=== PATIENT | male | born 1955 | race Caucasian/White ===

== ENCOUNTER 2017-10-19 12:28 | Emergency (ER) | payer OTHER ==
--- OUTSIDE RECORDS SUMMARY | 2017-10-19 12:31 | XMS REPORT | Clinical Summary ---
:1955 Author Organization [facility] Address [address] [place] [address] Care Team Providers Name Role Phone Raudel Prasad MD Primary Care Provider Allergies No Known Allergies Current Medications Prescription Sig. Disp. Refills Start Date End Date Status entecavir Take 1 mg by mouth Active (BARACLUDE) 1 MG daily. tablet famotidine Take 20 mg by mouth Active (PEPCID) 20 MG daily. tablet gabapentin Take 100 mg by 02/01/2017 Active (NEURONTIN) 300 mouth 2 (two) times mg capsule a day. insulin detemir Inject 25 Units 02/25/2017 Active (LEVEMIR) 100 under the skin unit/mL injection daily. insulin lispro INJECT 12-20 UNITS 11/12/2016 Active 100 unit/mL SUBCUTANEOUSLY 3 insulin pen, TIMES A DAY BEFORE half-unit A MEAL metoprolol Take 12.5 mg by Active tartrate mouth 2 (two) times (LOPRESSOR) 25 mg a day. tablet acyclovir Take 400 mg by 07/26/19 Discontinued (ZOVIRAX) 400 MG mouth. 18 tablet BUMETanide Take 2 mg by mouth. 07/26/19 Discontinued (BUMEX) 2 MG 18 tablet apixaban 02/01/2017 07/26/19 Discontinued (ELIQUIS) 5 mg 18 tablet calcium Take 1 tablet by 07/26/19 Discontinued carbonate-vitamin mouth 2 (two) times 18 D3 500 mg-200 a day with meals. unit per tablet acetaminophen-cod Take 1 tablet by 30 tablet 0 05/30/2017 06/06/19 eine (TYLENOL mouth every 4 18 WITH CODEINE #3) (four) hours as 300-30 mg per needed for moderate tablet pain for up to 7 days. insulin lispro Before Meals 05/08/2016 08/08/19 Discontinued (HumaLOG) 100 150-200 2 units 18 unit/mL injection 201-250 4 units 251-300 6 units 301-350 7 units >350 8 units. tacrolimus 3mg in morning and 02/25/2017 08/08/19 Discontinued (PROGRAF) 1 MG 2mg in night. 18 capsule sertraline Take 50 mg by 02/25/2017 08/08/19 Discontinued (ZOLOFT) 50 MG mouth. 18 tablet Active Problems Not on file Encounters Date Type Specialty Care Team Description 08/01/2017 Procedure Pass General Surgery 07/30/2017 Anesthesia Event General Surgery CoriNita alonzo, PRODUCT DEVELOPMENT COORDINATOR 05/30/2017 Hospital Encounter General Surgery Ashvin Medley Acute viral hepatitis B MD [facility] without coma and without delta agent (Primary Dx) 05/30/2017 Procedure Pass General Surgery 05/30/2017 Surgery General Surgery Ashvin Medley LEFT UPPER EXTREMITY MD [facility] 1ST STAGE BVT 05/23/2017 Anesthesia Event General Surgery Nita Persaud, PRODUCT DEVELOPMENT COORDINATOR 05/22/2017 Hospital Encounter Radiology Ashvin Medley Venous insufficiency; MD [place] PVD (peripheral vascular disease) 05/22/2017 Hospital Encounter Radiology Ashvin Medley Venous insufficiency; MD [place] PVD (peripheral vascular disease) 04/11/2017 Transcribe Orders Access Ashvin Medley Venous insufficiency ( Primary Dx); MD [facility] PVD (peripheral vascular disease) after 10/18/2016 Social History Tobacco Use Types Packs/Day Years Used Date Never Assessed Smokeless Tobacco: Never Used Sex Assigned at Date Recorded Not on file Last Filed Vital Signs Vital Sign Reading Time Taken Blood Pressure 127/72 05/30/2017 12:40 PM [employer] WORK[employer] Pulse 82 05/30/2017 12:40 PM [employer]E WORKER Temperature 36.4 C (97.5 F) 05/30/2017 12:30 PM [employer]E WORKER Respiratory Rate 18 05/30/2017 12:30 PM [employer]E WORKER Oxygen Saturation 96% 05/30/2017 12:40 PM [employer] WORK[employer] Inhaled Oxygen Concentration - - Weight 94.3 kg (208 lb) 05/30/2017 8:07 AM HOE WORKER Height 172.7 cm (5' 8") 05/30/2017 8:07 AM HOE WORKER Body Mass Index 31.63 05/30/2017 8:07 AM HOE WORKER Plan of Treatment Date Type Specialty Care Team Description 10/21/2017 Surgery General Surgery Ashvin Medley LEFT UPPER EXTREMITY MD [place] SECOND STAGE BASILIC [facility] [address] [place] [address] [phone] 10/21/2017 Procedure Pass General Surgery 10/21/2017 Hospital Encounter General Surgery Ashvin Medley MD [facility] [address] [place] [address] [phone] Health Maintenance Due Date Last Done Comments COLON CANCER SCREENING 09/02/2003 SHINGRIX VACCINE (#1) 09/02/2003 ZOSTER VACCINE 2013 INFLUENZA VACCINE 01/01/2018 Procedures Procedure Name Priority Date/Time Associated Diagnosis Comments FL AN ELECTIVE Routine 05/30/2017 9:40 AM SUPRAGLOTTIC AIRWAY [employer]E WORKER Procedure Note - Anel Ponce CRNA - 05/30/2017 9:39 AM HOE WORKER Airway Date/Time: 05/30/2017 9:35 AM Performed by: ANEL PONCE Authorized by: SUSHMA JOLLY Location: OR Urgency: Elective Difficult Airway: No Resident/SAMPLE WRAPPER/AA: MARY MONTES Performed by: resident/SAMPLE WRAPPER/AA Preoxygenated with 100% O2: Yes Mask Ventilation: Not attempted Final Airway Type: Supraglottic airway Final LMA: I-Gel LMA Size: 5 Number of Attempts at Approach: 1 ANESTHESIA PERIPHERAL BLOCK Routine 05/30/2017 8:58 AM HOE WORKER Procedure Note - Sushma Jolly MD - 05/30/2017 8:57 AM HOE WORKER Peripheral Block Performed by: SUSHMA JOLLY Authorized by: SUSHMA JOLLY Patient Location: Pre-op Start Time: 05/30/2017 8:23 AM End Time: 05/30/2017 8:35 AM Reason for Block: at surgeon's request Staff: Anesthesiologist: SUSHMA JOLLY Resident/SAMPLE WRAPPER/AA: ANEL PONCE Performed by: Anesthesiologist Preprocedure: patient identified, IV checked, site and side verified, risks and benefits discussed, procedure verified, surgical consent complete, patient position confirmed, monitors and equipment checked, pre-op evaluation complete and site marked Time Out Performed: 05/30/2017 8:23 AM Peripheral Nerve Block: Patient Position: Right lateral decubitus Prep: ChloraPrep Monitoring: Blood pressure monitoring, continuous pulse oximetry and heart rate Block Type: Supraclavicular Laterality: Left Injection Technique: Single injection Procedures: ultrasound guided Ultrasound documentation: Printed/placed in chart Local Infiltration (See MAR for details): Ropivacaine Needle: Needle Type: Pajunk Needle Gauge: 21 G Needle Length: 10 cm Assessment: Injection Assessment: Visualized needle/local anesthetic surrounding nerve , visualized pertinent vascular structures and nerves, needle tip visualized at all times during injection of medication, no symptoms of intraneural/intravenous injection and intermittent aspiration during local anesthetic administration Paresthesia Pain: None Heart Rate Change: No Slow Fractionated Injection: Yes Block outcome: No apparent complications, patient comfortable and patient tolerated procedure well after 10/18/2016 Results Ammonia level (05/30/2017 10:45 AM) Component Value Ref Range Ammonia 47 16 - 60 umol/L Specimen Performing Laboratory Plasma specimen [facility] DEPARTMENT OF PATHOLOGY AND [facility] [address] [place] [id number] POC glucose (05/30/2017 10:17 AM) Component Value Ref Range POC glucose 112 (H) 65 - 99 mg/dL Comment: RN Notified Meter ID: [id number] Veterinarian: Lori Graham Specimen Performing Laboratory [facility] DEPARTMENT OF PATHOLOGY AND [facility] [address] [place] [address] Prothrombin time with INR (05/30/2017 9:28 AM)Only the most recent of2 resultswithin the time period is included. Component Value Ref Range Prothrombin time 40.8 (H) 12.0 - 15.0 sec INR 4.1 (HH) Comment: The International Normalized Ratio (INR) is a therapeutic monitoring tool for patients who are stable on oral anticoagulant therapy. An INR of 2.0-3.0 is suggested for deep vein thrombosis/pulmonary embolism. Called result with readback to Orion Owusu/OR 05/30/201709:58 Specimen Performing Laboratory Blood [facility] DEPARTMENT OF PATHOLOGY AND [facility] [address] [place] [address] POC panel 4 (05/30/2017 8:20 AM) Component Value Ref Range POC sodium 141 135 - 148 meq/L POC potassium 5.0 3.5 - 5.0 meq/L POC hematocrit 33 (L) 41 - 51 % POC glucose 106 (H) 65 - 99 mg/dL POC hemoglobin 11.2 (L) 14.0 - 18.0 g/dL Specimen Performing Laboratory Blood [facility] DEPARTMENT OF PATHOLOGY AND [facility]OMIC MEDICINE [address] [place] [address] XR Chest 1 Vw Portable (05/30/2017 8:15 AM) Specimen Performing Laboratory [facility] [address] [place] [address] Narrative EXAMINATION:XR CHEST 1 VW PORTABLE CLINICAL HISTORY:pre-op clearance COMPARISON:There are no prior comparable exams at this institution. IMPRESSION:No evidence for acute cardiopulmonary disease. Comments: Left basilar volume loss. Lungs are otherwise clear. Heart size is normal. Right IJ tunneled dialysis catheter tip projects at the right atrium. No evidence of pleural effusion or pneumothorax. [id number] Procedure Note Interface, Radiology Results Incoming - 05/30/2017 8:19 AM HOE WORKER EXAMINATION: XR CHEST 1 VW PORTABLE CLINICAL HISTORY: pre-op clearance COMPARISON: There are no prior comparable exams at this institution. IMPRESSION: No evidence for acute cardiopulmonary disease. Comments: Left basilar volume loss. Lungs are otherwise clear. Heart size is normal. Right IJ tunneled dialysis catheter tip projects at the right atrium. No evidence of pleural effusion or pneumothorax. [id number] Estimated GFR (05/30/2017 8:05 AM) Component Value Ref Range GFR Non Af Amer 5 (A) mL/min/1.73 m2 GFR Af Amer 7 (A) mL/min/1.73 m2 Comment: Chronic kidney disease: <60 mL/min/1.73m2 Kidney failure: <15 mL/min/1.73m2 The estimated GFR is calculated from the IDMS-traceable Modification of Diet in Renal Disease Equation. The accuracy of the calculation is poor when the creatinine is normal. Calculated values >90 mL/min/1.73m2 are not reported. This equation has not been validated in children (<18 years), women, the elderly (>70 years), or ethnic groups other than Caucasians and Americans. Specimen Performing Laboratory Plasma specimen [facility] DEPARTMENT OF PATHOLOGY AND GENOMIC MEDICINE [address] [place] [address] Partial thromboplastin time, activated (05/30/2017 8:05 AM) Component Value Ref Range PTT 76.0 (HH) 23.0 - 36.0 sec Comment: PTT therapeutic range for unfractionated heparin is 61.0-112.0 seconds which corresponds to Anti-Xa 0.3-0.7 U/ml. Specimen Performing Laboratory Blood [facility] DEPARTMENT OF PATHOLOGY AND [facility]OMIC [facility]ICINE [address] [place] [address] CBC with platelet and differential (05/30/2017 8:05 AM) Component Value Ref Range WBC 4.6 4.5 - 11.0 k/uL RBC 3.65 (L) 4.40 - 6.00 m/uL HGB 11.0 (L) 14.0 - 18.0 g/dL HCT 33.9 (L) 41.0 - 51.0 % MCV 92.9 82.0 - 100.0 fL MCH 30.1 27.0 - 34.0 pg MCHC 32.4 31.0 - 37.0 g/dL RDW - SD 53.6 37.0 - 55.0 fL MPV 9.4 6.9 - 11.0 fL Platelet count 133 (L) 150 - 400 K/uL Nucleated RBC 0.40 /100 WBC Neutrophils 66.4 39.0 - 69.0 % Lymphocytes 17.8 (L) 25.0 - 45.0 % Monocytes 9.8 0.0 - 10.0 % Eosinophils 4.1 0.0 - 5.0 % Basophils 0.4 0.0 - 1.0 % Immature granulocytes 1.5 (H) 0.0 - 1.0 % Specimen Performing Laboratory Blood [facility] DEPARTMENT OF PATHOLOGY AND [address] [address] Type and screen (05/30/2017 8:05 AM) Component Value Ref Range ABO grouping A Rh type POS Antibody screen (gel) NEG Specimen Performing Laboratory Blood [facility] DEPARTMENT OF PATHOLOGY AND [address] [address] Basic metabolic panel (05/30/2017 8:05 AM) Component Value Ref Range Sodium 142 135 - 148 mEq/L Potassium 5.3 (H) 3.5 - 5.0 mEq/L Chloride 103 98 - 112 mEq/L CO2 18 (L) 24 - 31 mEq/L Anion gap 21 (H) 7 - 15 mEq/L Comment: Starting from September , anion gap calculation no longer incorporates potassium. Please note the change. BUN 66 (H) 8 - 23 mg/dL Creatinine 9.7 (H) 0.7 - 1.2 mg/dL Glucose 110 (H) 65 - 99 mg/dL Calcium 8.0 (L) 8.8 - 10.2 mg/dL Specimen Performing Laboratory Plasma specimen [facility] DEPARTMENT OF PATHOLOGY AND GENOMIC MEDICINE [id number] [place] [address]. [place] [address] ECG 12 lead (05/30/2017 7:48 AM) Component Value Ref Range Ventricular rate 74 Atrial rate 74 FL interval 164 QRSD interval 86 QT interval 400 QTC interval 444 P axis 1 29 QRS axis 1 -14 T wave axis 26 EKG impression Normal sinus rhythm-Normal ECG-No previous ECGs available- Specimen Performing Laboratory [facility] [address] [place] [address] Pv ankle brachial index extremity complete (05/22/2017 6:00 PM) Specimen Performing Laboratory [facility] [address] [place] [address] Narrative EXAM: US DUPLEX ARTERIAL LOWER EXTREMITY BILATERAL, US ANKLE BRACHIAL INDEX COMPLETE HISTORY: I87.2 Venous insufficiency (chronic) (peripheral), I73.9 Peripheral vascular diseaseunspecified, I87.2PVD TECHNIQUE: Real-time as well as pulsed and color Doppler evaluation of the right common femoral, femoral, popliteal, posterior tibial, anterior tibial, and dorsalis pedis arteries are evaluated. The examination includes a full duplex Doppler scan of the blood vessels (real-time P mode grayscale, Doppler spectral analysis, and Doppler color flow imaging). Systolic pressures were obtained in the upper and lower extremities for determination of ankle-brachial indices. COMPARISON: There are no prior comparable exams at this institution. IMPRESSION: 1.Velocity gradient within the mid left anterior tibial artery, suggesting focal flow-limiting stenosis. No velocity gradients within the right lower extremity to suggest flow-limiting stenosis (given limitations of a resting exam). 2.The infrapopliteal vessels have monophasic waveforms bilaterally, possibly representing sequela of multilevel disease or calcified vessels. 3.Slightly elevated FRANK in the left lower extremity dorsalis pedis arterial distribution suggest calcified vessels. Otherwise normal bilateral ABIs. FINDINGS:Waveforms are monophasic in the infrapopliteal region. RIGHT LEG: PEAK SYSTOLIC VELOCITIES ARE FOLLOWS: COMMON FEMORAL:107 cm/s FEMORAL: Proximal: -95.85 cm/s Mid:- 94.76 cm/s Distal:-61.80 cm/s POPLITEAL: Proximal:107.99 cm/s Mid:- 106.90 cm/s Distal: - 106.87 cm/s POSTERIOR TIBIAL: Proximal: 36.73 cm/s Mid: 32.46 cm/s Distal:31.75 cm /s ANTERIOR TIBIAL: Proximal: 58.08 cm/s Mid: 81.00 cm/s Distal:97.82 cm /s DORSALIS PEDIS: 102.99 cm/s DOPPLER WAVEFORMS: COMMON FEMORAL: Triphasic FEMORAL Proximal: Triphasic Mid: Triphasic Distal: Triphasic POPLITEAL Proximal: Triphasic Mid: Triphasic Distal: Triphasic POSTERIOR TIBIAL Proximal: Monophasic Mid: Monophasic Distal: Monophasic ANTERIOR TIBIAL Proximal: Monophasic Mid: Monophasic Distal: Monophasic DORSALIS PEDIS: Monophasic Right ANKLE BRACHIAL INDEX: Posterior tibial: 1.26 Dorsalis pedis: 1.29 LEFT LEG: PEAK SYSTOLIC VELOCITIES ARE FOLLOWS: COMMON FEMORAL:-106.87 cm/s FEMORAL: Proximal: -88.76 cm/s Mid:- 95.23 cm/s Distal:-87.47 cm/s POPLITEAL: Proximal: 57.71 cm/s Mid:- 52.53 cm/s Distal: -74.53 cm/s POSTERIOR TIBIAL: Proximal: 33.88 cm/s Mid: 28.19 cm/s Distal:60.29 cm /s ANTERIOR TIBIAL: Proximal:32.46 cm/s Mid: 103.98 cm/s Distal: 86.39 cm/s DORSALIS PEDIS:86.60 cm/s DOPPLER WAVEFORMS: COMMON FEMORAL: Triphasic FEMORAL Proximal: Triphasic Mid: Triphasic Distal: Triphasic POPLITEAL Proximal: Triphasic Mid: Triphasic Distal: Triphasic POSTERIOR TIBIAL Proximal: Monophasic Mid: Monophasic Distal: Monophasic ANTERIOR TIBIAL Proximal: Monophasic Mid: Monophasic Distal: Monophasic DORSALIS PEDIS: Monophasic ANKLE BRACHIAL INDEX: Posterior tibial: 1.29 Dorsalis pedis: 1.40 [id number] FRANK Guidelines: >1.4: Calcified Vessel 0.9-1.4: Normal 0.7-0.89: Mild PAD 0.51-0.69: Moderate PAD <0.5: Severe PAD TBI Guidelines: <0.6: Normal 0.34-0.59: Mild PAD 0.12-0.34: Moderate PAD <0.11: Severe PAD Procedure Note Hm Interface, Radiology Results Incoming - 05/22/2017 6:21 PM HOE WORKER EXAM: US DUPLEX ARTERIAL LOWER EXTREMITY BILATERAL, US ANKLE BRACHIAL INDEX COMPLETE HISTORY: I87.2 Venous insufficiency (chronic) (peripheral), I73.9 Peripheral vascular disease unspecified, I87.2 PVD TECHNIQUE: Real-time as well as pulsed and color Doppler evaluation of the right common femoral, femoral, popliteal, posterior tibial, anterior tibial, and dorsalis pedis arteries are evaluated. The examination includes a full duplex Doppler scan of the blood vessels (real-time P mode grayscale, Doppler spectral analysis, and Doppler color flow imaging). Systolic pressures were obtained in the upper and lower extremities for determination of ankle-brachial indices. COMPARISON: There are no prior comparable exams at this institution. IMPRESSION: 1. Velocity gradient within the mid left anterior tibial artery, suggesting focal flow-limiting stenosis. No velocity gradients within the right lower extremity to suggest flow-limiting stenosis (given limitations of a resting exam ). 2. The infrapopliteal vessels have monophasic waveforms bilaterally, possibly representing sequela of multilevel disease or calcified vessels. 3. Slightly elevated FRANK in the left lower extremity dorsalis pedis arterial distribution suggest calcified vessels. Otherwise normal bilateral ABIs. FINDINGS: Waveforms are monophasic in the infrapopliteal region. RIGHT LEG: PEAK SYSTOLIC VELOCITIES ARE FOLLOWS: COMMON FEMORAL: 107 cm/s FEMORAL: Proximal: -95.85 cm/s Mid: -94.76 cm/s Distal: -61.80 cm/s POPLITEAL: Proximal: 107.99 cm/s Mid: -106.90 cm/s Distal: -106.87 cm/s POSTERIOR TIBIAL: Proximal: 36.73 cm/s Mid: 32.46 cm/s Distal: 31.75 cm/s ANTERIOR TIBIAL: Proximal: 58.08 cm/s Mid: 81.00 cm/s Distal: 97.82 cm/s DORSALIS PEDIS: 102.99 cm/s DOPPLER WAVEFORMS: COMMON FEMORAL: Triphasic FEMORAL Proximal: Triphasic Mid: Triphasic Distal: Triphasic POPLITEAL Proximal: Triphasic Mid: Triphasic Distal: Triphasic POSTERIOR TIBIAL Proximal: Monophasic Mid: Monophasic Distal: Monophasic ANTERIOR TIBIAL Proximal: Monophasic Mid: Monophasic Distal: Monophasic DORSALIS PEDIS: Monophasic Right ANKLE BRACHIAL INDEX: Posterior tibial: 1.26 Dorsalis pedis: 1.29 LEFT LEG: PEAK SYSTOLIC VELOCITIES ARE FOLLOWS: COMMON FEMORAL: -106.87 cm/s FEMORAL: Proximal: -88.76 cm/s Mid: -95.23 cm/s Distal: -87.47 cm/s POPLITEAL: Proximal: 57.71 cm/s Mid: -52.53 cm/s Distal: -74.53 cm/s POSTERIOR TIBIAL: Proximal: 33.88 cm/s Mid: 28.19 cm/s Distal: 60.29 cm/s ANTERIOR TIBIAL: Proximal: 32.46 cm/s Mid: 103.98 cm/s Distal: 86.39 cm/s DORSALIS PEDIS: 86.60 cm/s DOPPLER WAVEFORMS: COMMON FEMORAL: Triphasic FEMORAL Proximal: Triphasic Mid: Triphasic Distal: Triphasic POPLITEAL Proximal: Triphasic Mid: Triphasic Distal: Triphasic POSTERIOR TIBIAL Proximal: Monophasic Mid: Monophasic Distal: Monophasic ANTERIOR TIBIAL Proximal: Monophasic Mid: Monophasic Distal: Monophasic DORSALIS PEDIS: Monophasic ANKLE BRACHIAL INDEX: Posterior tibial: 1.29 Dorsalis pedis: 1.40 [id number] FRANK Guidelines: >1.4: Calcified Vessel 0.9-1.4: Normal 0.7-0.89: Mild PAD 0.51-0.69: Moderate PAD <0.5: Severe PAD TBI Guidelines: <0.6: Normal 0.34-0.59: Mild PAD 0.12-0.34: Moderate PAD <0.11: Severe PAD Pv duplex arterial lower extremity (05/22/2017 6:00 PM) Specimen Performing Laboratory [address] [address] Narrative EXAM: US DUPLEX ARTERIAL LOWER EXTREMITY BILATERAL, US ANKLE BRACHIAL INDEX COMPLETE HISTORY: I87.2 Venous insufficiency (chronic) (peripheral), I73.9 Peripheral vascular diseaseunspecified, I87.2PVD TECHNIQUE: Real-time as well as pulsed and color Doppler evaluation of the right common femoral, femoral, popliteal, posterior tibial, anterior tibial, and dorsalis pedis arteries are evaluated. The examination includes a full duplex Doppler scan of the blood vessels (real-time P mode grayscale, Doppler spectral analysis, and Doppler color flow imaging). Systolic pressures were obtained in the upper and lower extremities for determination of ankle-brachial indices. COMPARISON: There are no prior comparable exams at this institution. IMPRESSION: 1.Velocity gradient within the mid left anterior tibial artery, suggesting focal flow-limiting stenosis. No velocity gradients within the right lower extremity to suggest flow-limiting stenosis (given limitations of a resting exam). 2.The infrapopliteal vessels have monophasic waveforms bilaterally, possibly representing sequela of multilevel disease or calcified vessels. 3.Slightly elevated FRANK in the left lower extremity dorsalis pedis arterial distribution suggest calcified vessels. Otherwise normal bilateral ABIs. FINDINGS:Waveforms are monophasic in the infrapopliteal region. RIGHT LEG: PEAK SYSTOLIC VELOCITIES ARE FOLLOWS: COMMON FEMORAL:107 cm/s FEMORAL: Proximal: -95.85 cm/s Mid:- 94.76 cm/s Distal:-61.80 cm/s POPLITEAL: Proximal:107.99 cm/s Mid:- 106.90 cm/s Distal: - 106.87 cm/s POSTERIOR TIBIAL: Proximal: 36.73 cm/s Mid: 32.46 cm/s Distal:31.75 cm /s ANTERIOR TIBIAL: Proximal: 58.08 cm/s Mid: 81.00 cm/s Distal:97.82 cm /s DORSALIS PEDIS: 102.99 cm/s DOPPLER WAVEFORMS: COMMON FEMORAL: Triphasic FEMORAL Proximal: Triphasic Mid: Triphasic Distal: Triphasic POPLITEAL Proximal: Triphasic Mid: Triphasic Distal: Triphasic POSTERIOR TIBIAL Proximal: Monophasic Mid: Monophasic Distal: Monophasic ANTERIOR TIBIAL Proximal: Monophasic Mid: Monophasic Distal: Monophasic DORSALIS PEDIS: Monophasic Right ANKLE BRACHIAL INDEX: Posterior tibial: 1.26 Dorsalis pedis: 1.29 LEFT LEG: PEAK SYSTOLIC VELOCITIES ARE FOLLOWS: COMMON FEMORAL:-106.87 cm/s FEMORAL: Proximal: -88.76 cm/s Mid:- 95.23 cm/s Distal:-87.47 cm/s POPLITEAL: Proximal: 57.71 cm/s Mid:- 52.53 cm/s Distal: -74.53 cm/s POSTERIOR TIBIAL: Proximal: 33.88 cm/s Mid: 28.19 cm/s Distal:60.29 cm /s ANTERIOR TIBIAL: Proximal:32.46 cm/s Mid: 103.98 cm/s Distal: 86.39 cm/s DORSALIS PEDIS:86.60 cm/s DOPPLER WAVEFORMS: COMMON FEMORAL: Triphasic FEMORAL Proximal: Triphasic Mid: Triphasic Distal: Triphasic POPLITEAL Proximal: Triphasic Mid: Triphasic Distal: Triphasic POSTERIOR TIBIAL Proximal: Monophasic Mid: Monophasic Distal: Monophasic ANTERIOR TIBIAL Proximal: Monophasic Mid: Monophasic Distal: Monophasic DORSALIS PEDIS: Monophasic ANKLE BRACHIAL INDEX: Posterior tibial: 1.29 Dorsalis pedis: 1.40 [id number] FRANK Guidelines: >1.4: Calcified Vessel 0.9-1.4: Normal 0.7-0.89: Mild PAD 0.51-0.69: Moderate PAD <0.5: Severe PAD TBI Guidelines: <0.6: Normal 0.34-0.59: Mild PAD 0.12-0.34: Moderate PAD <0.11: Severe PAD Procedure Note Interface, Radiology Results Incoming - 05/22/2017 6:21 PM HOE WORKER EXAM: US DUPLEX ARTERIAL LOWER EXTREMITY BILATERAL, US ANKLE BRACHIAL INDEX COMPLETE HISTORY: I87.2 Venous insufficiency (chronic) (peripheral), I73.9 Peripheral vascular disease unspecified, I87.2 PVD TECHNIQUE: Real-time as well as pulsed and color Doppler evaluation of the right common femoral, femoral, popliteal, posterior tibial, anterior tibial, and dorsalis pedis arteries are evaluated. The examination includes a full duplex Doppler scan of the blood vessels (real-time P mode grayscale, Doppler spectral analysis, and Doppler color flow imaging). Systolic pressures were obtained in the upper and lower extremities for determination of ankle-brachial indices. COMPARISON: There are no prior comparable exams at this institution. IMPRESSION: 1. Velocity gradient within the mid left anterior tibial artery, suggesting focal flow-limiting stenosis. No velocity gradients within the right lower extremity to suggest flow-limiting stenosis (given limitations of a resting exam ). 2. The infrapopliteal vessels have monophasic waveforms bilaterally, possibly representing sequela of multilevel disease or calcified vessels. 3. Slightly elevated FRANK in the left lower extremity dorsalis pedis arterial distribution suggest calcified vessels. Otherwise normal bilateral ABIs. FINDINGS: Waveforms are monophasic in the infrapopliteal region. RIGHT LEG: PEAK SYSTOLIC VELOCITIES ARE FOLLOWS: COMMON FEMORAL: 107 cm/s FEMORAL: Proximal: -95.85 cm/s Mid: -94.76 cm/s Distal: -61.80 cm/s POPLITEAL: Proximal: 107.99 cm/s Mid: -106.90 cm/s Distal: -106.87 cm/s POSTERIOR TIBIAL: Proximal: 36.73 cm/s Mid: 32.46 cm/s Distal: 31.75 cm/s ANTERIOR TIBIAL: Proximal: 58.08 cm/s Mid: 81.00 cm/s Distal: 97.82 cm/s DORSALIS PEDIS: 102.99 cm/s DOPPLER WAVEFORMS: COMMON FEMORAL: Triphasic FEMORAL Proximal: Triphasic Mid: Triphasic Distal: Triphasic POPLITEAL Proximal: Triphasic Mid: Triphasic Distal: Triphasic POSTERIOR TIBIAL Proximal: Monophasic Mid: Monophasic Distal: Monophasic ANTERIOR TIBIAL Proximal: Monophasic Mid: Monophasic Distal: Monophasic DORSALIS PEDIS: Monophasic Right ANKLE BRACHIAL INDEX: Posterior tibial: 1.26 Dorsalis pedis: 1.29 LEFT LEG: PEAK SYSTOLIC VELOCITIES ARE FOLLOWS: COMMON FEMORAL: -106.87 cm/s FEMORAL: Proximal: -88.76 cm/s Mid: -95.23 cm/s Distal: -87.47 cm/s POPLITEAL: Proximal: 57.71 cm/s Mid: -52.53 cm/s Distal: -74.53 cm/s POSTERIOR TIBIAL: Proximal: 33.88 cm/s Mid: 28.19 cm/s Distal: 60.29 cm/s ANTERIOR TIBIAL: Proximal: 32.46 cm/s Mid: 103.98 cm/s Distal: 86.39 cm/s DORSALIS PEDIS: 86.60 cm/s DOPPLER WAVEFORMS: COMMON FEMORAL: Triphasic FEMORAL Proximal: Triphasic Mid: Triphasic Distal: Triphasic POPLITEAL Proximal: Triphasic Mid: Triphasic Distal: Triphasic POSTERIOR TIBIAL Proximal: Monophasic Mid: Monophasic Distal: Monophasic ANTERIOR TIBIAL Proximal: Monophasic Mid: Monophasic Distal: Monophasic DORSALIS PEDIS: Monophasic ANKLE BRACHIAL INDEX: Posterior tibial: 1.29 Dorsalis pedis: 1.40 [facility] [id number] FRANK Guidelines: >1.4: Calcified Vessel 0.9-1.4: Normal 0.7-0.89: Mild PAD 0.51-0.69: Moderate PAD <0.5: Severe PAD TBI Guidelines: <0.6: Normal 0.34-0.59: Mild PAD 0.12-0.34: Moderate PAD <0.11: Severe PAD after 10/18/2016 Insurance Payer Benefit Plan / Group Subscriber ID Type Phone Address MEDICARE MEDICARE PART A AND B xxxxxxxxxx Medicare [place], [place] MEDICAID MEDICAID xxxxxxxxx Medicaid Home: [address] [phone] [place], [place] [phone]
--- NOTE | 2017-10-19 13:36 | RAD REPORT ---
EXAM DESCRIPTION: CT - Head Brain Wo Cont - 10/19/2017 1:18 pm CLINICAL HISTORY: Fall, head trauma prior head injury COMPARISON: CT study July 29 TECHNIQUE: Axial 5 mm thick images of the head were obtained without IV contrast. All CT scans are performed using dose optimization technique as appropriate and may include automated exposure control or mA/KV adjustment according to patient size. FINDINGS: No epidural or subdural hematoma identified. Patient has a left frontal craniotomy defect from prior acute and chronic subdural evacuation. There is a remnant 3.7 x 1.5 centimeter fluid colle ction at the site of prior subdural. Physiologic and arterial calcifications are present. Underlying atrophy and chronic ischemic changes are present. No acute cortical based infarction. No abnormal ext ra-axial fluid collections. Ventricles are in proportion to atrophy. Mastoid air cells and visualized portions of the paranasal sinuses are clear. No acute bony findings. IMPRESSION: No acute hemorrhage. A 3 centimeter chronic subdural hematoma or subdural hygroma is present at the anterior left frontal site of prior subdural hematoma evacuation. Overlying bone postsurgical change. No active process at this site. Underlying moderate atrophy and chronic ischemic change.
--- NOTE | 2017-10-19 14:15 | ER ---
Nurse's Notes [facility] Name: Archie Nazario Age: 62 yrs Sex: Male : 1955 Arrival Date: 10/19/2017 Time: 12:29 Bed 15 Private MD: Diagnosis: Contusion of other part of head;Nontraumatic chronic subdural hemorrhage Presentation: 10/19 12:33 Presenting complaint: Patient states: I rolled off of my bed and hit the left la1 side of my face on night, pt denies LOC. Transition of care: patient was not received from another setting of care. Onset of symptoms was October 19, 2017. Initial Sepsis Screen: Does the patient meet any 2 criteria? No. Patient's initial sepsis screen is negative. Does the patient have a suspected source of infection? No. Patient's initial sepsis screen is negative. Care prior to arrival: None. 12:33 Method Of Arrival: Ambulatory la1 12:33 Acuity: JAZMINE 4 la1 Historical: - Allergies: 12:34 No Known Allergies; la1 - Home Meds: 12:50 Bumex Oral 2 mg [Active]; calcium citrate 500 mg Oral tab [Active]; entecavir 1 mg Oral rb1 tab 1 tab once daily [Active]; famotidine 20 mg Oral tab 1 tab once daily [Active]; Levemir 50 units am, 30 units pm subcutaneous soln [Active]; metolazone 2.5 mg Oral tab 1 tab once daily [Active]; mirtazapine 15 mg Oral tab 1 tab once daily [Active]; prednisone 5 mg Oral tab once daily [Active]; Rapamune 1 mg Oral tab 2 tabs once daily [Active]; Renvela 800 mg Oral tab 1 tab 3 times per day [Active]; tamsulosin 0.4 mg Oral cp24 1 cap once daily [Active]; ursodeoxycholic acid 300 mg twice a day [Active]; - PMHx: 12:34 Diabetes - IDDM; hepatic cancer; Hypertension; kidney failure; Dialysis; la1 - PSHx: 12:50 dialysis catheter left upper arm; head; liver transplant; rb1 - Immunization history:: Adult Immunizations up to date. - Social history:: Smoking status: Patient/guardian denies using tobacco. - Immunization history: Last tetanus immunization: - up to date. Screenin:50 Abuse screen: Denies threats or abuse. Denies injuries from another. Tuberculosis ch screening: No symptoms or risk factors identified. 12:53 Nutritional screening: No deficits noted. Fall Risk Fall in past 12 months (25 points). ch No secondary diagnosis (0 pts). Primary Survey: 12:50 A: Airway: patent. Breathing/Chest: Respiratory pattern: regular, Respiratory effort: ch spontaneous, unlabored. Circulation: Heart tones present. Pulses: palpable bilateral radial, brachial, femoral, popliteal, posterior tibial and and dorsalis pedis arteries.. Skin color: pink, Skin temperature: warm, dry. Disability Alert. Secondary Survey: 12:50 HEENT: Face Other pt has purple bruising to L eye, c/o pain to L sinus area, and ch between eye and ear. slight pain in ear. Gastrointestinal: No deficits noted. : No deficits noted. Musculoskeletal: No signs and/or symptoms reported regarding the musculoskeletal system. Circulation, motion, and sensation intact. Assessment: 12:50 General: Appears in no apparent distress. comfortable, Behavior is calm, cooperative, ch appropriate for age. Pain: Complains of pain in forehead, left ear, left eye and left sikhism Pain currently is 7 out of 10 on a pain scale. Pain began suddenly, 2-3 days ago. Neuro: No deficits noted. Respiratory: Airway is patent Respiratory effort is even, unlabored, Breath sounds are clear bilaterally. GI: No signs and/or symptoms were reported involving the gastrointestinal system. 12:53 Reassessment: Patient appears in no apparent distress at this time. Patient and/or ch family updated on plan of care and expected duration. Pain level reassessed. Patient is alert, oriented x 3, equal unlabored respirations, skin warm/dry/pink. 13:13 Reassessment: pt. went to CT. rb1 13:30 Reassessment: Patient appears in no apparent distress at this time. Patient and/or rb1 family updated on plan of care and expected duration. Pain level reassessed. Patient is alert, oriented x 3, equal unlabored respirations, skin warm/dry/pink. 14:22 Reassessment: Patient appears in no apparent distress at this time. No changes from rb1 previously documented assessment. Vital Signs: 12:34 BP 93 / 63; Pulse 89; Resp 18; Temp 97.5(TE); Pulse Ox 100% on R/A; Weight 77.11 kg; la1 Height 5 ft. 10 in. (177.80 cm); 13:30 BP 96 / 50; Pulse 86; Resp 17; Pulse Ox 98% on R/A; rb1 14:30 BP 96 / 61; Pulse 84; Resp 19; Pulse Ox 99% on R/A; rb1 12:34 Body Mass Index 24.39 (77.11 kg, 177.80 cm) la1 Jenna Coma Score: 12:50 Eye Response: spontaneous(4). Verbal Response: oriented(5). Motor Response: obeys ch commands(6). Total: 15. 13:48 Eye Response: spontaneous(4). Verbal Response: oriented(5). Motor Response: obeys gs commands(6). Total: 15. Trauma Score (Adult): 12:50 Eye Response: spontaneous(1); Verbal Response: oriented(1); Motor Response: obeys ch commands(2); Systolic BP: > 89 mm Hg(4); Respiratory Rate: 10 to 29 per min(4); Jenna Score: 15; Trauma Score: 12 ED Course: 12:29 Patient arrived in ED. sb2 12:34 Triage completed. la1 12:35 Arm band placed on left wrist. la1 12:41 William Martinez MD is Attending Physician. gs 12:50 Patient has correct armband on for positive identification. ch 12:50 Patient maintains SpO2 saturation greater than 95% on room air. Thermoregulation: warm ch blanket given to patient. 12:53 No apparent distress. Resting quietly. ch 12:53 Pulse ox on. NIBP on. ch 12:53 No provider procedures requiring assistance completed. Patient did not have IV access ch during this emergency room visit. 13:03 Jada Antoine, RN is Primary Nurse. rb1 13:18 CT Head Brain wo Cont In Process Unspecified. EDMS Administered Medications: No medications were administered Intake: 12:50 PO: 0ml; Total: 0ml. ch Outcome: 14:15 Discharge ordered by . gs 14:38 Discharged to home ambulatory. rb1 14:38 Condition: stable 14:38 Discharge instructions given to patient, Instructed on discharge instructions, follow up and referral plans. Demonstrated understanding of instructions, follow-up care, Prescriptions given X none 14:38 Patient left the ED. rb1 Signatures: Dispatcher [employer] EDHiwot Salgado RN RN ch Jay Nichols RN RN la1 Jada Antoine RN RN rb1 William Martinez MD MD gs Billeau, Sheri sb2 Corrections: (The following items were deleted from the chart) 14:40 14:39 Patient left the ED. rb1 rb1
--- NOTE | 2017-10-19 14:15 | EDPHYS ---
Physician Documentation [facility] Name: Archie Nazario Age: 62 yrs Sex: Male : 1955 Arrival Date: 10/19/2017 Time: 12:29 Bed 15 Private MD: ED Physician William Martinez HPI: 10/19 13:48 This 62 yrs old Male presents to ER via Ambulatory with complaints of Fall gs Injury. 13:48 The patient or guardian reports injury. The complaints affect the left eye. Onset: The gs symptoms/episode began/occurred 2 day(s) ago. Associated signs and symptoms: Loss of consciousness: This patient did not experience any loss of consciousness. Severity of symptoms: At their worst the symptoms were moderate, in the emergency department the symptoms are unchanged. The patient has experienced a previous episode. Historical: - Allergies: 12:34 No Known Allergies; la1 - Home Meds: 12:50 Bumex Oral 2 mg [Active]; calcium citrate 500 mg Oral tab [Active]; entecavir 1 mg Oral rb1 tab 1 tab once daily [Active]; famotidine 20 mg Oral tab 1 tab once daily [Active]; Levemir 50 units am, 30 units pm subcutaneous soln [Active]; metolazone 2.5 mg Oral tab 1 tab once daily [Active]; mirtazapine 15 mg Oral tab 1 tab once daily [Active]; prednisone 5 mg Oral tab once daily [Active]; Rapamune 1 mg Oral tab 2 tabs once daily [Active]; Renvela 800 mg Oral tab 1 tab 3 times per day [Active]; tamsulosin 0.4 mg Oral cp24 1 cap once daily [Active]; ursodeoxycholic acid 300 mg twice a day [Active]; - PMHx: 12:34 Diabetes - IDDM; hepatic cancer; Hypertension; kidney failure; Dialysis; la1 - PSHx: 12:50 dialysis catheter left upper arm; head; liver transplant; rb1 - Immunization history:: Adult Immunizations up to date. - Social history:: Smoking status: Patient/guardian denies using tobacco. - Immunization history: Last tetanus immunization: - up to date. ROS: 13:48 All other systems are negative. gs Exam: 13:48 Head/Face: Normocephalic, atraumatic. ENT: Nares patent. No nasal discharge, no gs septal abnormalities noted. Tympanic membranes are normal and external auditory canals are clear. Oropharynx with no redness, swelling, or masses, exudates, or evidence of obstruction, uvula midline. Mucous membranes moist. Neck: Trachea midline, no thyromegaly or masses palpated, and no cervical lymphadenopathy. Supple, full range of motion without nuchal rigidity, or vertebral point tenderness. No Meningismus. Chest/axilla: Normal chest wall appearance and motion. Nontender with no deformity. No lesions are appreciated. Cardiovascular: Regular rate and rhythm with a normal S1 and S2. No gallops, murmurs, or rubs. Normal PMI, no JVD. No pulse deficits. Respiratory: Lungs have equal breath sounds bilaterally, clear to auscultation and percussion. No rales, rhonchi or wheezes noted. No increased work of breathing, no retractions or nasal flaring. Abdomen/GI: Soft, non-tender, with normal bowel sounds. No distension or tympany. No guarding or rebound. No evidence of tenderness throughout. Back: No spinal tenderness. No costovertebral tenderness. Full range of motion. Skin: Warm, dry with normal turgor. Normal color with no rashes, no lesions, and no evidence of cellulitis. MS/ Extremity: Pulses equal, no cyanosis. Neurovascular intact. Full, normal range of motion. Neuro: Awake and alert, GCS 15, oriented to person, place, time, and situation. Cranial nerves II-XII grossly intact. Motor strength 5/5 in all extremities. Sensory grossly intact. Cerebellar exam normal. Normal gait. 13:48 Constitutional: The patient appears alert, awake. 13:48 Eyes: Extraocular movements: no acute changes, Conjunctiva: normal. 14:03 Head/face: Noted is ecchymosis, that is mild, of the left eye. Vital Signs: 12:34 BP 93 / 63; Pulse 89; Resp 18; Temp 97.5(TE); Pulse Ox 100% on R/A; Weight 77.11 kg; la1 Height 5 ft. 10 in. (177.80 cm); 13:30 BP 96 / 50; Pulse 86; Resp 17; Pulse Ox 98% on R/A; rb1 14:30 BP 96 / 61; Pulse 84; Resp 19; Pulse Ox 99% on R/A; rb1 12:34 Body Mass Index 24.39 (77.11 kg, 177.80 cm) la1 Jenna Coma Score: 12:50 Eye Response: spontaneous(4). Verbal Response: oriented(5). Motor Response: obeys commands(6). Total: 15. 13:48 Eye Response: spontaneous(4). Verbal Response: oriented(5). Motor Response: obeys gs commands(6). Total: 15. Trauma Score (Adult): 12:50 Eye Response: spontaneous(1); Verbal Response: oriented(1); Motor Response: obeys ch commands(2); Systolic BP: > 89 mm Hg(4); Respiratory Rate: 10 to 29 per min(4); Jenna Score: 15; Trauma Score: 12 MDM: 12:58 Patient medically screened. 14:03 Differential diagnosis: Contusion of Hematoma on Intracranial bleed-. Data reviewed: vital signs, nurses notes. Response to treatment: the patient's symptoms have markedly improved after treatment, and as a result, I will discharge patient. 14:06 Counseling: I had a detailed discussion with the patient and/or guardian regarding: the gs historical points, exam findings, and any diagnostic results supporting the discharge/admit diagnosis, radiology results. 10/19 13:01 Order name: CT Head Brain wo Cont; Complete Time: 13:54 Administered Medications: No medications were administered Disposition: 10/19/17 14:15 Discharged to Home. Impression: Contusion of other part of head, Nontraumatic chronic subdural hemorrhage. - Condition is Stable. - Discharge Instructions: Head Injury, Adult, Intracranial Hemorrhage. - Medication Reconciliation Form, Thank You Letter, Antibiotic Education, Prescription Opioid Use form. - Follow up: Private Physician; When: 2 - 3 days; Reason: Re-evaluation by your physician. Signatures: Dispatcher [employer] EDMS Hiwot Malave RN RN ch Attema, Lee, RN RN la1 Jada Antoine RN RN rb1 William Martinez MD MD Corrections: (The following items were deleted from the chart) 14:39 14:15 10/19/2017 14:15 Discharged to Home. Impression: Contusion of other part of head; rb1 Nontraumatic chronic subdural hemorrhage. Condition is Stable. Forms are Medication Reconciliation Form, Thank You Letter, Antibiotic Education, Prescription Opioid Use. Follow up: Private Physician; When: 2 - 3 days; Reason: Re-evaluation by your physician. gs
[2017-10-19 14:42] VITALS: TEMP 97.5
[2017-10-19 14:45] VITALS: BP 96/61; O2SAT 99
== END 2017-10-19 14:39 | disposition home or self-care (01) ==
LOC: ER 12:28
DX: I62.03 Nontraumatic chronic subdural hemorrhage (principal); W19.XXXA Unspecified fall, initial encounter; Y93.9 Activity, unspecified; Y92.9 Unspecified place or not applicable; N19 Unspecified kidney failure; I10 Essential (primary) hypertension; E11.9 Type 2 diabetes mellitus without complications; Z79.4 Long term (current) use of insulin; Z99.2 Dependence on renal dialysis; Z94.4 Liver transplant status
CPT/HCPCS: 70450; 99284

== ENCOUNTER 2017-11-04 20:14 | Emergency (ER) | payer OTHER ==
--- OUTSIDE RECORDS SUMMARY | 2017-11-04 20:16 | XMS REPORT | Clinical Summary ---
:1955 Author Organization [employer] Address [address] [place] [address] Care Team Providers Name Role Phone Fan Dugan MD Primary Care Provider Allergies No Known Allergies Current Medications Prescription Sig. Disp. Refills Start Date End Date Status entecavir Take 0.5 mg by Active (BARACLUDE) 1 MG mouth once a week. tablet Saturday famotidine Take 20 mg by mouth Active (PEPCID) 20 MG daily. tablet gabapentin Take 100 mg by 02/01/2017 Active (NEURONTIN) 100 mouth 2 (two) times mg capsule a day. insulin detemir Inject 25 Units 02/25/2017 Active (LEVEMIR) 100 under the skin unit/mL injection daily. insulin lispro INJECT 12-20 UNITS 11/12/2016 Active 100 unit/mL SUBCUTANEOUSLY 3 insulin pen, TIMES A DAY BEFORE half-unit A MEAL sevelamer Take 800 mg by Active (RENVELA) 800 mg mouth 3 (three) tablet times a day with meals. sertraline Take 50 mg by mouth Active (ZOLOFT) 50 MG every evening. tablet tacrolimus Take 2 mg by mouth Active (PROGRAF) 1 MG every 12 (twelve) capsule hours. ursodiol Take 300 mg by Active (ACTIGALL) 300 mg mouth 2 (two) times capsule a day. ALPRAZolam Take 0.5 mg by Active (XANAX) 0.5 MG mouth nightly as tablet needed for anxiety. On Dialysis days (Tues., Thurs., Sat.) acyclovir Take 400 mg by 07/26/19 Discontinued (ZOVIRAX) 400 MG mouth. 18 tablet BUMETanide Take 2 mg by mouth. 07/26/19 Discontinued (BUMEX) 2 MG 18 tablet apixaban 02/01/2017 07/26/19 Discontinued (ELIQUIS) 5 mg 18 tablet metoprolol Take 12.5 mg by 10/22/19 Discontinued tartrate mouth 2 (two) times 18 (LOPRESSOR) 25 mg a day. tablet calcium Take 1 tablet by 07/26/19 [...] Discontinued (ZOLOFT) 50 MG mouth. 18 tablet traMADol (ULTRAM) Take 50 mg by mouth 10/23/19 Discontinued 50 mg tablet every 6 (six) hours 18 as needed for moderate pain. acetaminophen-cod Take 1 tablet by 14 tablet 0 10/22/2017 10/30/19 eine (TYLENOL mouth 3 (three) 18 WITH CODEINE #3) times a day as 300-30 mg per needed for moderate tablet pain for up to 7 days. Active Problems Problem Noted Date ESRD (end stage renal disease) on dialysis 10/21/2017 Encounters Date Type Specialty Care Team Description 10/22/2017 Patient Outreach Quality Roberta Glez RN 10/21/2017 - Hospital Encounter General Internal Jasmyne, ESRD (end stage renal 10/22/2017 Medicine Ashvin Steele MD disease) on dialysis Fan Dugan (Primary Dx) MD Mala 10/21/2017 Anesthesia Event General Surgery Clara Cramer CRNA 10/21/2017 Procedure Pass General Surgery 10/21/2017 Surgery General Surgery Jasmyne, LEFT UPPER EXTREMITY Ashvin Steele MD SECOND STAGE BASILIC STAGE TRANSPOSITION 08/01/2017 Procedure Pass General Surgery 07/30/2017 Anesthesia Event General Surgery CoriNita alonzo, SIX SIGMA PROJECT MANAGER 05/30/2017 Hospital Encounter General Surgery Jasmyne, Acute viral hepatitis Ashvin Steele MD B without coma and without delta agent (Primary Dx) 05/30/2017 Procedure Pass General Surgery 05/30/2017 Surgery General Surgery Jasmyne, LEFT UPPER EXTREMITY Ashvin Steele MD 1ST STAGE BVT 05/23/2017 Anesthesia Event General Surgery CoriNita alonzo, SIX SIGMA PROJECT MANAGER 05/22/2017 Hospital Encounter Radiology Jasmyne, Venous insufficiency; Ashvin Steele MD PVD (peripheral vascular disease) 05/22/2017 Hospital Encounter Radiology Jasmyne, Venous insufficiency; Ashvin Steele MD PVD (peripheral vascular disease) 04/11/2017 Transcribe Orders Access Jasmyne, Venous insufficiency ( Primary Dx); Ashvin Steele MD PVD (peripheral vascular disease) after 11/03/2016 Social History Tobacco Use Types Packs/Day Years Used Date Former Smoker 15 Quit: 2016 Smokeless Tobacco: Never Used Alcohol Use Drinks/Week oz/Week Comments No Sex Assigned at Date Recorded Not on file Last Filed Vital Signs Vital Sign Reading Time Taken Blood Pressure 116/64 10/22/2017 2:00 PM CDT Pulse 82 10/22/2017 2:00 PM CDT Temperature 36.2 C (97.2 F) 10/22/2017 7:41 AM CDT Respiratory Rate 16 10/22/2017 2:00 PM CDT Oxygen Saturation 99% 10/22/2017 9:20 AM CDT Inhaled Oxygen Concentration - - Weight 80.8 kg (178 lb 3.2 oz) 10/22/2017 5:08 AM CDT Height 175.3 cm (5' 9") 10/21/2017 9:00 PM CDT Body Mass Index 26.32 10/22/2017 5:08 AM CDT Plan of Treatment Health Maintenance Due Date Last Done Comments COLON CANCER SCREENING 09/02/2003 SHINGRIX VACCINE (#1) 09/02/2003 ZOSTER VACCINE 2013 INFLUENZA VACCINE 01/01/2018 Implants Implanted Type Area Auto Body Service Mechanic Device Expiration Model / Identifier Date Serial / Lot Kit Selnt Fibrin Humn Hmsts Surgy 5ml Evicel - [id number] Surgical Left: ETHICON US-EH 09/30/2018 [id number] / Implanted: 10/21/2017 (Quantity not on file) Implants; Arm, / Expanders; Upper [id number] Extenders; Surgical Wires Drain Wnd Chnl 15fr 16in Rnd Hbls Fl-Flut W/ 16in Trocar - [id number] Surgical N/A: N/A [employer] 07/03/2022 [id number] / Implanted: 10/21/2017 (Quantity not on file) Implants; DIVISION / Expanders; [id number] Extenders; Surgical Wires Procedures Procedure Name Priority Date/Time Associated Diagnosis Comments HEMODIALYSIS Routine 10/22/2017 10:45 AM CDT ID AN ELECTIVE Routine 10/21/2017 3:00 PM SUPRAGLOTTIC AIRWAY CDT Procedure Note - Bryon Barragan MD - 10/21/2017 3:00 PM CDT Airway Performed by: BRYON BARRAGAN Authorized by: BRYON BARRAGAN Location: OR Urgency: Elective Difficult Airway: No Anesthesiologist: BRYON BARRAGAN Resident/TEACHER OF THE DEAF/AA: JUAN CARLOS ALLISON Performed by: resident/TEACHER OF THE DEAF/AA Preoxygenated with 100% O2: Yes C-spine Precautions Maintained Throughout: Yes Mask Ventilation: Not attempted Final Airway Type: Supraglottic airway Final LMA: I-Gel LMA Size: 5 Number of Attempts at Approach: 1 ID AN ELECTIVE SUPRAGLOTTIC AIRWAY Routine 05/30/2017 9:40 AM SOCIAL AND HUMAN SERVICES ASSISTANT Procedure Note - Anel Ponce CRNA - 05/30/2017 9:39 AM SOCIAL AND HUMAN SERVICES ASSISTANT Airway Date/Time: 05/30/2017 9:35 AM Performed by: ANEL PONCE Authorized by: SUSHMA POWELL Location: OR Urgency: Elective Difficult Airway: No Resident/TEACHER OF THE DEAF/AA: MARY CRAMER Performed by: resident/TEACHER OF THE DEAF/AA Preoxygenated with 100% O2: Yes Mask Ventilation: Not attempted Final Airway Type: Supraglottic airway Final LMA: I-Gel LMA Size: 5 Number of Attempts at Approach: 1 ANESTHESIA PERIPHERAL BLOCK Routine 05/30/2017 8:58 AM SOCIAL AND HUMAN SERVICES ASSISTANT Procedure Note - Sushma Powell MD - 05/30/2017 8:57 AM SOCIAL AND HUMAN SERVICES ASSISTANT Peripheral Block Performed by: SUSHMA POWELL Authorized by: SUSHMA POWELL Patient Location: Pre-op Start Time: 05/30/2017 8:23 AM End Time: 05/30/2017 8:35 AM Reason for Block: at surgeon's request Staff: Anesthesiologist: SUSHMA POWELL Resident/TEACHER OF THE DEAF/AA: ANEL PONCE Performed by: Anesthesiologist Preprocedure: patient [...] comfortable and patient tolerated procedure well after 11/03/2016 Results Hepatitis B surface Ab, quantitative (10/22/2017 12:00 PM) Component Value Ref Range Hepatitis B surface Ab 5.44 IU/L Comment: The anti-HBs is less than 10 IU/L and is therefore negative. There is no evidence of recovery from hepatitis B infection or evidence of antibody response to HBV vaccination. An anti-HBs result greater than or equal to 10 IU/L implies immunity. For post-vaccination antibody testing guidelines for the general public refer to MMWR May 25, 2005/Vol. 54(No. 16);1-23, and for healthcare workers refer to MMWR May 22, 2013/Vol. 62(No. 10);1-19. Reference Interval: anti-HBs 9.99 IU/L or less ....... Negative 10.00 IU/L or greater .... Positive Results greater than 1,000.00 IU/L are reported as greater than 1,000.00 IU/L. This assay should not be used for blood donor screening, associated re-entry protocols, or for screening Human Cell, Tissues and Cellular and Tissue-Based Products (HCT/P). Performed by [facility], [address] [place] [address] [email or web address], Jack Hooker MD - Lab. Director Specimen Performing Laboratory Serum [facility] [address] [place] [id number] Hepatitis B surface antibody (10/22/2017 12:00 PM) Component Value Ref Range Hepatitis B surface Ab Non-reactive Non-reactive Specimen Performing Laboratory Blood [facility] DEPARTMENT OF PATHOLOGY AND GENOMIC MEDICINE [address] [place] [address] Hepatitis B surface antigen (10/22/2017 12:00 PM) Component Value Ref Range Hepatitis B surface Ag Non-reactive Non-reactive Specimen Performing Laboratory Blood [facility] DEPARTMENT OF PATHOLOGY AND GENOMIC MEDICINE [address] [place] [address] POC glucose (10/22/2017 7:41 AM)Only the most recent of6 resultswithin the time period is included. Component Value Ref Range POC glucose 176 (H) 65 - 99 mg/dL Comment: RN Notified Meter ID: [id number] Travel Freight And Passenger Agent: Ramana Angela Specimen Performing Laboratory [facility] DEPARTMENT OF PATHOLOGY AND GENOMIC MEDICINE [address] [place] [address] POC panel 4 (10/21/2017 12:03 PM)Only the most recent of2 resultswithin the time period is included. Component Value Ref Range POC sodium 140 135 - 148 mmol/L POC potassium 4.5 3.5 - 5.0 mmol/L POC hematocrit 36 (L) 41 - 51 % POC glucose 193 (H) 65 - 99 mg/dL POC hemoglobin 12.2 (L) 14.0 - 18.0 g/dL Comment: Meter ID: [id number] Travel Freight And Passenger Agent: Erwin Miner Specimen Performing Laboratory Blood [facility] OF PATHOLOGY AND GENOMIC MEDICINE [address] [place], [place] [address] Estimated GFR (10/21/2017 12:00 PM)Only the most recent of2 resultswithin the time period is included. Component Value Ref Range GFR Non Af Amer 6 (A) mL/min/1.73 m2 GFR Af Amer 7 [...] and Americans. Specimen Performing Laboratory Plasma specimen [facility] DEPARTMENT OF PATHOLOGY AND [employer] [address] [place] [address] Partial thromboplastin time, activated (10/21/2017 12:00 PM)Only the most recent of2 resultswithin the time period is included. Component Value Ref Range PTT 41.9 (H) 23.0 - 36.0 sec Comment: PTT therapeutic range for unfractionated heparin is 61.0-112.0 seconds which corresponds to Anti-Xa 0.3-0.7 U/ml. Specimen Performing Laboratory Blood [facility] DEPARTMENT OF PATHOLOGY AND [employer] [address] [place] [address] Prothrombin time with INR (10/21/2017 12:00 PM)Only the most recent of3 resultswithin the time period is included. Component Value Ref Range Prothrombin time 13.2 12.0 - 15.0 sec INR 1.0 Comment: The International Normalized Ratio (INR) is a therapeutic monitoring tool for patients who are stable on oral anticoagulant therapy. An INR of 2.0-3.0 is suggested for deep vein thrombosis/pulmonary embolism. Specimen Performing Laboratory Blood [facility] DEPARTMENT OF PATHOLOGY AND [employer] [address] [place] [address] CBC with platelet and differential (10/21/2017 12:00 PM)Only the most recent of2 resultswithin the time period is included. Component Value Ref Range WBC 4.2 (L) 4.5 - 11.0 k/uL RBC 3.91 (L) 4.40 - 6.00 m/uL HGB 11.1 (L) 14.0 - 18.0 g/dL HCT 36.4 (L) 41.0 - 51.0 % MCV 93.1 82.0 - 100.0 fL MCH 28.4 27.0 - 34.0 pg MCHC 30.5 (L) 31.0 - 37.0 g/dL RDW - SD 52.5 37.0 - 55.0 fL MPV 9.5 6.9 - 11.0 fL Platelet count 232 150 - 400 K/uL Nucleated RBC 0.00 /100 WBC Neutrophils 57.5 39.0 - 69.0 % Lymphocytes 24.7 (L) 25.0 - 45.0 % Monocytes 11.4 (H) 0.0 - 10.0 % Eosinophils 5.2 (H) 0.0 - 5.0 % Basophils 0.7 0.0 - 1.0 % Immature granulocytes 0.5 0.0 - 1.0 % Specimen Performing Laboratory Blood [facility] DEPARTMENT OF PATHOLOGY AND [facility] [address] [place] [address] Type and screen (10/21/2017 12:00 PM)Only the most recent of2 resultswithin the time period is included. Component Value Ref Range ABO grouping A Rh type POS Antibody screen (gel) NEG Specimen Performing Laboratory Blood [facility] [place] [address] Basic metabolic panel (10/21/2017 12:00 PM)Only the most recent of2 resultswithin the time period is included. Component Value Ref Range Sodium 140 135 - 148 mEq/L Potassium 4.8 3.5 - 5.0 mEq/L Chloride 100 98 - 112 mEq/L CO2 21 (L) 24 - 31 mEq/L Anion gap 19@ANIO (H) 7 - 15 mEq/L BUN 44 (H) 8 - 23 mg/dL Creatinine 8.8 (H) 0.7 - 1.2 mg/dL Glucose 206 (H) 65 - 99 mg/dL Calcium 8.2 (L) 8.8 - 10.2 mg/dL Specimen Performing Laboratory Plasma specimen [facility] DEPARTMENT OF PATHOLOGY AND [place] [id number] XR Chest 1 Vw Portable (10/21/2017 11:55 AM)Only the most recent of2 resultswithin the time period is included. Specimen Performing Laboratory [facility] [address] [place] [phone] Narrative EXAMINATION:XR CHEST 1 VW PORTABLE CLINICAL HISTORY:PRE PROCEDURE COMPARISON:To previous study from 05/30/2017 IMPRESSION: Venous catheter extends in the right atrium. The heart is normal changes are present in both lung bases. [facility]-[id number] Procedure Note Hm Interface, Radiology Results Incoming - 10/21/2017 12:50 PM CDT EXAMINATION: XR CHEST 1 PORTABLE CLINICAL HISTORY: PRE PROCEDURE COMPARISON: To previous study from 05/30/2017 IMPRESSION: Venous catheter extends in the right atrium. The heart is normal changes are present in both lung bases. [facility]-[id number] ECG 12 lead (10/21/2017 11:48 AM)Only the most recent of2 resultswithin the time period is included. Component Value Ref Range Ventricular rate 79 Atrial rate 79 ID interval 158 QRSD interval 80 QT interval 392 QTC interval 449 P axis 1 49 QRS axis 1 -15 T wave axis 53 EKG impression Normal sinus rhythm-Normal ECG-In automated comparison with ECG of 30-MAY-2017 07:48,-No significant change was found- Specimen Performing Laboratory [facility] [address] [place] [address] Ammonia level (05/30/2017 10:45 AM) Component Value Ref Range Ammonia 47 16 - 60 umol/L Specimen Performing Laboratory Plasma specimen [facility] DEPARTMENT OF PATHOLOGY AND GENOMIC MEDICINE [address] [place] [address] Pv ankle brachial index extremity complete (05/22/2017 6:00 PM) Specimen Performing Laboratory [facility] [address] [place] [address] Narrative EXAM: US DUPLEX ARTERIAL LOWER EXTREMITY [...] INDEX: Posterior tibial: 1.29 Dorsalis pedis: 1.40 [facility]-[id number] FRANK Guidelines: >1.4: Calcified Vessel 0.9-1.4: Normal 0.7-0.89: Mild PAD 0.51-0.69: Moderate PAD <0.5: Severe PAD TBI Guidelines: <0.6: Normal 0.34-0.59: Mild PAD 0.12-0.34: Moderate PAD <0.11: Severe PAD Procedure Note Interface, Radiology Results Incoming - 05/22/2017 6:21 PM SOCIAL AND HUMAN SERVICES ASSISTANT EXAM: US DUPLEX ARTERIAL LOWER EXTREMITY BILATERAL, [...] INDEX: Posterior tibial: 1.29 Dorsalis pedis: 1.40 [facility]-[id number] FRANK Guidelines: >1.4: Calcified Vessel 0.9-1.4: Normal 0.7-0.89: Mild PAD 0.51-0.69: Moderate PAD <0.5: Severe PAD TBI Guidelines: <0.6: Normal 0.34-0.59: Mild PAD 0.12-0.34: Moderate PAD <0.11: Severe PAD Pv duplex arterial lower extremity (05/22/2017 6:00 PM) Specimen Performing Laboratory [facility] [address] [place] [address] Narrative EXAM: US DUPLEX ARTERIAL LOWER EXTREMITY [...] INDEX: Posterior tibial: 1.29 Dorsalis pedis: 1.40 [facility]-[id number] FRANK Guidelines: >1.4: Calcified Vessel 0.9-1.4: Normal 0.7-0.89: Mild PAD 0.51-0.69: Moderate PAD <0.5: Severe PAD TBI Guidelines: <0.6: Normal 0.34-0.59: Mild PAD 0.12-0.34: Moderate PAD <0.11: Severe PAD Procedure Note Interface, Radiology Results Incoming - 05/22/2017 6:21 PM SOCIAL AND HUMAN SERVICES ASSISTANT EXAM: US DUPLEX ARTERIAL LOWER EXTREMITY BILATERAL, [...] INDEX: Posterior tibial: 1.29 Dorsalis pedis: 1.40 [facility]-[id number] FRANK Guidelines: >1.4: Calcified Vessel 0.9-1.4: Normal 0.7-0.89: Mild PAD 0.51-0.69: Moderate PAD <0.5: Severe PAD TBI Guidelines: <0.6: Normal 0.34-0.59: Mild PAD 0.12-0.34: Moderate PAD <0.11: Severe PAD after 11/03/2016 Insurance Payer Benefit Plan / Group Subscriber ID Type Phone Address MEDICARE MEDICARE PART A AND B xxxxxxxxxx Medicare [place], [place] MEDICAID MEDICAID xxxxxxxxx Medicaid Home: [address] [phone] [place], [place] [id number]
[2017-11-04] MEDS ORDERED: NA CHLORIDE 0.9% 1,000 ML ONE (20:21)
[2017-11-04 20:41] LABS: Absolute Lymphocytes (CBC) 0.7 K/uL (0.7-4.9); Absolute Monocytes 0.4 K/uL (0.1-1.3); Absolute Neutrophil 3.9 K/uL (1.8-8.0); Eosinophils % 5.6 % (0-4.4); Hematocrit 33.5 % (39.6-49.0); Lymphocytes % 13.2 % (15.3-44.8); MCV 82.7 fL (80-100); MPV 7.5 fL (7.6-11.3); RBC Red Blood Cell Count 4.05 M/uL (4.33-5.43)
[2017-11-04 20:45] LABS: Protime INR 1.06
--- NOTE | 2017-11-04 21:15 | RAD REPORT ---
EXAM DESCRIPTION: RAD - Chest Single View - 11/04/2017 9:05 pm CLINICAL HISTORY: Chest pain. COMPARISON: 07/29/2017, 06/02/2017 FINDINGS: Portable technique limits examination quality. The lungs are mildly emphysematous but grossly clear. The heart is normal in size. No displaced fract ures.Right-sided venous catheter its tip in the right atrium. IMPRESSION: No acute intrathoracic process suspected.
[2017-11-04 21:31] LABS: Albumin 3.2 g/dL (3.2-5.5); Bilirubin Direct 0.2 mg/dL (0-0.2); Bilirubin Total 0.6 mg/dL (0.3-1.2); C-Reactive Protein 92.4 mg/L (<10.0); Protein, Total 7.4 g/dL (6.0-8.3)
[2017-11-04 21:36] LABS: Potassium 2.8 mEq/L (3.6-5.0)
[2017-11-04] MEDS ORDERED: hydrOXYzine HCl 25 MG TAB ONE (22:38)
[2017-11-04] MEDS ORDERED: GENTAMICIN SULF 80 MG/2ML INJ ONE (22:51)
[2017-11-04] MEDS ORDERED: NA CHLORIDE 0.9% 100 ML IV ONE (22:51)
[2017-11-04] MEDS ORDERED: VANCOMYCIN 1 GM/250 ML BAG ONE (22:57)
[2017-11-04] MEDS ORDERED: Morphine 2 MG/2 ML SYR ONE (23:17)
--- NOTE | 2017-11-04 23:35 | ER ---
Nurse's Notes [facility] Name: Archie Nazario Age: 62 yrs Sex: Male : 1955 Arrival Date: 11/04/2017 Time: 20:15 Bed 3 Private MD: Diagnosis: Sepsis due to other specified staphylococcus;Hypokalemia Presentation: 11/04 20:10 Presenting complaint: EMS states: Patient had dialysis today, removed 2.5L of fluid; lp1 States feeling dizzy, generalized weakness at home; Per EMS, unable to obtain BP, patient A/O x4 on arrival to ED. Transition of care: patient was not received from another setting of care. Onset of symptoms was November 04, 2017. Risk Assessment: Do you want to hurt yourself or someone else? Patient reports no desire to harm self or others. Initial Sepsis Screen: Does the patient meet any 2 criteria? Systolic BP < 90 mmHg. Mean Arterial Pressure (MAP) < 65. Yes Does the patient have a suspected source of infection? No. Patient's initial sepsis screen is negative. Care prior to arrival: Glucose check: 382. 20:10 Method Of Arrival: EMS: [facility] lp1 20:10 Acuity: JAZMINE 2 lp1 Historical: - Allergies: 20:42 No Known Allergies; lp1 - Home Meds: 20:42 aspirin 81 mg Oral chew 1 tab once daily [Active]; famotidine 20 mg Oral tab 1 tab once lp1 daily [Active]; ursodiol 300 mg Oral cap 1 cap 2 times per day [Active]; gabapentin 100 mg oral cap twice a day [Active]; entecavir 1 mg Oral tab 1 tab [Active]; sertraline 50 mg oral tab 1 tab once daily [Active]; tacrolimus 1 mg oral cap every 12 hours [Active]; hydroxyzine HCl 25 mg Oral tab every 8 hours [Active]; zonisamide 100 mg oral cap nightly [Active]; Renvela 800 mg Oral tab 1 tab 3 times per day [Active]; tramadol 50 mg Oral tab 1 tab every 6 hours [Active]; alprazolam 0.5 mg Oral tab daily [Active]; 20:47 Levemir 20 units in AM, 20 units in PM subcutaneous [Active]; Humalog 100 unit/mL Sub-Q lp1 soln [Active]; - PMHx: 20:42 Diabetes - IDDM; Dialysis; hepatic cancer; Hypertension; kidney failure; lp1 - PSHx: 20:42 Liver transplant; [facility] Cath- R side; lp1 - Immunization history:: Adult Immunizations up to date. - Social history:: Smoking status: Patient/guardian denies using tobacco. - Ebola Screening: : No symptoms or risks identified at this time. Screenin:43 Abuse screen: Denies threats or abuse. Denies injuries from another. Nutritional lp1 screening: No deficits noted. Tuberculosis screening: No symptoms or risk factors identified. Fall Risk Total Hall Fall Scale indicates High Risk Score (45 or more points). Fall prevention measures have been instituted. Side Rails Up X 2 As available patient and family educated on Fall Prevention Program and Strategies. Assessment: 20:30 General: Appears in no apparent distress. Behavior is calm, cooperative, appropriate lp1 for age. Pain: Complains of pain in head Pain currently is 6 out of 10 on a pain scale. Quality of pain is described as aching. Neuro: Level of Consciousness is awake, alert, obeys commands, Oriented to person, place, time, situation, Gait is steady, Pupils are PERRLA, Reports dizziness, headache in entire weakness generalized. Cardiovascular: Capillary refill < 3 seconds in bilateral fingers toes Patient's skin is warm and dry. Dialysis shunt: in the anterior aspect of right upper chest. Respiratory: Respiratory effort is even, Respiratory pattern is regular, Breath sounds are clear bilaterally. Denies shortness of breath. GI: Abdomen is non-distended. : No signs and/or symptoms were reported regarding the genitourinary system. EENT: No signs and/or symptoms were reported regarding the EENT system. Derm: Skin is intact, Skin is dry, Skin is pink, warm \T\ dry. Musculoskeletal: Circulation, motion, and sensation intact. 21:30 Reassessment: Patient appears in no apparent distress at this time. No changes from lp1 previously documented assessment. Patient and/or family updated on plan of care and expected duration. Pain level reassessed. 22:30 Reassessment: Patient and/or family updated on plan of care and expected duration. Pain lp1 level reassessed. Patient complaint of itching to skin, discomfort; Provider notified; Verbal order to administer Hydroxizine 25mg PO. 23:50 Reassessment: Report given to JOEY Pitts at [facility] for patient going to 1 bed 946. 11/05 00:30 Reassessment: Patient is alert, oriented x 3, equal unlabored respirations, skin lp1 warm/dry/pink. EMS at bedside for transfer. Vital Signs: 11/04 20:05 BP 76 / 53; Pulse 86; Resp 17; Temp 100.5(O); Pulse Ox 98% on R/A; Weight 78.93 kg; lp1 Height 5 ft. 9 in. (175.26 cm); Pain 5/10; 20:30 BP 65 / 42; Pulse 85; Resp 22; Pulse Ox 96% on R/A; lp1 20:45 BP 81 / 57; Pulse 85; Resp 26; Pulse Ox 96% on R/A; lp1 21:00 BP 81 / 60; Pulse 83; Resp 24; Pulse Ox 96% on R/A; lp1 21:30 BP 97 / 58; Pulse 83; Resp 21; Pulse Ox 96% on R/A; lp1 22:00 BP 106 / 64; Pulse 79; Resp 24; Pulse Ox 96% on R/A; lp1 22:30 BP 118 / 65; Pulse 78; Resp 13; Temp 98.9(O); Pulse Ox 97% on R/A; lp1 23:00 BP 105 / 81; Pulse 77; Resp 14; Pulse Ox 98% on R/A; lp1 23:30 BP 101 / 79; Pulse 79; Resp 22; Pulse Ox 95% on R/A; lp1 11/05 00:30 BP 104 / 64; Pulse 77; Resp 19; Pulse Ox 96% on R/A; lp1 11/04 20:05 Body Mass Index 25.70 (78.93 kg, 175.26 cm) lp1 [place] Coma Score: 11/04 20:05 Eye Response: spontaneous(4). Verbal Response: oriented(5). Motor Response: obeys lp1 commands(6). Total: 15. ED Course: 20:15 Patient arrived in ED. lp1 20:18 Jose Guido MD is Attending Physician. tw4 20:29 Josselin Young RN is Primary Nurse. lp1 20:33 Triage completed. lp1 20:34 Arm band placed on left wrist. lp1 20:42 Patient has correct armband on for positive identification. Placed in gown. Bed in low lp1 position. Call light in reach. buggy runner on. Pulse ox on. NIBP on. 20:59 Inserted saline lock: 22 gauge in right wrist, using aseptic technique. Blood collected.ak1 21:05 X-ray completed. Portable x-ray completed in exam room. Patient tolerated procedure bb2 well. 21:06 Chest Single View XRAY In Process Unspecified. EDMS 22:30 pt moved up in bed and blanket given. ak1 23:52 No provider procedures requiring assistance completed. lp1 11/05 00:41 Patient transferred, IV remains in place. lp1 Administered Medications: 11/04 20:39 Drug: NS 0.9% 500 ml {Note: verbal order for bolus by Dr. Guido.} Route: IV; Rate: ak1 bolus; Site: right wrist; 21:15 Follow up: IV Status: Completed infusion; IV Intake: 500ml lp1 20:43 CANCELLED (Physician Discretion): NS 0.9% (30 ml/kg) 30 ml/kg IV at bolus once; Sepsis lp1 Protocol 21:30 Drug: NS 0.9% 500 ml Route: IV; Rate: bolus; Site: right forearm; lp1 11/05 00:41 Follow up: IV Status: Completed infusion; IV Intake: 500ml lp1 11/04 22:41 Drug: hydrOXYzine 25 mg Route: PO; lp1 23:54 Follow up: Response: Marked relief of symptoms lp1 23:04 Drug: Gentamicin 1 mg/kg Route: IVPB; Infused Over: 30 mins; Site: right forearm; lp1 23:53 Follow up: IV Status: Completed infusion lp1 23:22 Drug: vancoMYCIN 1 grams Route: IVPB; Infused Over: 2 hrs; Site: right forearm; lp1 11/05 00:42 Follow up: IV Status: Infusion continued upon transfer lp1 11/04 23:22 Drug: morphine 2 mg Route: IVP; Site: right forearm; lp1 23:53 Follow up: Response: Pain is decreased lp1 Intake: 21:15 IV: 500ml; Total: 500ml. lp1 11/05 00:41 IV: 500ml; Total: 1000ml. lp1 Outcome: 11/04 23:35 ER care complete, transfer ordered by . tw4 23:52 Condition: stable lp1 23:52 Instructed on the need for transfer. 11/05 00:42 Transferred by ground EMS to [facility], Transfer form completed. lp1 X-rays sent w/ patient. 00:43 Patient left the ED. lp1 Signatures: Dispatcher [employer] EDMS Josselin Young RN RN lp1 Christianne Mckay RN RN ak1 Gillian Dennison bb2 Jose Guido MD MD tw4 Corrections: (The following items were deleted from the chart) 11/04 20:46 20:05 BP 76 / 53; Pulse 86bpm; Resp 17bpm; Pulse Ox 98% RA; 78.93 kg; Height 5 ft. 9 lp1 in.; BMI: 25.7; Pain 5/10; lp1 20:47 20:42 Home Meds: Levemir 50 units am, 30 units pm subcutaneous soln; lp1 lp1
--- NOTE | 2017-11-04 23:35 | EDPHYS ---
Physician Documentation [facility] Name: Archie Nazario Age: 62 yrs Sex: Male : 1955 Arrival Date: 11/04/2017 Time: 20:15 Bed 3 Private MD: ED Physician Jose Guido HPI: 11/05 03:37 This 62 yrs old Male presents to ER via EMS with complaints of Dizziness, tw4 General Weakness. 03:37 The patient presents with dizziness. Onset: The symptoms/episode began/occurred today. tw4 Context: occurred at home. Modifying factors: The symptoms are alleviated by nothing, the symptoms are aggravated by nothing. Associated signs and symptoms: The patient has no apparent associated signs or symptoms. Severity of symptoms: At their worst the symptoms were moderate in the emergency department the symptoms are unchanged. The patient has not experienced similar symptoms in the past. Historical: - Allergies: 11/04 20:42 No Known Allergies; lp1 - Home Meds: 20:42 aspirin 81 mg Oral chew 1 tab once daily [Active]; famotidine 20 mg Oral tab 1 tab once lp1 daily [Active]; ursodiol 300 mg Oral cap 1 cap 2 times per day [Active]; gabapentin 100 mg oral cap twice a day [Active]; entecavir 1 mg Oral tab 1 tab [Active]; sertraline 50 mg oral tab 1 tab once daily [Active]; tacrolimus 1 mg oral cap every 12 hours [Active]; hydroxyzine HCl 25 mg Oral tab every 8 hours [Active]; zonisamide 100 mg oral cap nightly [Active]; Renvela 800 mg Oral tab 1 tab 3 times per day [Active]; tramadol 50 mg Oral tab 1 tab every 6 hours [Active]; alprazolam 0.5 mg Oral tab daily [Active]; 20:47 Levemir 20 units in AM, 20 units in PM subcutaneous [Active]; Humalog 100 unit/mL Sub-Q lp1 soln [Active]; - PMHx: 20:42 Diabetes - IDDM; Dialysis; hepatic cancer; Hypertension; kidney failure; lp1 - PSHx: 20:42 Liver transplant; [facility] Cath- R side; lp1 - Immunization history:: Adult Immunizations up to date. - Social history:: Smoking status: Patient/guardian denies using tobacco. - Ebola Screening: : No symptoms or risks identified at this time. ROS: 11/05 03:37 Constitutional: Negative for fever, chills, and weight loss, Cardiovascular: Negative tw4 for chest pain, palpitations, and edema, Respiratory: Negative for shortness of breath, cough, wheezing, and pleuritic chest pain, Abdomen/GI: Negative for abdominal pain, nausea, vomiting, diarrhea, and constipation, Back: Negative for injury and pain. Neuro: Positive for Exam: 03:37 Constitutional: This is a well developed, well nourished patient who is awake, alert, tw4 and in no acute distress. Head/Face: Normocephalic, atraumatic. Chest/axilla: Normal chest wall appearance and motion. Nontender with no deformity. No lesions are appreciated. Cardiovascular: Regular rate and rhythm with a normal S1 and S2. No gallops, murmurs, or rubs. Normal PMI, no JVD. No pulse deficits. Respiratory: Lungs have equal breath sounds bilaterally, clear to auscultation and percussion. No rales, rhonchi or wheezes noted. No increased work of breathing, no retractions or nasal flaring. Abdomen/GI: Soft, non-tender, with normal bowel sounds. No distension or tympany. No guarding or rebound. No evidence of tenderness throughout. Back: No spinal tenderness. No costovertebral tenderness. Full range of motion. 03:37 Musculoskeletal/extremity: Extremities: AV fistula in left upper arm. Vital Signs: 11/04 20:05 BP 76 / 53; Pulse 86; Resp 17; Temp 100.5(O); Pulse Ox 98% on R/A; Weight 78.93 kg; lp1 Height 5 ft. 9 in. (175.26 cm); Pain 5/10; 20:30 BP 65 / 42; Pulse 85; Resp 22; Pulse Ox 96% on R/A; lp1 20:45 BP 81 / 57; Pulse 85; Resp 26; Pulse Ox 96% on R/A; lp1 21:00 BP 81 / 60; Pulse 83; Resp 24; Pulse Ox 96% on R/A; lp1 21:30 BP 97 / 58; Pulse 83; Resp 21; Pulse Ox 96% on R/A; lp1 22:00 BP 106 / 64; Pulse 79; Resp 24; Pulse Ox 96% on R/A; lp1 22:30 BP 118 / 65; Pulse 78; Resp 13; Temp 98.9(O); Pulse Ox 97% on R/A; lp1 23:00 BP 105 / 81; Pulse 77; Resp 14; Pulse Ox 98% on R/A; lp1 23:30 BP 101 / 79; Pulse 79; Resp 22; Pulse Ox 95% on R/A; lp1 06/05 00:30 BP 104 / 64; Pulse 77; Resp 19; Pulse Ox 96% on R/A; lp1 / 20:05 Body Mass Index 25.70 (78.93 kg, 175.26 cm) lp1 [place] Coma Score: 11/04 20:05 Eye Response: spontaneous(4). Verbal Response: oriented(5). Motor Response: obeys lp1 commands(6). Total: 15. MDM: 20:18 Patient medically screened. tw11/05 03:37 Differential diagnosis: cardiac arrhythmia, CVA, generalized weakness, GI bleed, tw4 idiopathic dizziness, sepsis, syncope, TIA, vertigo. Data reviewed: vital signs, nurses notes. Data interpreted: library monitor: rhythm is normal sinus rhythm, Pulse oximetry: Interpretation: normal. Test interpretation: by ED physician or midlevel provider: ECG, plain radiologic studies. Counseling: I had a detailed discussion with the patient and/or guardian regarding: the historical points, exam findings, and any diagnostic results supporting the discharge/admit diagnosis. Other consultation: Facility A, was alerted at 22:22. ED course: Pt received IV bolus for hypotension for suspected sepsis . 11/04 20:21 Order name: Amylase, Serum; Complete Time: 22:18 tw4 11/04 20:21 Order name: Basic Metabolic Panel; Complete Time: 22:18 tw11/04 22:19 Interpretation: Normal except: CA 8.4; K 2.8; NA 134; CL 95; BUN 19; GFR 12; CRE 4.77. tw11/04 20:21 Order name: Blood Culture Adult (2) tw11/04 20:21 Order name: BNP; Complete Time: 21:33 tw11/04 21:33 Interpretation: Normal except: BNP 352. 11/04 20:21 Order name: C-Reactive Protein; Complete Time: 22:18 tw11/04 20:21 Order name: CBC with Diff; Complete Time: 21:31 11/04 21:31 Interpretation: Normal except: RBC 4.05; HCT 33.5; HGB 11.0; RDW 15.9; MPV 7.5; tw4 EOSINOPHIL % 5.6; LYM% 13.2. 11/04 20:21 Order name: Ckmb; Complete Time: 22:18 11/04 20:21 Order name: CPK; Complete Time: 22:18 11/04 20:21 Order name: Lactate; Complete Time: 22:18 11/04 22:19 Interpretation: LAC 24.6. 11/04 20:21 Order name: LFT's; Complete Time: 22:18 11/04 22:19 Interpretation: ALK 690; GLOB 4.2; A/G 0.8. 11/04 20:21 Order name: Lipase; Complete Time: 22:18 11/04 22:19 Interpretation: Normal except: LIP 15. 11/04 20:21 Order name: Procalcitonin; Complete Time: 22:18 11/04 20:21 Order name: Protime (+inr); Complete Time: 21:31 11/04 20:21 Order name: Ptt, Activated; Complete Time: 21:31 11/04 20:21 Order name: Sed Rate; Complete Time: 21:31 11/04 21:31 Interpretation: Normal except: SED 86. 11/04 20:21 Order name: Troponin (emerg Dept Use Only); Complete Time: 21:31 11/04 21:31 Interpretation: Within normal limits: TROPED < 0.03. 11/04 20:21 Order name: Chest Single View XRAY; Complete Time: 21:31 11/04 21:31 Interpretation: Abnormal. 11/04 20:21 Order name: Accucheck; Complete Time: 20:29 11/04 20:21 Order name: Cardiac monitoring; Complete Time: 20:29 11/04 20:21 Order name: EKG - Nurse/Tech; Complete Time: 20:29 11/04 20:21 Order name: IV Saline Lock - Large Bore; Complete Time: 20:29 tw4 11/04 20:21 Order name: Labs collected and sent; Complete Time: 20:30 tw4 11/04 20:21 Order name: O2 Per Protocol; Complete Time: 20:44 tw4 11/04 20:21 Order name: O2 Sat Monitoring; Complete Time: 20:44 tw4 Administered Medications: 11/04 20:39 Drug: NS 0.9% 500 ml {Note: verbal order for bolus by Dr. Guido.} Route: IV; Rate: ak1 bolus; Site: right wrist; 21:15 Follow up: IV Status: Completed infusion; IV Intake: 500ml lp1 20:43 CANCELLED (Physician Discretion): NS 0.9% (30 ml/kg) 30 ml/kg IV at bolus once; Sepsis 1 Protocol 21:30 Drug: NS 0.9% 500 ml Route: IV; Rate: bolus; Site: right forearm; lp1 11/05 00:41 Follow up: IV Status: Completed infusion; IV Intake: 500ml lp1 11/04 22:41 Drug: hydrOXYzine 25 mg Route: PO; lp1 23:54 Follow up: Response: Marked relief of symptoms lp1 23:04 Drug: Gentamicin 1 mg/kg Route: IVPB; Infused Over: 30 mins; Site: right forearm; lp1 23:53 Follow up: IV Status: Completed infusion lp1 23:22 Drug: vancoMYCIN 1 grams Route: IVPB; Infused Over: 2 hrs; Site: right forearm; lp1 11/05 00:42 Follow up: IV Status: Infusion continued upon transfer lp1 11/04 23:22 Drug: morphine 2 mg Route: IVP; Site: right forearm; lp1 23:53 Follow up: Response: Pain is decreased lp1 Disposition: 11/04/17 23:[address] [facility]. Diagnosis are Sepsis due to other specified staphylococcus, Hypokalemia. - Reason for transfer: Higher level of care. - Accepting physician is Dr Zuluaga. - Condition is Stable. - Problem is new. - Symptoms have improved. Signatures: Dispatcher [employer] EDMS Josselin Young RN RN lp1 Christianne Mckay RN RN ak1 Jose Guido MD MD tw4 Corrections: (The following items were deleted from the chart) 20:23 20:22 BILIRUBIN, DIRECT+C.LAB.BRZ ordered. EDMS EDMS 20:43 20:21 NS 0.9% (30 ml/kg) 30 ml/kg IV at bolus once; Sepsis Protocol ordered. tw4 lp1 20:47 20:42 Home Meds: Levemir 50 units am, 30 units pm subcutaneous soln; lp1 lp1 11/05 00:43 06 23:35 11/04/2017 23:[address] [facility]. lp1 Diagnosis is Sepsis due to other specified staphylococcus; Hypokalemia. Reason for transfer: Higher level of care. Accepting physician is Dr Zuluaga. Condition is Stable. Problem is new. Symptoms have improved. tw4
[2017-11-05 00:59] VITALS: TEMP 98.9
[2017-11-05 01:03] VITALS: BP 104/64; O2SAT 96
--- NOTE | 2017-11-05 13:44 | EKG ---
Test Date: 2017-11-04 Test Time: 20:21:41 [employer] Operator: JAMESON MEASUREMENT RESULTS: Intervals: Rate: 87 IN: 154 QRSD: 82 QT: 398 QTc: 478 [place]: P: 27 IN: 154 QRS: -21 T: 37 INTERPRETIVE STATEMENTS: Normal sinus rhythm Normal ECG Compared to ECG 07/29/2017 17:37:11 Prolonged QT interval no longer present Electronically Signed On 11-05-17 13:41:00 CDT by Cuong Davenport
== END 2017-11-05 00:43 | disposition short-term general hospital (02) ==
LOC: ER 20:14
DX: A41.1 Sepsis due to other specified staphylococcus (principal); E87.6 Hypokalemia; I12.0 Hypertensive chronic kidney disease with stage 5 chronic kidney disease or end stage renal disease; E11.22 Type 2 diabetes mellitus with diabetic chronic kidney disease; N18.6 End stage renal disease; N17.9 Acute kidney failure, unspecified; Z79.4 Long term (current) use of insulin; Z79.82 Long term (current) use of aspirin; Z94.4 Liver transplant status; Z99.2 Dependence on renal dialysis; Z85.05 Personal history of malignant neoplasm of liver
CPT/HCPCS: 36415; 71045; 80048; 80076; 82150; 82550; 82553; 83605 ×2; 83690; 83880; 84145; 84484; 85025; 85610; 85652; 85730; 86140; 87040 ×2; 93005; 96361; 96365; 96375; 99285; J1580; J2270; J3370; J7030; 96368

== ENCOUNTER 2017-12-20 09:13 | Emergency (ER) | payer OTHER ==
--- OUTSIDE RECORDS SUMMARY | 2017-12-20 09:16 | XMS REPORT | Clinical Summary ---
:1955 Author Organization [facility] Address [address] [place] [address] Care Team Providers Name Role Phone Fan [...] 07/30/2017 Anesthesia Event General Surgery CoriNita alonzo, PROCESSING TECH 05/30/2017 Hospital Encounter General Surgery Jasmyne, Acute viral hepatitis Ashvin Steele MD B without coma and without delta agent (Primary Dx) 05/30/2017 Procedure Pass General Surgery 05/30/2017 Surgery General Surgery Jasmyne, LEFT UPPER EXTREMITY Ashvin Steele MD 1ST STAGE BVT 05/23/2017 Anesthesia Event General Surgery CoriNita alonzo, PROCESSING TECH 05/22/2017 Hospital Encounter Radiology Jasmyne, Venous insufficiency; Ashvin Steele MD PVD (peripheral vascular disease) 05/22/2017 Hospital Encounter Radiology Jasmyne, Venous insufficiency; Ashvin Steele MD PVD (peripheral vascular disease) 04/11/2017 Transcribe Orders Access Jasmyne, Venous insufficiency ( Primary Dx); Ashvin Steele MD PVD (peripheral vascular disease) after 12/19/2016 Social History Tobacco Use Types Packs/Day Years [...] INFLUENZA VACCINE 01/01/2018 Implants Implanted Type Area Biscuit Maker Device Expiration Model / Identifier Date Serial / Lot Kit Selnt Fibrin Humn Hmsts Surgy 5ml Evicel - [id number] Surgical Left: ETHICON US-EH 09/30/2018 [id number] / Implanted: 10/21/2017 (Quantity not on file) Implants; Arm, / Expanders; Upper [id number] Extenders; Surgical Wires Drain Wnd Chnl 15fr 16in Rnd Hbls Fl-Flut W/ 16in Trocar - [id number] Surgical N/A: N/A [employer] 07/03/2022 [id number] / Implanted: 10/21/2017 (Quantity not on file) Implants; DIVISION / Expanders; [id number] Extenders; Surgical Wires Procedures Procedure Name Priority Date/Time Associated Comments Diagnosis HEPATITIS B SURFACE Routine 10/22/2017 12:00 Results for this AB, QUANTITATIVE PM CDT procedure are in the results section. HEPATITIS B SURFACE Routine 10/22/2017 12:00 Results for this ANTIBODY PM CDT procedure are in the results section. HEPATITIS B SURFACE Routine 10/22/2017 12:00 Results for this ANTIGEN PM CDT procedure are in the results section. HEMODIALYSIS Routine 10/22/2017 10:45 AM CDT POC GLUCOSE Routine 10/22/2017 7:41 Results for this AM CDT procedure are in the results section. POC GLUCOSE Routine 10/22/2017 12:36 Results for this AM CDT procedure are in the results section. POC GLUCOSE Routine 10/21/2017 10:40 Results for this PM CDT procedure are in the results section. POC GLUCOSE Routine 10/21/2017 5:46 Results for this PM CDT procedure are in the results section. POC GLUCOSE Routine 10/21/2017 4:49 Results for this PM CDT procedure are in the results section. IA AN ELECTIVE Routine 10/21/2017 3:00 SUPRAGLOTTIC AIRWAY PM CDT Procedure Note - Bryon Barragan MD - 10/21/2017 3:00 PM CDT Airway Performed by: BRYON BARRAGAN Authorized by: BRYON BARRAGAN Location: OR Urgency: Elective Difficult Airway: No Anesthesiologist: BRYON BARRAGAN Resident/TRIMMING OPERATOR/AA: JUAN CARLOS ALLISON Performed by: resident/TRIMMING OPERATOR/AA Preoxygenated with 100% O2: Yes C-spine Precautions Maintained Throughout: Yes Mask Ventilation: Not attempted Final Airway Type: Supraglottic airway Final LMA: I-Gel LMA Size: 5 Number of Attempts at Approach: 1 POC PANEL 4 Routine 10/21/2017 12:03 PM CDT ESTIMATED GFR STAT 10/21/2017 12:00 PM CDT TYPE AND SCREEN STAT 10/21/2017 12:00 PM CDT PARTIAL THROMBOPLASTIN TIME STAT 10/21/2017 12:00 PM CDT Results for this (PTT) procedure are in the results section. PROTHROMBIN TIME WITH INR STAT 10/21/2017 12:00 PM CDT BASIC METABOLIC PANEL STAT 10/21/2017 12:00 PM CDT HC COMPLETE BLD COUNT W/AUTO STAT 10/21/2017 12:00 PM CDT Results for this DIFF procedure are in the results section. XR CHEST 1 VW PORTABLE STAT 10/21/2017 11:55 AM CDT ECG 12-LEAD STAT 10/21/2017 11:48 AM CDT AMMONIA LEVEL Routine 05/30/2017 10:45 AM AGRICULTURAL ECONOMICS TEACHER POC GLUCOSE Routine 05/30/2017 10:17 AM AGRICULTURAL ECONOMICS TEACHER IA AN ELECTIVE SUPRAGLOTTIC Routine 05/30/2017 9:40 AM AGRICULTURAL ECONOMICS TEACHER AIRWAY Procedure Note - Anel Ponce CRNA - 05/30/2017 9:39 AM AGRICULTURAL ECONOMICS TEACHER Airway Date/Time: 05/30/2017 9:35 AM Performed by: ANEL PONCE Authorized by: SUSHMA POWELL Location: OR Urgency: Elective Difficult Airway: No Resident/TRIMMING OPERATOR/AA: MARY CRAMER Performed by: resident/TRIMMING OPERATOR/AA Preoxygenated with 100% O2: Yes Mask Ventilation: Not attempted Final Airway Type: Supraglottic airway Final LMA: I-Gel LMA Size: 5 Number of Attempts at Approach: 1 PROTHROMBIN TIME WITH INR Routine 05/30/2017 9:28 AM AGRICULTURAL ECONOMICS TEACHER ANESTHESIA PERIPHERAL BLOCK Routine 05/30/2017 8:58 AM AGRICULTURAL ECONOMICS TEACHER Procedure Note - Sushma Powell MD - 05/30/2017 8:57 AM AGRICULTURAL ECONOMICS TEACHER Peripheral Block Performed by: SUSHMA POWELL Authorized by: SUSHMA POWELL Patient Location: Pre-op Start Time: 05/30/2017 8:23 AM End Time: 05/30/2017 8:35 AM Reason for Block: at surgeon's request Staff: Anesthesiologist: SUSHMA POWELL Resident/TRIMMING OPERATOR/AA: ANEL PONCE Performed by: Anesthesiologist Preprocedure: patient [...] patient comfortable and patient tolerated procedure well POC PANEL 4 Routine 05/30/2017 8:20 AM Results for this AGRICULTURAL ECONOMICS TEACHER procedure are in the results section. XR CHEST 1 VW PORTABLE Routine 05/30/2017 8:15 AM Results for this AGRICULTURAL ECONOMICS TEACHER procedure are in the results section. ESTIMATED GFR Routine 05/30/2017 8:05 AM Results for this AGRICULTURAL ECONOMICS TEACHER procedure are in the results section. PARTIAL THROMBOPLASTIN Routine 05/30/2017 8:05 AM Results for this TIME (PTT) AGRICULTURAL ECONOMICS TEACHER procedure are in the results section. PROTHROMBIN TIME WITH Routine 05/30/2017 8:05 AM Results for this INR AGRICULTURAL ECONOMICS TEACHER procedure are in the results section. HC COMPLETE BLD COUNT Routine 05/30/2017 8:05 AM Results for this W/AUTO DIFF AGRICULTURAL ECONOMICS TEACHER procedure are in the results section. BASIC METABOLIC PANEL Routine 05/30/2017 8:05 AM Results for this AGRICULTURAL ECONOMICS TEACHER procedure are in the results section. TYPE AND SCREEN Routine 05/30/2017 8:05 AM Results for this AGRICULTURAL ECONOMICS TEACHER procedure are in the results section. ECG 12-LEAD Routine 05/30/2017 7:48 AM Results for this AGRICULTURAL ECONOMICS TEACHER procedure are in the results section. US ANKLE BRACHIAL INDEX Routine 05/22/2017 6:00 PM Venous Results for this AGRICULTURAL ECONOMICS TEACHER insufficiency procedure are in PVD (peripheral the results vascular disease) section. US DUPLEX ARTERIAL Routine 05/22/2017 6:00 PM Venous Results for this LOWER EXTREMITY AGRICULTURAL ECONOMICS TEACHER insufficiency procedure are in BILATERAL PVD (peripheral the results vascular disease) section. after 12/19/2016 Results Hepatitis B surface Ab, quantitative (10/22/2017 12:00 PM) Hepatitis B surface Ab 5.44 IU/L [facility] Comment: The anti-HBs is less than 10 IU/L and is therefore negative. There is no evidence of recovery from hepatitis B infection or evidence of antibody response to HBV vaccination. An anti-HBs result greater than or equal to 10 IU/L implies immunity. For post-vaccination antibody testing guidelines for the general public refer to MMWR May 25, 2005/Vol. 54(No. 16);-23, and for healthcare workers refer to MMWR May 22, 2013/Vol. 62(No. 10);-. Reference Interval: anti-HBs 9.99 IU/L or less ....... Negative 10.00 IU/L or greater .... Positive Results greater than 1,000.00 IU/L are reported as greater than 1,000.00 IU/L. This assay should not be used for blood donor screening, associated re-entry protocols, or for screening Human Cell, Tissues and Cellular and Tissue-Based Products (HCT/P). Performed by Lindsey Shell, [address] [place] [address] [email or web address], Jack Hooker MD - Lab. Director Specimen Serum Performing Organization Address City/State/Zipcode Phone Number [facility] [address] [place] [address] Hepatitis B surface antibody (10/22/2017 12:00 PM) Hepatitis B surface Ab Non-reactive Non-reactive [facility] DEPARTMENT OF PATHOLOGY AND GENOMIC MEDICINE Specimen Blood Performing Organization Address City/State/Zipcode Phone Number [facility] DEPARTMENT OF PATHOLOGY AND [address] [place] [id number] [place] [address] MEDICINE Hepatitis B surface antigen (10/22/2017 12:00 PM) Hepatitis B surface Ag Non-reactive Non-reactive [facility] DEPARTMENT OF PATHOLOGY AND GENOMIC MEDICINE Specimen Blood Performing Organization Address City/[facility]/Zipcode Phone Number [facility] DEPARTMENT OF PATHOLOGY AND [address] [place] [id number] [place] [address] MEDICINE POC glucose (10/22/2017 7:41 AM)Only the most recent of6 resultswithin the time period is included. POC glucose 176 (H) 65 - 99 mg/dL [facility] DEPARTMENT OF PATHOLOGY AND Comment: GENOMIC MEDICINE RN Notified Meter ID: [id number] Mine Superintendent: Ramana Angela Performing Organization Address City/[facility] Phone Number [facility] DEPARTMENT OF PATHOLOGY [id number] [place] [address] AND [employer] MEDICINE POC panel 4 (10/21/2017 12:03 PM)Only the most recent of2 resultswithin the time period is included. POC sodium 140 135 - 148 mmol/L [facility] DEPARTMENT OF PATHOLOGY AND GENOMIC MEDICINE POC potassium 4.5 3.5 - 5.0 mmol/L [facility] DEPARTMENT OF PATHOLOGY AND GENOMIC MEDICINE POC hematocrit 36 (L) 41 - 51 % [facility] DEPARTMENT OF PATHOLOGY AND GENOMIC MEDICINE POC glucose 193 (H) 65 - 99 mg/dL [facility] DEPARTMENT OF PATHOLOGY AND GENOMIC MEDICINE POC hemoglobin 12.2 (L) 14.0 - 18.0 g/dL [facility] DEPARTMENT OF Comment: PATHOLOGY AND GENOMIC Meter ID: [id number] MEDICINE Mine Superintendent: Erwin Miner Specimen Blood Performing Organization Address [facility] Phone Number [facility] DEPARTMENT OF PATHOLOGY [id number] [place] [address] AND [employer] MEDICINE Estimated GFR (10/21/2017 12:00 PM)Only the most recent of2 resultswithin the time period is included. GFR Non Af Amer 6 (A) mL/min/1.73 m2 [facility] DEPARTMENT OF PATHOLOGY AND GENOMIC MEDICINE GFR Af Amer 7 (A) mL/min/1.73 m2 [facility] DEPARTMENT OF Comment: PATHOLOGY AND GENOMIC Chronic kidney disease: <60 mL/min/1.73m2 MEDICINE Kidney failure: <15 mL/min/1.73m2 The estimated GFR is calculated from the IDMS-traceable Modification of Diet in Renal Disease Equation. The accuracy of the calculation is poor when the creatinine is normal. Calculated values >90 mL/min/1.73m2 are not reported. This equation has not been validated in children (<18 years), women, the elderly (>70 years), or ethnic groups other than Caucasians and Americans. Specimen Plasma specimen Performing Organization Address [facility] Phone Number [facility] DEPARTMENT OF PATHOLOGY [address] [place] [address]. [place] [address] AND [employer] Partial thromboplastin time, activated (10/21/2017 12:00 PM)Only the most recent of2 resultswithin the time period is included. PTT 41.9 (H) 23.0 - 36.0 sec [facility] DEPARTMENT OF Comment: PATHOLOGY AND [employer] PTT therapeutic range for unfractionated heparin is MEDICINE 61.0-112.0 seconds which corresponds to Anti-Xa 0.3-0.7 U/ml. Specimen Blood Performing Organization Address [facility] [place] Phone Number [facility] DEPARTMENT OF PATHOLOGY [address] [place] [address]. [place] [address] AND [employer] [facility] Prothrombin time with INR (10/21/2017 12:00 PM)Only the most recent of3 resultswithin the time period is included. Prothrombin time 13.2 12.0 - 15.0 sec [facility] DEPARTMENT OF PATHOLOGY AND [employer] MEDICINE INR 1.0 [facility] DEPARTMENT OF Comment: PATHOLOGY AND [employer] The International Normalized Ratio (INR) is a therapeutic MEDICINE monitoring tool for patients who are stable on oral anticoagulant therapy. An INR of 2.0-3.0 is suggested for deep vein thrombosis/pulmonary embolism. Specimen Blood Performing Organization Address [facility] Phone Number [facility] DEPARTMENT OF PATHOLOGY [address] [place] [address]. [place] [address] AND [employer] CBC with platelet and differential (10/21/2017 12:00 PM)Only the most recent of2 resultswithin the time period is included. WBC 4.2 (L) 4.5 - 11.0 k/uL [facility] DEPARTMENT OF PATHOLOGY AND [employer] MEDICINE RBC 3.91 (L) 4.40 - 6.00 m/uL [facility] DEPARTMENT OF PATHOLOGY AND GENOMIC MEDICINE HGB 11.1 (L) 14.0 - 18.0 g/dL [facility] DEPARTMENT OF PATHOLOGY AND GENOMIC MEDICINE HCT 36.4 (L) 41.0 - 51.0 % [facility] DEPARTMENT OF PATHOLOGY AND GENOMIC MEDICINE MCV 93.1 82.0 - 100.0 fL [facility] DEPARTMENT OF PATHOLOGY AND GENOMIC MEDICINE MCH 28.4 27.0 - 34.0 pg [facility] DEPARTMENT OF PATHOLOGY AND GENOMIC MEDICINE MCHC 30.5 (L) 31.0 - 37.0 g/dL [facility] DEPARTMENT OF PATHOLOGY AND GENOMIC MEDICINE RDW - SD 52.5 37.0 - 55.0 fL [facility] DEPARTMENT OF PATHOLOGY AND GENOMIC MEDICINE MPV 9.5 6.9 - 11.0 fL [facility] DEPARTMENT OF PATHOLOGY AND GENOMIC MEDICINE Platelet count 232 150 - 400 K/uL [facility] DEPARTMENT OF PATHOLOGY AND GENOMIC MEDICINE Nucleated RBC 0.00 /100 WBC [facility] DEPARTMENT OF PATHOLOGY AND GENOMIC MEDICINE Neutrophils 57.5 39.0 - 69.0 % [facility] DEPARTMENT OF PATHOLOGY AND GENOMIC MEDICINE Lymphocytes 24.7 (L) 25.0 - 45.0 % [facility] DEPARTMENT OF PATHOLOGY AND GENOMIC MEDICINE Monocytes 11.4 (H) 0.0 - 10.0 % [facility] DEPARTMENT OF PATHOLOGY AND GENOMIC MEDICINE Eosinophils 5.2 (H) 0.0 - 5.0 % [facility] DEPARTMENT OF PATHOLOGY AND GENOMIC MEDICINE Basophils 0.7 0.0 - 1.0 % [facility] DEPARTMENT OF PATHOLOGY AND GENOMIC MEDICINE Immature granulocytes 0.5 0.0 - 1.0 % [facility] DEPARTMENT OF PATHOLOGY AND GENOMIC MEDICINE Specimen Blood Performing Organization Address City/[facility] Phone Number [facility] DEPARTMENT OF PATHOLOGY [address] [place] [address] AND GENOMIC MEDICINE Type and screen (10/21/2017 12:00 PM)Only the most recent of2 resultswithin the time period is included. ABO grouping A [facility] DEPARTMENT OF PATHOLOGY AND GENOMIC MEDICINE Rh type POS [facility] DEPARTMENT OF PATHOLOGY AND GENOMIC MEDICINE Antibody screen (gel) NEG [facility] OF PATHOLOGY AND GENOMIC MEDICINE Specimen Blood Performing Organization Address City/[facility]/[place] [address] AND [employer] MEDICINE Basic metabolic panel (10/21/2017 12:00 PM)Only the most recent of2 resultswithin the time period is included. Sodium 140 135 - 148 mEq/L [facility] DEPARTMENT OF PATHOLOGY AND GENOMIC MEDICINE Potassium 4.8 3.5 - 5.0 mEq/L [facility] DEPARTMENT OF PATHOLOGY AND GENOMIC MEDICINE Chloride 100 98 - 112 mEq/L [facility] DEPARTMENT OF PATHOLOGY AND GENOMIC MEDICINE CO2 21 (L) 24 - 31 mEq/L [facility] DEPARTMENT OF PATHOLOGY AND GENOMIC MEDICINE Anion gap 19@ANIO (H) 7 - 15 mEq/L [facility] DEPARTMENT OF PATHOLOGY AND GENOMIC MEDICINE BUN 44 (H) 8 - 23 mg/dL [facility] DEPARTMENT OF PATHOLOGY AND GENOMIC MEDICINE Creatinine 8.8 (H) 0.7 - 1.2 mg/dL [facility] DEPARTMENT OF PATHOLOGY AND GENOMIC MEDICINE Glucose 206 (H) 65 - 99 mg/dL [facility] DEPARTMENT OF PATHOLOGY AND GENOMIC MEDICINE Calcium 8.2 (L) 8.8 - 10.2 mg/dL [facility] DEPARTMENT OF PATHOLOGY AND GENOMIC MEDICINE Specimen Plasma specimen Performing Organization Address City/State/Zipcode Phone Number [facility] DEPARTMENT OF PATHOLOGY [address] [place] [address] AND [employer] MEDICINE XR Chest 1 Vw Portable (10/21/2017 11:55 AM)Only the most recent of2 resultswithin the time period is included. Narrative Performed At EXAMINATION:XR CHEST 1 VW PORTABLE [facility] CLINICAL HISTORY:PRE PROCEDURE COMPARISON:To previous study from 05/30/2017 IMPRESSION: Venous catheter extends in the right atrium. The heart is normal changes are present in both lung bases. [facility]-[id number] Procedure Note Interface, Radiology Results Incoming - 10/21/2017 12:50 PM CDT EXAMINATION: XR CHEST 1 VW PORTABLE CLINICAL HISTORY: PRE PROCEDURE COMPARISON: To previous study from 05/30/2017 IMPRESSION: Venous catheter extends in the right atrium. The heart is normal changes are present in both lung bases. [facility]-[id number] Performing Organization Address City/State/Zipcode Phone Number [facility] [address] [place] [address] ECG 12 lead (10/21/2017 11:48 AM)Only the most recent of2 resultswithin the time period is included. Ventricular rate 79 [facility] Atrial rate 79 [facility] IA interval 158 [facility] QRSD interval 80 [facility] QT interval 392 [facility] QTC interval 449 [facility] P axis 1 49 [facility] QRS axis 1 -15 [facility] T wave axis 53 [facility] MUSE EKG impression Normal sinus rhythm-Normal ECG-In automated [facility] MUSE comparison with ECG of 30-MAY-2017 07:48,-No significant change was found- Performing Organization Address City/State/Zipcode Phone Number [facility] M[facility] [address] [place] [address] Ammonia level (05/30/2017 10:45 AM) Ammonia 47 16 - 60 umol/L [facility] DEPARTMENT OF PATHOLOGY AND GENOMIC MEDICINE Specimen Plasma specimen Performing Organization Address City/State/Zipcode Phone Number [facility] DEPARTMENT OF PATHOLOGY [address] [place] [address] AND GENOMIC MEDICINE Pv ankle brachial index extremity complete (05/22/2017 6:00 PM) Narrative Performed At EXAM: US DUPLEX ARTERIAL LOWER EXTREMITY BILATERAL, US ANKLE BRACHIAL [facility] INDEX COMPLETE HISTORY: I87.2 Venous insufficiency (chronic) [...] COMMON FEMORAL:107 cm/s FEMORAL: Proximal: -95.85 cm/s Mid: -94.76 cm/s Distal:- 61.80 cm/s POPLITEAL: Proximal:107.99 cm/s Mid: -106.90 cm/s Distal: -106.87 cm/s POSTERIOR TIBIAL: Proximal: 36.73 cm/s Mid: 32.46 cm/s Distal:3 1.75 cm/s ANTERIOR TIBIAL: Proximal: 58.08 cm/s Mid: 81.00 cm/s Distal:9 7.82 cm/s DORSALIS PEDIS: 102.99 cm/s DOPPLER WAVEFORMS: [...] COMMON FEMORAL:-106.87 cm/s FEMORAL: Proximal: -88.76 cm/s Mid: -95.23 cm/s Distal:- 87.47 cm/s POPLITEAL: Proximal: 57.71 cm/s Mid: -52.53 cm/s Distal: -74.53 cm/s POSTERIOR TIBIAL: Proximal: 33.88 cm/s Mid: 28.19 cm/s Distal:6 0.29 cm/s ANTERIOR TIBIAL: Proximal:32.46 cm/s Mid: 103.98 cm/s Distal: 86.39 cm/s DORSALIS PEDIS:86.60 cm/s DOPPLER WAVEFORMS: COMMON FEMORAL: Triphasic FEMORAL Proximal: Triphasic Mid: Triphasic Distal: Triphasic POPLITEAL Proximal: Triphasic Mid: Triphasic Distal: Triphasic POSTERIOR TIBIAL Proximal: Monophasic Mid: Monophasic Distal: Monophasic ANTERIOR TIBIAL Proximal: Monophasic Mid: Monophasic Distal: Monophasic DORSALIS PEDIS: Monophasic ANKLE BRACHIAL INDEX: Posterior tibial: 1.29 Dorsalis pedis: 1.40 [facility]-[id number] FRANK Guidelines: >1.4: Calcified Vessel 0.9-1.4: Normal 0.7-0.89: Mild PAD 0.51-0.69: Moderate PAD <0.5: Severe PAD TBI Guidelines: <0.6: Normal 0.34-0.59: Mild PAD 0.12-0.34: Moderate PAD <0.11: Severe PAD Procedure Note Hm Interface, Radiology Results Incoming - 05/22/2017 6:21 PM AGRICULTURAL ECONOMICS TEACHER EXAM: US DUPLEX ARTERIAL LOWER EXTREMITY BILATERAL, [...] INDEX: Posterior tibial: 1.29 Dorsalis pedis: 1.40 [facility]-[id number] FRANK Guidelines: >1.4: Calcified Vessel 0.9-1.4: Normal 0.7-0.89: Mild PAD 0.51-0.69: Moderate PAD <0.5: Severe PAD TBI Guidelines: <0.6: Normal 0.34-0.59: Mild PAD 0.12-0.34: Moderate PAD <0.11: Severe PAD Performing Organization Address City/State/Zipcode Phone Number [facility] [address] [place] [address] duplex arterial lower extremity (05/22/2017 6:00 PM) Narrative Performed At EXAM: US DUPLEX ARTERIAL LOWER EXTREMITY BILATERAL, US ANKLE BRACHIAL [facility] INDEX COMPLETE HISTORY: I87.2 Venous insufficiency (chronic) [...] multilevel disease or calcified vessels. 3.Slightly elevated RFANK in the left lower extremity dorsalis pedis arterial distribution suggest calcified vessels. Otherwise normal bilateral ABIs. FINDINGS:Waveforms are monophasic in the infrapopliteal region. RIGHT LEG: PEAK SYSTOLIC VELOCITIES ARE FOLLOWS: COMMON FEMORAL:107 cm/s FEMORAL: Proximal: -95.85 cm/s Mid: -94.76 cm/s Distal:- 61.80 cm/s POPLITEAL: Proximal:107.99 cm/s Mid: -106.90 cm/s Distal: -106.87 cm/s POSTERIOR TIBIAL: Proximal: 36.73 cm/s Mid: 32.46 cm/s Distal:3 1.75 cm/s ANTERIOR TIBIAL: Proximal: 58.08 cm/s Mid: 81.00 cm/s Distal:9 7.82 cm/s DORSALIS PEDIS: 102.99 cm/s DOPPLER WAVEFORMS: [...] COMMON FEMORAL:-106.87 cm/s FEMORAL: Proximal: -88.76 cm/s Mid: -95.23 cm/s Distal:- 87.47 cm/s POPLITEAL: Proximal: 57.71 cm/s Mid: -52.53 cm/s Distal: -74.53 cm/s POSTERIOR TIBIAL: Proximal: 33.88 cm/s Mid: 28.19 cm/s Distal:6 0.29 cm/s ANTERIOR TIBIAL: Proximal:32.46 cm/s Mid: 103.98 cm/s Distal: 86.39 cm/s DORSALIS PEDIS:86.60 cm/s DOPPLER WAVEFORMS: COMMON FEMORAL: Triphasic FEMORAL Proximal: Triphasic Mid: Triphasic Distal: Triphasic POPLITEAL Proximal: Triphasic Mid: Triphasic Distal: Triphasic POSTERIOR TIBIAL Proximal: Monophasic Mid: Monophasic Distal: Monophasic ANTERIOR TIBIAL Proximal: Monophasic Mid: Monophasic Distal: Monophasic DORSALIS PEDIS: Monophasic ANKLE BRACHIAL INDEX: Posterior tibial: 1.29 Dorsalis pedis: 1.40 [facility]-[id number] FRANK Guidelines: >1.4: Calcified Vessel 0.9-1.4: Normal 0.7-0.89: Mild PAD 0.51-0.69: Moderate PAD <0.5: Severe PAD TBI Guidelines: <0.6: Normal 0.34-0.59: Mild PAD 0.12-0.34: Moderate PAD <0.11: Severe PAD Procedure Note Interface, Radiology Results Incoming - 05/22/2017 6:21 PM AGRICULTURAL ECONOMICS TEACHER EXAM: US DUPLEX ARTERIAL LOWER EXTREMITY BILATERAL, [...] INDEX: Posterior tibial: 1.29 Dorsalis pedis: 1.40 [facility]-[id number] FRANK Guidelines: >1.4: Calcified Vessel 0.9-1.4: Normal 0.7-0.89: Mild PAD 0.51-0.69: Moderate PAD <0.5: Severe PAD TBI Guidelines: <0.6: Normal 0.34-0.59: Mild PAD 0.12-0.34: Moderate PAD <0.11: Severe PAD Performing Organization Address City/State/Zipcode Phone Number [facility] [address] [place] [address] after 12/19/2016 Insurance Payer Benefit Plan / Group Subscriber ID Type Phone Address MEDICARE MEDICARE PART A AND B xxxxxxxxxx Medicare [place], [place] MEDICAID MEDICAID xxxxxxxxx Medicaid Home: [address] [phone] [place], [place] [address]
[2017-12-20] MEDS ORDERED: HYDROCODONE/APAP 7.5/325 MG TAB ONE (09:54)
--- NOTE | 2017-12-20 11:01 | RAD REPORT ---
EXAM DESCRIPTION: RAD - Sacrum And Coccyx - 12/20/2017 10:18 am CLINICAL HISTORY: Fall, sacrum and coccygeal pain COMPARISON: None. TECHNIQUE: Lateral, 15 degree cephalad and 10 degree caudal views obtained. FINDINGS: L4-5 degenerative disc disease is present. There is mild to moderate L4-5 facet degenerati ve change. No compression fracture of L4 or L5. SI joint degenerative changes minimal. Sacral ala fracture not suspected. No pubic symphysis abnormal ity. Superior and inferior pubic rami intact. No fracture of the sacrum or coccygeal segments identifiable. No lytic, sclerotic or expansile bony d estructive process. There is no presacral soft tissue thickening. IMPRESSION: No acute finding of the sacrum or coccyx. Lower lumbar disc, endplate and facet degenerative change.
[2017-12-20 11:10] LABS: Absolute Lymphocytes (CBC) 0.3 K/uL (0.7-4.9); Absolute Monocytes 0.6 K/uL (0.1-1.3); Basophils % 0.3 % (0-1.3); Eosinophils % 0.4 % (0-4.4); Hematocrit 41.9 % (39.6-49.0); Lymphocytes % 4.3 % (15.3-44.8); MCH 27.3 pg (27.0-35.0); MCV 87.6 fL (80-100); MPV 7.9 fL (7.6-11.3); Monocytes % 7.2 % (3.3-12.3); RBC Red Blood Cell Count 4.78 M/uL (4.33-5.43)
[2017-12-20 11:28] LABS: Potassium 4.3 mmol/L (3.5-5.1)
--- NOTE | 2017-12-20 12:26 | EDPHYS ---
Physician Documentation [facility] Name: Archie Nazario Age: 62 yrs Sex: Male : 1955 Arrival Date: 12/20/2017 Time: 09:14 Bed 15 Private MD: ED Physician Cody Peoples HPI: 12/20 09:21 This 62 yrs old Male presents to ER via Unassigned with complaints of Low jr8 Blood Sugar. 09:21 EMS was called out to unresponsive patient. Found to have low blood glucose level. jr8 History of diabetes. Was given Glucagon and when awake oral glucose. Patient now awake and alert to person, place, time, event. Stated that he has not had this problem in a while. Denies not eating, medication change, or taking too much medication. Denies recent illness. Stated that he did fall yesterday and hit tail bone. Complains of pain to region . The patient has experienced similar episodes in the past, a few times. The patient has not recently seen a physician. Historical: - Allergies: 09:44 No Known Drug Allergies; jl7 - PMHx: 09:44 Diabetes - IDDM; hepatic cancer; Hypertension; Dialysis; kidney failure; jl7 - Immunization history:: Adult Immunizations up to date. - Social history:: Smoking status: Patient/guardian denies using tobacco. - Ebola Screening: : No symptoms or risks identified at this time. ROS: 09:21 Eyes: Negative for injury, pain, redness, and discharge, ENT: Negative for injury, jr8 pain, and discharge, Neck: Negative for injury, pain, and swelling, Cardiovascular: Negative for chest pain, palpitations, and edema, Respiratory: Negative for shortness of breath, cough, wheezing, and pleuritic chest pain, Abdomen/GI: Negative for abdominal pain, nausea, vomiting, diarrhea, and constipation, MS/Extremity: Negative for injury and deformity, Skin: Negative for injury, rash, and discoloration, Neuro: Negative for headache, weakness, numbness, tingling, and seizure. 09:21 Back: Positive for pain at rest, pain with movement, of the sacrum. Exam: 09:21 Eyes: Pupils equal round and reactive to light, extra-ocular motions intact. Lids and jr8 lashes normal. Conjunctiva and sclera are non-icteric and not injected. Cornea within normal limits. Periorbital areas with no swelling, redness, or edema. ENT: Nares patent. No nasal discharge, no septal abnormalities noted. Tympanic membranes are normal and external auditory canals are clear. Oropharynx with no redness, swelling, or masses, exudates, or evidence of obstruction, uvula midline. Mucous membranes moist. Neck: Trachea midline, no thyromegaly or masses palpated, and no cervical lymphadenopathy. Supple, full range of motion without nuchal rigidity, or vertebral point tenderness. No Meningismus. Chest/axilla: Normal chest wall appearance and motion. Nontender with no deformity. No lesions are appreciated. Cardiovascular: Regular rate and rhythm with a normal S1 and S2. No gallops, murmurs, or rubs. Normal PMI, no JVD. No pulse deficits. Respiratory: Lungs have equal breath sounds bilaterally, clear to auscultation and percussion. No rales, rhonchi or wheezes noted. No increased work of breathing, no retractions or nasal flaring. Abdomen/GI: Soft, non-tender, with normal bowel sounds. No distension or tympany. No guarding or rebound. No evidence of tenderness throughout. Skin: Warm, dry with normal turgor. Normal color with no rashes, no lesions, and no evidence of cellulitis. MS/ Extremity: Pulses equal, no cyanosis. Neurovascular intact. Full, normal range of motion. Neuro: Awake and alert, GCS 15, oriented to person, place, time, and situation. Cranial nerves II-XII grossly intact. Motor strength 5/5 in all extremities. Sensory grossly intact. Cerebellar exam normal. Normal gait. 09:21 Back: pain, that is mild, of the sacrum, ROM is normal, normal spinal alignment noted, CVA tenderness, is absent, vertebral tenderness, is not appreciated, muscle spasm, is not present. Vital Signs: 09:14 BP 151 / 82; Pulse 72; Resp 18; Pulse Ox 100% on R/A; Weight 78.9 kg; Height 5 ft. 9 hj in. (175.26 cm); Pain 10/10; 09:44 Temp 91.8(R); jl7 09:44 BP 141 / 71; Pulse 70; Resp 18 S; Temp 91.8(R); Pulse Ox 100% on R/A; Pain 9/10; jl7 10:37 BP 104 / 56; Pulse 74; Resp 18; Temp 97.6(O); Pulse Ox 98% on R/A; mb3 12:13 BP 100 / 87; Pulse 69; Resp 18; Temp 98.1(O); Pulse Ox 97% on R/A; mb3 09:14 Body Mass Index 25.69 (78.90 kg, 175.26 cm) hj MDM: 09:18 Patient medically screened. jr8 12:23 Data reviewed: vital signs, nurses notes, lab test result(s), and as a result, I will jr8 discharge patient. Data interpreted: Pulse oximetry: on room air is 97 %. Interpretation: normal. Counseling: I had a detailed discussion with the patient and/or guardian regarding: the historical points, exam findings, and any diagnostic results supporting the discharge/admit diagnosis, lab results, the need for outpatient follow up, a family practitioner, to return to the emergency department if symptoms worsen or persist or if there are any questions or concerns that arise at home. ED course: Patient at baseline. Sugar has stabilized. Ate without any problem. Arranged to have patient dialyzed today at [facility] so he did not miss that . 12/20 09:19 Order name: CBC with Diff 8 12/20 09:19 Order name: Basic Metabolic Panel; Complete Time: 11:32 jr8 12/20 09:19 Order name: Diet Ada 2000 Jhonny; Complete Time: 09:19 jr8 12/20 09:19 Order name: XRAY Sacrum And Coccyx; Complete Time: 11:05 [facility] 12/20 11:15 Order name: Manual Differential EDMS 12/20 09:19 Order name: Glucose Level; Complete Time: 11:08 8 Administered Medications: 09:55 Drug: [place] (7.5 mg-325 mg) 1 tabs Route: PO; iw 12:34 Follow up: Response: No adverse reaction mb3 Point of Care Testing: Blood Glucose: 09:44 Blood Glucose: 74 mg/dL; jl7 11:42 Blood Glucose: 220 mg/dL; dh3 Ranges: Critical Glucose Levels:Adult <50 mg/dl or >400 mg/dl <40 mg/dl or >180 mg/dl Disposition: 19:07 Co-signature as Attending Physician, Cody Peoples MD. rn Disposition: 12/20/17 12:25 Discharged to Home. Impression: Hypoglycemia, unspecified. - Condition is Stable. - Discharge Instructions: Hypoglycemia, Blood Glucose Monitoring, Adult. - Medication Reconciliation Form, Thank You Letter, Antibiotic Education, Prescription Opioid Use form. - Follow up: Private Physician; When: 2 - 3 days; Reason: Recheck today's complaints, Continuance of care, Re-evaluation by your physician. - Problem is new. - Symptoms have improved. Signatures: Dispatcher [employer] EDAranza Lindquist RN RN Cody Rivera MD MD rn Roszak, Josh, JOSEPH RUIZ jr8 Cruzito Cox RN RN jl7 Miller Ta RN RN mb3 Corrections: (The following items were deleted from the chart) 12:39 12:25 12/20/2017 12:25 Discharged to Home. Impression: Hypoglycemia, unspecified. mb3 Condition is Stable. Forms are Medication Reconciliation Form, Thank You Letter, Antibiotic Education, Prescription Opioid Use. Follow up: Private Physician; When: 2 - 3 days; Reason: Recheck today's complaints, Continuance of care, Re-evaluation by your physician. Problem is new. Symptoms have improved. jr8
--- NOTE | 2017-12-20 12:26 | ER ---
Nurse's Notes [facility] Name: Archie Nazario Age: 62 yrs Sex: Male : 1955 Arrival Date: 12/20/2017 Time: 09:14 Bed 15 Private MD: Diagnosis: Hypoglycemia, unspecified Presentation: 12/20 09:19 Presenting complaint: EMS states: Pt's BGL was 52, gave glucagon and oral glucose, BGL jl7 was 108 just prior to arrival. Pt's family reports he has been falling a lot recently and fell last night. Pt is c/o pain to the sacral area. Transition of care: patient was not received from another setting of care. Onset of symptoms was December 20, 2017. Risk Assessment: Do you want to hurt yourself or someone else? Patient reports no desire to harm self or others. Initial Sepsis Screen: Does the patient meet any 2 criteria? Temp <36.0*C (96.8*F)) or > 38.3*C (100.4*F). No. Patient's initial sepsis screen is negative. Does the patient have a suspected source of infection? No. Patient's initial sepsis screen is negative. Care prior to arrival: Medication(s) given: Glucagon, IV initiated. 20 GA, in the right forearm, Glucose check: 52 BGL just prior to arrival was 108. 09:19 Method Of Arrival: EMS: [facility] 7 09:19 Acuity: JAZMINE 3 jl7 Triage Assessment: 10:10 General: Appears uncomfortable, Behavior is cooperative, drowsy. Pain: Complains of jl7 pain in sacrum Pain does not radiate. Pain currently is 9 out of 10 on a pain scale. Quality of pain is described as aching, Pain began 1 day ago. Is continuous. EENT: No signs and/or symptoms were reported regarding the EENT system. Neuro: Level of Consciousness is awake, alert, obeys commands, Oriented to person, place, time. Cardiovascular: Patient's skin is warm and dry. Respiratory: Airway is patent Respiratory effort is even, unlabored, Respiratory pattern is regular, symmetrical. Derm: Skin is pink, warm \T\ dry. Historical: - Allergies: 09:44 No Known Drug Allergies; jl7 - PMHx: 09:44 Diabetes - IDDM; hepatic cancer; Hypertension; Dialysis; kidney failure; jl7 - Immunization history:: Adult Immunizations up to date. - Social history:: Smoking status: Patient/guardian denies using tobacco. - Ebola Screening: : No symptoms or risks identified at this time. Screenin:14 Abuse screen: Denies threats or abuse. Nutritional screening: No deficits noted. mb3 Tuberculosis screening: No symptoms or risk factors identified. Fall Risk None identified. Assessment: 10:25 General: Appears in no apparent distress. comfortable, Behavior is calm, cooperative, mb3 appropriate for age. Pain: Complains of pain in left lower back and left gluteus belkis. Neuro: No deficits noted. Cardiovascular: No deficits noted. Heart tones present Capillary refill < 3 seconds Patient's skin is warm and dry. Respiratory: Airway is patent Respiratory effort is even, unlabored, Respiratory pattern is regular, symmetrical, Breath sounds are clear bilaterally. GI: No signs and/or symptoms were reported involving the gastrointestinal system. Abdomen is flat, Bowel sounds present X 4 quads. Abd is soft and non tender. : No signs and/or symptoms were reported regarding the genitourinary system. :. EENT: No signs and/or symptoms were reported regarding the EENT system. Derm: No signs and/or symptoms reported regarding the dermatologic system. 12:24 Reassessment: Patient and/or family updated on plan of care and expected duration. Pain mb3 level reassessed. Patient is alert, oriented x 3, equal unlabored respirations, skin warm/dry/pink. Patient states feeling better. Patient states symptoms have improved. Vital Signs: 09:14 BP 151 / 82; Pulse 72; Resp 18; Pulse Ox 100% on R/A; Weight 78.9 kg; Height 5 ft. 9 hj in. (175.26 cm); Pain 10/10; 09:44 Temp 91.8(R); jl7 09:44 BP 141 / 71; Pulse 70; Resp 18 S; Temp 91.8(R); Pulse Ox 100% on R/A; Pain 9/10; jl7 10:37 BP 104 / 56; Pulse 74; Resp 18; Temp 97.6(O); Pulse Ox 98% on R/A; mb3 12:13 BP 100 / 87; Pulse 69; Resp 18; Temp 98.1(O); Pulse Ox 97% on R/A; mb3 09:14 Body Mass Index 25.69 (78.90 kg, 175.26 cm) ED Course: 09:14 Patient arrived in ED. hj 09:16 Maintain EMS IV. Dressing intact. Good blood return noted. Site clean \T\ dry. Gauge \T\ hj site: 20g R AC. 09:18 Dilip Boyd PA is PHCP. jr8 09:18 Cody Peoples MD is Attending Physician. jr8 09:19 Cruzito Cox RN is Primary Nurse. jl7 09:43 Triage completed. jl7 09:44 Arm band placed on right wrist. jl7 10:07 Patient moved to radiology via stretcher. sw 10:12 Report given to JOEY Bhatt. jl7 10:16 X-ray completed. Patient tolerated procedure well. sw 10:17 XRAY Sacrum And Coccyx In Process Unspecified. EDMS 10:20 Missed attempt(s): 22 gauge 24 gauge Bleeding controlled, band aid applied, catheter mb3 tip intact. 10:30 service station manager on. Pulse ox on. NIBP on. mb3 11:03 Initial lab(s) drawn, by me, sent to lab. Inserted saline lock: 24 gauge in right hand, iw using aseptic technique. Blood collected. 12:14 Patient has correct armband on for positive identification. Placed in gown. Bed in low mb3 position. Call light in reach. Side rails up X 1. 12:31 No provider procedures requiring assistance completed. IV discontinued, intact, mb3 bleeding controlled, No redness/swelling at site. Pressure dressing applied. Administered Medications: 09:55 Drug: [place] (7.5 mg-325 mg) 1 tabs Route: PO; iw 12:34 Follow up: Response: No adverse reaction mb3 Point of Care Testing: Blood Glucose: 09:44 Blood Glucose: 74 mg/dL; jl7 11:42 Blood Glucose: 220 mg/dL; dh3 Ranges: Outcome: 12:25 Discharge ordered by . jr8 12:32 Discharged to home via wheelchair. mb3 12:32 Condition: stable 12:32 Discharge instructions given to patient, Instructed on discharge instructions, follow up and referral plans. Demonstrated understanding of instructions, follow-up care. 12:39 Patient left the ED. mb3 Signatures: Dispatcher [employer] Aranza Wagoner, RN RN Dilip Boyd PA PA jr8 Stephanie Nichole Henry, RN RN Cruzito Cox RN RN jl7 Nehal Redman 3 Miller Ta RN RN mb3 Corrections: (The following items were deleted from the chart) 09:16 09:14 BP 151 / 82; Pulse 72bpm; Resp 18bpm; Pulse Ox 100% RA; 83.91 kg; Height 5 ft. 9 hj in.; BMI: 27.3; Pain 10/10; hj
[2017-12-20 12:47] VITALS: BP 100/87; TEMP 98.1; O2SAT 97
[2017-12-20 13:16] LABS: Blood Morphology Comment NOT SEEN (NOT SEEN); Platelet Estimate ADEQ
== END 2017-12-20 12:39 | disposition home or self-care (01) ==
LOC: ER 09:13
DX: E11.649 Type 2 diabetes mellitus with hypoglycemia without coma (principal); N19 Unspecified kidney failure; Z99.2 Dependence on renal dialysis; Z85.05 Personal history of malignant neoplasm of liver
CPT/HCPCS: 36415; 72220; 80048; 80053; 80197; 82248; 82962; 83735; 85025; 99285

== ENCOUNTER 2017-12-24 17:41 | Observation (INO) | payer OTHER ==
--- OUTSIDE RECORDS SUMMARY | 2017-12-24 17:43 | XMS REPORT | Clinical Summary ---
:1955 Author Organization [facility] Address [address] [place] [address] Care Team Providers Name Role Phone Fan [...] 07/30/2017 Anesthesia Event General Surgery CoriNita alonzo, NANOTECHNOLOGIST 05/30/2017 Hospital Encounter General Surgery Jasmyne, Acute viral hepatitis Ashvin Steele MD B without coma and without delta agent (Primary Dx) 05/30/2017 Procedure Pass General Surgery 05/30/2017 Surgery General Surgery Jasmyne, LEFT UPPER EXTREMITY Ashvin Steele MD 1ST STAGE BVT 05/23/2017 Anesthesia Event General Surgery CoriNita alonzo, NANOTECHNOLOGIST 05/22/2017 Hospital Encounter Radiology Jasmyne, Venous insufficiency; Ashvin Steele MD PVD (peripheral vascular disease) 05/22/2017 Hospital Encounter Radiology Jasmyne, Venous insufficiency; Ashvin Steele MD PVD (peripheral vascular disease) 04/11/2017 Transcribe Orders Access Jasmyne, Venous insufficiency ( Primary Dx); Ashvin Steele MD PVD (peripheral vascular disease) after 12/23/2016 Social History Tobacco Use Types Packs/Day Years [...] INFLUENZA VACCINE 01/01/2018 Implants Implanted Type Area C Java Developer Device Expiration Model / Identifier Date Serial / Lot Kit Selnt Fibrin Humn Hmsts Surgy 5ml Evicel - [id number] Surgical Left: ETHICON US-EH 09/30/2018 [id number] / Implanted: 10/21/2017 (Quantity not on file) Implants; Arm, / Expanders; Upper [id number] Extenders; Surgical Wires Drain Wnd Chnl 15fr 16in Rnd Hbls Fl-Flut W/ 16in Trocar - [id number] Surgical N/A: N/A [employer] 07/03/2022 [id number] / Implanted: 10/21/2017 (Quantity not on file) Implants; DIVISION / Expanders; [id number] Extenders; Surgical Wires Procedures Procedure Name Priority [...] CDT procedure are in the results section. CO AN ELECTIVE Routine 10/21/2017 3:00 SUPRAGLOTTIC AIRWAY PM CDT Procedure Note - Bryon Barragan MD - 10/21/2017 3:00 PM CDT Airway Performed by: BRYON BARRAGAN Authorized by: BRYON BARRAGAN Location: OR Urgency: Elective Difficult Airway: No Anesthesiologist: BRYON BARRAGAN Resident/BIOTECHNOLOGIST/AA: JUAN CARLOS ALLISON Performed by: resident/BIOTECHNOLOGIST/AA Preoxygenated with 100% O2: Yes C-spine Precautions [...] CDT AMMONIA LEVEL Routine 05/30/2017 10:45 AM CLINICAL MICROBIOLOGIST POC GLUCOSE Routine 05/30/2017 10:17 AM CLINICAL MICROBIOLOGIST CO AN ELECTIVE SUPRAGLOTTIC Routine 05/30/2017 9:40 AM CLINICAL MICROBIOLOGIST AIRWAY Procedure Note - Anel Ponce CRNA - 05/30/2017 9:39 AM CLINICAL MICROBIOLOGIST Airway Date/Time: 05/30/2017 9:35 AM Performed by: ANEL PONCE Authorized by: SUSHMA POWELL Location: OR Urgency: Elective Difficult Airway: No Resident/BIOTECHNOLOGIST/AA: MARY CRAMER Performed by: resident/BIOTECHNOLOGIST/AA Preoxygenated with 100% O2: Yes Mask Ventilation: Not attempted Final Airway Type: Supraglottic airway Final LMA: I-Gel LMA Size: 5 Number of Attempts at Approach: 1 PROTHROMBIN TIME WITH INR Routine 05/30/2017 9:28 AM CLINICAL MICROBIOLOGIST ANESTHESIA PERIPHERAL BLOCK Routine 05/30/2017 8:58 AM CLINICAL MICROBIOLOGIST Procedure Note - Sushma Powell MD - 05/30/2017 8:57 AM CLINICAL MICROBIOLOGIST Peripheral Block Performed by: SUSHMA POWELL Authorized by: SUSHMA POWELL Patient Location: Pre-op Start Time: 05/30/2017 8:23 AM End Time: 05/30/2017 8:35 AM Reason for Block: at surgeon's request Staff: Anesthesiologist: SUSHMA POWELL Resident/BIOTECHNOLOGIST/AA: ANEL PONCE Performed by: Anesthesiologist Preprocedure: patient [...] Routine 05/30/2017 8:20 AM Results for this CLINICAL MICROBIOLOGIST procedure are in the results section. XR CHEST 1 VW PORTABLE Routine 05/30/2017 8:15 AM Results for this CLINICAL MICROBIOLOGIST procedure are in the results section. ESTIMATED GFR Routine 05/30/2017 8:05 AM Results for this CLINICAL MICROBIOLOGIST procedure are in the results section. PARTIAL THROMBOPLASTIN Routine 05/30/2017 8:05 AM Results for this TIME (PTT) CLINICAL MICROBIOLOGIST procedure are in the results section. PROTHROMBIN TIME WITH Routine 05/30/2017 8:05 AM Results for this INR CLINICAL MICROBIOLOGIST procedure are in the results section. HC COMPLETE BLD COUNT Routine 05/30/2017 8:05 AM Results for this W/AUTO DIFF CLINICAL MICROBIOLOGIST procedure are in the results section. BASIC METABOLIC PANEL Routine 05/30/2017 8:05 AM Results for this CLINICAL MICROBIOLOGIST procedure are in the results section. TYPE AND SCREEN Routine 05/30/2017 8:05 AM Results for this CLINICAL MICROBIOLOGIST procedure are in the results section. ECG 12-LEAD Routine 05/30/2017 7:48 AM Results for this CLINICAL MICROBIOLOGIST procedure are in the results section. US ANKLE BRACHIAL INDEX Routine 05/22/2017 6:00 PM Venous Results for this CLINICAL MICROBIOLOGIST insufficiency procedure are in PVD (peripheral the results vascular disease) section. US DUPLEX ARTERIAL Routine 05/22/2017 6:00 PM Venous Results for this LOWER EXTREMITY CLINICAL MICROBIOLOGIST insufficiency procedure are in BILATERAL PVD (peripheral the results vascular disease) section. after 12/23/2016 Results Hepatitis B surface Ab, quantitative (10/22/2017 12:00 PM) Hepatitis B surface Ab 5.44 IU/L [facility] Comment: The anti-HBs is less than [...] Cellular and Tissue-Based Products (HCT/P). Performed by [employer], [address] [place] [address] [email or web address] Jack Hooker MD - Lab. Director Specimen Serum Performing Organization Address City/State/Zipcode Phone Number [facility] [address] [place] [address] Hepatitis B surface antibody (10/22/2017 12:00 PM) Hepatitis B surface Ab Non-reactive Non-reactive [facility] DEPARTMENT OF PATHOLOGY AND GENOMIC MEDICINE Specimen Blood Performing Organization Address City/State/Zipcode Phone Number [facility] DEPARTMENT OF PATHOLOGY AND [address] [place] [phone] [place] [address] MEDICINE Hepatitis B surface antigen (10/22/2017 12:00 PM) Hepatitis B surface Ag Non-reactive Non-reactive [facility] DEPARTMENT OF PATHOLOGY AND GENOMIC MEDICINE Specimen Blood Performing Organization Address City/[facility]/Zipcode Phone Number [facility] DEPARTMENT OF PATHOLOGY AND [address] [place] [phone] [place] [address] MEDICINE POC glucose (10/22/2017 7:41 AM)Only the most recent of6 resultswithin the time period is included. POC glucose 176 (H) 65 - 99 mg/dL [facility] DEPARTMENT OF PATHOLOGY AND Comment: GENOMIC MEDICINE RN Notified Meter ID: [id number] Customer Success Specialist: Ramana Angela Performing Organization Address City/[facility] Phone Number [facility] DEPARTMENT OF PATHOLOGY [id number] [place] [address] AND [employer] MEDICINE POC panel 4 (10/21/2017 12:03 PM)Only the most recent of2 resultswithin the time period is included. POC sodium 140 135 - 148 mmol/L [facility] DEPARTMENT OF PATHOLOGY AND GENOMIC MEDICINE POC potassium 4.5 3.5 - 5.0 mmol/L [facility] DEPARTMENT OF PATHOLOGY AND GENOMIC MEDICINE POC hematocrit 36 (L) 41 - 51 % [facility] DEPARTMENT OF PATHOLOGY AND GENOMIC MEDICINE POC glucose 193 (H) 65 - 99 mg/dL [facility] DEPARTMENT OF PATHOLOGY AND GENOMIC MEDICINE POC hemoglobin 12.2 (L) 14.0 - 18.0 g/dL [facility] DEPARTMENT OF Comment: PATHOLOGY AND GENOMIC Meter ID: [id number] MEDICINE Customer Success Specialist: Erwin Miner Specimen Blood Performing Organization Address [facility] Cent[facility] Phone Number [facility] DEPARTMENT OF PATHOLOGY [phone] [place] [address] AND [employer] MEDICINE Estimated GFR (10/21/2017 12:00 PM)Only the most recent of2 resultswithin the time period is included. GFR Non Af Amer 6 (A) mL/min/1.73 m2 [facility] DEPARTMENT OF PATHOLOGY AND GENOMIC MEDICINE GFR Af Amer 7 (A) mL/min/1.73 m2 [facility] DEPARTMENT OF Comment: PATHOLOGY AND GENOMIC Chronic [...] Americans. Specimen Plasma specimen Performing Organization Address [facility] Cent[facility] Phone Number [facility] DEPARTMENT OF PATHOLOGY [address] [place] [address]. [place] [address] AND [employer] Partial thromboplastin time, activated (10/21/2017 12:00 PM)Only the most recent of2 resultswithin the time period is included. PTT 41.9 (H) 23.0 - 36.0 sec [facility] DEPARTMENT OF Comment: PATHOLOGY AND [employer] PTT therapeutic range for unfractionated heparin is MEDICINE 61.0-112.0 seconds which corresponds to Anti-Xa 0.3-0.7 U/ml. Specimen Blood Performing Organization Address [facility] Phone Number [facility] DEPARTMENT OF PATHOLOGY [address] [place] [address]. [place] [address] AND [employer] [facility] Prothrombin time with INR (10/21/2017 12:00 PM)Only the most recent of3 resultswithin the time period is included. Prothrombin time 13.2 12.0 - 15.0 sec [facility] DEPARTMENT OF PATHOLOGY AND [employer] MEDICINE INR 1.0 [facility] DEPARTMENT OF Comment: PATHOLOGY AND [employer] The International Normalized Ratio (INR) is a therapeutic MEDICINE monitoring tool for patients who are stable on oral anticoagulant therapy. An INR of 2.0-3.0 is suggested for deep vein thrombosis/pulmonary embolism. Specimen Blood Performing Organization Address [facility] Phone Number [facility] DEPARTMENT OF PATHOLOGY [address] [place] [address]. [place] [address] AND [employer] CBC with platelet and differential (10/21/2017 12:00 PM)Only the most recent of2 resultswithin the time period is included. WBC 4.2 (L) 4.5 - 11.0 k/uL [facility] DEPARTMENT OF PATHOLOGY AND [employer] MEDICINE RBC 3.91 (L) 4.40 - 6.00 m/uL [facility] DEPARTMENT OF PATHOLOGY AND GENOMIC MEDICINE HGB 11.1 (L) 14.0 - 18.0 g/dL [facility] DEPARTMENT OF PATHOLOGY AND GENOMIC MEDICINE HCT 36.4 (L) 41.0 - 51.0 % [facility] DEPARTMENT OF PATHOLOGY AND GENOMIC MEDICINE MCV 93.1 82.0 - 100.0 fL [facility] DEPARTMENT OF PATHOLOGY AND GENOMIC MEDICINE MCH 28.4 27.0 - 34.0 pg [facility] DEPARTMENT OF PATHOLOGY AND GENOMIC MEDICINE MCHC 30.5 (L) 31.0 - 37.0 g/dL [facility] DEPARTMENT OF PATHOLOGY AND GENOMIC MEDICINE RDW - SD 52.5 37.0 - 55.0 fL [facility] DEPARTMENT OF PATHOLOGY AND GENOMIC MEDICINE MPV 9.5 6.9 - 11.0 fL [facility] DEPARTMENT OF PATHOLOGY AND GENOMIC MEDICINE Platelet count 232 150 - 400 K/uL [facility] DEPARTMENT OF PATHOLOGY AND GENOMIC MEDICINE Nucleated RBC 0.00 /100 WBC [facility] DEPARTMENT OF PATHOLOGY AND GENOMIC MEDICINE Neutrophils 57.5 39.0 - 69.0 % [facility] DEPARTMENT OF PATHOLOGY AND GENOMIC MEDICINE Lymphocytes 24.7 (L) 25.0 - 45.0 % [facility] DEPARTMENT OF PATHOLOGY AND GENOMIC MEDICINE Monocytes 11.4 (H) 0.0 - 10.0 % [facility] DEPARTMENT OF PATHOLOGY AND GENOMIC MEDICINE Eosinophils 5.2 (H) 0.0 - 5.0 % [facility] DEPARTMENT OF PATHOLOGY AND GENOMIC MEDICINE Basophils 0.7 0.0 - 1.0 % [facility] DEPARTMENT OF PATHOLOGY AND GENOMIC MEDICINE Immature granulocytes 0.5 0.0 - 1.0 % [facility] DEPARTMENT OF PATHOLOGY AND GENOMIC MEDICINE Specimen Blood Performing Organization Address City/[facility] Centercode Phone Number [facility] DEPARTMENT OF PATHOLOGY [address] [place] [address] AND GENOMIC MEDICINE Type and screen (10/21/2017 12:00 PM)Only the most recent of2 resultswithin the time period is included. ABO grouping A [facility] DEPARTMENT OF PATHOLOGY AND GENOMIC MEDICINE Rh type POS [facility] DEPARTMENT OF PATHOLOGY AND GENOMIC MEDICINE Antibody screen (gel) NEG [facility] OF PATHOLOGY AND GENOMIC MEDICINE Specimen Blood Performing Organization Address City/[facility]/[place] [address] AND [employer] MEDICINE Basic metabolic panel (10/21/2017 12:00 PM)Only the most recent of2 resultswithin the time period is included. Sodium 140 135 - 148 mEq/L [facility] DEPARTMENT OF PATHOLOGY AND GENOMIC MEDICINE Potassium 4.8 3.5 - 5.0 mEq/L [facility] DEPARTMENT OF PATHOLOGY AND GENOMIC MEDICINE Chloride 100 98 - 112 mEq/L [facility] DEPARTMENT OF PATHOLOGY AND GENOMIC MEDICINE CO2 21 (L) 24 - 31 mEq/L [facility] DEPARTMENT OF PATHOLOGY AND GENOMIC MEDICINE Anion gap 19@ANIO (H) 7 - 15 mEq/L [facility] DEPARTMENT OF PATHOLOGY AND GENOMIC MEDICINE BUN 44 (H) 8 - 23 mg/dL [facility] DEPARTMENT OF PATHOLOGY AND GENOMIC MEDICINE Creatinine 8.8 (H) 0.7 - 1.2 mg/dL [facility] DEPARTMENT OF PATHOLOGY AND GENOMIC MEDICINE Glucose 206 (H) 65 - 99 mg/dL [facility] DEPARTMENT OF PATHOLOGY AND GENOMIC MEDICINE Calcium 8.2 (L) 8.8 - 10.2 mg/dL [facility] DEPARTMENT OF PATHOLOGY AND GENOMIC MEDICINE Specimen Plasma specimen Performing Organization Address City/State/Zipcode Phone Number [facility] DEPARTMENT OF PATHOLOGY [address] [place] [address] AND [employer] MEDICINE XR Chest 1 Vw Portable (10/21/2017 11:55 AM)Only the most recent of2 resultswithin the time period is included. Narrative Performed At EXAMINATION:XR CHEST 1 VW PORTABLE [facility] CLINICAL HISTORY:PRE PROCEDURE COMPARISON:To previous study from 05/30/2017 IMPRESSION: Venous catheter extends in the right atrium. The heart is normal changes are present in both lung bases. [facility]-[id number] Procedure Note Interface, Radiology Results Incoming - 10/21/2017 12:50 PM CDT EXAMINATION: XR CHEST 1 VW PORTABLE CLINICAL HISTORY: PRE PROCEDURE COMPARISON: To previous study from 05/30/2017 IMPRESSION: Venous catheter extends in the right atrium. The heart is normal changes are present in both lung bases. [facility]-[id number] Performing Organization Address City/State/Zipcode Phone Number [facility] [address] [place] [address] ECG 12 lead (10/21/2017 11:48 AM)Only the most recent of2 resultswithin the time period is included. Ventricular rate 79 [facility] Atrial rate 79 [facility] CO interval 158 [facility] QRSD interval 80 [facility] QT interval 392 [facility] QTC interval 449 [facility] P axis 1 49 [facility] QRS axis 1 -15 [facility] T wave axis [address] [facility] EKG impression Normal sinus rhythm-Normal ECG-In automated [facility] comparison with ECG of 30-MAY-2017 07:48,-No significant change was found- Performing Organization Address City/State/Zipcode Phone Number [facility] [address] [place] [address] Ammonia level (05/30/2017 10:45 AM) Ammonia 47 16 - 60 umol/L [facility] DEPARTMENT OF PATHOLOGY AND GENOMIC MEDICINE Specimen Plasma specimen Performing Organization Address City/State/Zipcode Phone Number [facility] DEPARTMENT OF PATHOLOGY [address] [place] [address] AND GENOMIC MEDICINE Pv ankle brachial index [...] INDEX: Posterior tibial: 1.29 Dorsalis pedis: 1.40 [facility]-[id number] FRANK Guidelines: >1.4: Calcified Vessel 0.9-1.4: Normal 0.7-0.89: Mild PAD 0.51-0.69: Moderate PAD <0.5: Severe PAD TBI Guidelines: <0.6: Normal 0.34-0.59: Mild PAD 0.12-0.34: Moderate PAD <0.11: Severe PAD Procedure Note Hm Interface, Radiology Results Incoming - 05/22/2017 6:21 PM CLINICAL MICROBIOLOGIST EXAM: US DUPLEX ARTERIAL LOWER EXTREMITY BILATERAL, [...] INDEX: Posterior tibial: 1.29 Dorsalis pedis: 1.40 [facility]-[id number] FRANK Guidelines: >1.4: Calcified Vessel 0.9-1.4: Normal 0.7-0.89: Mild PAD 0.51-0.69: Moderate PAD <0.5: Severe PAD TBI Guidelines: <0.6: Normal 0.34-0.59: Mild PAD 0.12-0.34: Moderate PAD <0.11: Severe PAD Performing Organization Address City/State/Zipcode Phone Number [facility] [address] [place] [address] duplex arterial lower extremity (05/22/2017 6:00 PM) [...] INDEX: Posterior tibial: 1.29 Dorsalis pedis: 1.40 [facility]-[id number] FRANK Guidelines: >1.4: Calcified Vessel 0.9-1.4: Normal 0.7-0.89: Mild PAD 0.51-0.69: Moderate PAD <0.5: Severe PAD TBI Guidelines: <0.6: Normal 0.34-0.59: Mild PAD 0.12-0.34: Moderate PAD <0.11: Severe PAD Procedure Note Interface, Radiology Results Incoming - 05/22/2017 6:21 PM CLINICAL MICROBIOLOGIST EXAM: US DUPLEX ARTERIAL LOWER EXTREMITY BILATERAL, [...] INDEX: Posterior tibial: 1.29 Dorsalis pedis: 1.40 [facility]-[id number] FRANK Guidelines: >1.4: Calcified Vessel 0.9-1.4: Normal 0.7-0.89: Mild PAD 0.51-0.69: Moderate PAD <0.5: Severe PAD TBI Guidelines: <0.6: Normal 0.34-0.59: Mild PAD 0.12-0.34: Moderate PAD <0.11: Severe PAD Performing Organization Address City/State/Zipcode Phone Number [facility] [address] [place] [address] after 12/23/2016 Insurance Payer Benefit Plan / Group Subscriber ID Type Phone Address MEDICARE MEDICARE PART A AND B xxxxxxxxxx Medicare [place], [place] MEDICAID MEDICAID xxxxxxxxx Medicaid Home: [address] [phone] [place], [place] [address]
--- OUTSIDE RECORDS SUMMARY | 2017-12-24 17:46 | XMS REPORT | Clinical Summary ---
:1955 Demographics Address [address] [place] [address] Mobile Phone Home Phone Email Address Preferred Language Fijian Marital Status Unknown Islam Affiliation Unknown Race White Ethnic Group or Author Organization [facility] Address [address] [place] [address] Phone Care Team Providers Name Role Phone Unavailable Primary Care Provider Unavailable Allergies No Known Allergies Current Medications Prescription Sig. Disp. Refills Start End Status Date Date pantoprazole Take 1 tablet (40 30 tablet 0 09/07/19 Active (PROTONIX) 40 MG mg total) by mouth 18 tablet daily. thiamine 100 MG Take 1 tablet (100 30 tablet 0 09/07/19 Active tablet mg total) by mouth 18 019 daily. ursodiol (ACTIGALL) Take 1 capsule 60 capsule 1 09/07/19 Active 300 mg capsule (300 mg total) by 18 019 mouth 2 (two) times daily. zonisamide (ZONEGRAN) Take 1 capsule 90 capsule 0 09/07/19 Active 100 MG capsule (100 mg total) by 18 019 mouth nightly. blood sugar Use as directed 100 strip 3 09/07/19 Active diagnostic (GLUCOSCAN qid. 18 TEST) Strp blood-glucose meter 1 each by Other - 1 each 0 09/07/19 Active kit See Admin 18 Instructions route 4 (four) times daily Use as instructed. entecavir (BARACLUDE) Take 1 tablet (0.5 4 tablet 1 09/07/19 Active 0.5 MG tablet mg total) by mouth 18 every 7 days. gabapentin Take 1 capsule 60 capsule 0 09/07/19 Active (NEURONTIN) 100 MG (100 mg total) by 18 capsule mouth 2 (two) times daily. lancets (DIABETES Use as directed 102 each 11 09/07/19 Active LANCETS) Misc qid. 18 sertraline (ZOLOFT) Take 1 tablet (50 30 tablet 0 09/07/19 Active 50 MG tablet mg total) by mouth 18 019 daily. sevelamer (RENVELA) Take 1 tablet (800 90 tablet 0 09/07/19 Active 800 mg tablet mg total) by mouth 18 3 (three) times daily with meals. insulin Use for insulin. 100 each 0 09/07/19 Active syringe-needle U-100 18 (BD INSULIN SYRINGE MICRO-FINE) 1 mL 28 gauge x 1/2" Syrg Benzocaine-menthol Place 1 lozenge 100 tablet 0 09/28/19 Active (CHLORASEPTIC) 6-10 inside cheek every 18 019 mg lozenge 2 (two) hours as needed. predniSONE Take 2 tablets (20 60 tablet 5 10/31/19 Active (DELTASONE) 10 MG mg total) by mouth 18 tabletIndications: daily. S/P liver transplant (HCC) famotidine (PEPCID) Take 20 mg by Active 20 MG tablet mouth daily. insulin lispro Inject 15 Units 10 mL 0 11/10/19 Active (HUMALOG) 100 unit/mL subcutaneously 3 18 019 injection (three) times daily before meals. insulin detemir Inject 30 Units 10 mL 0 11/10/19 Active (LEVEMIR) 100 unit/mL subcutaneously 2 18 injection (two) times daily. HYDROmorphone Take 1 tablet (2 30 tablet 0 11/10/19 Active (DILAUDID) 2 MG mg total) by mouth 18 tablet every 4 (four) hours as needed for Pain for up to 10 doses. Max Daily Amount: 12 mg tacrolimus (PROGRAF) Take 1 capsule (5 60 capsule 5 12/07/19 Active 5 MG mg total) by mouth 18 capsuleIndications: 2 (two) times S/P liver transplant daily. (HCC), Immunosuppression (HCC) blood-glucose meter 1 each by Other - 1 each 0 05/08/20 Discontinued kit See Admin 16 018 Instructions route 4 (four) times daily Use as instructed. lancets (DIABETES Use as directed 102 each 11 05/08/20 Discontinued LANCETS) Misc qid. 16 018 blood sugar Use as directed 100 strip 05/08/20 Discontinued diagnostic (GLUCOSCAN qid. 16 018 TEST) Strp sulfamethoxazole-trim Take 1 tablet (160 3 tablet 0 05/08/20 Discontinued ethoprim (BACTRIM DS) mg of trimethoprim 16 017 800-160 mg per tablet total) by mouth every other day Saturday, Saturday, and Saturday. famotidine (PEPCID) Take 1 tablet (20 0 05/08/20 Discontinued 20 MG tablet mg total) by mouth 16 018 daily. ursodiol (ACTIGALL) Take 1 capsule 0 05/08/20 300 mg capsule (300 mg total) by 16 017 mouth 2 (two) times daily. aspirin 81 MG Take 1 tablet (81 0 05/08/20 Discontinued chewable tablet mg total) by mouth 16 017 daily. mirtazapine (REMERON) Take 1 tablet (15 0 05/08/20 Discontinued 15 MG tablet mg total) by mouth 16 018 nightly. tamsulosin (FLOMAX) Take 1 capsule 0 05/08/20 Discontinued 0.4 mg Cp24 24 hr (0.4 mg total) by 16 018 capsule mouth daily. insulin lispro Before Meals 10 mL 0 05/08/20 Discontinued (HUMALOG) 100 unit/mL 150-200 2 units 16 018 injection 201-250 4 units 251-300 6 units 301-350 7 units >350 8 units. calcium Take 1 tablet by 0 05/08/20 carbonate-vitamin D3 mouth 3 (three) 16 017 (OSCAL-D) 500 times daily with mg(1,250mg) -200 unit meals. per tablet sirolimus (RAPAMUNE) Take 9 tablets (9 300 tablet 5 07/27/19 Discontinued 1 MG mg total) by mouth 17 017 tabletIndications: daily. S/P liver transplant (HCC), Immunosuppression (HCC), HCC (hepatocellular carcinoma) (HCC), Hepatitis C virus infection without hepatic coma, unspecified chronicity insulin lispro 5 units before Breakfast 10 mL 0 07/27/19 Discontinued (HUMALOG) 100 unit/mL 17 017 injection 15 units before Lunch 15 units before Dinner. insulin detemir 30 units in the morning 07/27/19 Discontinued (LEVEMIR) 100 unit/mL 17 017 injection 15 units in the evening. entecavir (BARACLUDE) Take 1 mg by mouth Discontinued 1 MG tablet every third day. 018 bumetanide (BUMEX) 2 Take 1 tablet (2 60 tablet 0 10/02/19 Discontinued MG tabletIndications: mg total) by mouth 17 018 Status post liver 2 (two) times transplantation daily. (HCC), ESRD on dialysis (HCC), Chronic hepatitis C without hepatic coma (HCC), Chronic kidney disease, stage III (moderate), Other depression, Essential hypertension, HCC (hepatocellular carcinoma) (HCC), Acute viral hepatitis B without coma and without delta agent, Immunosuppression (HCC), S/P liver transplant (HCC), Type 2 diabetes mellitus with hyperglycemia, with long-term current use of insulin (HCC), CKD (chronic kidney disease), stage 4 (severe) metOLazone Take 1 tablet (2.5 30 tablet 0 10/02/19 Discontinued (ZAROXOLYN) 2.5 MG mg total) by mouth 17 017 tabletIndications: daily. Status post liver transplantation (HCC), CKD (chronic kidney disease), stage 4 (severe), Chronic hepatitis C without hepatic coma (HCC), Chronic kidney disease, stage III (moderate), Other depression, Essential hypertension, HCC (hepatocellular carcinoma) (HCC), Acute viral hepatitis B without coma and without delta agent, Immunosuppression (HCC), S/P liver transplant (HCC), Type 2 diabetes mellitus with hyperglycemia, with long-term current use of insulin (HCC), ESRD on dialysis (HCC) sevelamer (RENVELA) Take 1 tablet (800 90 tablet 0 10/02/19 Discontinued 800 mg mg total) by mouth 17 017 tabletIndications: 3 (three) times Status post liver daily with meals. transplantation (HCC), CKD (chronic kidney disease), stage 4 (severe), Chronic hepatitis C without hepatic coma (HCC), Chronic kidney disease, stage III (moderate), Other depression, Essential hypertension, HCC (hepatocellular carcinoma) (HCC), Acute viral hepatitis B without coma and without delta agent, Immunosuppression (HCC), S/P liver transplant (HCC), Type 2 diabetes mellitus with hyperglycemia, with long-term current use of insulin (HCC), ESRD on dialysis (HCC) predniSONE Take 1 tablet (5 0 11/28/19 Discontinued (DELTASONE) 5 MG mg total) by mouth 17 017 tabletIndications: daily. S/P liver transplant (HCC), Immunosuppression (HCC), CKD (chronic kidney disease) stage 3, GFR 30-59 ml/min, Chronic viral hepatitis B without delta agent and without coma (HCC) predniSONE Take 0.5 tablets 0 01/15/20 Discontinued (DELTASONE) 5 MG (2.5 mg total) by 17 018 tabletIndications: mouth daily. S/P liver transplant (HCC), Immunosuppression (HCC), CKD (chronic kidney disease) stage 3, GFR 30-59 ml/min, Chronic viral hepatitis B without delta agent and without coma (HCC) metoprolol Take 0.5 tablets 15 tablet 0 02/01/20 Discontinued (LOPRESSOR) 25 MG (12.5 mg total) by 17 017 tablet mouth 2 (two) times daily. acyclovir (ZOVIRAX) Take 1 tablet (400 28 tablet 0 02/01/20 400 MG tablet mg total) by mouth 17 017 2 (two) times daily for 14 days. tacrolimus (PROGRAF) Take 4 capsules (4 240 1 02/01/20 Discontinued 1 MG capsule mg total) by mouth capsule 17 017 2 (two) times daily. apixaban (ELIQUIS) 5 Take 1 tablet (5 60 tablet 0 02/01/20 Discontinued mg Tab tablet mg total) by mouth 17 017 2 (two) times daily. tacrolimus (PROGRAF) Take 3 capsules (3 240 1 02/02/20 Discontinued 1 MG capsule mg total) by mouth capsule 17 017 2 (two) times daily. apixaban (ELIQUIS) 5 Take 0.5 tablets 60 tablet 0 02/02/20 Discontinued mg Tab tablet (2.5 mg total) by 17 017 mouth 2 (two) times daily. gabapentin Take 1 capsule 0 02/02/20 Discontinued (NEURONTIN) 300 MG (300 mg total) by 17 018 capsule mouth 3 (three) times daily. insulin detemir Inject 25 Units subcutaneously 2 (two) times daily 30 units in the morning 10 mL 0 02/02/20 Discontinued (LEVEMIR) 100 unit/mL 17 017 injection 15 units in the evening. docosanol (ABREVA) 10 Apply 2 300 g 0 02/04/20 Discontinued % CreaIndications: application 17 017 S/P liver transplant topically 5 (five) (HCC) times daily for 30 days. traMADol (ULTRAM) 50 Take 2 tablets 30 tablet 0 02/04/20 mg tabletIndications: (100 mg total) by 17 017 S/P liver transplant mouth every 6 (HCC) (six) hours as needed for Pain (RIGHT SCIATICA) for up to 10 days. Max Daily Amount: 400 mg calamine-zinc oxide Apply 5 mLs 118 mL 1 02/26/20 (CALADRYL) 8-8 % Lotn topically as 17 017 topical suspension needed (itching) for up to 30 days. hydrOXYzine (ATARAX) Take 1 tablet (50 30 tablet 0 02/26/20 50 MG tablet mg total) by mouth 17 017 every 6 (six) hours as needed for Itching for up to 10 days. sertraline (ZOLOFT) Take 1 tablet (50 30 tablet 1 02/26/20 Discontinued 50 MG tablet mg total) by mouth 17 018 daily. warfarin (COUMADIN) 5 Take 1 tablet (5 30 tablet 1 02/26/20 Discontinued MG tablet mg total) by mouth 17 018 nightly. tacrolimus (PROGRAF) 3mg in morning and 60 capsule 1 02/26/20 Discontinued 1 MG capsule 2mg in night. 17 018 insulin detemir Inject 25 Units 10 mL 0 02/26/20 Discontinued (LEVEMIR) 100 unit/mL subcutaneously 2 17 018 injection (two) times daily. insulin lispro Inject 7 Units 10 mL 0 02/26/20 Discontinued (HUMALOG) 100 unit/mL subcutaneously 3 17 018 injection (three) times daily before meals. ursodiol (ACTIGALL) Take 1 capsule 60 capsule 1 05/28/20 Discontinued 300 mg capsule (300 mg total) by 17 018 mouth 2 (two) times daily. entecavir (BARACLUDE) Take 1 tablet (0.5 4 tablet 0 07/12/19 Discontinued 0.5 MG tablet mg total) by mouth 18 018 every 7 days for 30 days. famotidine (PEPCID) Take 1 tablet (20 30 tablet 0 07/13/19 Discontinued 20 MG tablet mg total) by mouth 18 018 daily for 30 days. gabapentin Take 1 capsule 60 capsule 0 07/12/19 Discontinued (NEURONTIN) 100 MG (100 mg total) by 18 018 capsule mouth 2 (two) times daily for 30 days. insulin detemir Inject 0.12 mLs 7.2 mL 0 07/12/19 Discontinued (LEVEMIR) 100 unit/mL (12 Units total) 18 018 (3 mL) InPn injection subcutaneously 2 (two) times daily for 30 days. lidocaine (LIDODERM) Place 2 patches 60 patch 0 07/13/19 Discontinued 5 % patch onto the skin 18 018 daily for 30 days (right thigh and left shoulder). Remove & Discard patch within 12 hrs. melatonin 3 mg Tab Take 1 tablet (3 30 tablet 0 07/12/19 Discontinued tablet mg total) by mouth 18 018 nightly for 30 days. metoprolol Take 1 tablet (25 60 tablet 0 07/12/19 Discontinued (LOPRESSOR) 25 MG mg total) by mouth 18 018 tablet 2 (two) times daily for 30 days. sevelamer (RENVELA) Take 1 tablet (800 90 tablet 0 07/12/19 Discontinued 800 mg tablet mg total) by mouth 18 018 3 (three) times daily with meals for 30 days. traMADol (ULTRAM) 50 Take 1 tablet (50 30 tablet 0 07/12/19 Discontinued mg tablet mg total) by mouth 18 018 every 6 (six) hours as needed for up to 30 days. Max Daily Amount: 200 mg traZODone (DESYREL) Take 1 tablet (100 30 tablet 0 07/12/19 Discontinued 100 MG tablet mg total) by mouth 18 018 nightly for 30 days. tacrolimus (PROGRAF) Take 2 capsules (2 120 0 07/12/19 Discontinued 1 MG capsule mg total) by mouth capsule 18 018 2 (two) times daily for 30 days. ALPRAZolam (XANAX) Take 0.5 tablets 10 tablet 0 07/12/19 Discontinued 0.5 MG tablet (0.25 mg total) by 18 018 mouth every Saturday, Saturday, Saturday for 30 days. Max Daily Amount: 0.25 mg famotidine (PEPCID) Take 1 tablet (20 30 tablet 0 07/26/19 Discontinued 20 MG mg total) by mouth 18 018 tabletIndications: daily for 30 days. S/P liver transplant (HCC) entecavir (BARACLUDE) Take 0.5 mg by Discontinued 0.5 MG tablet mouth every 7 days 018 . famotidine (PEPCID) Take 20 mg by Discontinued 20 MG tablet mouth daily. 018 gabapentin Take 100 mg by Discontinued (NEURONTIN) 100 MG mouth 2 (two) 018 capsule times daily. insulin detemir Inject 12 Units Discontinued (LEVEMIR) 100 unit/mL subcutaneously 2 018 injection (two) times daily. lidocaine (LIDODERM) Place 2 patches Discontinued 5 % patchIndications: onto the skin 018 right thigh & left daily Remove & shoulder Discard patch within 12 hours or as directed by MD . melatonin 3 mg Tab Take by mouth Discontinued tablet nightly. 018 metoprolol Take 25 mg by Discontinued (LOPRESSOR) 25 MG mouth 2 (two) 018 tablet times daily. sevelamer (RENVELA) Take 800 mg by Discontinued 800 mg tablet mouth 3 (three) 018 times daily with meals. tacrolimus (PROGRAF) Take 2 mg by mouth Discontinued 1 MG capsule 2 (two) times 018 daily. traMADol (ULTRAM) 50 Take 50 mg by Discontinued mg tablet mouth every 6 018 (six) hours as needed for Pain. traZODone (DESYREL) Take 100 mg by Discontinued 100 MG tablet mouth nightly. 018 pantoprazole Take 1 tablet (40 30 tablet 0 09/06/19 Discontinued (PROTONIX) 40 MG mg total) by mouth 18 018 tablet daily. predniSONE Take 2 tablets (40 30 tablet 0 09/06/19 Discontinued (DELTASONE) 20 MG mg total) by mouth 18 018 tablet daily for 10 days. tacrolimus (PROGRAF) 2mg in am and 3mg 30 capsule 0 09/05/19 Discontinued 1 MG capsule qpm. 18 018 ursodiol (ACTIGALL) Take 1 capsule 60 capsule 1 09/05/19 Discontinued 300 mg capsule (300 mg total) by 18 018 mouth 2 (two) times daily. zonisamide (ZONEGRAN) Take 1 capsule 90 capsule 0 09/05/19 Discontinued 100 MG capsule (100 mg total) by 18 018 mouth nightly. thiamine 100 MG Take 1 tablet (100 30 tablet 0 09/06/19 Discontinued tablet mg total) by mouth 18 018 daily. traMADol (ULTRAM) 50 Take 1 tablet (50 30 tablet 0 09/05/19 Discontinued mg tablet mg total) by mouth 18 018 every 6 (six) hours as needed for Pain. Max Daily Amount: 200 mg hydrOXYzine (ATARAX) Take 1 tablet (25 30 tablet 0 09/05/19 Discontinued 25 MG tablet mg total) by mouth 18 018 every 8 (eight) hours as needed for Itching for up to 10 days. insulin detemir Inject 15 Units 10 mL 0 09/06/19 Discontinued (LEVEMIR) 100 unit/mL subcutaneously 2 18 018 injection (two) times daily. insulin lispro Inject 12 Units 10 mL 0 09/06/19 Discontinued (HUMALOG) 100 unit/mL subcutaneously 3 18 018 injection (three) times daily before meals. insulin detemir Inject 20 Units 10 mL 0 09/07/19 Discontinued (LEVEMIR) 100 unit/mL subcutaneously 2 18 018 injection (two) times daily. hydrOXYzine (ATARAX) Take 1 tablet (25 30 tablet 0 09/07/19 Discontinued 25 MG tablet mg total) by mouth 18 018 every 8 (eight) hours as needed for Itching for up to 10 days. insulin lispro Inject 12 Units 10 mL 0 09/07/19 Discontinued (HUMALOG) 100 unit/mL subcutaneously 3 18 018 injection (three) times daily before meals. predniSONE Take 2 tablets (40 30 tablet 0 09/07/19 Discontinued (DELTASONE) 20 MG mg total) by mouth 18 018 tablet daily for 10 days. tacrolimus (PROGRAF) 2mg in am and 3mg 90 capsule 1 09/07/19 Discontinued 1 MG capsule qpm. 18 018 famotidine (PEPCID) Take 1 tablet (20 30 tablet 0 09/07/19 Discontinued 20 MG tablet mg total) by mouth 18 018 daily. calcium carbonate Take 1 tablet (500 30 tablet 0 09/28/19 (TUMS) 500 mg mg total) by mouth 18 018 chewable tablet daily for 30 days. hydrOXYzine (ATARAX) Take 1 tablet (25 30 tablet 0 09/28/19 25 MG tablet mg total) by mouth 18 018 every 8 (eight) hours as needed for Itching for up to 10 days. predniSONE Take 1 tablet (20 30 tablet 0 09/28/19 (DELTASONE) 20 MG mg total) by mouth 18 018 tablet daily for 30 days. tacrolimus (PROGRAF) Take 1 capsule (5 60 capsule 0 09/28/19 5 MG capsule mg total) by mouth 18 018 every 12 (twelve) hours for 30 days. hydrOXYzine (ATARAX) Take 1 tablet (25 30 tablet 1 10/30/ Discontinued 25 MG mg total) by mouth 18 018 tabletIndications: every night as S/P liver transplant needed for Itching (HCC) for up to 10 days. tacrolimus (PROGRAF) Take 1 capsule (5 90 capsule 3 10/31/19 Discontinued 5 MG mg total) by mouth 18 018 capsuleIndications: 2 (two) times S/P liver transplant daily. (HCC) vancomycin (VANCOCIN) Inject 1,000 mg 0 11/12/19 IVPB 1000 mg in intravenously 3 18 018 dextrose 5% (D5W) 200 (three) times a mL week after dialysis for 2 days. HYDROcodone-acetamino Take 1 tablet by 30 tablet 0 11/10/19 phen (NORCO 10-325) mouth every 6 18 018 10-325 mg per tablet (six) hours as needed for up to 10 days. Max Daily Amount: 4 tablets hydrOXYzine (ATARAX) Take 1 tablet (25 30 tablet 1 11/10/19 25 MG mg total) by mouth 18 018 tabletIndications: every night as S/P liver transplant needed for Itching (HCC) for up to 10 days. 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/31/2017 History of cardiac radiofrequency ablation (RFA) 10/31/2017 History of Clostridium difficile infection 10/31/2017 Secondary hyperparathyroidism of renal origin (HCC) 10/31/2017 SVT (supraventricular tachycardia) (HCC) 09/15/2017 Cirrhosis (HCC) 09/13/2017 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 Warfarin anticoagulation 03/07/2017 Last Assessment & Plan: Developed bilateral femoral DVTs on eliquis therapy. Begun on coumadin 02/25. Last INR 02/25 was 2.9. Has not followed up with hematology as planned. Labs ordered today. DVT of lower extremity, bilateral ([facility]) 02/26/2017 DVT (deep venous thrombosis) ([facility]) 02/24/2017 Last Assessment & Plan: Developed bilateral femoral DVTs while on eliquis for a-fib. Now on coumadin. Legs are still edematous, but improved. Moderate malnutrition ([facility]) 02/22/2017 Elevated LFTs 02/16/2017 Itching 02/16/2017 Atrial fibrillation with RVR ([facility]) 01/26/2017 Last Assessment & Plan: Continue medication as prescribed and follow up with cardiology. Back pain 09/03/2016 Last Assessment & Plan: On gabapentin 600mg BID for continued back pain. Wants epidural injections for L5 radiculopathy. Could not follow up with neurologist due to insurance limitations. Hepatitis B virus infection 08/02/2016 Last Assessment & Plan: Continue entecavir. Immunosuppression ([facility]) 05/21/2016 Last Assessment & Plan: He denies headaches or tremors with his immunosuppression. We will adjust his dose according to his levels. S/P liver transplant ([facility]) 04/08/2016 Last Assessment & Plan: He is s/p OLT from April 2016. He is doing well and has no evidence of recurrent disease at this time. Essential hypertension 04/08/2016 Last Assessment & Plan: Blood pressures are controlled on current therapy. Type 2 diabetes mellitus with hyperglycemia, with long-term current use of 11/2015 insulin ([facility]) Last Assessment & Plan: Patient instructed to return to next clinic visit with glucose log (patient had not been recording blood sugars). Follow-up with Dr. Gan as scheduled to optimize BG management. Metabolic acidosis 03/08/2016 Alcoholic liver failure (HCC) 05/09/2015 Smoking addiction 09/20/2014 Last Assessment & Plan: Patient smoking 1 pack per week currently with plans to quit. Patient counseled on importance of smoking cessation prior to transplant Chronic hepatitis C without hepatic coma (HCC) 08/17/2014 HCC (hepatocellular carcinoma) 12/21/2013 Last Assessment & Plan: Continue scheduled surveillance. Imaging on 10/11/16 negative for recurrence. CKD (chronic kidney disease) stage 3, GFR 30-59 ml/min 03/31/2013 Last Assessment & Plan: On HD MWF. Received dialysis today. Management per Dr. Champagne. Hyperkalemia 02/23/2013 Diabetes mellitus (HCC) Last Assessment & Plan: Continue follow up with endocrinology for blood glucose management. Anemia, blood loss Asthma Depression CHIDI (obstructive sleep apnea) ESRD (end stage renal disease) (HCC) Last Assessment & Plan: Still requires dialysis. Producing some urine. Continue follow up with nephrology. Hypertension Overview: currently not taking medication Last Assessment & Plan: Blood pressures somewhat controlled. Continue follow up with cardiology. Hepatitis C Hypervolemia, unspecified hypervolemia type ESRD (end stage renal disease) on dialysis (HCC) Resolved Problems Problem Noted Date Resolved Date C. difficile diarrhea 08/09/2017 09/15/2017 ESRD (end stage renal disease) (HCC) 06/27/2017 10/30/2017 Clostridium difficile enteritis 06/07/2017 09/15/2017 Metabolic encephalopathy 06/02/2017 08/18/2017 Acute respiratory failure with hypercapnia (HCC) 06/02/2017 09/15/2017 Drowsy 02/18/2017 09/15/2017 Fluid overload 02/15/2017 09/15/2017 Dysuria 02/11/2017 09/15/2017 Acute encephalopathy 01/29/2017 08/12/2017 Hypotension 01/26/2017 09/15/2017 Pneumonia 01/24/2017 09/15/2017 Nausea 01/24/2017 09/15/2017 Vomiting 01/24/2017 09/15/2017 Diarrhea 11/07/2016 09/15/2017 Liver cirrhosis (HCC) 02/20/2017 Liver cancer (HCC) 02/20/2017 Encounters Date Type Specialty Care Team Description Telephone Transplant Hepatology [place], Lab Results 8 Tatyana Pineda Telephone Transplant Hepatology [place], Abnormal Lab 8 JOEY Figueroa Telephone Transplant Hepatology [place], Follow-up 8 JOEY Figueroa Telephone Transplant Hepatology [place], Appointment 8 JOEY Figueroa Telephone Transplant Hepatology [place], Appointment 8 JOEY Figueroa Orders Only Transplant Hepatology [place], Immunosuppression 8 JOEY Figueroa (HCC) (Primary Dx);S/P liver transplant (HCC) Telephone Transplant Hepatology [place], Medication Management 8 JOEY Figueroa Telephone Transplant Hepatology [place], Follow-up 8 JOEY Figueroa Abstract Hepatology Veto Albaradha Roberson MA Telephone Transplant Hepatology [place], Medication Management 8 JOEY Figueroa Telephone Hepatology Fely Matos Appointment 8 (procedure) Telephone Transplant Hepatology [place], Medication Management 8 JOEY Figueroa Telephone Transplant Hepatology [place], Appointment 8 JOEY Figueroa Telephone Internal Medicine Vlad Castle MD Telephone Hepatology Fely Matos Appointment 8 (procedure) Hospital Encounter General Internal María Zuluaga ESRD (end stage renal 8 - Medicine Christiane Romero, rosa) (HCC) (Primary 8 Vlad Castle Dx);Essential MD Jama hypertension;Hepatiti s C virus infection without hepatic coma, unspecified chronicity;Hypotensio n, unspecified hypotension type;Immunosuppressio n (HCC);S/P liver transplant (HCC);Sepsis due to other etiology (HCC);Type 2 diabetes mellitus with hyperglycemia, with long-term current use of insulin (HCC);Elevated liver enzymes Telephone Transplant Hepatology [place], Medication Management Hermelindo Figueroa RN Telephone Transplant Hepatology [place], Follow-up Hermelindo Figueroa RN Documentation Transplant Hepatology Hermelindo Pedro Orders Only Transplant Hepatology [place], S/P liver transplant Hermelindo Figueroa RN (HCC) (Primary Dx);Immunosuppression (HCC);Chronic hepatitis C without hepatic coma (HCC);Elevated LFTs Orders Only Transplant Hepatology Marcelo, S/P liver transplant 8 Bhamidipati (HCC);Type 2 diabetes MD Song mellitus with hyperglycemia, with long-term current use of insulin (HCC);ESRD (end stage renal disease) (HCC);Pre-transplant evaluation for chronic kidney disease;Acute deep vein thrombosis (DVT) of other vein of lower extremity, unspecified laterality (HCC);ESRD on dialysis (HCC);Anemia, unspecified type;Chronic hepatitis C without hepatic coma (HCC) Evaluation Transplant Marcelo, Pre-transplant 8 Mitch evaluation for end MD Song stage renal disease (Primary Dx);ESRD (end stage renal disease) (HCC);S/P liver transplant (HCC);Chronic hepatitis C without hepatic coma (HCC);Liver transplant rejection (HCC);Type 2 diabetes mellitus with hyperglycemia, with long-term current use of insulin (HCC);Essential hypertension;AVNRT (AV emmie re-entry tachycardia) (HCC);History of cardiac radiofrequency ablation (RFA);Subdural hematoma (HCC) Office Visit Hepatology Justus Ha S/P liver transplant 8 MD Kvng (HCC) (Primary Dx);Immunosuppression (HCC);Subdural hematoma (HCC);Seizures (HCC);Type 2 diabetes mellitus with hyperglycemia, with long-term current use of insulin (HCC);ESRD (end stage renal disease) (HCC);Pre-transplant evaluation for chronic kidney disease;Acute deep vein thrombosis (DVT) of other vein of lower extremity, unspecified laterality (HCC);ESRD on dialysis (HCC);Anemia, unspecified type Office Visit Transplant Marcelo, ESRD (end stage renal 8 Bhamidipati disease) (HCC) MD Song (Primary Spiro, Bart, Dx);Pre-corporate accountant evaluation for end stage renal disease;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;Impending cerebrovascular accident (HCC) Orders Only Transplant Hepatology Sebastien S/P liver transplant 8 JOEY Figueroa (HCC) (Primary Dx);Immunosuppression (HCC);ESRD (end stage renal disease) on dialysis (HCC);Elevated LFTs Ancillary Orders Lab Marcelo, Hermelindo Zuleta MD Ancillary Orders Lab Marcelo, Hermelindo Zuleta MD Ancillary Orders Lab Marcelo, Hermelindo Zuleta MD Ancillary Orders Lab Marcelo, Hermelindo Zuleta MD Orders Only Transplant Hepatology Type 2 diabetes 8 mellitus with hyperglycemia, with long-term current use of insulin (HCC);ESRD (end stage renal disease) (HCC);S/P liver transplant (HCC);Immunosuppressi on (HCC);ESRD (end stage renal disease) on dialysis (HCC) Orders Only Transplant Fely Mendoza, JOEY Type 2 diabetes 8 mellitus with hyperglycemia, with long-term current use of insulin (HCC) (Primary Dx);ESRD (end stage renal disease) (HCC);S/P liver transplant (HCC);Immunosuppressi on (HCC);ESRD (end stage renal disease) on dialysis (HCC) Abstract Transplant Amaris Mane 8 Abstract Transplant Amaris Mane 8 Orders Only General Internal 8 Medicine Orders Only General Internal 8 Medicine Anesthesia Event Hermelindo Murillo MD Procedure Pass 8 Surgery Nisreen Bravo, EPS & ABLATION OF SVT 8 MD Ling/ QASIM Orders Only General Internal 8 Medicine Orders Only General Internal 8 Medicine Hospital Encounter Transplant Ángel Varela, Acute rejection of 8 - MD liver transplant Wilfredo Quinones, (HCC);C. difficile 8 diarrhea;ESRD (end Athreya, Khannan stage renal disease) MD Yu on dialysis Gabrielle Castle (HCC);Bola Mendoza MD hypertension;S/P liver transplant (HCC);Elevated liver enzymes;Chronic hepatitis C without hepatic coma (HCC);ESRD (end stage renal disease) (HCC);Immunosuppressi on (HCC);Liver transplant rejection (HCC);SVT (supraventricular tachycardia) (HCC) Office Visit Hepatology Gaby Steward S/P liver transplant 8 MD Temi [facility] (HCC) (Primary Ángel Varela, Dx);Type 2 diabetes MD mellitus with hyperglycemia, with long-term current use of insulin (HCC);ESRD (end stage renal disease) (HCC);Pre-transplant evaluation for chronic kidney disease;Acute deep vein thrombosis (DVT) of other vein of lower extremity, unspecified laterality (HCC);ESRD on dialysis (HCC);Anemia, unspecified type;Chronic hepatitis C without hepatic coma (HCC);Elevated liver enzymes Orders Only Transplant Hepatology Ashwin Sosa S/P liver transplant Hermelindo Garcia MD (HCC);Immunosuppressi Ángel Vraela on (HCC) Telephone Transplant AlhajiArielleradha Kidney Transplant 8 Pre-evaluation Orders Only Internal Medicine Ángel Varela 8 MD Telephone Transplant Hepatology [facility] Follow Up 8 JOEY Figueroa Documentation Transplant [facility] Tatyana Pineda Orders Only Transplant Hepatology [facility] S/ liver transplant 8 JOEY Figueroa (HCC) (Primary Dx);Immunosuppression (HCC) Abstract Hepatology Jailyn, 8 [facility] Encounter General Internal Amber, S/P liver transplant 8 - Medicine Diana (HCC) (Primary MD Nelsy Dx);Elevated liver 8 Mami Mcdonald MD enzymes;Elevated alkaline phosphatase level;Hyperbilirubine prabha;Pruritus;Chronic viral hepatitis B without delta agent and without coma (HCC);Screening for malignant neoplasm;Immunosuppre ssion (HCC);Immune to hepatitis A;Seizure (HCC);Type 2 diabetes mellitus with complication, with long-term current use of insulin (HCC);Elevated LFTs;ESRD (end stage renal disease) (HCC) Hospital Encounter Physical Medicine and Diana Gan Alcoholic liver 8 - Rehabilitation S., DO failure (HCC) (Primary Dx);Chronic 8 hepatitis C without hepatic coma (HCC);S/P liver transplant (HCC);Subdural hematoma (HCC);Transaminitis;E SRD (end stage renal disease) on dialysis (HCC);Essential hypertension;Immunosu ppression (HCC);Nausea;Itch;Oth er cirrhosis of liver (HCC);Other depression;QT prolongation;ESRD (end stage renal disease) (HCC);Acute respiratory failure with hypercapnia (HCC) Procedure Pass Gastroenterology 8 Surgery Gastroenterology Nabil Roe MD Anesthesia Event Gastroenterology Hermelindo Maria MD Telephone Transplant Amaris Mane Kidney Transplant 8 Pre-evaluation Anesthesia Event Teodora Elvia 8 MARIAN Dangelo Orders Only General Internal 8 Medicine Procedure Pass 8 Surgery Ropper, CRANIOTOMY 8 Pradeep Warner MD Hospital Encounter General Internal Venkatasub Subdural hematoma 8 - Medicine Axel Diallo (HCC);Acute [place], encephalopathy;Atrial 8 MD fibrillation with RVR Alexandr Ambrose (HCC);ESRD (end stage G., MD renal disease) Susan Robertson (HCC);Essential MD Zarina hypertension;S/P Lacey Herman, liver transplant (HCC);Acute metabolic Tin, Vlad encephalopathy;Derik Yun MD c viral hepatitis B without delta agent and without coma (HCC);Immunosuppressi on (HCC);Type 2 diabetes mellitus with hyperglycemia, with long-term current use of insulin (HCC);Seizures (HCC) Orders Only Transplant Hepatology Sebastien S/P liver transplant 8 JOEY Figueroa (HCC) (Primary Dx) Orders Only Oncology Doris Jalloh Office Visit Transplant S/P liver transplant 8 (HCC) (Primary Dx);Type 2 diabetes mellitus with hyperglycemia, with long-term current use of insulin (HCC);ESRD (end stage renal disease) (HCC);Pre-transplant evaluation for chronic kidney disease;Acute deep vein thrombosis (DVT) of other vein of lower extremity, unspecified laterality (HCC);ESRD on dialysis (HCC);Anemia, unspecified type;Chronic hepatitis C without hepatic coma (HCC) Hospital Encounter Physical Medicine and Ozzie Rust Traumatic subdural 8 - Sharon Keenan MD hematoma of neuraxis, with loss of 8 consciousness of unspecified duration, sequela (HCC);ESRD on dialysis (HCC);Essential hypertension;S/P liver transplant (HCC);Insomnia due to medical condition;Headache as late effect of brain injury (HCC);Acute metabolic encephalopathy;Acute pulmonary edema (HCC);ESRD (end stage renal disease) (HCC);Impaired cognition;Fatigue, unspecified type Anesthesia Event Cardiac Intensive Jose Jolley 8 Sandra JOYA Hospital Encounter Transplant Mauricio Wilks Acute respiratory 7 - MD Devon failure with [place], hypercapnia 8 MD Angel (HCC);Acute metabolic Adio, Titilola encephalopathy;Norma Mendoza MD alemia;Metabolic Shiekh Sroujieh, acidosis;Hypotension, Magali Segovia MD unspecified hypotension type;Acute encephalopathy;ESRD (end stage renal disease) (HCC);CHIDI (obstructive sleep apnea);S/P liver transplant (HCC);Type 2 diabetes mellitus with hyperglycemia, with long-term current use of insulin (HCC);Elevated LFTs;Weakness Orders Only General Internal 7 Medicine Anesthesia Event Cardiac Intensive Chris Ray 7 Sandra Calloway MD Abstract Transplant Amaris Mane 7 Telephone Transplant Hepatology Jovanna Dangelo Labs Only (No change 7 in current medications, repeat labs in 1 month 06/24/17 @ [facility] ) Telephone Transplant Hepatology Romelia Holden, Medication Refill 7 RN (Meg) Abstract Transplant Amaris Mane 7 Abstract Hepatology Josselin Birch 7 Telephone Transplant Hepatology Jovanna Dangelo Labs Only (No change 7 in meds, repeat labs on 05/15/17 @ [facility]) Hospital Encounter Radiology Brant Mahan Aba S/P liver transplant Reynaldo Lee MD (HCC);Immunosuppressi on (HCC);ESRD (end stage renal disease) (HCC);Hepatocellular carcinoma (HCC);Hepatitis B infection without delta agent without hepatic coma, unspecified chronicity Hospital Encounter Brant Mahan Aba S/P liver transplant Reynaldo Lee MD (HCC);Immunosuppressi on (HCC);ESRD (end stage renal disease) (HCC);Hepatocellular carcinoma (HCC);Hepatitis B infection without delta agent without hepatic coma, unspecified chronicity Hospital Encounter Brant Mahan Aba S/P liver transplant 7 MD Rosa (HCC);Immunosuppressi on (HCC);ESRD (end stage renal disease) (HCC);Hepatocellular carcinoma (HCC);Hepatitis B infection without delta agent without hepatic coma, unspecified chronicity Follow-Up Transplant Hepatology Brant Mahan Aba Atrial fibrillation 7 MD Rosa with RVR Campos Rivero, (HCC);Chronic MD hepatitis C without hepatic coma (HCC);CKD (chronic kidney disease) stage 3, GFR 30-59 ml/min;Elevated LFTs;ESRD (end stage renal disease) (HCC);Essential hypertension;HCC (hepatocellular carcinoma) (HCC);Acute viral hepatitis B without coma and without delta agent;Immunosuppressi on (HCC);S/P liver transplant (HCC);[facility] care Orders Only Transplant Hepatology Brant Mahan Aba S/P liver transplant 7 MD Rosa (HCC);Immunosuppressi on (HCC);ESRD (end stage renal disease) (HCC);Hepatocellular carcinoma (HCC);Hepatitis B infection without delta agent without hepatic coma, unspecified chronicity Ancillary Orders Lab Campos Rivero 7 MD Orders Only Transplant Hepatology Sebastien S/Georgina liver transplant 7 JOEY Figueroa (HCC);Immunosuppressi on (HCC);Disorder of magnesium metabolism;Nonspecifi c findings on examination of blood;Complication of transplanted liver, unspecified complication (HCC);Encounter for therapeutic drug monitoring Outside Orders Brant Mahan Aba 7 MD Rosa Telephone Transplant Hepatology Romelia Holden, visit 7 RN Telephone Transplant Hepatology Sebastien, Medication Management 7 Carolina, JOEY Telephone Transplant Hepatology Sebastien, Follow-up 7 Carolina, JOEY Telephone Transplant Hepatology Sebastien, Medication Dose 7 JOEY Figueroa Change Follow-Up Transplant Hepatology Campos Rivero, Deep vein thrombosis 7 (DVT) of both lower Junior, Hannah Emily extremities, MD Josefina unspecified chronicity, unspecified vein (HCC);Warfarin anticoagulation;Acute encephalopathy;Alcoho lic liver failure (HCC);Atrial fibrillation with RVR (HCC);Chronic hepatitis C without hepatic coma (HCC);CKD (chronic kidney disease) stage 3, GFR 30-59 ml/min;Elevated LFTs;ESRD (end stage renal disease) (HCC);Essential hypertension;HCC (hepatocellular carcinoma) (HCC) Orders Only Transplant Hepatology Campos Rivero Immunosuppression 7 (HCC);Encounter for therapeutic drug monitoring;S/P liver transplant (HCC);Disorder of magnesium metabolism;Nonspecifi c findings on examination of blood;Complication of transplanted liver, unspecified complication (HCC);Acute viral hepatitis B without coma and without delta agent Telephone Transplant Hepatology Sebastien Medication Management 7 JOEY Figueroa Ancillary Orders Lab Brant Mahan Aba 7 MD Rosa Orders Only Transplant Hepatology Teresita S/P liver transplant 7 Kashaund (HCC);Immunosuppressi on (HCC);Acute deep vein thrombosis (DVT) of both lower extremities, unspecified vein (HCC) Orders Only Transplant Hepatology Sebastien S/P liver transplant 7 JOEY Figueroa (HCC) (Primary Dx);Immunosuppression (HCC);Acute deep vein thrombosis (DVT) of both lower extremities, unspecified vein (HCC) Telephone Transplant Hepatology Sebastien, Follow-up 7 JOEY Figueroa Orders Only Transplant Hepatology Sebastien S/P liver transplant 7 JOEY Figueroa (HCC) (Primary Dx);Immunosuppression (HCC);Acute viral hepatitis B without coma and without delta agent Telephone Transplant Hepatology Sebastien, Follow-up 7 JOEY Figueroa Telephone Transplant Hepatology Sebastien, Follow-up 7 JOEY Figueroa Telephone Transplant Hepatology Sebastien, Follow-up 7 JOEY Figueroa Orders Only Transplant Hepatology Sebastien S/P liver transplant 7 JOEY Figueroa (HCC) (Primary Dx);Immunosuppression (HCC);HCC (hepatocellular carcinoma);Acute deep vein thrombosis (DVT) of both lower extremities, unspecified vein (HCC) Telephone Transplant Hepatology Sebastien Medication Management 7 JOEY Figueroa Telephone Transplant Chu, Appointment 7 Isabelle Shay MA Orders Only Transplant Hepatology Sebastien, S/P liver transplant 7 JOEY Figueroa (HCC) (Primary Dx);Immunosuppression (HCC);ESRD (end stage renal disease) (HCC);Hepatocellular carcinoma (HCC);Hepatitis B infection without delta agent without hepatic coma, unspecified chronicity Telephone Transplant Hepatology Sebastien, Follow-up 7 JOEY Figueroa Hospital Encounter Transplant Khloe, ESRD (end stage renal 7 - MD Angel disease) (HCC) Wilfredo Quinones, (Primary 7 MD Dx);Hypervolemia, Margareth, María unspecified huong Howe MD type;Mami Gonsalez MD n (HCC);S/P liver transplant (HCC);Type 2 diabetes mellitus with hyperglycemia, with long-term current use of insulin (HCC);Atrial fibrillation with RVR (HCC);Abnormal liver enzymes;Abnormal ultrasound of liver;Liver transplanted (HCC);Chronic hepatitis C without hepatic coma (HCC);Essential hypertension;Acute encephalopathy Telephone Transplant Hepatology Willis, Lab Results Reynaldo Pineda Orders Only Internal Medicine Reynaldo Ledbetter MD Hospital Encounter Radiology Brant Mahan Aba S/P liver transplant 7 MD Rosa (HCC);Immunosuppressi on (HCC);ESRD (end stage renal disease) (HCC);Chronic hepatitis C without hepatic coma (HCC);HCC (hepatocellular carcinoma) Orders Only Lab Brant Mahan Aba Immunosuppression Reynaldo Lee MD (HCC);Encounter for therapeutic drug monitoring;S/P liver transplant (HCC);Disorder of magnesium metabolism;Nonspecifi c findings on examination of blood;Complication of transplanted liver, unspecified complication (HCC);HCC (hepatocellular carcinoma);Chronic hepatitis C without hepatic coma (HCC);ESRD (end stage renal disease) (HCC);Dysuria Outside Orders Brant Mahan Aba, MD Documentation Transplant Hepatology Reynaldo Pedro Telephone Transplant Hepatology Sebastien, Medication Dose 7 JOEY Figueroa Change Orders Only Transplant Hepatology Sebastien S/P liver transplant Reynaldo Figueroa RN (HCC) (Primary Dx);Immunosuppression (HCC);ESRD (end stage renal disease) (HCC);Chronic hepatitis C without hepatic coma (HCC);HCC (hepatocellular carcinoma) Follow-Up Transplant Hepatology Campos Rivero S/P liver transplant Reynaldo JOYA (HCC) (Primary Rana, Abbas Mannie Dx);Immunosuppression MD Rosa (HCC);Disorder of magnesium metabolism;Nonspecifi c findings on examination of blood;Complication of transplanted liver, unspecified complication (HCC);Encounter for therapeutic drug monitoring;Essential hypertension;Atrial fibrillation with RVR (HCC);ESRD (end stage renal disease) (HCC) Orders Only Transplant Hepatology Campos Rivero Immunosuppression 7 (HCC);Encounter for therapeutic drug monitoring;S/P liver transplant (HCC);Status post liver transplantation (HCC);Complication of transplanted liver, unspecified complication (HCC);Nonspecific findings on examination of blood;Encounter for long-term (current) use of high-risk medication;Hepatocell ular carcinoma (HCC) Documentation Transplant Hepatology Glendy Hurd Orders Only Transplant Hepatology Sebastien S/P liver transplant Reynaldo Figueroa RN (HCC) (Primary Dx);Immunosuppression (HCC);HCC (hepatocellular carcinoma);Chronic hepatitis C without hepatic coma (HCC);ESRD (end stage renal disease) (HCC);Dysuria Refill Transplant Hepatology Reynaldo Wyman MD Ancillary Orders Lab Campos Rivero 7 MD Orders Only Transplant Hepatology Chester Rivera S/P liver transplant 7 (HCC);Immunosuppressi on (HCC);Disorder of magnesium metabolism;Nonspecifi c findings on examination of blood;Complication of transplanted liver, unspecified complication (HCC);Encounter for therapeutic drug monitoring Documentation Transplant Reynaldo Sage MA Orders Only General Internal 7 Medicine Hospital Encounter Transplant Charlotte Wyman - Judith Barker (HCC);S/P liver transplant (HCC);ESRD 7 (end stage renal disease) (HCC);Hypervolemia, unspecified hypervolemia type;Atrial fibrillation with RVR (HCC);Pneumonia of right lower lobe due to infectious organism (HCC);Type 2 diabetes mellitus with hyperglycemia, with long-term current use of insulin (HCC);Other specified hypotension;CKD (chronic kidney disease) stage 3, GFR 30-59 ml/min;Functional diarrhea Telephone Transplant Hepatology Sebastien, Follow-up 7 JOEY Figueroa Telephone Transplant Hepatology Sebastien, Medication Dose 7 JOEY Figueroa Change Hospital Encounter Radiology Brant Mahan Aba S/P liver transplant 7 MD Rosa (HCC);CKD (chronic kidney disease) stage 3, GFR 30-59 ml/min;HCC (hepatocellular carcinoma);Hepatitis B infection without delta agent without hepatic coma, unspecified chronicity Orders Only Lab System, Provider Immunosuppression 7 Not In (HCC);Encounter for Brant Mahan Aba therapeutic drug MD Rosa monitoring;S/P liver transplant (HCC);Status post liver transplantation (HCC);Complication of transplanted liver, unspecified complication (HCC);Nonspecific findings on examination of blood;Encounter for long-term (current) use of high-risk medication;Hepatocell ular carcinoma (HCC);CKD (chronic kidney disease) stage 3, GFR 30-59 ml/min;HCC (hepatocellular carcinoma) Hospital Encounter Radiology Brant Mahan Aba S/P liver transplant Reynaldo Lee MD (HCC);CKD (chronic kidney disease) stage 3, GFR 30-59 ml/min;HCC (hepatocellular carcinoma);Hepatitis B infection without delta agent without hepatic coma, unspecified chronicity Outside Orders Brant Mahan Aba, MD Refill Transplant Hepatology Brant Mahan Aba S/P liver transplant Reynaldo Lee MD (HCC);Immunosuppressi on (HCC);HCC (hepatocellular carcinoma);Hepatitis C virus infection without hepatic coma, unspecified chronicity Telephone Transplant Hepatology Sebastien Medication Management 7 JOEY Figueroa Orders Only Transplant Hepatology Sebastien, S/P liver transplant 7 JOEY Figueroa (HCC) (Primary Dx);CKD (chronic kidney disease) stage 3, GFR 30-59 ml/min;HCC (hepatocellular carcinoma);Hepatitis B infection without delta agent without hepatic coma, unspecified chronicity after 12/23/2016 Immunizations Name Dates Previously Given Next Due Influenza Three-TIV PF 5+ YR 03/10/2016 Pneumococcal Polysaccharide (Pneumovax) 11/28/2014 Family History Medical History Relation Name Comments Diabetes Brother Unremarkable Child 5 children Diabetes Father Diabetes Mother Relation Name Status Comments Brother Child 5 children Alive Father Mother Social History Tobacco Use Types Packs/Day Years Used Date Former Smoker Smokeless Tobacco: Never Used Tobacco Cessation: Ready to Quit: No Comments: Quit in 2014 Alcohol Use Drinks/Week oz/Week Comments No Quit 10 years ago Sex Assigned at Date Recorded Not on file Last Filed Vital Signs Vital Sign Reading Time Taken Blood Pressure 101/62 11/09/2017 4:16 PM CDT Pulse 97 11/09/2017 4:16 PM CDT Temperature 36.3 C (97.3 F) 11/09/2017 4:16 PM CDT Respiratory Rate 18 11/09/2017 4:16 PM CDT Oxygen Saturation 98% 11/09/2017 4:16 PM CDT Inhaled Oxygen Concentration - - Weight 84.6 kg (186 lb 8.2 oz) 11/08/2017 11:42 AM CDT Height 172.7 cm (5' 8") 11/05/2017 2:10 AM CDT Body Mass Index 28.36 11/08/2017 11:42 AM CDT Plan of Treatment Date Type Specialty Care Team Description 12/31/2017 Orders Only Transplant Hepatology Ashwin Sosa MD [address] [address] [phone] 12/31/2017 Follow-Up Transplant Hepatology Ashwin Sosa MD [address] [id number] 01/09/2018 Orders Only Lab Mitch Robertson MD [address] [address] [phone] 01/09/2018 Appointment Cardiology Mitch Robertson MD [address] [address] [phone] 01/09/2018 Appointment Radiology Mitch Robertson MD [address] [address] [phone] 01/09/2018 Appointment Mitch Robertson MD [address] [address] [phone] 01/09/2018 Evaluation Transplant Health Maintenance Due Date Last Done Comments INFLUENZA VACCINE 03/03/2018 03/10/2016 Implants Implanted Type Area Molecular Modeler Device Expiration Model / Identifier Date Serial / Lot Cvr Bur-Hl Lp-Neuro 17mm Ti Ns 421.527 - [id number] Fracture/ Left: SYNTHES: SYNTHES 421.527 / Implanted: Qty: 2 on 07/30/2017 by Pradeep Lock MD [employer] / Plt Bx Lp-Neuro 4h 14x16 Ti Ns 421.521 - [id number] Fracture/ Left: SYNTHES: SYNTHES 421.521 / Implanted: Qty: 2 on 07/30/2017 by Pradeep Lock MD [employer] / Scr Sd Mtrxneu 4mm Ti Ns [id number] - [id number] Fracture/ Left: SYNTHES: SYNTHES [id number] / Implanted: Qty: 8 on 07/30/2017 by Pradeep Lock MD [employer] / Cath Bactiseal Evd 82-1745 - [id number] Neuro Left: J &J:SAMMI & 2017 [id number] / Implanted: Qty: 1 on 07/30/2017 by Pradeep Lock MD Head [facility] / [id number] Procedures Procedure Name Priority Date/Time Associated Diagnosis Comments EPS & ABLATION OF SVT 09/20/2017 7:30 AM Paroxysmal SVT W/ CARTO CDT (supraventricular tachycardia) (HCC) Case Notes 2CASE [id number] 5 PT IS IP MAC/ANES. PROCEDURE W/ C-ARM 08/20/2017 4:55 PM CDT Elevated LFTs Special Needs (C-ARM) ERCP 08/20/2017 4:55 PM CDT Elevated LFTs Special Needs (C-ARM) CRANIOTOMY 07/30/2017 4:10 PM APPRENTICE PHOTOGRAPHER Left frontal subdural hematoma Special Needs REQ TF after 12/23/2016 Results RHYTHM STRIP - SCAN (11/12/2017 9:00 AM)Only the most recent of9 resultswithin the time period is included.POC-Glucose meter (11/09/2017 4:22 PM)Only the most recent of503 resultswithin the time period is included. Component Value Ref Range POC-Glucose Meter 140 (H)Comment: TESTED AT [address] 70 - 110 mg/[place] [id number] Specimen Performing Laboratory Blood [address] [address] CBC with platelet count + automated diff (11/09/2017 10:37 AM)Only the most recent of91 resultswithin the time period is included. Component Value Ref Range WBC 8.7 3.5 - 10.5 K/L RBC 4.16 (L) 4.63 - 6.08 M/L Hemoglobin 11.1 (L) 13.7 - 17.5 GM/DL Hematocrit 36.6 (L) 40.1 - 51.0 % MCV 88.0 79.0 - 92.2 fL MCH 26.7 25.7 - 32.2 pg MCHC 30.3 (L) 32.3 - 36.5 GM/DL RDW 15.0 (H) 11.6 - 14.4 % Platelets 250 150 - 450 K/CU MM MPV 9.4 9.4 - 12.4 fL nRBC 0 0 - 0 /100 WBC % Neutros 78 % % Lymphs 12 % % Monos 8 % % Eos 1 % % Baso 1 % # Neutros 6.75 (H) 1.78 - 5.38 K/L # Lymphs 1.07 (L) 1.32 - 3.57 K/L # Monos 0.66 0.30 - 0.82 K/L # Eos 0.09 0.04 - 0.54 K/L # Baso 0.04 0.01 - 0.08 K/L Immature Granulocytes-Relative 1 0 - 1 % Specimen Performing Laboratory Blood - Arm, Right [address] [address] Tacrolimus level (11/09/2017 10:37 AM)Only the most recent of112 resultswithin the time period is included. Component Value Ref Range Tacrolimus Lvl 12.4 10.0 - 20.0 ng/mL Specimen Performing Laboratory Blood - Arm, [address] [address] CBC with platelet count + automated diff (11/09/2017 10:37 AM)Only the most recent of91 resultswithin the time period is included. Specimen Performing Laboratory Blood Narrative The following orders were created for panel order CBC with platelet count + automated diff. Procedure Abnormality Status --------- ------ CBC with platelet count ...[[id number]]AbnormalFinal result Please view results for these tests on the individual orders. Hepatic function panel (11/09/2017 10:37 AM)Only the most recent of103 resultswithin the time period is included. Component Value Ref Range Protein, Total 7.2 6.0 - 8.3 gm/dL Albumin 3.7 3.5 - 5.0 g/dL Total Bilirubin 0.5 0.2 - 1.2 mg/dL Bilirubin, Direct 0.3 0.1 - 0.5 mg/dL Alkaline Phosphatase 623 (H) 40 - 150 U/L AST 21 5 - 34 U/L ALT 26 6 - 55 U/L Specimen Performing Laboratory Blood - Arm, [address] [address] Basic Metabolic Panel (11/09/2017 10:37 AM)Only the most recent of106 resultswithin the time period is included. Component Value Ref Range Sodium 140 136 - 145 meq/L Potassium 4.3 3.5 - 5.1 meq/L Chloride 102 98 - 107 meq/L CO2 23 22 - 29 meq/L BUN 52 (H) 7 - 21 mg/dL Creatinine 6.24 (H) 0.57 - 1.25 mg/dL Glucose 199 (H) 70 - 105 mg/dL Calcium 8.6 8.4 - 10.2 mg/dL EGFR 9Comment: ESTIMATED GFR IS NOT ACCURATE CREATININE mL/min/1.73 sq m CLEARANCE IN PREDICTING GLOMERULAR FILTRATION RATE. ESTIMATED GFR IS NOT APPLICABLE FOR DIALYSIS PATIENTS. Specimen Performing Laboratory Blood - Arm, [address] [place] [address] PERIPHERAL VASCULAR REPORT - SCAN (11/09/2017 7:20 AM)Only the most recent of4 resultswithin the time period is included.Arterial doppler arm, left (2017 2:16 PM) Component Value Ref Range Ejection Fraction Specimen Performing Laboratory [facility] Impressions Left Impression 1. The subclavian, axillary and brachial arteries are patent with waveforms consistent with an AV fistula. 2. The radial and ulnar arteries are patent with calcification, triphasic and biphasic Doppler waveforms. 3. The AV fistula is patent with velocities of: Brachial artery pre anastomosis- 157 cm/sec, brachial artery post anastomosis- 79 cm/sec, anastomosis- 233/113 cm/sec and outflow vein- 178/79 cm/sec. 4. The AV fistula volume flows are 523 cc/min and 484 cc/min (abnormally low). Conclusions Summary Duplex imaging was performed on the left upper extremity. The arterial exam was technically difficult due to edema and patient's pain. The subclavian, axillary and brachial arteries were patent with waveforms consistent with an AV fistula. The radial and ulnar arteries were patent with calcification, triphasic and biphasic Doppler waveforms. The AV fistula was patent with no obstruction visualized; however, the volume flows were abnormally low. Signature Velocities are measured in cm/s ; Diameters are measured in cm Left Upper Extremities Duplex Measurements + +----+-----+----+--------+ !Location !PSV !Ratio!Diam!Waveform! + +----+-----+----+--------+ !Mid Subclavian !183 ! !!! + +----+-----+----+--------+ !Prox Brachial !240 !1.31 !!! + +----+-----+----+--------+ !Dist Radial !43 .2!0.18 !!! + +----+-----+----+--------+ !Dist Ulnar !55!0.23 !!! + +----+-----+----+--------+ Narrative [facility] - Upper Extremities Arterial Duplex Demographics Patient Name PEYTON MENJIVAR Date of Study 11/08/2017 [id number] Visit Number [id number] Male Accession Number [id number] [facility] 1955 [facility] Erinn FrancisographerJeannette Denson T Physician , RPNELSON Procedure Type of Study: Extremities Arteries: Upper Extremities Arterial Duplex, ARTERIAL DOPPLER ARM, LEFT. Indications for Study:Edema and S/P AV access . Patient Status:BRO. Study Location:Vascular Lab. Technical Quality:Technically Difficult. Risk Factors History of Disease + +----+ + !Diagnosis !Date!Comments ! + +----+ + !History/Risk!!SDH, S/P Craniotomy and evacuation 07/30/2017, HTN, DM,! !Factors:!!Former Smoker, Atrial fibrillation, ESRD- Left arm AVF! !!!(05/30/17) S/P Second stage Basilic Transposition ! !!!(10/21/17) ! + +----+ + Procedure Note Interface, External Ris In - 11/08/2017 7:13 PM CDT [facility] - Upper Extremities Arterial Duplex Demographics Patient Name PEYTON MENJIVAR Date of Study 11/08/2017 Age 62 Visit Number [id number] Gender Male Accession Number [id number] Date of 1955 Referring Tin Chu Room Number 717 Physician Jama Payroll Technician Jeannette Davila T Physician , RPVI Procedure Type of Study: Extremities Arteries: Upper Extremities Arterial Duplex, ARTERIAL DOPPLER ARM, LEFT. Indications for Study:Edema and S/P AV access . Patient Status:BRO. Study Location:Vascular Lab. Technical Quality:Technically Difficult. Risk Factors History of Disease + +----+ + !Diagnosis !Date!Comments ! + +----+ + !History/Risk ! !SDH, S/P Craniotomy and evacuation 07/30/2017, HTN, DM,! !Factors: ! !Former Smoker, Atrial fibrillation, ESRD- Left arm AVF! ! ! !(05/30/17) S/P Second stage Basilic Transposition ! ! ! !(10/21/17) ! + +----+ + Impressions Left Impression 1. The subclavian, axillary and brachial arteries are patent with waveforms consistent with an AV fistula. 2. The radial and ulnar arteries are patent with calcification, triphasic and biphasic Doppler waveforms. 3. The AV fistula is patent with velocities of: Brachial artery pre anastomosis- 157 cm/sec, brachial artery post anastomosis- 79 cm/sec, anastomosis- 233/113 cm/sec and outflow vein- 178/79 cm/sec. 4. The AV fistula volume flows are 523 cc/min and 484 cc/min (abnormally low). Conclusions Summary Duplex imaging was performed on the left upper extremity. The arterial exam was technically difficult due to edema and patient's pain. The subclavian, axillary and brachial arteries were patent with waveforms consistent with an AV fistula. The radial and ulnar arteries were patent with calcification, triphasic and biphasic Doppler waveforms. The AV fistula was patent with no obstruction visualized; however, the volume flows were abnormally low. Signature Velocities are measured in cm/s ; Diameters are measured in cm Left Upper Extremities Duplex Measurements + +----+-----+----+--------+ !Location !PSV !Ratio!Diam!Waveform! + +----+-----+----+--------+ !Mid Subclavian !183 ! ! ! ! + +----+-----+----+--------+ !Prox Brachial !240 !1.31 ! ! ! + +----+-----+----+--------+ !Dist Radial !43.2!0.18 ! ! ! + +----+-----+----+--------+ !Dist Ulnar !55 !0.23 ! ! ! + +----+-----+----+--------+ Venous doppler arm, left (11/08/2017 2:03 PM)Only the most recent of2 resultswithin the time period is included. Component Value Ref Range Ejection Fraction Specimen Performing Laboratory [facility] Impressions Left Impression 1. There is no deep venous obstruction in the jugular, subclavian, axillary, brachial, radial or ulnar veins. 2. There is no superficial venous obstruction in the cephalic or basilic veins. 3. The AV fistula is patent with a velocity of 220/91 cm/sec and a low volume flow of 430 cc/min. 4. Incidental Finding: There is a non-vascular structure measuring 1.29cm x 1.97cm x 2.60cm in the upper arm. Conclusions Summary Venous duplex imaging and compression of the left upper extremity was performed. The venous exam was technically difficult due to edema and patient's pain. The left venous system was patent and compressible with no evidence of thrombus. The AV fistula was patent with an abnormally low volume flow. Incidental Finding: There was a non-vascular structure measuring 1.29cm x 1.97cm x 2.60cm in the upper arm. Signature Velocities are measured in cm/s ; Diameters are measured in cm Narrative [facility] - Upper Extremities Veins Demographics Patient Name PEYTON MENJIVAR Date of Study 11/08/2017 [id number] Visit Number [id number] Male Accession Number [id number] of 1955 [facility] 717 [facility] SonographerHeather [place].Suri. Jeannette Coronel Josie Physician RANDY JOYA Procedure Type of Study: Veins: Upper Extremities Veins, VENOUS DOPPLER ARM, LEFT. Indications for Study:Edema and Rule out DVT. Patient Status:Routine. Study Location:Vascular Lab. Technical Quality:Technically Difficult. Risk Factors History of Disease + +----+ + !Diagnosis !Date!Comments ! + +----+ + !History/Risk!!SDH, S/P Craniotomy and evacuation 07/30/2017, HTN, DM,! !Factors:!!Former Smoker, Atrial fibrillation, ESRD- Left arm AVF! !!!(05/30/17) S/P Second stage Basilic Transposition ! !!!(10/21/17) ! + +----+ + Procedure Note Interface, External Ris In - 11/08/2017 7:13 PM CDT [facility] - Upper Extremities Veins Demographics Patient Name PEYTON MENJIVAR Date of Study 11/08/2017 Age 62 Visit Number [id number] Gender Male Accession Number [id number] Date of 1955 Referring Tin Vlad Room Number 717 Physician Jama Payroll Technician Nell Roberson Interpreting Jeannette Ang Josie Physician , RP Procedure Type of Study: Veins: Upper Extremities Veins, VENOUS DOPPLER ARM, LEFT. Indications for Study:Edema and Rule out DVT. Patient Status:Routine. Study Location:Vascular Lab. Technical Quality:Technically Difficult. Risk Factors History of Disease + +----+ + !Diagnosis !Date!Comments ! + +----+ + !History/Risk ! !SDH, S/P Craniotomy and evacuation 07/30/2017, HTN, DM,! !Factors: ! !Former Smoker, Atrial fibrillation, ESRD- Left arm AVF! ! ! !(05/30/17) S/P Second stage Basilic Transposition ! ! ! !(10/21/17) ! + +----+ + Impressions Left Impression 1. There is no deep venous obstruction in the jugular, subclavian, axillary, brachial, radial or ulnar veins. 2. There is no superficial venous obstruction in the cephalic or basilic veins. 3. The AV fistula is patent with a velocity of 220/91 cm/sec and a low volume flow of 430 cc/min. 4. Incidental Finding: There is a non-vascular structure measuring 1.29cm x 1.97cm x 2.60cm in the upper arm. Conclusions Summary Venous duplex imaging and compression of the left upper extremity was performed. The venous exam was technically difficult due to edema and patient's pain. The left venous system was patent and compressible with no evidence of thrombus. The AV fistula was patent with an abnormally low volume flow. Incidental Finding: There was a non-vascular structure measuring 1.29cm x 1.97cm x 2.60cm in the upper arm. Signature Velocities are measured in cm/s ; Diameters are measured in cm Hemodialysis (11/08/2017 11:55 AM)Only the most recent of24 resultswithin the time period is included. Narrative Theo Iyer RN 11/08/2017 11:55 AM HD treatment completed, tolerated well, net UF -1.5L in 240min. CVC care provided, packed with heparin as ordered. Pt stated he feels fine and denies any discomfort upon transfer to the floor. Report given to primary care RN. Lab Results Component Value Date GLUCOSE 376 (H) 11/08/2017 CALCIUM 8.1 (L) 11/08/2017 NA 135 (L) 11/08/2017 K 4.8 11/08/2017 CO2 20 (L) 11/08/2017 CL 100 11/08/2017 BUN 94 (H) 11/08/2017 CREATININE 10.02 (H) 11/08/2017 Lab Results Component Value Date WBC 5.8 11/08/2017 HGB 9.5 (L) 11/08/2017 HCT 31.0 (L) 11/08/2017 MCV 85.6 11/08/2017 PLT 298 11/08/2017 Lab Results Component Value Date HEPBSAG Nonreactive 11/07/2017 Vancomycin level, random (11/08/2017 5:47 AM)Only the most recent of14 resultswithin the time period is included. Component Value Ref Range Vancomycin Rm 15.7 ug/mL Specimen Performing [place] [address] Narrative Reference Range: No Normals 30 min prior to next dose IR Tunneled Catheter Insertion (11/07/2017 5:24 PM) Specimen Performing Laboratory [facility] Narrative Addendum Begins REPORT STATUS:A Sedation: None. Signed: Torsten Hawley MD Report Verified Date/Time:11/18/2017 14:01:44 Reading Location: [facility] P048 Angio Body Reading Room Addendum Ends FINAL REPORT Tunneled dialysis catheter insertion. History: Renal failure. Modality: Sonography and fluoroscopy. Sedation: The Sales Enablement Specialist:Janet Hawley Shelving Supervisor:None. Approach: Left internal jugular vein Estimated blood loss:< 5 cc. Specimen: None. Fluoroscopy Time: 0.8 min. Reference Air Kerma (Ka, r): 6.6 mGy Technique: Informed written consent was obtained.Discussion of risks, benefits, and alternatives were made with the patient. The patient expressed understanding and agreed to proceed.All elements maximal sterile barrier technique was utilized for this procedure, including utilization of sterile scrub solution for skin prep, a large sterile sheet to cover the areas of the patient that were not prepped, and hand hygiene, mask, head covering, and sterile gown for performing radiologist and scrub technologist. The skin was anesthetized with 2% lidocaine.Ultrasound evaluation showed a patent and compressible left internal jugular vein, which was punctured under direct real-time ultrasound guidance with a micropuncture needle.An ultrasound image was saved to PACS. A 0.018 inch wire was placed through the needle into the right atrium. A 4 Senegalese micropuncture sheath was placed.A subcutaneous tunnel was created in the left anterior chest wall by blunt dissection.A 23 cm cuff 15.5 Sen[place]e Duraflow 2 catheter was brought through the tunnel. The vessel tract was serially dilated over a J-wire. A peel-away sheath was placed in the left IJ vein and the catheter was advanced through the sheath, with its distal tip terminating in the right atrium.The peel-away sheath was removed. The ports were flushed and aspirated easily following placement.The catheter was sutured to the skin with 2-0 proline to secure its placement.There is removal per history sutures placed at the catheter exit site. The small jugular incision site was closed using Dermabond. Vital signs were monitored throughout the procedure by a nurse, and remained stable.The patient tolerated the procedure well and left the department in the same condition. Results:Spot radiograph of the chest demonstrates the new dialysis catheter to lie in the expected position with its tip overlying the superior right atrium. Impression: Successful, uncomplicated placement of a left internal jugular tunneled dialysis catheter using sonographic and fluoroscopic guidance and conscious sedation. Signed: Torsten Hawley MD Report Verified Date/Time:11/07/2017 18:18:02 Reading Location: [place] [id number] Angio Body Reading Room Procedure Note Interface, External Ris In - 11/18/2017 2:03 PM CDT Addendum Begins REPORT STATUS:A Sedation: None. Signed: Torsten Hawley MD Report Verified Date/Time: 11/18/2017 14:01:44 Reading Location: [facility] P048 Angio Body Reading Room Addendum Ends FINAL REPORT Tunneled dialysis catheter insertion. History: Renal failure. Modality: Sonography and fluoroscopy. Sedation: The Sales Enablement Specialist: Janet Hawley Shelving Supervisor: None. Approach: Left internal jugular vein Estimated blood loss: < 5 cc. Specimen: None. Fluoroscopy Time: 0.8 min. Reference Air Kerma (Ka, r): 6.6 mGy Technique: Informed written consent was obtained. Discussion of risks, benefits, and alternatives were made with the patient. The patient expressed understanding and agreed to proceed. All elements maximal sterile barrier technique was utilized for this procedure, including utilization of sterile scrub solution for skin prep, a large sterile sheet to cover the areas of the patient that were not prepped, and hand hygiene, mask, head covering, and sterile gown for performing radiologist and scrub technologist. The skin was anesthetized with 2% lidocaine.Ultrasound evaluation showed a patent and compressible left internal jugular vein, which was punctured under direct real-time ultrasound guidance with a micropuncture needle. An ultrasound image was saved to PACS. A 0.018 inch wire was placed through the needle into the right atrium. A 4 Sen[place]alese micropuncture sheath was placed. A subcutaneous tunnel was created in the left anterior chest wall by blunt dissection. A 23 cm cuff 15.5 [place]e Duraflow 2 catheter was brought through the tunnel. The vessel tract was serially dilated over a J-wire. A peel-away sheath was placed in the left IJ vein and the catheter was advanced through the sheath, with its distal tip terminating in the right atrium. The peel-away sheath was removed. The ports were flushed and aspirated easily following placement. The catheter was sutured to the skin with 2-0 proline to secure its placement. There is removal per history sutures placed at the catheter exit site. The small jugular incision site was closed using Dermabond. Vital signs were monitored throughout the procedure by a nurse, and remained stable. The patient tolerated the procedure well and left the department in the same condition. Results: Spot radiograph of the chest demonstrates the new dialysis catheter to lie in the expected position with its tip overlying the superior right atrium. Impression: Successful, uncomplicated placement of a left internal jugular tunneled dialysis catheter using sonographic and fluoroscopic guidance and conscious sedation. Signed: Torsten Hawley MD Report Verified Date/Time: 11/07/2017 18:18:02 Reading Location: [facility] P048 Angio Body Reading Room /aPTT (11/07/2017 3:25 PM)Only the most recent of14 resultswithin the time period is included. Component Value Ref Range Protime 14.1 11.7 - 14.7 seconds INR 1.1 <=5.9 PTT 30.9 22.5 - 36.0 seconds Specimen Performing Laboratory Blood [address] [address] Narrative RECOMMENDED COUMADIN/WARFARIN INR THERAPY RANGES STANDARD DOSE: 2.0 - 3.0 Includes: PROPHYLAXIS for venous thrombosis, systemic embolization; TREATMENT for venous thrombosis and/or pulmonary embolus. HIGH RISK: Target INR is 2.5-3.5 for patients with mechanical heart valves. Vitamin D, 25-Hydroxy (11/07/2017 3:24 PM)Only the most recent of3 resultswithin the time period is included. Component Value Ref Range Vitamin D 25-Hydroxy 12.3 6.6 - 49.9 ng/mL Specimen Performing Laboratory Blood - Arm, [address] [address] Narrative Effective 03/13/2017: Reference Range Change New: 6.6-49.9 ng/mL Previous: 13.0-47.8 ng/mL Recommended Vitamin D Target Range: 30.0-40.0 ng/mL Phosphorus (11/07/2017 3:24 PM)Only the most recent of75 resultswithin the time period is included. Component Value Ref Range Phosphorus 5.7 (H) 2.3 - 4.7 mg/dL Specimen Performing Laboratory Blood - Arm, [address] [address] PTH, intact (11/07/2017 3:24 PM)Only the most recent of2 resultswithin the time period is included. Component Value Ref Range PTH 345.0 (H) 8.5 - 72.5 pg/mL Specimen Performing Laboratory Blood - Arm, [address] [address] US abdominal with doppler (11/07/2017 1:26 PM)Only the most recent of5 resultswithin the time period is included. Specimen Performing Laboratory SpecifiedBy FINAL REPORT TECHNIQUE: Grayscale ultrasound of the abdomen with color Doppler and spectral Doppler ultrasound of the portal/hepatic vasculature. INDICATION: 62-year-old man with elevated alkaline phosphatase and history of liver transplant. COMPARISON: Abdomen and pelvis CT 09/26/2014. FINDINGS: LIVER: Prior orthotopic liver transplantation. The transplanted liver is normal in size. Smooth liver contour. No focal liver lesions. HEPATIC VASCULATURE: Main portal vein measures 1.5 cm in diameter. Portal veins are patent with normal waveform and directionality. Flow velocity in the main portal vein is within normal limits. The hepatic arteries are patent. Resistive indices in the proper, right, and left hepatic arteries are elevated at 0.9. Acceleration time in the proper hepatic artery is at the upper limit of normal. The hepatic veins and confluence are patent. BILIARY: Gallbladder: Prior cholecystectomy. Common bile duct measures 0.8 cm, within normal limits. Mild central intrahepatic biliary ductal prominence. PANCREAS: Visualized portions of the pancreas are unremarkable. SPLEEN: No splenomegaly. PERITONEUM: No free fluid. KIDNEYS: The right kidney measures 9.6 cm in length and the left kidney measures 10.7 cm in length. No hydronephrosis. No sonographically evident solid mass lesion. Left renal cysts measure up to 1.1 x 0.9 x 1 cm. MIDLINE VASCULATURE: The visualized inferior vena cava is patent. The maximum visualized aortic diameter is 0.3 cm.Splenic artery and vein are patent. OTHER FINDINGS: 7.3 x 3.6 x 6 cm debris-containing fluid collection abutting the right hepatic lobe likely correlates with hematoma seen on prior CT. IMPRESSION: Mild central intrahepatic biliary ductal prominence, which may represent reservoir effect from prior cholecystectomy/orthotopic liver transportation. The common bile duct is within normal limits. Elevated resistive indices in the hepatic arteries, which are nonspecific and may be seen in the setting of liver disease. Doppler evaluation of the hepatic/portal vasculature is otherwise unremarkable. 7.3 cm debris-containing fluid collection abutting the right hepatic lobe, likely chronic hematoma. Signed: Parvez Goss MD Report Verified Date/Time:11/07/2017 13:34:23 Reading Location: [address] Ultrasound Reading Room Procedure Note Interface, External Ris In - 11/07/2017 1:36 PM CDT FINAL REPORT TECHNIQUE: Grayscale ultrasound of the abdomen with color Doppler and spectral Doppler ultrasound of the portal/hepatic vasculature. INDICATION: 62-year-old man with elevated alkaline phosphatase and history of liver transplant. COMPARISON: Abdomen and pelvis CT 09/26/2014. FINDINGS: LIVER: Prior orthotopic liver transplantation. The transplanted liver is normal in size. Smooth liver contour. No focal liver lesions. HEPATIC VASCULATURE: Main portal vein measures 1.5 cm in diameter. Portal veins are patent with normal waveform and directionality. Flow velocity in the main portal vein is within normal limits. The hepatic arteries are patent. Resistive indices in the proper, right, and left hepatic arteries are elevated at 0.9. Acceleration time in the proper hepatic artery is at the upper limit of normal. The hepatic veins and confluence are patent. BILIARY: Gallbladder: Prior cholecystectomy. Common bile duct measures 0.8 cm, within normal limits. Mild central intrahepatic biliary ductal prominence. PANCREAS: Visualized portions of the pancreas are unremarkable. SPLEEN: No splenomegaly. PERITONEUM: No free fluid. KIDNEYS: The right kidney measures 9.6 cm in length and the left kidney measures 10.7 cm in length. No hydronephrosis. No sonographically evident solid mass lesion. Left renal cysts measure up to 1.1 x 0.9 x 1 cm. MIDLINE VASCULATURE: The visualized inferior vena cava is patent. The maximum visualized aortic diameter is 0.3 cm. Splenic artery and vein are patent. OTHER FINDINGS: 7.3 x 3.6 x 6 cm debris-containing fluid collection abutting the right hepatic lobe likely correlates with hematoma seen on prior CT. IMPRESSION: Mild central intrahepatic biliary ductal prominence, which may represent reservoir effect from prior cholecystectomy/orthotopic liver transportation. The common bile duct is within normal limits. Elevated resistive indices in the hepatic arteries, which are nonspecific and may be seen in the setting of liver disease. Doppler evaluation of the hepatic/portal vasculature is otherwise unremarkable. 7.3 cm debris-containing fluid collection abutting the right hepatic lobe, likely chronic hematoma. Signed: Parvez Goss MD Report Verified Date/Time: 11/07/2017 13:34:23 Reading Location: [address] Ultrasound Reading Room Hepatitis B surface antigen (11/07/2017 4:52 AM)Only the most recent of12 resultswithin the time period is included. Component Value Ref Range hepatitis B Surface Ag Nonreactive Nonreactive Specimen Performing Laboratory Blood - Arm, [address] [address] Blood culture (11/05/2017 2:30 PM)Only the most recent of17 resultswithin the time period is included. Component Value Ref Range Result No growth in 5 days Specimen Performing Laboratory Blood - Arm, [facility] [address] [place] [id number] IR Tunneled Catheter Removal (11/05/2017 11:37 AM) Specimen Performing Laboratory [facility] Narrative FINAL REPORT Right chest Tunneled hemodialysis catheter removal. History: Fever and hypotension after hemodialysis. Concern for line infection. Modality: None. Sedation: None Sales Enablement Specialist:Humberto Martin MD. Shelving Supervisor:None. Approach:Right anterior chest. Estimated blood loss:< 5 cc. Specimen: The catheter tip was sent with the patient's chart. Technique:The procedure including risks and benefits were explained to the patient, who expressed understanding. After informed written consent was obtained, the patient's rightanterior chest region was prepped and draped in the usual sterile fashion. The skin was anesthetized with lidocaine. The tunneled central line was then removed in toto with blunt dissection and gentle traction. The skin entry site was then dressed with sterile gauze and Tegaderm. The patient tolerated the procedure well. Impression: Successful, uncomplicated removal of a right chest tunneled hemodialysis catheter. Signed: Humberto Martin MD Report Verified Date/Time:11/08/2017 07:43:23 Reading Location: [place] [address] Angio Body Reading Room Procedure Note Interface, External Ris In - 11/08/2017 7:45 AM CDT FINAL REPORT Right chest Tunneled hemodialysis catheter removal. History: Fever and hypotension after hemodialysis. Concern for line infection. Modality: None. Sedation: None Sales Enablement Specialist: Humberto Martin MD. Shelving Supervisor: None. Approach: Right anterior chest. Estimated blood loss: < 5 cc. Specimen: The catheter tip was sent with the patient's chart. Technique: The procedure including risks and benefits were explained to the patient, who expressed understanding. After informed written consent was obtained, the patient's right anterior chest region was prepped and draped in the usual sterile fashion. The skin was anesthetized with lidocaine. The tunneled central line was then removed in toto with blunt dissection and gentle traction. The skin entry site was then dressed with sterile gauze and Tegaderm. The patient tolerated the procedure well. Impression: Successful, uncomplicated removal of a right chest tunneled hemodialysis catheter. Signed: Humberto Martin MD Report Verified Date/Time: 11/08/2017 07:43:23 Reading Location: [address] Body Reading Room Catheter Tip Culture (11/05/2017 11:02 AM) Component Value Ref Range Result <15 Colonies On Direct Plate Coagulase negative Staphylococcus (A) Specimen Performing Laboratory Other - PICC [address] [address] Lactic acid, venous, whole blood (11/05/2017 2:57 AM)Only the most recent of4 resultswithin the time period is included. Component Value Ref Range Lactate, Venous 0.6 0.5 - 2.2 mmol/L Specimen Performing Laboratory Blood [address] [address] Narrative Effective 10/05/2015: Units/Reference Range Change New: 0.5-2.2 mmol/LPrevious: 5-20 mg/dL TRANSFUSION SERVICE REPORT - SCAN (10/31/2017 6:15 PM)Only the most recent of6 resultswithin the time period is included.HLA Typing CII (10/30/2017 11:41 AM) Component Value Ref Range HLA-DR AG1 1 HLA-DR AG2 13 HLA-DR AG3-1 HLA-DR AG3-2 52 HLA-DR AG4-1 HLA-DR AG4-2 HLA-DR AG5-1 HLA-DR AG5-2 HLA-DQA1 AG 1-1 01 HLA-DQA1 AG 1-2 01 HLA-DQB1 AG 1-1 5 HLA-DQB1 AG 1-2 6 HLA-DPA1 AG 1-1 01 HLA-DPA1 AG 1-2 02 HLA-DPB1 AG 1-1 02:01 HLA-DPB1 AG 1-2 13:01/107: HLA-AG Notes HLA-AG Report Comments Specimen Performing Laboratory Blood [facility] HLA TESTING ONE Bhaskar Owens, MS: KESHAWN, CLIA#[id number] CAP#[id number] [place] [address] HLA Typing CI (10/30/2017 11:41 AM) Component Value Ref Range HLA-A AG1 1 HLA-A AG2 2 HLA-B AG1 44 HLA-B AG2 49 HLA-C AG1 5 HLA-C AG2 7 HLA-B BW1 4 HLA-B BW2 4 HLA-AG Notes HLA-AG Report Comments Specimen Performing Laboratory Blood [facility] HLA TESTING BAILEY Owens, MS: KESHAWN, CLIA#[id number] CAP#[id number] [place] [address] Flow PRA Class II with reflex to Antibody Specificity (10/30/2017 11:41 AM)Only the most recent of2 resultswithin the time period is included. Component Value Ref Range Flow Class II Percent Positive 0 Flow Class Report Comments Specimen Performing Laboratory Blood [facility] HLA TESTING BAILEY Owens, MS: KESHAWN, CLIA#[id number] CAP#[id number] [place] [address] Flow PRA Class I with reflex to Antibody Specificity (10/30/2017 11:41 AM)Only the most recent of2 resultswithin the time period is included. Component Value Ref Range Flow Class I Percent Positive 0 Flow Class Report Comments Specimen Performing Laboratory Blood [facility] HLA TESTING BAILEY Owens, MS: KESHAWN, CLIA#[id number] CAP#[id number] [place] [address] Phosphatidylserine Abs (IgG, IgM) (10/30/2017 11:18 AM) Component Value Ref Range Phos.Serine Ab IgG <10 U/mL Comment: <10 Negative 10-20Equivocal- Found in small percentage of the healthy population; may be reactive >20 Positive - Risk factor for thrombosis and loss PHOSPHATIDYLSERINE AB (IGM) <25 U/mL Comment: Clinical Significance: The Antiphospholipid Antibody Syndrome (APS) is a clinical pathologic correlation that includes a clinical event (e.g. thrombosis, loss, thrombocytopenia) and persistent positive Antiphospholipid Antibodies (IgM or IgG GERMAN >40 MPL/GPL, IgM or IgG anti-B2GP1 antibodies, or a Lupus Anticoagulant). The IgA isotype has been implicated in smaller studies, but have not yet been incorporated into the APS criteria. International consensus guidelines suggest waiting at least 12 weeks before retesting to confirm antibody persistence. Reference J Thromb Haemost 2006: 4; 295. <25 Negative 25-35Equivocal- Found in small percentage of the healthy population; may be reactive >35 Positive - Risk factor for thrombosis and loss For more information on this test, go to: http://poLight.Snapjoy/faq/FWP027 Specimen Performing Laboratory Blood [facility] [place] [id number] [place] [address] Narrative Performing Lab EZ [facility] [id number] [place] [id number] Roya Mcknight MD, PhD, FRANK HIV-1 Antigen with HIV-1/2 Antibody (10/30/2017 10:47 AM) Component Value Ref Range HIV-1 Antigen with HIV 1&2 Antibody Nonreactive Nonreactive Specimen Performing Laboratory Blood [address] [address] Hepatitis C Antibody (10/30/2017 10:47 AM) Component Value Ref Range Hepatitis C Ab Reactive (A) Nonreactive Specimen Performing Laboratory Blood [address] [address] Urine Culture (10/30/2017 10:47 AM)Only the most recent of8 resultswithin the time period is included. Component Value Ref Range Result >100,000 col/mL Jania albicans (A) Result >100,000 col/mL Vancomycin resistant Enterococcus species (A) Specimen Performing Laboratory Urine [address] [address] Narrative >100,000 col/mL skin aida Organism Antibiotic Method Susceptibility Vancomycin resistant Enterococcus species Ampicillin <=2 Vancomycin resistant Enterococcus species Linezolid 2 Vancomycin resistant Enterococcus species Nitrofurantoin <=16 Vancomycin resistant Enterococcus species Tetracycline >=16 Vancomycin resistant Enterococcus species Vancomycin >=32 Vancomycin resistant Enterococcus species Daptomycin 1.0: Susceptible PSA (10/30/2017 10:47 AM) Component Value Ref Range PSA 0.2 0.0 - 4.0 ng/mL Specimen Performing Laboratory Blood [address] [address] Prothrombin Gene Mutation (10/30/2017 10:46 AM) Component Value Ref Range Prothrombin/Factor II Negative for the [id number] (Prothrombin/Factor II) mutation. Pathologist: Enedina Bermeo MD (electronic signature) Specimen Performing Laboratory Blood [address] [address] Narrative This test is a genotyping assay which evaluates the DNA sequence at position [address]55 of the prothrombin (Factor II) gene. A region of the prothrombin (Factor II) gene is amplified by polymerase chain reaction followed by fluorescent monitoring of a specific pair of hybridized probes. Since genetic variation and other factors can affect the accuracy of direct mutation testing, these results should be interpreted in light of clinical and familial data. This test was developed and its performance characteristics determined by the [facility] Pathology Department, Section of Molecular Pathology. It has not been cleared or approved by the U.S. Food and Drug Administration (FDA), since FDA approval is not required for clinical use of the test. Validation was done as required by the Clinical Laboratory Improvement Amendments of 1988. T Spot TB (10/30/2017 10:46 AM) Component Value Ref Range T-Spot TB Negative Neg Ctrl Spot Count 0 Panel A Spot 0 Panel B Spot [address] 0 Scan Result Specimen Performing Laboratory Blood [facility] [address] [facility], [address] [place] [address] Cytomegalovirus antibody, IgM (10/30/2017 10:46 AM) Component Value Ref Range CMV IgM Negative Specimen Performing Laboratory Blood [address] [address] Hepatitis C PCR, Quantitative (10/30/2017 10:46 AM)Only the most recent of4 resultswithin the time period is included. Component Value Ref Range HCV PCR, Quantitative HCV RNA not detected HCV RNA not detected Specimen Performing Laboratory Blood [address] [address] Narrative This test uses a Real-Time Polymerase Chain Reaction (RT-PCR) methodology and was performed using DAXA Ampliprep/DAXA TaqMan HCV test kit version 2.0 ( [employer]). Reportable range for this assay is 15 - 100,000,000 IU per mL (1.18 - 8.00 Log IU/mL). RPR (10/30/2017 10:46 AM)Only the most recent of2 resultswithin the time period is included. Component Value Ref Range RPR Nonreactive Nonreactive Specimen Performing Laboratory Blood [address] [address] Protein S activity (10/30/2017 10:46 AM) Component Value Ref Range Protein S Functional 69 (L) 70 - 150 % normal Comment: Decreased levels of Protein S activity may be found in patients with hereditary deficiency, warfarin therapy, vitamin k deficiency, liver disease , DIC, or recent thrombosis as well as after surgery. In addition, it may be physiologic in . An elevated Protein S activity is not clinically significant. Only deficiencies are associated with an increased thrombotic risk. Specimen Performing Laboratory Blood [facility] [address] [address] Narrative Performing Lab EZ [facility] [address] [address] Roya Mcknight MD, PhD, FRANK Protein C activity (10/30/2017 10:46 AM) Component Value Ref Range Protein C Activity 98.0 70.0 - 130.0 % Specimen Performing Laboratory [address] [address] Cytomegalovirus antibody, IgG (10/30/2017 10:46 AM) Component Value Ref Range CMV IgG Positive Specimen Performing Laboratory [place] [id number] Factor 5 Leiden PCR (thrombotic risk) (10/30/2017 10:46 AM) Component Value Ref Range Factor V Leiden Negative for the R506Q (Factor V Leiden) mutation Pathologist: Enedina Bermeo MD (electronic signature) Specimen Performing Laboratory [address] [address] Narrative This test is a genotyping assay which evaluates the DNA sequence corresponding to Codon 506 of the Factor V Gene. A region of the Factor V Gene is amplified by polymerase chain reaction followed by fluorescent monitoring of a specific pair of hybridized probes. Since genetic variation and other factors can affect the accuracy of direct mutation testing, these results should be interpreted in light of clinical and familial data. This test was developed and its performance characteristics determined by the [facility] Pathology Department, Section of Molecular Pathology. It has not been cleared or approved by the U.S. Food and Drug Administration (FDA) , since FDA approval is not required for clinical use of the test. Validation was done as required by the Clinical Laboratory Improvement Amendments of 1988. Antithrombin III (10/30/2017 10:46 AM) Component Value Ref Range Antithrombin III 114.0 80.0 - 120.0 % Specimen Performing Laboratory Blood [address] [address] Direct AHG ([place])/Direct Maryann (10/30/2017 10:46 AM) Component Value Ref Range Direct AHG-IGG NEGATIVE Direct AHG-C3B, C3D NEGATVIE Specimen Performing Laboratory Blood [address] [address] Varicella Zoster Antibody, IgG (10/30/2017 10:46 AM) Component Value Ref Range Varicella IgG 2.3 Al Specimen Performing Laboratory [address] [address] Narrative VARICELLA ZOSTER RESULT INTERPRETATIONS: <=0.8 AlNonreactive:Presumed non-immune to VZV 0.9-1.0 AlEquivocal >=1.1 AlReactive:Presumed immune to VZV Hemoglobin A1c (10/30/2017 10:46 AM)Only the most recent of4 resultswithin the time period is included. Component Value Ref Range Hemoglobin A1C 6.3 (H) 4.3 - 6.1 % Specimen Performing Laboratory Blood [address] [address] Gamma Glutamyl Transferase (GGT) (10/30/2017 10:46 AM)Only the most recent of8 resultswithin the time period is included. Component Value Ref Range GGT 351 (H) 9 - 64 U/L Specimen Performing Laboratory Blood [address] [address] Prothrombin time/INR (09/27/2017 6:33 AM)Only the most recent of47 resultswithin the time period is included. Component Value Ref Range Protime 13.0 11.7 - 14.7 seconds INR 1.0 <=5.9 Specimen Performing Laboratory Blood - Arm, [address] [address] Narrative RECOMMENDED COUMADIN/WARFARIN INR THERAPY RANGES STANDARD DOSE: 2.0 - 3.0 Includes: PROPHYLAXIS for venous thrombosis, systemic embolization; TREATMENT for venous thrombosis and/or pulmonary embolus. HIGH RISK: Target INR is 2.5-3.5 for patients with mechanical heart valves. CBC (Hemogram only) (09/27/2017 6:33 AM)Only the most recent of19 resultswithin the time period is included. Component Value Ref Range WBC 4.0 3.5 - 10.5 K/L RBC 2.97 (L) 4.63 - 6.08 M/L Hemoglobin 8.8 (L) 13.7 - 17.5 GM/DL Hematocrit 29.6 (L) 40.1 - 51.0 % MCV 99.7 (H) 79.0 - 92.2 fL MCH 29.6 25.7 - 32.2 pg MCHC 29.7 (L) 32.3 - 36.5 GM/DL RDW 15.9 (H) 11.6 - 14.4 % Platelets 171 150 - 450 K/CU MM MPV 9.7 9.4 - 12.4 fL nRBC 0 0 - 0 /100 WBC Specimen Performing Laboratory Blood - Arm, [address] [address] Magnesium (09/27/2017 6:33 AM)Only the most recent of77 resultswithin the time period is included. Component Value Ref Range Magnesium 2.3 1.6 - 2.6 mg/dL Specimen Performing Laboratory Blood - Arm, [address] [address] Prepare Leuko-Red RBC (09/26/2017 11:54 PM) Component Value Ref Range CROSSMATCH COMPATIBLE Unit ABO A Pos UNIT NUMBER [id number] Status TRANSFUSED Blood Bank Product RED BLOOD CELLS PRODUCT CODE [id number] Specimen Performing Laboratory Other [employer] [place] Clostridium difficile GDH Toxin (09/26/2017 4:42 PM) Component Value Ref Range C. Difficle Toxin Negative Negative C. Difficile GDH Antigen Positive (A)Comment: C. difficile present but Negative toxin not detected. Indicates colonization with non-toxigenic strain or level of toxin below detectable levels. No need for enteric isolation. Treatment is rarely needed (only when strong clinical suspicion for Clostridium difficile infection) Specimen Performing [place] [address] Narrative Testing performed by [employer] Rapid Cassette Assay.For GDH, published sensitivity of the assay is 98.7% compared to cytotoxicity testing.For Toxin AB, published sensitivity is 87.8% and specificity 99.4% compared to cytotoxicity testing. Verification of kit performance was done by the [facility] Microbiology Lab prior to clinical use. CT abdomen/pelvis without iv contrast (09/26/2017 2:09 AM)Only the most recent of2 resultswithin the time period is included. Specimen Performing Laboratory Victorious Narrative FINAL REPORT INDICATION: 62-year-old male with abdominal wall hematoma after biopsy a liver transplant September 23. Follow-up. COMPARISON: September 23, 2017 TECHNIQUE: CT of the Abdomen and Pelvis WITHOUT intravenous contrast. Enteric contrast was not used. The exam was performed according to our department dose-optimization protocol, which includes automated exposure control, adjustments of mA and kV according to patient size. Iterative reconstructions are also sometimes employed. FINDINGS: In the right lateral abdominal wall there is a lentiform collection which is increased in density (evolving hematoma) and decreased in size. It now measures 11 x 7 x 3 cm and previously measured 16 x 10 x 4 cm September 23. No hemoperitoneum. Liver transplant itself is unremarkable. Tiny amount of pelvic free fluid noted. Pancreas, spleen, adrenal glands, kidneys, bladder, prostate, and bowel loops are unremarkable. Thickening of the right paracolic fascia, now mild, has decreased since September 23. Scattered moderate calcified plaque of the abdominal aorta, its branches, and the iliac arteries noted. Mild cardiomegaly and moderate right pleural effusion and associated partial collapse the right lower lobe. Osseous structures unremarkable. IMPRESSION: Interval decrease in size (and evolution) of right lateral abdominal wall hematoma. Moderate right pleural effusion, having increased in size since September 23. Signed: Lorie Wakefield MD Report Verified Date/Time:09/26/2017 08:07:49 Reading Location: [facility] B1 C013Y CT Body Reading Room Procedure Note Interface, External Ris In - 09/26/2017 8:10 AM CDT FINAL REPORT INDICATION: 62-year-old male with abdominal wall hematoma after biopsy a liver transplant September 23. Follow-up. COMPARISON: September 23, 2017 TECHNIQUE: CT of the Abdomen and Pelvis WITHOUT intravenous contrast. Enteric contrast was not used. The exam was performed according to our department dose-optimization protocol, which includes automated exposure control, adjustments of mA and kV according to patient size. Iterative reconstructions are also sometimes employed. FINDINGS: In the right lateral abdominal wall there is a lentiform collection which is increased in density (evolving hematoma) and decreased in size. It now measures 11 x 7 x 3 cm and previously measured 16 x 10 x 4 cm September 23. No hemoperitoneum. Liver transplant itself is unremarkable. Tiny amount of pelvic free fluid noted. Pancreas, spleen, adrenal glands, kidneys, bladder, prostate, and bowel loops are unremarkable. Thickening of the right paracolic fascia, now mild, has decreased since September 23. Scattered moderate calcified plaque of the abdominal aorta, its branches, and the iliac arteries noted. Mild cardiomegaly and moderate right pleural effusion and associated partial collapse the right lower lobe. Osseous structures unremarkable. IMPRESSION: Interval decrease in size (and evolution) of right lateral abdominal wall hematoma. Moderate right pleural effusion, having increased in size since September 23. Signed: Lorie Wakefield MD Report Verified Date/Time: 09/26/2017 08:07:49 Reading Location: [facility] C013Y CT Body Reading Room Hemoglobin and hematocrit (09/25/2017 2:10 PM)Only the most recent of6 resultswithin the time period is included. Component Value Ref Range Hemoglobin 8.0 (L) 13.7 - 17.5 GM/DL Hematocrit 27.6 (L) 40.1 - 51.0 % Specimen Performing Laboratory Blood [place] [address] CARDIAC CATH REPORT - SCAN (09/24/2017 9:20 PM)Tissue Exam (09/23/2017 10:28 PM )Only the most recent of4 resultswithin the time period is included. Component Value Ref Range Case Report Surgical Pathology Report Case: [id number] Authorizing Provider:Joel Nair MDCollected: 09/23/20172227 Ordering Location: [address] Received: 09/23/20172231 Pathologist: Meghan Elizabeth MD Specimen:Biopsy, Liver, Tx Bx DIAGNOSIS LIVER ALLOGRAFT, ULTRASOUND-GUIDED NEEDLE BIOPSIES (S/P OLT ON 2015 AND RECENT TREATMENT FOR ACUTE REJECTION): - MILD RESIDUAL PORTAL INFLAMMATION, MILD FOCAL LYMPHOCYTIC CHOLANGITIS AND BILE DUCT DAMAGE - NO SIGNIFICANT PORTAL FIBROSIS - NEGATIVE FOR DUCTOPENIA - SEE COMMENT Signing Pathologist Direct Phone Line: [phone] COMMENT As compared to the prior biopsies [id number], dated 08/08/2017 and S18 [id number], dated 09/03/2017, the current biopsy shows decrease in portal inflammation. The bile ducts are preserved. 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 Specimen is submitted A1 MICROSCOPIC DESCRIPTION Section shows three cores of liver parenchyma with greater than 10 portal tracts and is adequate for evaluation. The portal tracts show mild focal residual portal inflammation. No interface hepatitis is seen. The bile ducts are preserved, show mild bile duct damage and focal mild lymphocytic cholangitis. There is mild lobular inflammation.No significant portal endotheliitis or central endotheliiti s is seen. No steatosis, ballooning degeneration or Kim Denk hyaline is present. Iron stain shows 1+ iron staining in the hepatocytes, and there is iron accumulation in the kupffer cells. PASD stain is negative for cytoplasmic hyaline globules.Trichrome stain shows no significant perisinusoidal or portal/periportal fibrosis. Special stains: trichrome, reticulin, iron and PAS with diastase Specimen Performing Laboratory Tissue - Biopsy, Liver [facility] [address] [address] Type and screen, automated (09/23/2017 4:13 PM)Only the most recent of2 resultswithin the time period is included. Component Value Ref Range ABO/RH AUTOMATED (BEAKER) A POSITIVE Ab Scrn NEGATIVE Specimen Performing Laboratory Blood [facility] [address] [place] [address] US liver biopsy (09/23/2017 2:20 PM)Only the most recent of4 resultswithin the time period is included. Specimen Performing Laboratory GE RIS Narrative FINAL REPORT Ultrasound guided liver core biopsy, 09/23/2017. Clinical History: Status post liver transplant with elevated liver enzymes. Modality: Ultrasound. Sedation: Versed 1.0 mg and fentanyl 50 mcg intravenously for conscious sedation.Vital signs were monitored throughout the procedure by a nurse, and remained stable. Physician intra-service sedation time: 15 minutes. Sales Enablement Specialist:Humberto Martin MD, FRANK. Shelving Supervisor:None. Estimated Blood Loss:2cc. Specimen: Two 16-gauge core biopsy specimens, placed in formalin and sent to pathology. Technique:Informed consent was obtained.The risks of pain, bleeding, infection, injury to liver/adjacent structures, transfusion risks, moderate sedation risks, and adverse medication reactions were discussed with the patient.After informed consent was obtained, the patient's liver was scanned with the patient in the left lateral decubitus position.The right lobe of the liver was selected for biopsy.After the skin was prepped and draped in the usual sterile manner, the area was anesthetized with 2% lidocaine.After a small skin incision was made, a 16 gauge Biopince core biopsy needle was advanced into the right lobe of the liver, under direct sonographic observation.Two passes were made with 2 core biopsy specimens obtained. The patient tolerated the procedure well, without immediate complications. Impression: Successful ultrasound guided core liver biopsy performed with conscious sedation. Signed: Humberto Martin MD Report Verified Date/Time:09/23/2017 17:08:01 Reading Location: [facility] P006J Ultrasound Reading Room Procedure Note Interface, External Ris In - 09/23/2017 5:10 PM CDT FINAL REPORT Ultrasound guided liver core biopsy, 09/23/2017. Clinical History: Status post liver transplant with elevated liver enzymes. Modality: Ultrasound. Sedation: Versed 1.0 mg and fentanyl 50 mcg intravenously for conscious sedation. Vital signs were monitored throughout the procedure by a nurse, and remained stable. Physician intra-service sedation time: 15 minutes. Sales Enablement Specialist: Humberto Martin MD, FRANK. Shelving Supervisor: None. Estimated Blood Loss: 2cc. Specimen: Two 16-gauge core biopsy specimens, placed in formalin and sent to pathology. Technique: Informed consent was obtained. The risks of pain, bleeding, infection, injury to liver/adjacent structures, transfusion risks, moderate sedation risks, and adverse medication reactions were discussed with the patient. After informed consent was obtained, the patient's liver was scanned with the patient in the left lateral decubitus position. The right lobe of the liver was selected for biopsy. After the skin was prepped and draped in the usual sterile manner, the area was anesthetized with 2% lidocaine. After a small skin incision was made, a 16 gauge [place] core biopsy needle was advanced into the right lobe of the liver, under direct sonographic observation. Two passes were made with 2 core biopsy specimens obtained. The patient tolerated the procedure well, without immediate complications. Impression: Successful ultrasound guided core liver biopsy performed with conscious sedation. Signed: Humberto Martin MD Report Verified Date/Time: 09/23/2017 17:08:01 Reading Location: [address] Ultrasound Reading Room 12 lead (09/21/2017 7:52 AM)Only the most recent of16 resultswithin the time period is included. Specimen Performing Laboratory [employer] M[facility] Narrative Ventricular Rate 80 BPM Atrial Rate 80 BPM P-R Interval 142 ms QRS Duration 82 ms Q-T Interval 372 ms QTC Calculation(Bazett) 429 ms P [place] 52 degrees R [place] 108 degrees T [place] -8 degrees Normal sinus rhythm Possible Right ventricular hypertrophy T wave abnormality, consider inferior ischemia Abnormal ECG When compared with ECG of 20-SEP-2017 11:25, QRS axis Shifted right T wave inversion now evident in Inferior leads T wave amplitude has increased in Lateral leads Confirmed by MD Bahena Roberto ([id number]) on 09/22/2017 7:33:11 AM Procedure Note Interface, External Ris In - 09/22/2017 7:33 AM CDT Ventricular Rate 80 BPM Atrial Rate 80 BPM P-R Interval 142 ms QRS Duration 82 ms Q-T Interval 372 ms QTC Calculation(Bazett) 429 ms P [place] 52 degrees R [place] 108 degrees T [place] -8 degrees Normal sinus rhythm Possible Right ventricular hypertrophy T wave abnormality, consider inferior ischemia Abnormal ECG When compared with ECG of 20-SEP-2017 11:25, QRS axis Shifted right T wave inversion now evident in Inferior leads T wave amplitude has increased in Lateral leads Confirmed by MD Bahena Roberto ([id number]) on 09/22/2017 7:33:11 AM Plasma Exchange (09/18/2017 10:56 AM)Only the most recent of3 resultswithin the time period is included. Mahesh Sanchez MD 09/18/2017 10:56 AM CLINICAL PATHOLOGY APHERESIS PROCEDURE NOTE Peyton Menjivar [id number] Consulting Physician: Patsy Date of service: 09/18/2017 Access: Chronic Catheter Access Site: RIJ Procedure: Therapeutic Plasma Exchange (TPE): 5% Albumin(3) liter(s) Pre/Dariela-Procedural Medication Calcium Gluconate 3 gm(s) Indication for Procedure: Rejection Planned Apheresis Schedule: QD x3, then QOD x2 Subjective: No acute events. Patient Active Problem List Diagnosis Hyperkalemia Diabetes mellitus (HCC) Anemia Asthma Depression CHIDI (obstructive sleep apnea) CKD (chronic kidney disease) stage 3, GFR 30-59 ml/min HCC (hepatocellular carcinoma) Chronic hepatitis C without hepatic coma (HCC) Smoking addiction Alcoholic liver failure (HCC) Metabolic acidosis S/P liver transplant (HCC) Essential hypertension Type 2 diabetes mellitus with hyperglycemia, with long-term current use of insulin (HCC) Immunosuppression (HCC) Hepatitis B virus infection Back pain Atrial fibrillation with RVR (HCC) ESRD (end stage renal disease) (HCC) Hypertension Hepatitis C Elevated LFTs Hypervolemia, unspecified hypervolemia type Itching Moderate malnutrition (HCC) DVT (deep venous thrombosis) (HCC) DVT of lower extremity, bilateral (HCC) Warfarin anticoagulation Preventative health care Weakness ESRD (end stage renal disease) on dialysis (HCC) Acute pulmonary edema (HCC) Sepsis due to other etiology (HCC) ESRD (end stage renal disease) (HCC) Subdural hematoma (HCC) Seizures (HCC) Transaminitis Physical deconditioning Liver transplant rejection (HCC) Cirrhosis (HCC) SVT (supraventricular tachycardia) (HCC) Medications Prescriptions Prior to Admission Medication Sig Dispense Refill Last Dose gabapentin (NEURONTIN) 100 MG capsule Take 1 capsule (100 mg total) by mouth 2 (two) times daily. 60 capsule 0 09/13/2017 at 0630 [] hydrOXYzine (ATARAX) 25 MG tablet Take 1 tablet (25 mg total) by mouth every 8 (eight) hours as needed for Itching for up to 10 days. 30 tablet 0 09/13/2017 at Unknown time insulin detemir (LEVEMIR) 100 unit/mL injection Inject 20 Units subcutaneously 2 (two) times daily. 10 mL 0 09/13/2017 at Unknown time insulin lispro (HUMALOG) 100 unit/mL injection Inject 12 Units subcutaneously 3 (three) times daily before meals. 10 mL 0 09/13/2017 at Unknown time pantoprazole (PROTONIX) 40 MG tablet Take 1 tablet (40 mg total) by mouth daily. 30 tablet 0 09/13/2017 at Unknown time [] predniSONE (DELTASONE) 20 MG tablet Take 2 tablets (40 mg total) by mouth daily for 10 days. 30 tablet 0 09/13/2017 at Unknown time sertraline (ZOLOFT) 50 MG tablet Take 1 tablet (50 mg total) by mouth daily. 30 tablet 0 09/13/2017 at Unknown time sevelamer (RENVELA) 800 mg tablet Take 1 tablet (800 mg total) by mouth 3 (three) times daily with meals. 90 tablet 0 09/13/2017 at Unknown time tacrolimus (PROGRAF) 1 MG capsule 2mg in am and 3mg qpm. (Patient taking differently: 3mg in am and 3mg qpm.) 90 capsule 1 09/13/2017 at Unknown time thiamine 100 MG tablet Take 1 tablet (100 mg total) by mouth daily. 30 tablet 0 09/13/2017 at Unknown time traMADol (ULTRAM) 50 mg tablet Take 1 tablet (50 mg total) by mouth every 6 (six) hours as needed for Pain. Max Daily Amount: 200 mg 30 tablet 0 Past Month at Unknown time ursodiol (ACTIGALL) 300 mg capsule Take 1 capsule (300 mg total) by mouth 2 (two) times daily. 60 capsule 1 09/13/2017 at Unknown time zonisamide (ZONEGRAN) 100 MG capsule Take 1 capsule (100 mg total) by mouth nightly. 90 capsule 0 09/12/2017 at Unknown time blood sugar diagnostic (GLUCOSCAN TEST) Strp Use as directed qid. 100 strip 3 Taking at Unknown time blood-glucose meter kit 1 each by Other - See Admin Instructions route 4 (four) times daily Use as instructed. 1 each 0 Taking at Unknown time entecavir (BARACLUDE) 0.5 MG tablet Take 1 tablet (0.5 mg total) by mouth every 7 days. 4 tablet 1 09/11/2017 insulin syringe-needle U-100 (BD INSULIN SYRINGE MICRO-FINE) 1 mL 28 gauge x 1/2" Syrg Use for insulin. 100 each 0 Taking at Unknown time lancets (DIABETES LANCETS) [facility] Use as directed qid. 102 each 11 Taking at Unknown time Scheduled Meds: albumin human 5%3 L Apheresis Once anticoagulant citrate dextrose solution A500 mL Apheresis Once entecavir0.5 mg Oral Q7 Days 0.5 mg at 09/18/17 0836 epoetin alpha4,000 Units Subcutaneous Once per day on Sat 4,000 Units at 09/16/17 2244 [id number] mg Oral Daily 100 mg at 09/18/17 0836 heparin5,000 Units Subcutaneous Q12H 5,000 Units at 09/18/17 0836 insulin dywvnhn85 Units Subcutaneous BID 30 Units at 09/18/17 0920 insulin wowzdq76 Units Subcutaneous TID AC 12 Units at 09/18/17 0837 nystatin Topical (Top) BID [id number] mg Oral Daily 40 mg at 09/18/17 0836 [id number] mg Oral Daily 30 mg at 09/18/17 0836 mg Oral Daily 50 mg at 09/18/17 0837 [id number] mg Oral TID with meals 800 mg at 09/18/17 0836 sodium chloride 0.9% (NS)500 mL Apheresis Once sodium chloride 0.9% (NS)5 mL Intravenous Q8H 5 mL at 09/18/17 0618 smjdyknn189 mg Oral Daily 100 mg at 09/18/17 0837 [id number] mg Oral BID 300 mg at 09/18/17 0836 pxqjmgcneb410 mg Oral Every Night 100 mg at 09/17/17 2348 Continuous Infusions: sodium chloride 0.9% (NS) PRN Meds:. calcium gluconate dextrose glucagon hydrOXYzine insulin lispro mannitol ondansetron Or ondansetron sodium chloride 0.9% (NS) sodium chloride 0.9% (NS) sodium chloride 0.9% (NS) traMADol Allergy Allergies Allergen Reactions Levaquin [Levofloxacin] Itching and Other (See Comments) Localized redness Physical Exam Vitals: BP/MAP: BP: 129/64 MAP (mmHg): 91, Pulse: Heart Rate: 82,Temperature: Temp: 97.9 F (36.6 C) GEN: Awake, alert. CV: Rhythm:Regular, Rate:Regular CHEST: Clear EXT: Edema ACCESS: Good flow Labs CBC: Recent Labs Lab(s) Units09/18/17 [id number]/16/17 0440 WBC K/L3.4*3.93.3* HGB GM/DL9.6*8.9*9.5* HCT %31.2*29.7*31.1* PLT K/CU [id number] COAG: Recent Labs Lab(s) Units09/18/17 [id number]/ 0440 PROTIME seconds -- 16.8* INR-- 1.4 PTT seconds -- 28.7 FIBRINOGEN mg/dl169*152* CHEM: Recent Labs Lab(s) Units09/18/17 525110/ [id number]/ [id number]/ [id number]/ 1444 09/14/17 1410 CALCIUM mg/dL8.0*8.3* -- 7.0* --< > -- CAION mmol/L ---- 1.07* -- 0.92* -- 1.03* BUN mg/dL40*74* -- 53* --< > -- CREATININE mg/dL4.57*7.04* -- 5.51* --< > -- BILITOT mg/dL0.70.8 -- 0.6 --< > -- BILIDIR mg/dL0.30.6* -- 0.2 --< > -- ALT U/L80*77* -- 75* --< > -- AST U/L52*55* -- 47* --< > -- < >=values in this interval not displayed. IMMUN: No results for input(s): IGG, IGM, IGA in the last 168 hours. A/P 1. Humoral rejection episode - completing last planned TPE today. Attending signature: Mahesh Garner MD Date/time: 09/18/2017, 10:42 AM Calcium, Ionized (09/18/2017 10:50 AM)Only the most recent of25 resultswithin the time period is included. Component Value Ref Range Calcium, Ion 1.06 (L) 1.12 - 1.27 mmol/L pH, Blood 7.30 Specimen Performing Laboratory Blood [address] [address] Narrative Range 1.12 - 1.27 Fibrinogen (09/18/2017 6:14 AM)Only the most recent of2 resultswithin the time period is included. Component Value Ref Range Fibrinogen 169 (L) 225 - 434 mg/dl Specimen Performing Laboratory Blood [address] [address] Comprehensive metabolic panel (09/14/2017 4:53 AM)Only the most recent of18 resultswithin the time period is included. Component Value Ref Range Protein, Total 6.3 6.0 - 8.3 gm/dL Albumin 3.4 (L) 3.5 - 5.0 g/dL Alkaline Phosphatase 848 (H) 40 - 150 U/L Total Bilirubin 1.3 (H) 0.2 - 1.2 mg/dL Sodium 141 136 - 145 meq/L Potassium 4.7 3.5 - 5.1 meq/L Chloride 105 98 - 107 meq/L CO2 20 (L) 22 - 29 meq/L BUN 61 (H) 7 - 21 mg/dL Creatinine 6.20 (H) 0.57 - 1.25 mg/dL Glucose 230 (H) 70 - 105 mg/dL Calcium 7.9 (L) 8.4 - 10.2 mg/dL AST 108 (H) 5 - 34 U/L ALT 233 (H) 6 - 55 U/L EGFR 9Comment: ESTIMATED GFR IS NOT ACCURATE mL/min/1.73 sq m CREATININE CLEARANCE IN PREDICTING GLOMERULAR FILTRATION RATE. ESTIMATED GFR IS NOT APPLICABLE FOR DIALYSIS PATIENTS. Specimen Performing Laboratory Blood - Arm, Right [facility] [address] [place] [address] Bilirubin, direct (09/13/2017 8:42 AM)Only the most recent of6 resultswithin the time period is included. Component Value Ref Range Bilirubin, Direct 1.1 (H) 0.1 - 0.5 mg/dL Specimen Performing Laboratory Blood [address] [address] Hepatitis B Panel (09/04/2017 5:09 PM)Only the most recent of2 resultswithin the time period is included. Component Value Ref Range Hep B Core Total Ab Reactive (A) Nonreactive Hep B S Ab 20.7 (H) <8.0 mIU/mL hepatitis B Surface Ag Nonreactive Nonreactive Specimen Performing Laboratory Blood - Arm, [address] [address] aPTT (09/03/2017 6:13 AM)Only the most recent of38 resultswithin the time period is included. Component Value Ref Range PTT 21.8 (L) 22.5 - 36.0 seconds Specimen Performing Laboratory Blood - Arm, [address] [address] EKG-SCANNED (08/28/2017 12:20 PM)Only the most recent of3 resultswithin the time period is included.REPORT OF PROCEDURE - ENDOSCOPY URL (08/27/2017 9:26 AM )Urinalysis w/ Microscopic (08/27/2017 7:54 AM)Only the most recent of6 resultswithin the time period is included. Component Value Ref Range Color, UA Yellow Clarity, UA Hazy Specific [place], UA 1.013 1.001 - 1.035 pH, UA 5.5 5.0 - 8.0 Protein, UA 100 mg/dL (A) Negative Glucose, UA 300 mg/dL (A) Negative Ketones, UA Negative Negative Bilirubin, UA Negative Negative Blood, UA Small (A) Negative Nitrite, UA Negative Negative Leukocytes, UA Large (A) Negative Urobilinogen, UA 0.2 0.2 - 1.0 mg/dL RBC, UA 0 /HPF WBC, UA 388 /HPF Squam Epithel, UA <1 /HPF Yeast Rare Specimen Source Urine, Voided Specimen Performing Laboratory Urine - Urine, Voided [facility] [address] [address] IR AV Shunt/Fistulagram (08/26/2017 2:06 PM) Specimen Performing Laboratory GE RIS Narrative FINAL REPORT AV shunt evaluation, 08/26/2017. History: Renal failure, AV fistula stenosis. Modality: Fluoroscopy. Sales Enablement Specialist:Shawanda. Shelving Supervisor: Jon. Sedation: 1.5 mg Versed, 75 mcg fentanyl IV. The patient's vital signs were continuously monitored by radiology nursing and remained stable throughout. Physician intraservice sedation time: 30 minutes. Approach: Left upper extremity AV fistula. Estimated blood loss:< 5 cc. Specimen: None. Fluoroscopy Time: 5.1 min.Dose (Ka,r): 19.5 mGy. Technique: Informed written consent was obtained.Discussion of risks, benefits, and alternatives were made with the patient. The patient expressed understanding and agreed to proceed.All elements maximal sterile barrier technique was utilized for this procedure, including utilization of sterile scrub solution for skin prep, a large sterile sheet to cover the areas of the patient that were not prepped, and hand hygiene, mask, head covering, and sterile gown for performing radiologist and scrub technologist. 2% lidocaine was given locally for anesthesia.Access was gained in a single point of the fistulausing a micropuncture set. A 4 [place]egalese micropuncture sheath was placed for DSA runs of the left arm and central venous system. A 6 [place]e sheath was then placed at the access site. The De [place] Cruz wire was placed across the anastomotic stenosis.A 5 mm x 4 cm balloon was placed for dilatation of the anastomotic stenosis to 20 atmospheres. Following the angioplasty, repeat DSA injection was performed. The catheter and sheath were removed and hemostasis achieved using 2-0 chromic purse-string suture. There were no immediate complications. FINDINGS: 1. The left upper extremity AV fistula is patent. 2. There is a 60% stenosis at the anastomosis. Following balloon dilatation of this lesion, there is improvement in appearance with no residual stenosis. 3. Patent left central veins. IMPRESSION: Successful left upper extremity shunt evaluation and angioplasty using fluoroscopic guidance. Signed: Shlomo Carson MD Report Verified Date/Time:08/26/2017 16:47:42 Reading Location: [place] [address] Angio Body Reading Room Procedure Note Interface, External Ris In - 08/26/2017 4:49 PM CDT FINAL REPORT AV shunt evaluation, 08/26/2017. History: Renal failure, AV fistula stenosis. Modality: Fluoroscopy. Sales Enablement Specialist: Shawanda. Shelving Supervisor: Jon. Sedation: 1.5 mg Versed, 75 mcg fentanyl IV. The patient's vital signs were continuously monitored by radiology nursing and remained stable throughout. Physician intraservice sedation time: 30 minutes. Approach: Left upper extremity AV fistula. Estimated blood loss: < 5 cc. Specimen: None. Fluoroscopy Time: 5.1 min. Dose (Ka,r): 19.5 mGy. Technique: Informed written consent was obtained. Discussion of risks, benefits, and alternatives were made with the patient. The patient expressed understanding and agreed to proceed. All elements maximal sterile barrier technique was utilized for this procedure, including utilization of sterile scrub solution for skin prep, a large sterile sheet to cover the areas of the patient that were not prepped, and hand hygiene, mask, head covering, and sterile gown for performing radiologist and scrub technologist. 2% lidocaine was given locally for anesthesia. Access was gained in a single point of the fistula using a micropuncture set. A 4 [place]egalese micropuncture sheath was placed for DSA runs of the left arm and central venous system. A 6 [place]egalese sheath was then placed at the access site. The De La Cruz wire was placed across the anastomotic stenosis. A 5 mm x 4 cm balloon was placed for dilatation of the anastomotic stenosis to 20 atmospheres. Following the angioplasty, repeat DSA injection was performed. The catheter and sheath were removed and hemostasis achieved using 2-0 chromic purse-string suture. There were no immediate complications. FINDINGS: 1. The left upper extremity AV fistula is patent. 2. There is a 60% stenosis at the anastomosis. Following balloon dilatation of this lesion, there is improvement in appearance with no residual stenosis. 3. Patent left central veins. IMPRESSION: Successful left upper extremity shunt evaluation and angioplasty using fluoroscopic guidance. Signed: Shlomo Carson MD Report Verified Date/Time: 08/26/2017 16:47:42 Reading Location: [place] [address] Angio Body Reading Room Glucose (08/24/2017 11:28 AM)Only the most recent of2 resultswithin the time period is included. Component Value Ref Range Glucose 290 (H) 70 - 105 mg/dL Specimen Performing Laboratory Blood [address] [address] HSV 1/2 PCR Qualitative (08/24/2017 8:09 AM)Only the most recent of13 resultswithin the time period is included. Component Value Ref Range Scan Result Specimen Performing Laboratory Blood - Central Line Catheter [facility] [address] [place], [place] AB Specificity Class II (08/24/2017 7:59 AM) Specimen Performing Laboratory Blood [facility] HLA TESTING ONE Bhaskar Owens, MS: [id number], CLIA#[id number] CAP#[id number] [address] [address] AB Specificity Class I (08/24/2017 7:59 AM) Component Value Ref Range AB Specificity Class I AB Specificity Titr Class Report Specimen Performing Laboratory Blood [facility] HLA TEST[facility] ONE Bhaskar Owens, MS: [id number], CLIA#[id number] CAP#[id number] [address] [address] EBV VIRAL LOAD (08/24/2017 7:59 AM)Only the most recent of6 resultswithin the time period is included. Component Value Ref Range EBV Viral Load Negative or below the linear range of the assay (<500 copies/mL) Specimen Performing Laboratory Blood [address] [address] Narrative This assay was performed by real-time PCR for the detection of the Stalin- Mcmillan virus (EBV) gene EBNA-1.The test is composed of (1) DNA extraction from patient specimen, and (2) real-time PCR amplification and detection with EBNA-1- specific primers and probes. A well-conserved region of the EBNA-1 gene is targeted, along with an internal control sequence used to confirm PCR amplification. Asymptomatic carriers and viral genetic variation, among other factors, can affect the accuracy of nucleic acid testing; therefore, results should be interpreted in light of clinical data. This test was developed and its performance characteristics determined by the [facility] Pathology Department, Section of Molecular Pathology. It has not been cleared or approved by the U.S. Food and Drug Administration (FDA), since FDA approval is not required for clinical use of the test. Validation was done as required by The Clinical Laboratory Improvement Amendments of 1988. CMV PCR, quantitative (08/24/2017 7:59 AM)Only the most recent of8 resultswithin the time period is included. Component Value Ref Range CMV DNA Viral Load Negative or below the linear range of the assay (<375 copies/mL) Specimen [place] [address] Narrative Cytomegalovirus (CMV) infection can cause significant disease in immunosuppressed patients. However, it is common for CMV to manifest as a limited infection which is of no clinical significance in immunosuppressed patients or in healthy individuals. Viral load measurements are helpful to identify clinical CMV infection and to guide the pre-emptive management of antiviral therapy.For treatment of CMV infection due to reactivation in transplant recipients, a threshold between 4,000 and 5, 000 copies/mL is suggested.For treatment of primary CMV infection, a lower threshold can be used. CMV infection may also be monitored using weekly serial measurements. Serial measurements of CMV DNA viral load can be evaluated by identifying a 10-fold change, as well as assessing the CMV DNA viral load and the clinical context for each patient. The plasma CMV DNA viral load was detected using quantitative polymerase chain reaction and fluorescent monitoring of a specific hybridized probe. Genetic variation and other factors can affect the accuracy of nucleic acid testing. Therefore, the results should be interpreted in light of clinical data. A negative result may not exclude the presence of CMV disease. This test was developed and its performance characteristics determined by the [facility] Pathology Department, Section of Molecular Pathology. It has not been cleared or approved by the U.S. Food and Drug Administration (FDA), since FDA approval is not required for clinical use of the test. Validation was done as required by The Clinical Laboratory Improvement Amendments of 1988. Cryptococcal antigen (08/24/2017 7:59 AM)Only the most recent of3 resultswithin the time period is included. Component Value Ref Range Cryptococcal Antigen, Serum Negative Negative, Interference Specimen Performing Laboratory Blood [address] [address] [address] brain without IV contrast (08/23/2017 10:45 AM)Only the most recent of6 resultswithin the time period is included. Specimen Performing Laboratory GE RIS Narrative FINAL REPORT CT head without contrast INDICATION: Encephalopathy TECHNIQUE: Axial noncontrast CT images through the head were obtained. This exam was performed according to our departmental dose optimization program which includes automated exposure control, adjustment of the mA and/or kV according to patient size and/or use of iterative reconstruction technique. COMPARISON: CT head 08/01/2017, 07/30/2017 FINDINGS: Left sided craniotomy changes are again noted. Trace pneumocephalus remains present, substantially decreased. Residual left hemispheric subdural hematoma is smaller, now 13.5 mm at the frontal convexity, previously 19 mm. Residual right hemispheric subdural hematoma is stable. There is evolution of blood products but no evident acute hemorrhage. Mild left sided mass effect remains present with 2 mm rightward midline shift at the septum pellucidum. There is no hydrocephalus. Microvascular ischemic changes are similar and chronic appearing. Generalized volume loss and vascular calcifications are noted. There is polypoid sphenoid sinus mucosal disease and small volume bilateral mastoid air cell fluid. There has been cataract surgery. There are improved scalp surgical changes with drain removal and no visible subgaleal collection. IMPRESSION: Since 08/01/2017, decreased left and stable right hemispheric residual subdural hematomas with trace residual gas on the left but overall decreased mass effect with minimal rightward midline shift. Additional chronic appearing findings as discussed. If there is persistent concern for acute abnormality, MRI is advised. Signed: Estiven Tomas MD Report Verified Date/Time:08/23/2017 10:53:33 Reading Location: [address] Neuro Reading Room Procedure Note Interface, External Ris In - 08/23/2017 10:55 AM CDT FINAL REPORT CT head without contrast INDICATION: Encephalopathy TECHNIQUE: Axial noncontrast CT images through the head were obtained. This exam was performed according to our departmental dose optimization program which includes automated exposure control, adjustment of the mA and/or kV according to patient size and/or use of iterative reconstruction technique. COMPARISON: CT head 08/01/2017, 07/30/2017 FINDINGS: Left sided craniotomy changes are again noted. Trace pneumocephalus remains present, substantially decreased. Residual left hemispheric subdural hematoma is smaller, now 13.5 mm at the frontal convexity, previously 19 mm. Residual right hemispheric subdural hematoma is stable. There is evolution of blood products but no evident acute hemorrhage. Mild left sided mass effect remains present with 2 mm rightward midline shift at the septum pellucidum. There is no hydrocephalus. Microvascular ischemic changes are similar and chronic appearing. Generalized volume loss and vascular calcifications are noted. There is polypoid sphenoid sinus mucosal disease and small volume bilateral mastoid air cell fluid. There has been cataract surgery. There are improved scalp surgical changes with drain removal and no visible subgaleal collection. IMPRESSION: Since 08/01/2017, decreased left and stable right hemispheric residual subdural hematomas with trace residual gas on the left but overall decreased mass effect with minimal rightward midline shift. Additional chronic appearing findings as discussed. If there is persistent concern for acute abnormality, MRI is advised. Signed: Estiven Tomas MD Report Verified Date/Time: 08/23/2017 10:53:33 Reading Location: [address] Neuro Reading Room Ammonia (08/22/2017 6:13 AM)Only the most recent of6 resultswithin the time period is included. Component Value Ref Range Ammonia 18 18 - 72 mol/L Specimen [place] [address] FL ERCP (08/20/2017 5:40 PM) Specimen Performing Laboratory GE RIS Narrative PROCEDURE PERFORMED IN O.R. - PLEASE REFER TO THE INTRAOPERATIVE REPORT. Procedure Note Interface, External Ris In - 09/12/2017 10:49 AM CDT PROCEDURE PERFORMED IN O.R. - PLEASE REFER TO THE INTRAOPERATIVE REPORT. Hepatitis B PCR, quantitative (08/19/2017 9:43 AM)Only the most recent of8 resultswithin the time period is included. Component Value Ref Range HBV PCR, Quantitative HBV DNA not detected HBV DNA not detected Specimen [place] [address] Narrative This test uses a Real-Time Polymerase Chain Reaction (RT-PCR) methodology and was performed using DAXA AmpliPrep/DAXA TaqMan HBV Test, v2.0 ([employer] Reportable range for this assay is 20 - 170,000,000 IU per mL (1.30 - 8.23 Log IU/mL). This test uses a Real-Time Polymerase Chain Reaction (RT-PCR) methodology and was performed using DAXA AmpliPrep/DAXA TaqMan HBV Test, v2.0 ([employer] Reportable range for this assay is 20 - 170,000,000 IU per mL (1.30 - 8.23 Log IU/mL). Liver-Kidney Microsome Ab (08/16/2017 6:14 AM) Component Value Ref Range LKM-1 Antibody (IgG) <20.0 See Note: U Comment: Reference Range: <=20.0 NEGATIVE 20.1-24.9EQUIVOCAL >=25.0 POSITIVE Anti-liver/kidney microsomal antibodies (Anti-LKM-1) were previously tested by indirect immunofluorescence (IF) using rodent liver/kidney substrate. Identification of a specific antibody target as cytochrome P450 IID6 has led to the current recombinant based ALCIDES. Antibodies to this cytochrome are present in approximately 70% of patients with autoimmune hepatitis type 2. This antibody is also present in approximately 10% of patients with hepatitis C infection. Specimen Performing Laboratory Blood [facility] [address] [address] Narrative Performing Lab [facility] [address] [address] Radha Encarnacion MD, PhD MR abdomen without IV contrast MRCP (08/15/2017 10:03 AM) Specimen Performing Laboratory Victorious Narrative FINAL REPORT TECHNIQUE: MRI of the abdomen and MRCP with 3-D volume rendering WITHOUT intravenous contrast. INDICATION: 61-year-old gentleman with abnormal liver function tests, status post orthotopic liver transplant. COMPARISON: CT of the abdomen and pelvis dated 12/22/2015, abdomen MRI 03/02/2015. FINDINGS: ABSENCE OF INTRAVENOUS CONTRAST DECREASES SENSITIVITY FOR DETECTION OF FOCAL LESIONS AND VASCULAR PATHOLOGY. LOWER THORAX: Bilateral lower lobes subsegmental atelectasis. LIVER: Surgical changes from orthotopic liver transplant. The liver is normal in size and contour. No loss of signal on out of phase images to suggest fatty infiltration. No hepatic signal abnormality. No focal hepatic lesions. BILIARY: The gallbladder is surgically absent. No intra or extrahepatic biliary ductal dilatation. SPLEEN: The spleen is enlarged measuring 13.7 cm in craniocaudal dimension. PANCREAS: No focal masses or ductal dilatation. ADRENALS: No adrenal nodules. KIDNEYS/URETERS: No hydronephrosis. No significant change in bilateral subcentimeter T1 hypointense and T2 hyperintense lesions, likely cysts. Unchanged punctate T1 hyperintense lesions in the inferior pole of the left kidney, also likely debris-containing cysts. PERITONEUM/RETROPERITONEUM: No free fluid. LYMPH NODES: No lymphadenopathy. VESSELS: The main portal vein measures 1.3 cm, upper limits of normal. No portosystemic varices. GI TRACT: No distention or wall thickening. BONES AND SOFT TISSUES: Degenerative changes of the visualized spine. IMPRESSION: No acute abnormalities in the abdomen. Splenomegaly. Signed: Parvez Goss MD Report Verified Date/Time:08/15/2017 11:28:34 Reading Location: [address] [address] Procedure Note Interface, External Ris In - 08/15/2017 11:30 AM CDT FINAL REPORT TECHNIQUE: MRI of the abdomen and MRCP with 3-D volume rendering WITHOUT intravenous contrast. INDICATION: 61-year-old gentleman with abnormal liver function tests, status post orthotopic liver transplant. COMPARISON: CT of the abdomen and pelvis dated 12/22/2015, abdomen MRI 03/02/2015. FINDINGS: ABSENCE OF INTRAVENOUS CONTRAST DECREASES SENSITIVITY FOR DETECTION OF FOCAL LESIONS AND VASCULAR PATHOLOGY. LOWER THORAX: Bilateral lower lobes subsegmental atelectasis. LIVER: Surgical changes from orthotopic liver transplant. The liver is normal in size and contour. No loss of signal on out of phase images to suggest fatty infiltration. No hepatic signal abnormality. No focal hepatic lesions. BILIARY: The gallbladder is surgically absent. No intra or extrahepatic biliary ductal dilatation. SPLEEN: The spleen is enlarged measuring 13.7 cm in craniocaudal dimension. PANCREAS: No focal masses or ductal dilatation. ADRENALS: No adrenal nodules. KIDNEYS/URETERS: No hydronephrosis. No significant change in bilateral subcentimeter T1 hypointense and T2 hyperintense lesions, likely cysts. Unchanged punctate T1 hyperintense lesions in the inferior pole of the left kidney, also likely debris-containing cysts. PERITONEUM/RETROPERITONEUM: No free fluid. LYMPH NODES: No lymphadenopathy. VESSELS: The main portal vein measures 1.3 cm, upper limits of normal. No portosystemic varices. GI TRACT: No distention or wall thickening. BONES AND SOFT TISSUES: Degenerative changes of the visualized spine. IMPRESSION: No acute abnormalities in the abdomen. Splenomegaly. Signed: Parvez Goss MD Report Verified Date/Time: 08/15/2017 11:28:34 Reading Location: [address] [facility] [place] [facility] T4 If Indicated (08/14/2017 6:02 AM) Component Value Ref Range TSH 3.07 0.35 - 4.94 uIU/mL Specimen Performing Laboratory Blood [facility] [address] [address] Alkaline phosphatase, isoenzymes, total (08/14/2017 6:02 AM)Only the most recent of2 resultswithin the time period is included. Component Value Ref Range Scan Result Specimen Performing Laboratory Blood [facility] [address] [address] Anti-Neutrophil Cytoplasmic Ab (ANCA) (08/14/2017 6:02 AM) Component Value Ref Range Proteinase-3 Ab <1.0 <1.0 AI Comment: <1.0 AI No Antibody Detected > or=1.0 AI Antibody Detected Autoantibodies to proteinase-3 (MT-3) are accepted as characteristic for granulomatosis with polyangiitis (GPA, Judy's), and are detectable in 95% of the histologically proven cases. The cytoplasmic IFA pattern, (c-ANCA), is based largely on autoantibody to MT-3 which serves as the primary antigen. These autoantibodies are present in active disease. Myeloperoxidase Ab <1.0 <1.0 AI Comment: <1.0 AI No Antibody Detected > or=1.0 AI Antibody Detected Autoantibodies to myeloperoxidase (MPO) are commonly associated with the following small-vessel vasculitides: microscopic polyangiitis, polyarteritis nodosa, Churg-Larry syndrome, necrotizing and crescentic glomerulonephritis and occasionally granulomatosis with polyangiitis (GPA, Judy's). The perinuclear IFA pattern, (p-ANCA) is based largely on autoantibody to myeloperoxidase which serves as the primary antigen. These autoantibodies are present in active disease. Specimen Performing Laboratory Blood [facility] [id number] [place] [address] Narrative Performing Lab [facility] [address] [id number] [place] [address] Radha Encarnacion MD, PhD Sodium (08/07/2017 8:31 AM)Only the most recent of6 resultswithin the time period is included. Component Value Ref Range Sodium 137 136 - 145 meq/L Specimen Performing Laboratory Blood [address] [address] Potassium (08/07/2017 8:31 AM)Only the most recent of17 resultswithin the time period is included. Component Value Ref Range Potassium 4.5 3.5 - 5.1 meq/L Specimen Performing Laboratory Blood [address] [address] Blood gas, arterial (08/07/2017 3:44 AM)Only the most recent of27 resultswithin the time period is included. Component Value Ref Range pH, Arterial 7.43 7.35 - 7.45 pCO2, Arterial 41 35 - 45 mmHg pO2, Arterial 160 (H) 80 - 90 mmHg O2 Sat, Arterial 99.1 (H) 96.0 - 97.0 % HCO3, Arterial 27 21 - 29 mmol/L Base Excess, Arterial 2.1 -2.0 - 3.0 mmol/L Patient Temperature 37.2 C FIO2 40.0 % Specimen Performing Laboratory Blood, Arterial [address] [address] XR chest 1 view portable / bedside (08/07/2017 2:48 AM)Only the most recent of27 resultswithin the time period is included. Specimen Performing Laboratory GE [facility] Narrative FINAL REPORT EXAMINATION:AP PORTABLE CHEST RADIOGRAPH CLINICAL INDICATION: Intubated IMPRESSION: Compared with 08/06/2017 Support tube and catheter positions are unchanged. The heart size is normal. Cardiomediastinal contours are stable. Thin curvilinear opacities are again noted in both lungs, most conspicuous at the lung bases. Although a component of atelectasis is favored, an underlying pneumonia cannot be excluded. No evidence of new lung consolidation or pneumothorax. In summary, no significant interval change. Signed: Alex Crouch MD Report Verified Date/Time:08/07/2017 04:32:04 Reading Location: [address] Reading Room Procedure Note Interface, External Ris In - 08/07/2017 5:09 AM APPRENTICE PHOTOGRAPHER FINAL REPORT EXAMINATION: AP PORTABLE CHEST RADIOGRAPH CLINICAL INDICATION: Intubated IMPRESSION: Compared with 08/06/2017 Support tube and catheter positions are unchanged. The heart size is normal. Cardiomediastinal contours are stable. Thin curvilinear opacities are again noted in both lungs, most conspicuous at the lung bases. Although a component of atelectasis is favored, an underlying pneumonia cannot be excluded. No evidence of new lung consolidation or pneumothorax. In summary, no significant interval change. Signed: Alex Crouch MD Report Verified Date/Time: 08/07/2017 04:32:04 Reading Location: [address] Reading Room Vancomycin level, trough (08/06/2017 1:09 PM) Component Value Ref Range Vancomycin Tr 14.4 10.0 - 20.0 ug/mL Specimen Performing Laboratory Blood - Central Venous Line [address] [address] Lipase (08/06/2017 4:22 AM)Only the most recent of2 resultswithin the time period is included. Component Value Ref Range Lipase 52 8 - 78 U/L Specimen Performing Laboratory Blood [address] [address] Creatine Kinase (CK) (08/06/2017 4:22 AM) Component Value Ref Range Total CK 38 29 - 200 U/L Specimen Performing Laboratory Blood [address] [address] Amylase (08/06/2017 4:22 AM)Only the most recent of2 resultswithin the time period is included. Component Value Ref Range Amylase 22 (L) 25 - 125 U/L Specimen Performing Laboratory Blood [facility] [address] [address] EEG monitoring with video recording each 24 hours (08/05/2017 8:36 AM)Only the most recent of3 resultswithin the time period is included. Specimen Performing Laboratory GE RIS Narrative DATE OF EE08/04/17-08/05/17 DATE OF REPORT: 08/05/17 ACC: [id number] EEG Number: [id number] Test Location: Inpatient ICU Start time: 08/05/1807:21 AM Stop time: 08/05/17 11:06 AM ICD-10:R56.9 CPT: 58390 HISTORY: 61 y/o male with history of ESRD on HD, HCV cirrhosis s/p liver transplant (2016), Afib (off AC, on ASA), DM2, HTN, Hep B, admitted for acute on chronic left frontal subdural hematoma and seizures. MEDICATIONS THAT COULD AFFECT EEG: Levetiracetam, lacosamide, clonazepam TECHNICAL SUMMARY: This is a digital video-EEG recorded with 32 input channels reviewed with bipolar and referential montages using the modified combinatorial system nomenclature. DESCRIPTION OF RECORD: Diffuse mixed frequency background slowing and disorganization is seen, with a combination of excess theta and delta activity without a clear anteroposterior gradient. At times, continuous focal slowing is seen over the left frontal regions (most prominently in the parasagittal leads). IMPRESSION: Abnormal continuous EEG study due to the followin. Mild to moderate diffuse slowing of the background rhythms 2. Continuous focal slowing in the left frontocentral region No seizures were captured. CLINICAL CORRELATION: Diffuse slowing as seen in this record supports an underlying mild to moderate encephalopathy. Continuous focal slowing is a nonspecific finding which can be associated with underlying structural abnormality of the involved region. No definite epileptiform abnormalities and no seizures were recorded. Roxanna Diana MD Neurophysiology fellow. Karmen Montes De Oca [facility] Epilepsy/Neurophysiology Attending Procedure Note Interface, External Ris In - 08/05/2017 2:27 PM APPRENTICE PHOTOGRAPHER DATE OF EE08/04/17-08/05/17 DATE OF REPORT: 08/05/17 ACC: [id number] EEG Number: [id number] Test Location: Inpatient ICU Start time: 08/04/17 08:21 AM Stop time: 08/05/17 11:06 AM ICD-10: R56.9 CPT: 29412 HISTORY: 61 y/o male with history of ESRD on HD, HCV cirrhosis s/p liver transplant (2016), Afib (off AC, on ASA), DM2, HTN, Hep B, admitted for acute on chronic left frontal subdural hematoma and seizures. MEDICATIONS THAT COULD AFFECT EEG: Levetiracetam, lacosamide, clonazepam TECHNICAL SUMMARY: This is a digital video-EEG recorded with 32 input channels reviewed with bipolar and referential montages using the modified combinatorial system nomenclature. DESCRIPTION OF RECORD: Diffuse mixed frequency background slowing and disorganization is seen, with a combination of excess theta and delta activity without a clear anteroposterior gradient. At times, continuous focal slowing is seen over the left frontal regions (most prominently in the parasagittal leads). IMPRESSION: Abnormal continuous EEG study due to the followin. Mild to moderate diffuse slowing of the background rhythms 2. Continuous focal slowing in the left frontocentral region No seizures were captured. CLINICAL CORRELATION: Diffuse slowing as seen in this record supports an underlying mild to moderate encephalopathy. Continuous focal slowing is a nonspecific finding which can be associated with underlying structural abnormality of the involved region. No definite epileptiform abnormalities and no seizures were recorded. Roxanna Diana MD Neurophysiology fellow. Karmen Montes De Oca [facility] Epilepsy/Neurophysiology Attending Clostridium difficile Toxin PCR (08/04/2017 11:20 AM)Only the most recent of5 resultswithin the time period is included. Component Value Ref Range C.Diff Toxin, PCR Detected (A) Not Detected Specimen Performing Laboratory Stool [facility] [address] [address] Narrative This qualitative real-time polymerase chain reaction assay detects the tcdB gene, encoded on the C.difficile pathogenicity locus (PaLoc).The product of tcdB , toxin B, is a cytotoxin essential for causing C.difficile-associated disease (CDAD) and is found in virtually all toxigenic C.difficile. This assay is performed for patients suspected of having either community- acquired or nosocomial CDAD.Accordingly, only symptomatic patients should be tested and formed stools will be rejected unless ileus is present (i.e., specified when ordering).Patients may be colonized with toxigenic C.difficile strains not causing active disease; therefore, clinical correlation is needed when deciding how to manage patients with a positive test result. The assay has not been validated as a test of cure as amplifiable nucleic acid may persist after effective treatment; therefore, follow-up testing of a positive result is not recommended. Procalcitonin (08/04/2017 11:12 AM) Component Value Ref Range Procalcitonin 2.62 (H) <0.05 ng/mL Specimen Performing Laboratory Blood - Line, Venous [address] [address] Narrative SEPSIS RISK (ng/mL) Low:0.05-0.50 Intermediate: 0.51-2.00 High: >=2.01 Sputum Culture + Gram Stain (08/03/2017 10:43 AM)Only the most recent of3 resultswithin the time period is included. Component Value Ref Range Result 4+ Normal respiratory aida present Gram Stain Result 3+ WBCs Gram Stain Result 0-5 epithelial cells Gram Stain Result 1+ gram negative rods Gram Stain Result 1+ gram positive cocci in pairs Gram Stain Result 1+ gram positive cocci in clusters Specimen Performing Laboratory Sputum - Endotracheal [address] [address] EEG monitoring & video recording < 24 hours (08/02/2017 7:05 AM) Specimen Performing Laboratory GE [facility] Narrative Addendum Begins Addendum 8:21am-4:21pm: Similar record, with continued moderate background slowing, continuous left fronto-central slowing, and excess fast activity. No seizures. Addendum Ends Date of EE08/01/17-08/02/17 DATE OF REPORT: 08/02/17 ACC: [id number] EEG Number: [id number] Test Location: Inpatient ICU Start time: 184:21 PM Stop time: 188:21 AM ICD-10:R56.9 CPT Code: 65375 HISTORY: Mr. Menjivar is a 61 y/o male with history ofESRD on HD, HCV cirrhosis s/p liver transplant (2016), Afib (off AC, on ASA), DM2, HTN, Hep B, who is transferred [facility] due to acute on chronic left frontal subdural hematoma, who had several seizures on 08/02, with eye deviation to the right, now intubated/sedated. MEDICATIONS THAT COULD AFFECT EEG: Keppra, Vimpat, Ativan, Versed, propofol TECHNICAL SUMMARY: This is a digital video-EEG recorded with 32 input channels reviewed with bipolar and referential montages using the modified combinatorial system nomenclature. DESCRIPTION OF RECORD: The background is generally continuous and demonstrates spontaneous variabilities. The frequency spectrum consists primarily of diffuse, low amplitude 4-6 Hz theta, moderate amplitude 1.5-3 Hz delta, which are further admixed with a preponderance of diffuse beta activity. Neither an occipital dominant rhythm, nor an organized frequency amplitude gradient are well demonstrable. There is continuous admixed focal, polymorphic delta activity in the left frontocentral (F3, C3) region. There is no evidence of sleep architectures in this study. IMPRESSION: This EEG study is abnormal due to the followin. Moderate diffuse slowing of the background rhythms 2. Continuous focal slowing in the left frontocentral region 3. Excess beta activity No seizures were captured. CLINICAL CORRELATION: Diffuse slowing as seen in this record supports an underlying moderate encephalopathy. Continuous focal slowing is a nonspecific finding which can be associated with underlying structural abnormality of the involved region. The presence of excess fast activity is likely related to sedative medication effect. This EEG study is similar to the baseline reading on 08/01/17. Sonya Pimentel MD, PhD Neurophysiology Fellow Clarisa Leong MD Attending Neurophysiologist Procedure Note Interface, External Ris In - 08/02/2017 5:19 PM APPRENTICE PHOTOGRAPHER Addendum Begins Addendum 8:21am-4:21pm: Similar record, with continued moderate background slowing, continuous left fronto-central slowing, and excess fast activity. No seizures. Addendum Ends Date of EE08/01/17-08/02/17 DATE OF REPORT: 08/02/17 ACC: [id number] EEG Number: [id number] Test Location: Inpatient ICU Start time: 08/01/17 4:21 PM Stop time: 08/02/17 8:21 AM ICD-10: R56.9 CPT Code: 23188 HISTORY: Mr. Menjivar is a 61 y/o male with history of ESRD on HD, HCV cirrhosis s/p liver transplant (2016), Afib (off AC, on ASA), DM2, HTN, Hep B, who is transferred from [facility] due to acute on chronic left frontal subdural hematoma, who had several seizures on 08/02, with eye deviation to the right, now intubated/sedated. MEDICATIONS THAT COULD AFFECT EEG: Keppra, Vimpat, Ativan, Versed, propofol TECHNICAL SUMMARY: This is a digital video-EEG recorded with 32 input channels reviewed with bipolar and referential montages using the modified combinatorial system nomenclature. DESCRIPTION OF RECORD: The background is generally continuous and demonstrates spontaneous variabilities. The frequency spectrum consists primarily of diffuse, low amplitude 4-6 Hz theta, moderate amplitude 1.5-3 Hz delta, which are further admixed with a preponderance of diffuse beta activity. Neither an occipital dominant rhythm, nor an organized frequency amplitude gradient are well demonstrable. There is continuous admixed focal, polymorphic delta activity in the left frontocentral (F3, C3) region. There is no evidence of sleep architectures in this study. IMPRESSION: This EEG study is abnormal due to the followin. Moderate diffuse slowing of the background rhythms 2. Continuous focal slowing in the left frontocentral region 3. Excess beta activity No seizures were captured. CLINICAL CORRELATION: Diffuse slowing as seen in this record supports an underlying moderate encephalopathy. Continuous focal slowing is a nonspecific finding which can be associated with underlying structural abnormality of the involved region. The presence of excess fast activity is likely related to sedative medication effect. This EEG study is similar to the baseline reading on 08/01/17. Sonya Pimentel MD, PhD Neurophysiology Fellow Clarisa Leong MD Attending Neurophysiologist abdomen / KUB 1 view (08/01/2017 7:50 PM)Only the most recent of9 resultswithin the time period is included. Specimen Performing Laboratory GE [facility] Narrative FINAL REPORT INDICATION: Feeding tube placement. COMPARISON: None. TECHNIQUE: Abdomen radiograph one view. FINDINGS / IMPRESSION: There is a feeding tube courses through the stomach with the tip projecting over the expected location of the duodenal bulb. Bowel gas pattern is unremarkable. Right internal jugular line terminating at the cavoatrial junction noted. Signed: Lorie Wakefield MD Report Verified Date/Time:08/01/2017 22:00:34 Reading Location: [facility] C013 Consult Reading Room Procedure Note Interface, External Ris In - 08/01/2017 10:02 PM APPRENTICE PHOTOGRAPHER FINAL REPORT INDICATION: Feeding tube placement. COMPARISON: None. TECHNIQUE: Abdomen radiograph one view. FINDINGS / IMPRESSION: There is a feeding tube courses through the stomach with the tip projecting over the expected location of the duodenal bulb. Bowel gas pattern is unremarkable. Right internal jugular line terminating at the cavoatrial junction noted. Signed: Lorie Wakefield MD Report Verified Date/Time: 08/01/2017 22:00:34 Reading Location: [facility] C013W Consult Reading Room AWAKE/ASLEEP AND SLEEP (08/01/2017 4:17 PM)Only the most recent of2 resultswithin the time period is included. Specimen Performing Laboratory GE [facility] Narrative Date of EE08/01/17 DATE OF REPORT: 08/01/17 ACC: [id number] EEG Number: [id number] Test Location: Inpatient ICU Start time: 3:59 PM Stop time: 4:20 PM ICD-10:R56.9 CPT Code: 90284 HISTORY: Mr. Menjivar is a 61 y/o male with history ofESRD on HD, HCV cirrhosis s/p liver transplant (2016), Afib (off AC, on ASA), DM2, HTN, Hep B, who is transferred from [facility] due to acute on chronic left frontal subdural hematoma, who had several seizures today, with eye deviation to the right. MEDICATIONS THAT COULD AFFECT EEG: Keppra, Vimpat, Ativan, Versed, propofol TECHNICAL SUMMARY: This is a digital video-EEG recorded with 32 input channels reviewed with bipolar and referential montages using the modified combinatorial system nomenclature. DESCRIPTION OF RECORD: The background is generally continuous and demonstrates spontaneous variabilities. The frequency spectrum consists primarily of diffuse, low amplitude 4-6 Hz theta, moderate amplitude 1.5-3 Hz delta, which are further admixed with some diffuse beta. Neither an occipital dominant rhythm, nor an organized frequency amplitude gradient are well demonstrable. There is continuous admixed focal, polymorphic delta activity in the left frontocentral (F3, C3) region. SLEEP:There is no evidence of sleep architectures in this study. SIGNIFICANT VIDEO EVENTS: None SIGNIFICANT ELECTROCARDIOGRAM EVENTS: None HV: Hyperventilation was not performed. PHOTIC STIMULATION: Not performed IMPRESSION: This EEG study is abnormal due to the followin. Moderate diffuse slowing of the background rhythms 2. Continuous focal slowing in the left frontocentral region 3. Excess beta activity No seizures were captured. CLINICAL CORRELATION: Diffuse slowing as seen in this record supports an underlying moderate encephalopathy. Continuous focal slowing indicates a region of focal cerebral dysfunction and can be associated with underlying structural or physiologic QUALITY CONTROL ASSOCIATE disturbance. The presence of excess fast activity is likely related to sedative medication effect. The EEG is changed compared to the recording yesterday (07/31/17), in which there was left hemispheric continuous focal slowing and left frontocentral spikes, but no generalized slowing; today, there is diffuse background slowing and excess fast activity, likely in the setting of multiple sedative agents. Sonya Pimentel MD, PhD Neurophysiology Fellow Clarisa Leong MD Attending Neurophysiologist Procedure Note Interface, External Ris In - 08/01/2017 4:59 PM APPRENTICE PHOTOGRAPHER Date of EE08/01/17 DATE OF REPORT: 08/01/17 ACC: [id number] EEG Number: [id number] Test Location: Inpatient ICU Start time: 3:59 PM Stop time: 4:20 PM ICD-10: R56.9 CPT Code: 27846 HISTORY: Mr. Menjivar is a 61 y/o male with history of ESRD on HD, HCV cirrhosis s/p liver transplant (2016), Afib (off AC, on ASA), DM2, HTN, Hep B, who is transferred from [facility] due to acute on chronic left frontal subdural hematoma, who had several seizures today, with eye deviation to the right. MEDICATIONS THAT COULD AFFECT EEG: Keppra, Vimpat, Ativan, Versed, propofol TECHNICAL SUMMARY: This is a digital video-EEG recorded with 32 input channels reviewed with bipolar and referential montages using the modified combinatorial system nomenclature. DESCRIPTION OF RECORD: The background is generally continuous and demonstrates spontaneous variabilities. The frequency spectrum consists primarily of diffuse, low amplitude 4-6 Hz theta, moderate amplitude 1.5-3 Hz delta, which are further admixed with some diffuse beta. Neither an occipital dominant rhythm, nor an organized frequency amplitude gradient are well demonstrable. There is continuous admixed focal, polymorphic delta activity in the left frontocentral (F3, C3) region. SLEEP: There is no evidence of sleep architectures in this study. SIGNIFICANT VIDEO EVENTS: None SIGNIFICANT ELECTROCARDIOGRAM EVENTS: None HV: Hyperventilation was not performed. PHOTIC STIMULATION: Not performed IMPRESSION: This EEG study is abnormal due to the followin. Moderate diffuse slowing of the background rhythms 2. Continuous focal slowing in the left frontocentral region 3. Excess beta activity No seizures were captured. CLINICAL CORRELATION: Diffuse slowing as seen in this record supports an underlying moderate encephalopathy. Continuous focal slowing indicates a region of focal cerebral dysfunction and can be associated with underlying structural or physiologic QUALITY CONTROL ASSOCIATE disturbance. The presence of excess fast activity is likely related to sedative medication effect. The EEG is changed compared to the recording yesterday (07/31/17), in which there was left hemispheric continuous focal slowing and left frontocentral spikes, but no generalized slowing; today, there is diffuse background slowing and excess fast activity, likely in the setting of multiple sedative agents. Sonya Pimentel MD, PhD Neurophysiology Fellow Clarisa Leong MD Attending Neurophysiologist brain without IV contrast portable (08/01/2017 3:28 PM)Only the most recent of3 resultswithin the time period is included. Specimen Performing Laboratory [facility] Narrative FINAL REPORT CT head without contrast INDICATION: Left subdural hematoma evaluation. New persistent seizures. TECHNIQUE: Contiguous axial images through the head without contrast on the portable CT unit. This exam was performed according to our departmental dose optimization program which includes automated exposure control, adjustment of the mA and/or kV according to patient size and/or use of iterative reconstruction technique. COMPARISON: CT head 07/30/2017, 07/04/2017 FINDINGS: Left sided craniotomy changes are noted with interval extra axial drain removal and overall stable size of a left hemispheric residual subdural hematoma. The anterior gas containing portion measures up to 2 cm at the frontal convexity. The right hemispheric residual subdural hematoma is stable. There is stable mass effect and rightward midline shift, currently 2-3 mm. There is no hydrocephalus. Microvascular ischemic changes are grossly similar. Generalized volume loss and vascular calcifications are noted. An ET tube is present with pharyngeal and nasal passage secretions, multifocal sinus mucosal disease, and bilateral mastoid effusions. Cataract surgery changes are noted with proptotic globes. There are stable scalp surgical changes with a soft tissue drain. IMPRESSION: Since 07/30/2017 at 2102 hours, interval extra-axial drain removal with stable residual left hemispheric subdural hematoma size and associated mass effect and mild rightward midline shift. Stable small right hemispheric subdural hematoma. Signed: Estiven Tomas MD Report Verified Date/Time:08/01/2017 15:32:57 Reading Location: [address] Neuro Reading Room Procedure Note Interface, External Ris In - 08/01/2017 3:35 PM APPRENTICE PHOTOGRAPHER FINAL REPORT CT head without contrast INDICATION: Left subdural hematoma evaluation. New persistent seizures. TECHNIQUE: Contiguous axial images through the head without contrast on the portable CT unit. This exam was performed according to our departmental dose optimization program which includes automated exposure control, adjustment of the mA and/or kV according to patient size and/or use of iterative reconstruction technique. COMPARISON: CT head 07/30/2017, 07/04/2017 FINDINGS: Left sided craniotomy changes are noted with interval extra axial drain removal and overall stable size of a left hemispheric residual subdural hematoma. The anterior gas containing portion measures up to 2 cm at the frontal convexity. The right hemispheric residual subdural hematoma is stable. There is stable mass effect and rightward midline shift, currently 2-3 mm. There is no hydrocephalus. Microvascular ischemic changes are grossly similar. Generalized volume loss and vascular calcifications are noted. An ET tube is present with pharyngeal and nasal passage secretions, multifocal sinus mucosal disease, and bilateral mastoid effusions. Cataract surgery changes are noted with proptotic globes. There are stable scalp surgical changes with a soft tissue drain. IMPRESSION: Since 07/30/2017 at 2102 hours, interval extra-axial drain removal with stable residual left hemispheric subdural hematoma size and associated mass effect and mild rightward midline shift. Stable small right hemispheric subdural hematoma. Signed: Estiven Tomas MD Report Verified Date/Time: 08/01/2017 15:32:57 Reading Location: [facility] C013V Neuro Reading Room Hepatitis E Abs IGG/IGM EIA (08/01/2017 5:00 AM) Component Value Ref Range HEV IgG NOT DETECTED HEV IgM NOT DETECTED Comment: REFERENCE RANGE: NOT DETECTED Hepatitis E virus (HEV) is a major cause of enteric non-A hepatitis worldwide. Both HEV IgM and IgG are typically detected within one month after infection; IgM persists for about two months, whereas IgG levels persist for months to years after recovery. Approximately 20% of the [place] population is positive for HEV IgG, indicating that HEV exposure is more common than previously thought. This test was developed and its analytical performance characteristics have been determined by [facility]. It has not been cleared or approved by FDA. This assay has been validated pursuant to the CLIA regulations and is used for clinical purposes. Specimen Performing Laboratory Blood [facility] [id number] [place] [id number] Narrative Performing Lab *QDID [facility] [address] [place] [phone] Bahman Ward MD US abdomen complete (07/31/2017 5:46 PM) Specimen Performing Laboratory [employer] [employer] RIS Narrative FINAL REPORT Ultrasound of the Abdomen and Doppler evaluation, 07/31/2017 Clinical History:Liver transplant. Elevated liver function tests. Comparison: 03/09/2016. Discussion: Sonographic evaluation of the abdomen is performed. In addition, color Doppler and spectral wave form analysis evaluations of the abdominal vasculature are performed. Liver: 17.8 cm. in length at the right midclavicular line, enlarged.Normal echogenicity.Homogeneous echotexture.No mass. Biliary tree:Common duct 6 mm.No biliary dilatation Gallbladder:Absent. Gallbladder fossa appears unremarkable. Pancreas: Head, body, and proximal tail unremarkable.Obscured by bowel gas. Ascites:None. Spleen:14.5 cm in length, enlarged.No mass. Kidneys: Right kidney 11.5 cm in length, normal in size, with cortical thickness of 1.4 cm.Left kidney 11.0 cm in length, normal in size, with cortical thickness of 1.3 cm.Normal cortical echogenicity. A left renal cyst with thin internal septation measuring 1.3 cm noted. No mass.No shadowing calculus.No hydronephrosis. IVC/Aorta: Largely obscured by bowel gas. Doppler: Doppler interrogation of the liver demonstrates a main portal vein diameter measuring 1.2 cm with a peak systolic velocity of 29 cm/sec. Hepatopetal inflow is seen in the right, left, main portal and splenic veins. The resistive indices in the proper, right and left hepatic arteries are 0.8, 0.6 and 0.7 respectively. Outflow with appropriate directionality is seen in the IVC, hepatic venous confluence as well as the right, middle and left hepatic veins. Impression: 1. Hepatomegaly. No underlying mass visualized. 2. Splenomegaly. 3. Mild nonspecific elevation of resistive index in the proper hepatic artery. 4. Left renal cyst. Signed: Ariela Humphrey MD Report Verified Date/Time:07/31/2017 18:55:14 Reading Location: [address] Consult Reading Room Procedure Note Interface, External Ris In - 07/31/2017 9:15 PM APPRENTICE PHOTOGRAPHER FINAL REPORT Ultrasound of the Abdomen and Doppler evaluation, 07/31/2017 Clinical History: Liver transplant. Elevated liver function tests. Comparison: 03/09/2016. Discussion: Sonographic evaluation of the abdomen is performed. In addition, color Doppler and spectral wave form analysis evaluations of the abdominal vasculature are performed. Liver: 17.8 cm. in length at the right midclavicular line, enlarged. Normal echogenicity. Homogeneous echotexture. No mass. Biliary tree: Common duct 6 mm. No biliary dilatation Gallbladder: Absent. Gallbladder fossa appears unremarkable. Pancreas: Head, body, and proximal tail unremarkable. Obscured by bowel gas. Ascites: None. Spleen: 14.5 cm in length, enlarged. No mass. Kidneys: Right kidney 11.5 cm in length, normal in size, with cortical thickness of 1.4 cm. Left kidney 11.0 cm in length, normal in size, with cortical thickness of 1.3 cm. Normal cortical echogenicity. A left renal cyst with thin internal septation measuring 1.3 cm noted. No mass. No shadowing calculus. No hydronephrosis. IVC/Aorta: Largely obscured by bowel gas. Doppler: Doppler interrogation of the liver demonstrates a main portal vein diameter measuring 1.2 cm with a peak systolic velocity of 29 cm/sec. Hepatopetal inflow is seen in the right, left, main portal and splenic veins. The resistive indices in the proper, right and left hepatic arteries are 0.8, 0.6 and 0.7 respectively. Outflow with appropriate directionality is seen in the IVC, hepatic venous confluence as well as the right, middle and left hepatic veins. Impression: 1. Hepatomegaly. No underlying mass visualized. 2. Splenomegaly. 3. Mild nonspecific elevation of resistive index in the proper hepatic artery. 4. Left renal cyst. Signed: Ariela Humphrey MD Report Verified Date/Time: 07/31/2017 18:55:14 Reading Location: [address] Consult Reading Room AWAKE AND DROWSY (07/31/2017 2:49 PM) Specimen Performing Laboratory [facility] RIS Narrative Date of EE07/31/17 DATE OF REPORT: 07/31/17 ACC: [id number] EEG Number: [id number] Test Location: Inpatient ICU Start time: 2:27pm Stop time: 2:49pm ICD-10:R56.9 CPT Code: 66571 HISTORY: Mr. Menjivar is a 61 y/o M with history ofESRD on HD, HCV cirrhosis s/p liver transplant (2016), Afib (off AC, on ASA), DM2, HTN, Hep B, who is transferred from [facility] due to acute on chronic left frontal subdural hematoma, who had 2 seizures overnight with eye deviation to the left MEDICATIONS THAT COULD AFFECT EEG: Keppra, Ativan, [place], morphine TECHNICAL SUMMARY: This is a digital video-EEG recorded with 32 input channels reviewed with bipolar and referential montages using the modified combinatorial system nomenclature. DESCRIPTION OF RECORD: During the maximally alert state, an 8-9 Hz posterior dominant rhythm was seen that was symmetric, reactive to eye opening and well regulated.More anteriorly, low voltage frontocentral beta predominated.Drowsiness was characterized by alpha attenuation; no stage II sleep was captured. Continuous focal polymorphic theta and delta activity is present over the left hemisphere, maximal in the left fronto-central region. There are occasional runs of left frontocentral (F3-C3) spikes. SIGNIFICANT VIDEO EVENTS: None SIGNIFICANT ELECTROCARDIOGRAM EVENTS: None HV: Not performed PHOTIC STIMULATION: was performed. There were no elicited changes in EEG background. IMPRESSION: This awake and drowsy EEG is abnormal due to: 1. Continuous focal slowing over the left hemisphere, maximal fronto-central 2. Occasional runs of left frontocentral spike waves CLINICAL CORRELATION: Continuous focal slowing is a nonspecific finding which can be associated with underlying structural abnormality of the involved region. Focal spike discharges can be associated with propensity for focal seizures. Sonya Pimentel MD, PhD Neurophysiology Fellow Clarisa Leong MD Attending Neurophysiologist Procedure Note Interface, External Ris In - 07/31/2017 4:55 PM APPRENTICE PHOTOGRAPHER Date of EE07/31/17 DATE OF REPORT: 07/31/17 ACC: [id number] EEG Number: [id number] Test Location: Inpatient ICU Start time: 2:27pm Stop time: 2:49pm ICD-10: R56.9 CPT Code: 00865 HISTORY: Mr. Menjivar is a 61 y/o M with history of ESRD on HD, HCV cirrhosis s/p liver transplant (2016), Afib (off AC, on ASA), DM2, HTN, Hep B, who is transferred from [facility] due to acute on chronic left frontal subdural hematoma, who had 2 seizures overnight with eye deviation to the left MEDICATIONS THAT COULD AFFECT EEG: Keppra, Ativan, [place], morphine TECHNICAL SUMMARY: This is a digital video-EEG recorded with 32 input channels reviewed with bipolar and referential montages using the modified combinatorial system nomenclature. DESCRIPTION OF RECORD: During the maximally alert state, an 8-9 Hz posterior dominant rhythm was seen that was symmetric, reactive to eye opening and well regulated. More anteriorly, low voltage frontocentral beta predominated. Drowsiness was characterized by alpha attenuation; no stage II sleep was captured. Continuous focal polymorphic theta and delta activity is present over the left hemisphere, maximal in the left fronto-central region. There are occasional runs of left frontocentral (F3-C3) spikes. SIGNIFICANT VIDEO EVENTS: None SIGNIFICANT ELECTROCARDIOGRAM EVENTS: None HV: Not performed PHOTIC STIMULATION: was performed. There were no elicited changes in EEG background. IMPRESSION: This awake and drowsy EEG is abnormal due to: 1. Continuous focal slowing over the left hemisphere, maximal fronto-central 2. Occasional runs of left frontocentral spike waves CLINICAL CORRELATION: Continuous focal slowing is a nonspecific finding which can be associated with underlying structural abnormality of the involved region. Focal spike discharges can be associated with propensity for focal seizures. Sonya Pimentel MD, PhD Neurophysiology Fellow Clarisa Leong MD Attending Neurophysiologist Actin (Smooth Muscle) Antibody, IgG (07/31/2017 10:12 AM) Component Value Ref Range Anti-Smooth Muscle Ab <20 See Note: U Comment: Reference Range: <20 NEGATIVE > OR=20 POSITIVE Antibodies recognizing actin are the main component of smooth muscle antibodies associated with autoimmune liver disease. Actin antibodies are found in approximately 75% of patients with autoimmune hepatitis (AIH) type 1, approximately 65% of patients with autoimmune cholangitis, approximately 30% of patients with primary biliary cirrhosis, and approximately 2% of healthy people. High values are closely correlated with AIH type 1. Specimen Performing Laboratory Blood [facility] [address] [place] [address] Narrative Performing Lab EZ [facility] [address] [place] [address] Radha Encarnacion MD, PhD Anti-Mitochondrial Ab, reflex to titer (07/31/2017 10:11 AM) Component Value Ref Range Scan Result Specimen Performing Laboratory Blood - Line, Venous [facility] [address] [place] [address] DARIA Titer & Pattern (07/31/2017 10:11 AM) Component Value Ref Range DARIA Titer >=1:2560 DARIA Pattern Speckled Specimen Performing Laboratory Blood - Line, Venous [facility] [address] [place] [address] Anti-Nuclear Antibody (DARIA) (07/31/2017 10:11 AM) Component Value Ref Range DARIA Positive (A) Negative Specimen Performing Laboratory Blood - Line, Venous [address] [address] Immunoglobulin M (IgM) (07/31/2017 10:11 AM) Component Value Ref Range IgM 64 22 - 293 mg/dL Specimen Performing Laboratory Blood - Line, Venous [address] [address] Immunoglobulin G (IgG) (07/31/2017 10:11 AM)Only the most recent of2 resultswithin the time period is included. Component Value Ref Range IgG 1101 540 - 1822 mg/dL Specimen Performing Laboratory Blood - Line, [address] [address] Prepare Leuko-Red PLT (07/30/2017 11:54 PM) Component Value Ref Range Unit ABO O Pos UNIT NUMBER [id number] Status TRANSFUSED Blood Bank Product PLATELETS PRODUCT CODE [id number] Specimen Performing Laboratory Blood SAFETRACE TX PFA-100 (07/30/2017 3:26 AM) Component Value Ref Range COL/EPI Closure Time >266 (H) 78 - 191 Seconds COL/ADP Closure Time 209 (H) 43 - 122 Seconds Platelets 137 (L) 150 - 450 K/CU MM Specimen Performing Laboratory Blood [address] [address] Manual Differential (07/30/2017 3:17 AM)Only the most recent of7 resultswithin the time period is included. Component Value Ref Range % Neutros (manual) 53 % % Lymphs (manual) 29 % % Monos (manual) 11 % % Eos (manual) 3 % % Metamyelo (manual) 1 (H) 0 - 0 % % Atypical Lymphs 3 (H) 0 - 0 % # Neutros (manual) 1.27 (L) 1.80 - 8.00 K/L # Lymphs (manual) 0.70 (L) 1.48 - 4.50 K/L # Monos (manual) 0.26 0.00 - 1.30 K/L # Eos (manual) 0.07 0.00 - 0.50 K/L # Metamyelo (manual) 0.02 (H) 0.00 - 0.00 K/L # Atypical Lymphs 0.07 (H) 0.00 - 0.00 K/L Total Counted 100 WBC Morphology Normal Platelet Morphology Normal RBC Morphology Normal Specimen Performing Laboratory Blood [address] [address] Transfuse Leuko-Red PLT (07/29/2017 11:56 PM)Only the most recent of2 resultswithin the time period is included.Respiratory Panel [facility] (06/17/2017 4: 10 PM)Only the most recent of2 resultswithin the time period is included. Component Value Ref Range Human Metapneumovirus Not detected Not detected, Inconclusive Rhinovirus Not detected Not detected, Inconclusive Influenza A Not detected Not detected, Inconclusive Influenza A subtype H1 Not detected Not detected, Inconclusive Influenza A Subtype H3 Not detected Not detected, Inconclusive Influenza A Subtype H1-2009 Not detected Not detected, Inconclusive Influenza B Not detected Not detected, Inconclusive Respiratory Syncytial Virus Not detected Not detected, Inconclusive Parainfluenza Virus 1 Not detected Not detected, Inconclusive Parainfluenza Virus 2 Not detected Not detected, Inconclusive Parainfluenza virus 3 Not detected Not detected, Inconclusive Parainfluenza Virus 4 Not detected Not detected, Inconclusive Adenovirus Not detected Not detected, Inconclusive Coronavirus 229E Not detected Not detected, Inconclusive Coronavirus HKU1 Not detected Not detected, Inconclusive Coronavirus NL63 Not detected Not detected, Inconclusive Coronavirus OC43 Not detected Not detected, Inconclusive Bordetella Pertussis Not detected Not detected, Inconclusive Chlamydophila Pneumoniae Not detected Not detected, Inconclusive Mycoplasma Pneumoniae Not detected Not detected, Inconclusive Specimen Performing Laboratory Nasopharyngeal - Nasopharyngeal Swab [address] [address] Blood gas, venous (06/16/2017 10:34 AM)Only the most recent of6 resultswithin the time period is included. Component Value Ref Range pH, Jason 7.50 (H) 7.32 - 7.42 pCO2, Jason 38 (L) 41 - 51 mmHg pO2, Jason 42 (H) 25 - 40 mmHg O2 Sat, Jason 81.5 (H) 40.0 - 70.0 % HCO3, Jason 29 21 - 29 mmol/L Base Excess, Jason 5.5 (H) -2.0 - 3.0 mmol/L Patient Temperature 37.0 C FIO2 21.0 % Specimen Performing Laboratory Blood - Arm, Right [address] [address] Iron, TIBC, % sat. (without ferritin) (06/14/2017 12:31 AM) Component Value Ref Range Iron 56 40 - 160 ug/dL TIBC 171 (L) 250 - 450 ug/dL Iron % Saturation 33 20 - 55 % Specimen [place] [address] Narrative Please draw 6 hours after HD. Thank you Ferritin (06/14/2017 12:31 AM) Component Value Ref Range Ferritin 474 (H) 5 - 275 ng/mL Specimen [place] [address] Narrative Please draw 6 hours after HD. Thank you Rickettsia Ab Panel with reflex to titer (06/10/2017 11:09 AM) Component Value Ref Range Rmsf Ab Screen Igg NOT DETECTED Rmsf Ab Screen Igm NOT DETECTEDComment: REFERENCE RANGE: NOT DETECTED Typhus Fever Ab Igg NOT DETECTED Typhus Fever Ab Igm NOT DETECTEDComment: REFERENCE RANGE: NOT DETECTED Specimen Performing Laboratory Blood - Line, Arterial brick[facility]mobile [address] [place] [address] Narrative Performing Lab *QDID [facility] [address] [place] [phone] Bahman Ward MD Varicella zoster PCR, qualitative (06/09/2017 12:17 PM) Component Value Ref Range Source-Body Site CEREBROSPINAL FLUID VZV DNA,Qual.PCR NOT DETECTED Comment: REFERENCE RANGE: NOT DETECTED This test was developed and its analytical performance characteristics have been determined by [facility]. It has not been cleared or approved by FDA. This assay has been validated pursuant to the CLIA regulations and is used for clinical purposes. Specimen Performing Laboratory Cerebrospinal Fluid - CSF, tube 1 [facility] [address] [place] [address] Narrative Performing Lab *[facility] [address] [place] [phone] Bahman Ward MD Cytology (06/09/2017 10:41 AM) Component Value Ref Range Case Report Medical Cytology Report Case: [id number] Authorizing Provider:Cheryl Nogueraected : 06/09/2017 1041 Ordering Location: [address] [place]: 06/10/2017 0952 Cardiovascular Pathologist: Chel Oviedo Specimen:CSF DIAGNOSIS CEREBROSPINAL FLUID (CYTOSPINS): - NO MALIGNANT CELLS IDENTIFIED - Peripheral blood elements present Signing Pathologist Direct Phone Line: [phone] CPT Code(s) 72227 CLINICAL DATA Infection; AMS; s/p liver transplant SPECIMEN SOURCE CEREBROSPINAL FLUID GROSS DESCRIPTION 2 cytospins Collected: [id number] Received: [id number] STATEMENT OF ADEQUACY Satisfactory Technical component was performed at [facility], Department of Pathology, [address] [place] [id number], Professional component was performed [facility], at Department of Pathology, [address] [place] [id number], Specimen Performing Laboratory Cerebrospinal Fluid - CSF [address] [address] Strep pneumoniae antigen (06/09/2017 10:01 AM) Component Value Ref Range Strep pneumoniae Antigen Presumptive negative for Presumptive negative for pneumococcal meningitis - see pneumococcal pneumonia - see comment comment, Presumptive negative for pneumococcal meningitis - see comment Specimen Performing Laboratory Cerebrospinal Fluid - Lumbar Puncture [address] [address] Narrative Presumptive negative for pneumococcal meningitis. Infection due to S. pneumoniae cannot be ruled out since the antigen present in the sample may be below the detection limit of the test. HSV 1/2 PCR, Qualitative (06/09/2017 10:01 AM) Component Value Ref Range HSV, PCR NEGATIVE NEGATIVE Specimen Performing Laboratory Cerebrospinal Fluid - CSF, tube [address] [address] Narrative Herpes Simplex Virus (HSV) not detected. These assays were performed by real-time PCR utilizing fluorogenic hydrolysis probe technology for the detection of Herpes Simplex Virus-1 and/or Herpes Simplex Virus-2 in approved specimens.A 154 base pair region of the HSV-1 and HSV-2 UL5 gene is amplified, and typing is achieved by using type specific probes.An internal control is used to confirm PCR amplification.Genetic variation and other factors can affect the accuracy of nucleic acid testing; therefore, the results should be interpreted in light of clinical data. This test was developed and its performance characteristics determined by the [facility] Pathology Department, Section of Molecular Pathology.It has not been cleared or approved by the U.S. Food and Drug Administration (FDA) , as FDA approval is not required for clinical use of the test.Validation was done as required by the Clinical Laboratory Amendments of 1988. CSF culture + gram stain (06/09/2017 10:01 AM) Component Value Ref Range Result No growth Gram Stain Result <1+ WBCs Gram Stain Result No organisms seen Specimen Performing Laboratory Cerebrospinal Fluid - Lumbar Puncture [address] [address] Protein, CSF (06/09/2017 10:01 AM) Component Value Ref Range Protein, CSF 287 (H) 15 - 45 mg/dL Specimen Performing Laboratory Cerebrospinal Fluid - CSF, tube [address] [address] Glucose, CSF (06/09/2017 10:01 AM) Component Value Ref Range Glucose, CSF 76 (H) 40 - 70 mg/dL Specimen Performing Laboratory Cerebrospinal Fluid - CSF, tube [address] [address] Cryptococcal antigen, CSF (06/09/2017 10:00 AM) Component Value Ref Range Cryptococcal Antigen, CSF Negative Negative, Interference Specimen Performing Laboratory Cerebrospinal Fluid - CSF, tube [address] [address] VDRL, CSF (06/09/2017 10:00 AM) Component Value Ref Range VDRL, CSF Nonreactive Nonreactive Specimen Performing Laboratory Cerebrospinal Fluid - CSF, tube [address] [address] Albumin, CSF (06/09/2017 9:58 AM) Component Value Ref Range Albumin, CSF TNP 8.0 - 42.0 mg/dL Comment: Test Not Performed. Specimen unsuitable for testing due to hemolysis. SAMPLE SLIGHTLY HEMOLYZED. Specimen Performing Laboratory Cerebrospinal Fluid - CSF, tube 4 [facility] [address] [place] [address] Narrative Performing Lab EZ [facility] [address] [place] [address] Radha Encarnacion MD CSF cell count with differential (06/09/2017 9:58 AM) Component Value Ref Range Appearance Clear Clear Color Other (A)Comment: yellow Colorless RBCs [address] (H) 0 - 5 /cu mm WBCs 120 (H) <=5 /cu mm RBCs Fresh? 100% Fresh # of Cells Diff'd 100 % Neutros 26 (H) 0 - 5 % % Lymphs 49 40 - 80 % % Monos 19 15 - 45 % % Eos 6 (H) <=0 % % Baso 0 <=0 % Tube Number 1 Specimen Performing Laboratory Cerebrospinal Fluid - CSF, tube [address] [address] AFB culture + smear (06/09/2017 9:57 AM) Component Value Ref Range Result No acid-fast bacilli isolated in 42 days AFB Smear No acid fast bacilli seen Specimen Performing Laboratory Cerebrospinal Fluid - Lumbar Puncture [address] [address] Fungus culture + smear (06/09/2017 9:57 AM) Component Value Ref Range Result No fungus isolated in 28 days Fungus Smear No fungi seen Specimen Performing Laboratory Cerebrospinal Fluid - Lumbar Puncture [address] [address] Hepatitis B e antibody (06/08/2017 11:21 AM) Component Value Ref Range Hep Be Ab(Anti-Hbe) NONREACTIVEComment: REFERENCE RANGE: NONREACTIVE Specimen Performing Laboratory Blood - Line, Arterial [facility] [address] [place] [address] Narrative Performing Lab *[facility] [address] [place] [phone] Bahman Ward MD Hepatitis B core antibody, total (06/08/2017 11:21 AM)Only the most recent of2 resultswithin the time period is included. Component Value Ref Range Hep B Core Total Ab Reactive (A) Nonreactive Specimen Performing Laboratory Blood - Line, Arterial [address] [address] Hepatitis B e antigen (06/08/2017 11:21 AM) Component Value Ref Range Hep Be Ag (Antigen) NONREACTIVEComment: REFERENCE RANGES: NONREACTIVE Specimen Performing Laboratory Blood - Line, Arterial [facility] [address] [place] [address] Narrative Performing Lab *QDID [facility] [address] [place] [phone] Bahman Ward MD Hepatitis B surface antibody (06/08/2017 11:21 AM)Only the most recent of4 resultswithin the time period is included. Component Value Ref Range Hep B S Ab <8.0 <8.0 mIU/mL Specimen Performing Laboratory Blood - Line, Arterial [facility] [address] [address] Drug screen, urine, comprehensive (06/07/2017 5:44 PM)Only the most recent of2 resultswithin the time period is included. Specimen Performing Laboratory Urine - Urine, Straight Catheter [facility] [address] [place] [address] ECHOCARDIOGRAM REPORT - SCAN (06/07/2017 3:20 PM)Only the most recent of2 resultswithin the time period is included.MR brain without IV contrast (2017 1:39 PM) Specimen Performing Laboratory [facility] [employer] [facility] Narrative FINAL REPORT MRI Brain without contrast Clinical History: Confusion/delirium, altered LOC, unexplained Technique: MRI of the brain utilizing axial T2, FLAIR, GRE, DWI; sagittal and coronal T1-weighted images. Comparisons: CT 01/26/2017 Findings: There is a right lateral cerebral hemispheric subdural hematoma measuring approximately 5 mm in maximal thickness. There is a left lateral cerebral hemispheric CSF signal intensity space compatible with a subdural hygroma measuring approximately 7 mm in maximal thickness. There is slight contouring of the cerebral hemispheres without significant midline shift. There is FLAIR signal hyperintensity in a few right frontal sulci compatible with subarachnoid hemorrhage. There is trace intraventricular hemorrhage. There is generalized parenchymal volume loss without hydrocephalus. There is no evidence of acute infarct. The craniocervical junction is preserved. The major intracranial flow-voids appear patent. There is fluid throughout the paranasal sinuses and mastoid air cells with support tubing in place. IMPRESSION: Right cerebral hemispheric subdural hematoma. Left cerebral hemispheric subdural hygroma. Right frontal subarachnoid hemorrhage. Trace intraventricular hemorrhage without hydrocephalus. The findings were discussed with the ICU fellow Dr. Osorio on 6CA at the time of dictation. Signed: Aleyda Angeles MD Report Verified Date/Time:06/07/2017 13:59:35 Reading Location: [facility] Radiology Reading Room Procedure Note Interface, External Ris In - 06/07/2017 2:01 PM APPRENTICE PHOTOGRAPHER FINAL REPORT MRI Brain without contrast Clinical History: Confusion/delirium, altered LOC, unexplained Technique: MRI of the brain utilizing axial T2, FLAIR, GRE, DWI; sagittal and coronal T1-weighted images. Comparisons: CT 01/26/2017 Findings: There is a right lateral cerebral hemispheric subdural hematoma measuring approximately 5 mm in maximal thickness. There is a left lateral cerebral hemispheric CSF signal intensity space compatible with a subdural hygroma measuring approximately 7 mm in maximal thickness. There is slight contouring of the cerebral hemispheres without significant midline shift. There is FLAIR signal hyperintensity in a few right frontal sulci compatible with subarachnoid hemorrhage. There is trace intraventricular hemorrhage. There is generalized parenchymal volume loss without hydrocephalus. There is no evidence of acute infarct. The craniocervical junction is preserved. The major intracranial flow-voids appear patent. There is fluid throughout the paranasal sinuses and mastoid air cells with support tubing in place. IMPRESSION: Right cerebral hemispheric subdural hematoma. Left cerebral hemispheric subdural hygroma. Right frontal subarachnoid hemorrhage. Trace intraventricular hemorrhage without hydrocephalus. The findings were discussed with the ICU fellow Dr. Osorio on 6CA at the time of dictation. Signed: Aleyda Angeles MD Report Verified Date/Time: 06/07/2017 13:59:35 Reading Location: [facility] Radiology Reading Room 2D Echo W/Doppler(CW/PW/Color) (06/07/2017 8:31 AM)Only the most recent of2 resultswithin the time period is included. Component Value Ref Range Ejection Fraction Specimen Performing Laboratory [facility] ECHO HEARTLAB MKCKESSON CPACS Narrative Transthoracic Echocardiography Report (TTE) Demographics Patient NameGONPEYTON ODOM Date of Study06/07/2017 Male Visit [id number] Other Room Number 6A02 Number Date of 4Referring PhysicianRobjoanne Devon Wilks Age 61 year(s)SonographerOscNELIDA Loera Interpreting Amado Fitch MD Physician Procedure Type of Study TTE procedure:2DECHO W DOPPLER(CW/PW/COLOR) (BRO) Indications:Hypotension or hemodynamic instability. Clinical History CIRRHOSIS, CKD, DIABETES, HEP.C, LIVER CANCER, LIVER TRANSPLANT 04/2016 HGB 9.5 HCT 29.8 % Contrast Medium: Definity. Amount - 2 ml Height: 69 inches Weight: 103.87 kg (229 lbs) BSA: 2.19 m^2 BMI: 33.82 kg/m^2 HR: 60 bpm BP: 125/46 mmHg Summary No evidence of LV hypertrophy. The left ventricle is chamber size (by vol index) is normal (male - LVED vol - 34-74ml/m2). All of the LV segments contract normally . Global LV systolic function hypercontractile . LVEF by Molina's method of disk assessment is normal (>60%) . Grade 1 diastolic dysfunction (impaired relaxation and low-normal LA pressure). LV endocardium is well visualized with IV ultrasound enhancing agent. The right ventricular chamber size is mildly dilated. RV systolic function is within normal limits. LA and RA are normal No evidence of pericardial effusion No significant valvular abnormality Estimated peak systolic PA pressure is 35-40 mmHg . The estimated RA pressure by IVC dynamics 0-5mmHg . Previous Study Compared to 01/26/17: NO significant change Signature Findings Rhythm/BPRegular sinus rhythm during the exam. Left Ventricle No evidence of LV hypertrophy. The left ventricle is chamber size (by vol index) is normal (male - LVED vol - 34-74ml/m2). All of the LV segments contract normally . Global LV systolic function hypercontractile . LVEF by Molina's method of disk assessment is normal (>60%) . Grade 1 diastolic dysfunction (impaired relaxation and low-normal LA pressure). LV endocardium is well visualized with IV ultrasound enhancing agent. Left AtriumLA size is normal . Right VentricleThe right ventricular chamber size is mildly dilated. RV systolic function is within normal limits. Right Atrium RA size is normal. Aortic Valve Mild AoV cusp thickening. AoV cusp mobility is normal . Mitral Valve Mild mitral annular calcification. Tricuspid ValveTV structure is normal. A trace of tricuspid regurgitation. Estimated peak systolic PA pressure is 35-40 mmHg . Pulmonic Valve Normal PV structure appears normal by available views. A trace of pulmonary regurgitation. AortaAortic root size (SInus of Valsalva diameter) is normal . Proximal ascending aorta size is normal . PericardiumNo pericardial effusion is visualized. IVC/SVC/PA/PV/PleuralThe estimated RA pressure by IVC dynamics 0-5mmHg . Chambers/Structures Left Atrium LA Dimension: 4.26 cmLA Area: 21.15 cm^2 LA Volume: 72.45 ml LA Vol. Index: 33 ml/m^2 Left Ventricle LVIDd: 4.54 cm LVIDs: 1.88 cm LV Septum Diastolic: 1.02 cm LV PW Diastolic: 1.13 cmLV FS: 58.6 % LVEDV Molina's:87.86 ml LVESV Molina's:32.69 mlLVEDVI: 40 ml/ m^2 LVEF Molina's: 62.8 %LVESVI: 15 ml/m^2 Aorta Ao Annulus: 2.61 cmAscending Aorta: 3.4 cm Doppler/Quantitative Measurements Mitral Valve MV Peak E-Wave: 0.84 m/s MV Peak A-Wave: 1.07 m/s E /A Ratio: 0.78 P eak Gradient: 2.83 mmHg MV Valeriano. Peak: Tissue Doppler E' Septal Velocity: 0.09 m/s E/E': 9.57 Aortic Valve Peak Velocity: 1.4 m/sMean Velocity: 0.82 m/s Peak Gradient: 7.8 mmHg Mean Gradient: 3.24 mmHg AV VTI: 24.27 cm AV DVI: 1.35 LVOT Peak Velocity: 1.07 m/s Peak Gradient: 4.55 mmHg Mean Velocity: 0.69 m/s Mean Gradient: 2.2 mmHg LVOT VTI: 32.76 cm Tricuspid Valve TR Velocity: 3.01 m/s TR Gradient: 36.26 mmHg Procedure Note Interface, External Ris In - 06/07/2017 2:46 PM APPRENTICE PHOTOGRAPHER Transthoracic Echocardiography Report (TTE) Demographics Patient Name PEYTON MENJIVAR Date of Study 06/07/2017 Gender Male Visit Number [id number] Race Other Room Number 6A02 Number Date of 1955 Referring Physician Mauricio Wilks Age 61 year(s) Payroll Technician NELIDA Silvestre Interpreting Amado Fitch MD Physician Procedure Type of Study TTE procedure:2DECHO W DOPPLER(CW/PW/COLOR) (BRO) Indications:Hypotension or hemodynamic instability. Clinical History CIRRHOSIS, CKD, DIABETES, HEP.C, LIVER CANCER, LIVER TRANSPLANT 04/2016 HGB 9.5 HCT 29.8 % Contrast Medium: Definity. Amount - 2 ml Height: 69 inches Weight: 103.87 kg (229 lbs) BSA: 2.19 m^2 BMI: 33.82 kg/m^2 HR: 60 bpm BP: 125/46 mmHg Summary No evidence of LV hypertrophy. The left ventricle is chamber size (by vol index) is normal (male - LVED vol - 34-74ml/m2). All of the LV segments contract normally . Global LV systolic function hypercontractile . LVEF by Molina's method of disk assessment is normal (>60%) . Grade 1 diastolic dysfunction (impaired relaxation and low-normal LA pressure). LV endocardium is well visualized with IV ultrasound enhancing agent. The right ventricular chamber size is mildly dilated. RV systolic function is within normal limits. LA and RA are normal No evidence of pericardial effusion No significant valvular abnormality Estimated peak systolic PA pressure is 35-40 mmHg . The estimated RA pressure by IVC dynamics 0-5mmHg . Previous Study Compared to 01/26/17: NO significant change Signature Findings Rhythm/BP Regular sinus rhythm during the exam. Left Ventricle No evidence of LV hypertrophy. The left ventricle is chamber size (by vol index) is normal (male - LVED vol - 34-74ml/m2). All of the LV segments contract normally . Global LV systolic function hypercontractile . LVEF by Molina's method of disk assessment is normal (>60%) . Grade 1 diastolic dysfunction (impaired relaxation and low-normal LA pressure). LV endocardium is well visualized with IV ultrasound enhancing agent. Left Atrium LA size is normal . Right Ventricle The right ventricular chamber size is mildly dilated. RV systolic function is within normal limits. Right Atrium RA size is normal. Aortic Valve Mild AoV cusp thickening. AoV cusp mobility is normal . Mitral Valve Mild mitral annular calcification. Tricuspid Valve TV structure is normal. A trace of tricuspid regurgitation. Estimated peak systolic PA pressure is 35-40 mmHg . Pulmonic Valve Normal PV structure appears normal by available views. A trace of pulmonary regurgitation. Aorta Aortic root size (SInus of Valsalva diameter) is normal . Proximal ascending aorta size is normal . Pericardium No pericardial effusion is visualized. IVC/SVC/PA/PV/Pleural The estimated RA pressure by IVC dynamics 0-5mmHg . Chambers/Structures Left Atrium LA Dimension: 4.26 cm LA Area: 21.15 cm^2 LA Volume: 72.45 ml LA Vol. Index: 33 ml/m^2 Left Ventricle LVIDd: 4.54 cm LVIDs: 1.88 cm LV Septum Diastolic: 1.02 cm LV PW Diastolic: 1.13 cm LV FS: 58.6 % LVEDV Molina's:87.86 ml LVESV Molina's:32.69 ml LVEDVI: 40 ml/m^2 LVEF Molina's: 62.8 % LVESVI: 15 ml/m^2 Aorta Ao Annulus: 2.61 cm Ascending Aorta: 3.4 cm Doppler/Quantitative Measurements Mitral Valve MV Peak E-Wave: 0.84 m/s MV Peak A-Wave: 1.07 m/s E/A Ratio: 0.78 Peak Gradient: 2.83 mmHg MV Valeriano. Peak: Tissue Doppler E' Septal Velocity: 0.09 m/s E/E': 9.57 Aortic Valve Peak Velocity: 1.4 m/s Mean Velocity: 0.82 m/s Peak Gradient: 7.8 mmHg Mean Gradient: 3.24 mmHg AV VTI: 24.27 cm AV DVI: 1.35 LVOT Peak Velocity: 1.07 m/s Peak Gradient: 4.55 mmHg Mean Velocity: 0.69 m/s Mean Gradient: 2.2 mmHg LVOT VTI: 32.76 cm Tricuspid Valve TR Velocity: 3.01 m/s TR Gradient: 36.[address] chest for pulmonary embolus (06/07/2017 12:27 AM) Specimen Performing Laboratory SpecifiedBy FINAL REPORT CLINICAL HISTORY: Persistent hypoxia FINDINGS: Multiple axial images of the chest were performed after the uncomplicated administration of IV contrast, utilizing a pulmonary embolism protocol. Post-processing coronal reformats were created and interpreted. This exam was performed according to our departmental dose-optimization program, which includes automated exposure control, adjustment of the mA and/or kV according to patient size and/or use of the iterative reconstruction technique. Study quality:Adequate. Comparison: 03/12/2017 Pulmonary arteries: No pulmonary embolism. Lung parenchyma: Bilateral dependent consolidations, right greater than left Pleural effusion: Small bilateral pleural effusions Pneumothorax: None. Tracheobronchial tree: Endotracheal tube tip above the kenneth Pulmonary vasculature: No significant findings. Cardiac contours and great vessels: Atherosclerotic calcification of the coronary arteries, aorta and great vessels arising from the arch Mediastinum: No significant findings. Lymph Nodes: No adenopathy in the mediastinum or parish. Skeleton: No acute abnormality. Other: Tunneled right IJ dialysis catheter and feeding tube in place Limited images of upper abdomen: No significant findings. IMPRESSION: No pulmonary embolism. Bilateral dependent consolidations, right greater than left, possibly reflecting atelectasis but multifocal pneumonia or aspiration can be considered. Small bilateral pleural effusions. Signed: Brittney Bello MD Report Verified Date/Time:06/07/2017 00:34:37 Reading Location: [address] Reading Room Procedure Note Interface, External Ris In - 06/07/2017 12:36 AM APPRENTICE PHOTOGRAPHER FINAL REPORT CLINICAL HISTORY: Persistent hypoxia FINDINGS: Multiple axial images of the chest were performed after the uncomplicated administration of IV contrast, utilizing a pulmonary embolism protocol. Post-processing coronal reformats were created and interpreted. This exam was performed according to our departmental dose-optimization program, which includes automated exposure control, adjustment of the mA and/or kV according to patient size and/or use of the iterative reconstruction technique. Study quality:Adequate. Comparison: 03/12/2017 Pulmonary arteries: No pulmonary embolism. Lung parenchyma: Bilateral dependent consolidations, right greater than left Pleural effusion: Small bilateral pleural effusions Pneumothorax: None. Tracheobronchial tree: Endotracheal tube tip above the kenneth Pulmonary vasculature: No significant findings. Cardiac contours and great vessels: Atherosclerotic calcification of the coronary arteries, aorta and great vessels arising from the arch Mediastinum: No significant findings. Lymph Nodes: No adenopathy in the mediastinum or parish. Skeleton: No acute abnormality. Other: Tunneled right IJ dialysis catheter and feeding tube in place Limited images of upper abdomen: No significant findings. IMPRESSION: No pulmonary embolism. Bilateral dependent consolidations, right greater than left, possibly reflecting atelectasis but multifocal pneumonia or aspiration can be considered. Small bilateral pleural effusions. Signed: Brittney Bello MD Report Verified Date/Time: 06/07/2017 00:34:37 Reading Location: [address] Reading Room Lactic acid, arterial, whole blood (06/06/2017 11:41 AM)Only the most recent of2 resultswithin the time period is included. Component Value Ref Range Lactate, Art 0.6 0.5 - 2.2 mmol/L Specimen Performing Laboratory Blood, Arterial - Line, [place] [address] Narrative Effective 10/05/2015: Units/Reference Range Change New: 0.5-2.2 mmol/LPrevious: 5-20 mg/dL Triglycerides (06/06/2017 11:41 AM) Component Value Ref Range Triglycerides 670 mg/dL Specimen Performing Laboratory Blood - Line, Arterial [facility] [address] [address] Narrative TRIGLYCERIDE REFERENCE RANGE Low Risk<150 Borderline Risk 150-199 High [id number] Very High Risk >=500 Specimen slightly lipemic Histoplasma antigen, urine (06/06/2017 9:17 AM) Component Value Ref Range Histoplasma Antigen <0.5 ng/mL Comment: REFERENCE RANGE: <0.5 ng/mL Histoplasma galactomannan is frequently detected in urine from patients with disseminated histoplasmosis. However, a negative result does not exclude a diagnosis of histoplasmosis. Many patients with acute pulmonary disease or chronic cavitary disease do not exhibit antigenuria. Galactomannan levels in urine typically decrease with successful treatment. Specimens from patients with other endemic mycoses, such as blastomycosis, coccidioidomycosis, or aspergillosis, may also be positive in this assay. This test should be used in conjunction with other diagnostics tests, including culture, molecular assays, and histology in making a final diagnosis. This test was developed and its analytical performance characteristics have been determined by [facility]. It has not been cleared or approved by the U.S. Food and Drug Administration.The FDA has determined that such clearance or approval is not necessary. This assay has been validated pursuant to the CLIA regulations andis used for clinical purposes. Specimen Performing Laboratory Urine - Urine, [facility] [place] [address] [address] Narrative Performing Lab *QD[facility] [address] [place] [phone] Bahman Ward MD LEPTOSPIRA DNA-PCR, QUALITATIVE (06/05/2017 2:45 PM) Component Value Ref Range SOURCE-BODY SITE URINE LEPTOSPIRA DNA, QL NOT DETECTED Comment: REFERENCE RANGE: NOT DETECTED This test was developed and its analytical performance characteristics have been determined by [facility]. It has not been cleared or approved by FDA. This assay has been validated pursuant to the CLIA regulations and is used for clinical purposes. Specimen Performing Laboratory Urine - Urine, [facility] [facility] [address] [place] [address] Narrative Performing Lab *[employer] [facility] [address] [place] [phone] Bahman Ward MD HHV-6 PCR, Qualitative (06/05/2017 2:45 PM) Component Value Ref Range Source-Body Site SERUM HHV-6 DNA PCR NOT DETECTED Comment: REFERENCE RANGE: NOT DETECTED This test was developed and its analytical performance characteristics have been determined by [facility]. It has not been cleared or approved by FDA. This assay has been validated pursuant to the CLIA regulations and is used for clinical purposes. Specimen Performing Laboratory [facility] [employer] [address] [address] Narrative Performing Lab *[facility] [facility] [address] [place] [phone] Bahman Ward MD Aspergillus galactomannan antigen (06/05/2017 2:45 PM) Component Value Ref Range Aspergillus Index Value <0.50 Aspergillus Antigen NOT DETECTED Comment: REFERENCE RANGE: <0.50, NOT DETECTED A negative result does not exclude invasive aspergillosis. Follow-up testing may be indicated for high-risk patients. Specimen Performing Laboratory [facility] [employer] [address] [address] Narrative Performing Lab *[facility] [facility] [address] [place] [phone] Bahman Ward MD Legionella antigen, urine (06/05/2017 2:45 PM) Component Value Ref Range Legionella Urine Antigen Negative - see commentComment: Negative for L. pneumophila serogroup 1 antigen, suggesting no recent or current infection with this serogroup. Legionellosis cannot be ruled out since other serogroups and species may cause disease. Specimen Performing Laboratory Urine - Urine, Bean [address] [address] EBV-VCA antibody, IgM (06/04/2017 9:12 PM) Component Value Ref Range EBV VCA IgM Negative Specimen Performing Laboratory Blood [address] [address] EBV-VCA antibody, IgG (06/04/2017 9:12 PM) Component Value Ref Range EBV VCA IgG Positive Specimen Performing Laboratory Blood [address] [address] Rotavirus antigen, stool (06/04/2017 4:06 PM) Component Value Ref Range Rotavirus Ag, EIA NOT DETECTEDComment: REFERENCE RANGE: NOT DETECTED Specimen Performing Laboratory Stool [facility] [address] [place] [address] Narrative Performing Lab *[facility] [address] [place] [address] Bahman Ward MD GI Pathogen Profile by PCR -ID Only (06/04/2017 4:05 PM) Component Value Ref Range CAMPYLOBACTER (PCR) Not detected Not detected, Inconclusive CLOSTRIDIUM DIFFICILE (PCR) Comment: REFER TO CDIFF Not detected, Inconclusive PCR FOR RESULT PLESIOMONAS SHIGELLOIDES (PCR) Not detected Not detected, Inconclusive SALMONELLA (PCR) Not detected Not detected, Inconclusive YERSINIA ENTEROCOLITICA (PCR) Not detected Not detected, Inconclusive VIBRIO CHOLERAE (PCR) Not detected Not detected, Inconclusive ENTEROAGGREGATIVE E. COLI (EAEC) Not detected Not detected, Inconclusive BY PCR ENTEROPATHOGENIC E. COLI (EPEC) BY Not detected Not detected, Inconclusive PCR ENTEROTOXIGENIC E. COLI (ETEC) Not detected Not detected, Inconclusive LT/ST BY PCR SHIGA-LIKE TOXIN-PRODUCING E. COLI Not detected Not detected, Inconclusive (STEC) STX1/STX2 E. COLI O157 (PCR) Not detected Not detected, Inconclusive SHIGELLA/ENTEROINVASIVE E. COLI Not detected Not detected, Inconclusive (EIEC) BY PCR CRYPTOSPORIDIUM (PCR) Not detected Not detected, Inconclusive CYCLOSPORA CAYETANENSIS (PCR) Not detected Not detected, Inconclusive ENTAMOEBA HISTOLYTICA (PCR) Not detected Not detected, Inconclusive GIARDIA LAMBLIA (PCR) Not detected Not detected, Inconclusive ADENOVIRUS F 40/41 (PCR) Not detected Not detected, Inconclusive ASTROVIRUS (PCR) Not detected Not detected, Inconclusive NOROVIRUS GI/GII (PCR) Not detected Not detected, Inconclusive ROTAVIRUS A (PCR) Not detected Not detected, Inconclusive SAPOVIRUS (I, II, IV, V) BY PCR Not detected Not detected, Inconclusive Specimen Performing Laboratory Stool - Per Rectum [address] [address] Narrative NOT DETECTED Panel is negative for [employer] GI Panel-detectable organisms. Please refer to traditional culture, sensitivity, ova and parasite results as they become available. Tested at [facility] using the [employer] FilmArray GI Panel ([employer] | [place], [place]). This test has been FDA Approved and verification was performed prior to clinical use. Reference Range: Not Detected STOOL PATH CHARGE (06/04/2017 4:05 PM) Component Value Ref Range Pathogen exam charged Done Specimen Performing Laboratory Stool - Per Rectum [address] [address] Shiga Toxin Screen (06/04/2017 4:05 PM) Component Value Ref Range Shiga toxin 1 Not detected Not detected Shiga toxin 2 Not detected Not detected Specimen Performing Laboratory Stool - Per Rectum [address] [address] Stool culture + Shiga toxin (06/04/2017 4:05 PM) Component Value Ref Range Result No Salmonella, Shigella or Campylobacter isolated Specimen Performing Laboratory Stool - Per Rectum [address] [address] US Hepatic Portal Vessel with Doppler (06/04/2017 6:30 AM) Specimen Performing Laboratory Victorious Narrative FINAL REPORT INDICATION: 61-year-old male with elevated liver function test and history of liver transplant in 2016. COMPARISON: April 15, 2017 TECHNIQUE: Ultrasound of the Abdomen and Doppler evaluation. Sonographic evaluation of the abdomen was performed, including color flow and spectral Doppler analysis of the abdominal vasculature. FINDINGS: Pancreas, to the extent visualized, is unremarkable. Liver transplant echogenicity is unremarkable. Common bile duct is normal in caliber measuring 0.7 cm in diameter. Gallbladder is absent. Normal directional flow is demonstrated in the main portal vein with normal velocity measuring 21 cm/s. Main portal vein is normal in caliber measuring 1.2 cm in diameter. No thrombus in the portal venous system is demonstrated. The proper hepatic artery, right hepatic artery, and left hepatic artery are visualized and demonstrate resistive indices of 0.7 (normal 0.5-0.7). The right, middle, left hepatic veins are patent as is the hepatic confluence. Splenic vein is visualized at the hilum, level of pancreatic head, and level the pancreatic tail and is patent. There is no ascites. No pleural effusion demonstrated. Spleen is mildly enlarged measuring 13.9 cm in diameter. Right kidney measures 10.0 x 4.8 x 5.0 cm. No right hydronephrosis or right renal mass is demonstrated. IVC and abdominal aorta are unremarkable. IMPRESSION: Patent portal venous system, hepatic arteries, and hepatic veins. No biliary ductal dilatation demonstrated. No ascites. Mild splenomegaly. Signed: Lorie Wakefield MD Report Verified Date/Time:06/04/2017 08:35:16 Reading Location: [place] [id number] Ultrasound Reading Room Procedure Note Interface, External Ris In - 06/04/2017 8:37 AM APPRENTICE PHOTOGRAPHER FINAL REPORT INDICATION: 61-year-old male with elevated liver function test and history of liver transplant in 2016. COMPARISON: April 15, 2017 TECHNIQUE: Ultrasound of the Abdomen and Doppler evaluation. Sonographic evaluation of the abdomen was performed, including color flow and spectral Doppler analysis of the abdominal vasculature. FINDINGS: Pancreas, to the extent visualized, is unremarkable. Liver transplant echogenicity is unremarkable. Common bile duct is normal in caliber measuring 0.7 cm in diameter. Gallbladder is absent. Normal directional flow is demonstrated in the main portal vein with normal velocity measuring 21 cm/s. Main portal vein is normal in caliber measuring 1.2 cm in diameter. No thrombus in the portal venous system is demonstrated. The proper hepatic artery, right hepatic artery, and left hepatic artery are visualized and demonstrate resistive indices of 0.7 (normal 0.5-0.7). The right, middle, left hepatic veins are patent as is the hepatic confluence. Splenic vein is visualized at the hilum, level of pancreatic head, and level the pancreatic tail and is patent. There is no ascites. No pleural effusion demonstrated. Spleen is mildly enlarged measuring 13.9 cm in diameter. Right kidney measures 10.0 x 4.8 x 5.0 cm. No right hydronephrosis or right renal mass is demonstrated. IVC and abdominal aorta are unremarkable. IMPRESSION: Patent portal venous system, hepatic arteries, and hepatic veins. No biliary ductal dilatation demonstrated. No ascites. Mild splenomegaly. Signed: Lorie Wakefield MD Report Verified Date/Time: 06/04/2017 08:35:16 Reading Location: [place] [id number] Ultrasound Reading Room B-type Natriuretic Factor (BNP) (06/04/2017 3:16 AM) Component Value Ref Range BNP 251 (H) 0 - 100 pg/mL Specimen Performing [place] [address] XR dxa bone density study (04/15/2017 11:11 AM) Specimen Performing Laboratory GE RIS Narrative FINAL REPORT Bone mineral density study 04/15/2017. CLINICAL INDICATION: Liver transplant. COMPARISON: 09/21/2014 FINDINGS: Evaluation of the left and right femoral necks and lumbar spine was performed utilizing a [employer] Advance bone densitometer. Data reflect young adult matched T-scores and age-matched Z scores. IMPRESSION: The left femoral neck bone mineral density is 0.668gm/cm2, the T-score is -3.1, and the Z-score is -2.4. The right femoral neck total bone mineral density is 0.776gm/cm2, the T-score is -2.3, and the Z-score is -1.6. The lumbar spine total bone mineral density is 1.030gm/cm2, the T-score is -1.6, and the Z-score is -1.7. Signed: Ariela Humphrey MD Report Verified Date/Time:04/15/2017 13:54:55 Reading Location: [facility] Mammo Reading Room Procedure Note Interface, External Ris In - 04/15/2017 1:57 PM APPRENTICE PHOTOGRAPHER FINAL REPORT Bone mineral density study 04/15/2017. CLINICAL INDICATION: Liver transplant. COMPARISON: 09/21/2014 FINDINGS: Evaluation of the left and right femoral necks and lumbar spine was performed utilizing a [employer] Advance bone densitometer. Data reflect young adult matched T-scores and age-matched Z scores. IMPRESSION: The left femoral neck bone mineral density is 0.668gm/cm2, the T-score is -3.1, and the Z-score is -2.4. The right femoral neck total bone mineral density is 0.776gm/cm2, the T-score is -2.3, and the Z-score is -1.6. The lumbar spine total bone mineral density is 1.030gm/cm2, the T-score is -1.6, and the Z-score is -1.7. Signed: Ariela Humphrey MD Report Verified Date/Time: 04/15/2017 13:54:55 Reading Location: [facility] Mammo Reading Room chest 2 views (04/15/2017 10:59 AM)Only the most recent of3 resultswithin the time period is included. Specimen Performing Laboratory GE RIS Narrative FINAL REPORT PA and Lateral views of the chest dated 04/15/2017 COMPARISON: February 17, 2017 Clinical information: annual post OLT; annual follow up Comment:Heart is normal in size. Left subclavian central venous catheter remains in place. Pulmonary vasculature is unremarkable. Subsegmental atelectasis is seen in the lower lobes, lingula, and right mid lobe. The rest of the lungs are clear. No pulmonary infiltrate or pleural effusion is present. Impression: No interval change. Signed: Dawson Baca MD Report Verified Date/Time:04/15/2017 11:06:44 Reading Location: [address] Radiology Reading Room Procedure Note Interface, External Ris In - 04/15/2017 12:56 PM APPRENTICE PHOTOGRAPHER FINAL REPORT PA and Lateral views of the chest dated 04/15/2017 COMPARISON: February 17, 2017 Clinical information: annual post OLT; annual follow up Comment: Heart is normal in size. Left subclavian central venous catheter remains in place. Pulmonary vasculature is unremarkable. Subsegmental atelectasis is seen in the lower lobes, lingula, and right mid lobe. The rest of the lungs are clear. No pulmonary infiltrate or pleural effusion is present. Impression: No interval change. Signed: Dawson Baca MD Report Verified Date/Time: 04/15/2017 11:06:44 Reading Location: [address] Radiology Reading Room Lipid panel (04/15/2017 8:16 AM) Component Value Ref Range Triglycerides 310 mg/dL Cholesterol 171 mg/dL HDL 36 mg/dL LDL Calculated 73 mg/dL Specimen Performing Laboratory Blood [address] [address] Narrative Triglyceride Reference Range: Low Risk <150 [id number] High Risk 200-499 Very High Risk>=500 Cholesterol Reference Range: Low Risk <200 [id number] High Risk>240 HDL Cholesterol Reference Range: Low Risk >=60 High Risk <40 LDL Cholesterol Reference Range: Optimal<100 Near Hqrtjxf958-107 Whfkvudigu560-390 Aonf075-616 Very High >=190 Sirolimus level (04/15/2017 8:15 AM)Only the most recent of9 resultswithin the time period is included. Component Value Ref Range Sirolimus <2.0 (L) 5.0 - 15.0 ng/mL Specimen Performing Laboratory Blood [address] [address] Hepatitis A antibody, IgM (04/15/2017 8:15 AM) Component Value Ref Range Hep A IgM Nonreactive Nonreactive Specimen Performing Laboratory Blood [address] [address] Alpha fetoprotein (AFP), tumor marker (04/15/2017 8:15 AM)Only the most recent of2 resultswithin the time period is included. Component Value Ref Range Alpha-Fetoprotein <2.0 <10.0 ng/mL Specimen Performing Laboratory Blood [address] [address] Hepatitis B core antibody, IgM (04/15/2017 8:15 AM) Component Value Ref Range Hep B C IgM Nonreactive Nonreactive Specimen Performing Laboratory Blood [address] [address] Prealbumin (02/25/2017 6:22 AM)Only the most recent of3 resultswithin the time period is included. Component Value Ref Range Prealbumin <3 (L) 14 - 45 mg/dL Specimen Performing Laboratory Blood [address] [address] D-dimer (02/21/2017 5:33 AM) Component Value Ref Range D-Dimer, Quant 0.87 (H) <0.50 MG/L FEU Specimen Performing Laboratory Blood - Arm, Right [facility] [address] [address] Narrative Intended Use: The D-Dimer Assay can be used to aid in the diagnosis of Deep Vein Thrombosis (DVT) and Pulmonary Embolism Disease (PED). In patients with low pre-test probability, various studies concerning STA Liatest D-dimer test have reported that with a cutoff value of 0.50 MG/L FEU, the Negative Predictive Value (NPV) regarding the exclusion of thrombosis is within 95-100% range. XR knee 1 or 2 views right (02/16/2017 8:34 PM) Specimen Performing Laboratory GE RIS Narrative FINAL REPORT RAD, KNEE, 1 OR 2 VIEWS, RIGHT CLINICAL INDICATION: "fall" COMPARISON: None TECHNIQUE: AP and lateral views were obtained. IMPRESSION: Normal alignment without fracture, joint effusion, or appreciable soft tissue swelling. Signed: Darby Burns MD Report Verified Date/Time:02/16/2017 22:06:43 Reading Location: [address] Ortho Consult Reading Room Procedure Note Interface, External Ris In - 02/16/2017 10:08 PM CDT FINAL REPORT RAD, KNEE, 1 OR 2 VIEWS, RIGHT CLINICAL INDICATION: "fall" COMPARISON: None TECHNIQUE: AP and lateral views were obtained. IMPRESSION: Normal alignment without fracture, joint effusion, or appreciable soft tissue swelling. Signed: Darby Burns MD Report Verified Date/Time: 02/16/2017 22:06:43 Reading Location: [address] Ortho Consult Reading Room hip 1 view right (02/16/2017 8:31 PM) Specimen Performing Laboratory GE RIS Narrative FINAL REPORT RAD, HIP, 1 VIEW, RIGHT CLINICAL INDICATION: "fall" COMPARISON: None TECHNIQUE: AP right hip IMPRESSION: Normal alignment without fracture or appreciable soft tissue swelling. Mild osteoarthritis. Signed: Darby Burns MD Report Verified Date/Time:02/16/2017 21:52:14 Reading Location: [facility] B1 [id number] Ortho Consult Reading Room Procedure Note Interface, External Ris In - 02/16/2017 9:54 PM CDT FINAL REPORT RAD, HIP, 1 VIEW, RIGHT CLINICAL INDICATION: "fall" COMPARISON: None TECHNIQUE: AP right hip IMPRESSION: Normal alignment without fracture or appreciable soft tissue swelling. Mild osteoarthritis. Signed: Darby Burns MD Report Verified Date/Time: 02/16/2017 21:52:14 Reading Location: [facility] [id number] Ortho Consult Reading Room Venous doppler legs bilateral (02/16/2017 6:30 AM) Component Value Ref Range Ejection Fraction Specimen Performing Laboratory [facility] MKCKESSON CPACS Impressions Right Impression 1. There is no deep venous obstruction in the common femoral, profunda femoral, popliteal, posterior tibial or peroneal veins. 2. There is partial echolucent deep venous obstruction in the femoral vein. 3. There is no superficial venous obstruction in the great saphenous vein. Left Impression 1. There is no deep venous obstruction in the common femoral, profunda femoral, popliteal, posterior tibial or peroneal veins. 2. There is partial echolucent deep venous obstruction in the femoral vein. 3. There is no superficial venous obstruction in the great saphenous vein. Conclusions Summary Venous duplex imaging and compression of the bilateral lower extremities were performed. The veins were adequately visualized. The bilateral deep venous system was positive with acute thrombus. The bilateral superficial venous system was patent and compressible with no evidence of thrombus. The venous Doppler waveforms were phasic with respiration. Technically difficult exam due to patient's inability to cooperate. Signature Velocities are measured in cm/s ; Diameters are measured in cm Narrative [facility] - Lower Extremities DVT Study Demographics Patient Name Demi MENJIVAR of Study 02/16/2017 [id number] Age 61 Visit Number [id number] GenderMale Accession Number [id number] Date of 1955 [facility] Room Number 1211 Jayne SonographLambert SinghInterpretingJ. Landen Arnold MD, RVTPhysician RPVI Procedure Type of Study: Veins: Lower Extremities DVT Study, VENOUS DOPPLER LEG, BILATERAL. Indications for Study:R/O DVT. Patient Status:STAT. Study Location:Portable. Technical Quality:Technically Difficult. - Results were reported to:Dr. Ledbetter via JOEY Chavis @ 6:32. Risk Factors History of Disease + + + + !Diagnosis !Date!Comments ! + + + + !History/Risk Factors: !!DM ! !!!Anemia ! !!!Smoker ! !!!Liver transplant 04/08/2016 ! + + + + !History/Risk Factors: !02/16/2017!Bilateral LE swelling and pain! + + + + Procedure Note Interface, External Ris In - 02/16/2017 7:05 AM CDT PV LAB - Lower Extremities DVT Study Demographics Patient Name PEYTON MENJIVAR Date of Study 02/16/2017 Age 61 Visit Number [id number] Gender Male Accession Number [id number] Date of 1955 [facility] Room Number 1211 Physician Khloe Payroll Technician Clover Singh Interpreting Bud Arnold MD, RVT Physician RPVI Procedure Type of Study: Veins: Lower Extremities DVT Study, VENOUS DOPPLER LEG, BILATERAL. Indications for Study:R/O DVT. Patient Status:STAT. Study Location:Portable. Technical Quality:Technically Difficult. - Results were reported to:Dr. Ledbetter via JOEY Chavis @ 6:32. Risk Factors History of Disease + + + + !Diagnosis !Date !Comments ! + + + + !History/Risk Factors: ! !DM ! ! ! !Anemia ! ! ! !Smoker ! ! ! !Liver transplant 04/08/2016 ! + + + + !History/Risk Factors: !02/16/2017!Bilateral LE swelling and pain ! + + + + Impressions Right Impression 1. There is no deep venous obstruction in the common femoral, profunda femoral, popliteal, posterior tibial or peroneal veins. 2. There is partial echolucent deep venous obstruction in the femoral vein. 3. There is no superficial venous obstruction in the great saphenous vein. Left Impression 1. There is no deep venous obstruction in the common femoral, profunda femoral, popliteal, posterior tibial or peroneal veins. 2. There is partial echolucent deep venous obstruction in the femoral vein. 3. There is no superficial venous obstruction in the great saphenous vein. Conclusions Summary Venous duplex imaging and compression of the bilateral lower extremities were performed. The veins were adequately visualized. The bilateral deep venous system was positive with acute thrombus. The bilateral superficial venous system was patent and compressible with no evidence of thrombus. The venous Doppler waveforms were phasic with respiration. Technically difficult exam due to patient's inability to cooperate. Signature Velocities are measured in cm/s ; Diameters are measured in cm Troponin I (01/27/2017 10:48 AM)Only the most recent of4 resultswithin the time period is included. Component Value Ref Range Troponin I 0.06 (H) 0.00 - 0.03 ng/mL Specimen Performing Laboratory Blood - Arm, Left [address] [address] Narrative Effective 04/20/2014: Reference Range Change New: 0.00-0.03 Previous 0.00-0.15 Troponin I (TnI) levels must be interpreted in the context of the presenting symptoms and the clinical findings. Elevated TnI levels indicate myocardial damage, but are not specific for ischemic heart disease. Elevated TnI levels are seen in patients with other cardiac conditions (including myocarditis and congestive heart failure), and slight TnI elevations occur in patients with other conditions, including sepsis, renal failure, acidosis, acute neurological disease, and persistent tachyarrhythmia. Creatine Kinase (CK), Total and MB (01/26/2017 3:14 PM) Component Value Ref Range Total CK 672 (H) 29 - 200 U/L CK-MB 4.4 0.0 - 6.6 ng/mL MB Relative Index 0.7 % Specimen Performing Laboratory Blood - Central Venous Line [address] [address] Narrative Effective 04/20/2014: CK-MB Reference Range Change New: 0.0-6.6Previous: 0.0-4.9 CK-MB Reference Range: <6.7Normal 6.7-10.0Borderline >10.0 Abnormal Acetaminophen level (01/25/2017 6:29 PM)Only the most recent of2 resultswithin the time period is included. Component Value Ref Range Acetaminophen Level <10.0 (L) 10.0 - 30.0 ug/mL Specimen Performing Laboratory Blood - Line, Venous POC-Lactic Acid, Arterial (01/25/2017 9:36 AM) Component Value Ref Range POC-Lactic Acid, Arterial 0.7Comment: TESTED AT [address] 0.4 - 1.3 mmol/L [facility] [address] Specimen Performing Laboratory Blood [address] [address] POCT-HEMATOCRIT (01/25/2017 9:15 AM) Component Value Ref Range POC-Hematocrit 35 (L)Comment: TESTED AT [address] [address] 40 - 50 % Specimen Performing Laboratory Blood [address] [address] POCT-HEMOGLOBIN (01/25/2017 9:15 AM) Component Value Ref Range POC-Hemoglobin 11.9 (L)Comment: TESTED AT [address] 13.0 - 16.8 g/[place] [address] Specimen Performing Laboratory Blood [address] [address] POCT-GLUCOSE (01/25/2017 9:15 AM) Component Value Ref Range POC-Glucose 214 (H)Comment: TESTED AT [address] 70 - 110 mg/dL [address] Specimen Performing Laboratory Blood [address] [address] POC-Sodium (01/25/2017 9:15 AM) Component Value Ref Range POC-Sodium 135Comment: TESTED AT [address] [address] 135 - 148 meq/L Specimen Performing Laboratory Blood [address] [address] POC-Potassium (01/25/2017 9:15 AM) Component Value Ref Range POC-Potassium 4.7Comment: TESTED AT [address] 3.6 - 5.5 meq/L [address] Specimen Performing Laboratory Blood [address] [address] POC-Calcium ionized (01/25/2017 9:15 AM) Component Value Ref Range POC-Calcium Ionized 1.14Comment: TESTED AT [address] 1.12 - 1.27 mmol/L [facility] [address] Specimen Performing Laboratory Blood [address] [address] POC-Blood gases, arterial (01/25/2017 9:15 AM) Component Value Ref Range Temp. Celsius-POC 37.0 FIO2-POC Comment: TESTED AT [address] [address] pH, Arterial-POC 7.340 (L) 7.350 - 7.450 PCO2, Arterial-POC 48.0 (H) 35.0 - 45.0 mm Hg PO2, Arterial-POC 97.0 (H) 80.0 - 90.0 mm Hg SO2, Arterial-POC 97.0 96.0 - 97.0 % HCO3, Arterilal-POC 25.9 21.0 - 29.0 meq/L BE, Arterial-POC 0.0 -2.0 - 3.0 meq/L Specimen Performing Laboratory Blood [address] [address] Urinalysis w/Microscopic + Reflex to Culture (01/24/2017 10:37 AM) Component Value Ref Range Color, UA Yellow Clarity, UA Clear Specific [place], UA 1.015 1.001 - 1.035 pH, UA 5.0 5.0 - 8.0 Protein, UA 100 mg/dL (A) Negative Glucose, UA Negative Negative Ketones, UA Negative Negative Bilirubin, UA Negative Negative Blood, UA Negative Negative Nitrite, UA Negative Negative Leukocytes, UA Large (A) Negative Urobilinogen, UA 0.2 0.2 - 1.0 mg/dL RBC, UA 1 /HPF WBC, UA 12 /HPF Bacteria, UA Rare Squam Epithel, UA <1 /HPF Hyaline Casts, UA 5 /LPF Crystals, Urine Rare Specimen Source Specimen Performing Laboratory Urine - Urine, Clean Catch [address] [address] [address] chest without IV contrast (01/10/2017 2:04 PM) Specimen Performing Laboratory [employer] RIS Narrative FINAL REPORT TECHNIQUE: CT of the chest and abdomen WITHOUT intravenous contrast and WITHOUT oral contrast. Dose modulation, iterative reconstruction, and/or weight-based adjustment of the mA/kV was utilized to reduce the radiation dose to as low as reasonably achievable. INDICATION: 61-year-old man with history of hepatocellular carcinoma and liver transplant. COMPARISON: Chest and abdomen CT 10/11/2016. FINDINGS: ABSENCE OF INTRAVENOUS CONTRAST DECREASES SENSITIVITY FOR DETECTION OF FOCAL LESIONS AND VASCULAR PATHOLOGY. LINES/TUBES: Unchanged left internal jugular dual lumen dialysis catheter. LUNGS AND AIRWAYS: Persistent bibasilar subsegmental atelectasis and/or scarring, slightly increased on the right. The lungs and airways are otherwise normal without focal abnormality. PLEURA: The pleural spaces are clear. HEART AND MEDIASTINUM: The visualized thyroid gland is normal. No significant mediastinal, hilar, or axillary lymphadenopathy. The heart and is within normal limits in size. Unchanged trace pericardial fluid. Atherosclerotic calcifications in the thoracic aorta and coronary arteries. HEPATOBILIARY: Prior orthotopic liver transplantation and cholecystectomy. No focal hepatic lesions. No biliary ductal dilatation. SPLEEN: Borderline splenomegaly, measuring 13.1 cm in the craniocaudal dimension. PANCREAS: No focal masses or ductal dilatation. ADRENALS: No adrenal nodules. KIDNEYS/URETERS: No hydronephrosis. Unchanged size of a 1.5 cm cyst in the left interpolar region which contains a thin septation. Additional unchanged subcentimeter hypodensities in both kidneys are too small to characterize, but likely represent cysts. Unchanged 0.2 cm nonobstructing calculus in the left upper pole. PERITONEUM/RETROPERITONEUM: No free air or fluid. LYMPH NODES: No lymphadenopathy. VESSELS: Atherosclerotic vascular calcifications without aneurysm. GI TRACT: No distention or wall thickening. Normal appendix. Unchanged small periampullary duodenal diverticulum. BONES AND SOFT TISSUES: Osteopenia. Degenerative changes of the visualized spine. Unchanged mild compression deformity of the T11 vertebral body. IMPRESSION: No metastases in the chest or abdomen. Signed: Parvez Goss MD Report Verified Date/Time:01/10/2017 16:37:24 Reading Location: [address] Radiology Reading Room Procedure Note Interface, External Ris In - 01/10/2017 4:39 PM CDT FINAL REPORT TECHNIQUE: CT of the chest and abdomen WITHOUT intravenous contrast and WITHOUT oral contrast. Dose modulation, iterative reconstruction, and/or weight-based adjustment of the mA/kV was utilized to reduce the radiation dose to as low as reasonably achievable. INDICATION: 61-year-old man with history of hepatocellular carcinoma and liver transplant. COMPARISON: Chest and abdomen CT 10/11/2016. FINDINGS: ABSENCE OF INTRAVENOUS CONTRAST DECREASES SENSITIVITY FOR DETECTION OF FOCAL LESIONS AND VASCULAR PATHOLOGY. LINES/TUBES: Unchanged left internal jugular dual lumen dialysis catheter. LUNGS AND AIRWAYS: Persistent bibasilar subsegmental atelectasis and/or scarring, slightly increased on the right. The lungs and airways are otherwise normal without focal abnormality. PLEURA: The pleural spaces are clear. HEART AND MEDIASTINUM: The visualized thyroid gland is normal. No significant mediastinal, hilar, or axillary lymphadenopathy. The heart and is within normal limits in size. Unchanged trace pericardial fluid. Atherosclerotic calcifications in the thoracic aorta and coronary arteries. HEPATOBILIARY: Prior orthotopic liver transplantation and cholecystectomy. No focal hepatic lesions. No biliary ductal dilatation. SPLEEN: Borderline splenomegaly, measuring 13.1 cm in the craniocaudal dimension. PANCREAS: No focal masses or ductal dilatation. ADRENALS: No adrenal nodules. KIDNEYS/URETERS: No hydronephrosis. Unchanged size of a 1.5 cm cyst in the left interpolar region which contains a thin septation. Additional unchanged subcentimeter hypodensities in both kidneys are too small to characterize, but likely represent cysts. Unchanged 0.2 cm nonobstructing calculus in the left upper pole. PERITONEUM/RETROPERITONEUM: No free air or fluid. LYMPH NODES: No lymphadenopathy. VESSELS: Atherosclerotic vascular calcifications without aneurysm. GI TRACT: No distention or wall thickening. Normal appendix. Unchanged small periampullary duodenal diverticulum. BONES AND SOFT TISSUES: Osteopenia. Degenerative changes of the visualized spine. Unchanged mild compression deformity of the T11 vertebral body. IMPRESSION: No metastases in the chest or abdomen. Signed: Parvez Goss MD Report Verified Date/Time: 01/10/2017 16:37:24 Reading Location: [address] Radiology Reading Room abdomen without IV contrast (01/10/2017 2:04 PM) Specimen Performing Laboratory Victorious Narrative FINAL REPORT TECHNIQUE: CT of the chest and abdomen WITHOUT intravenous contrast and WITHOUT oral contrast. Dose modulation, iterative reconstruction, and/or weight-based adjustment of the mA/kV was utilized to reduce the radiation dose to as low as reasonably achievable. INDICATION: 61-year-old man with history of hepatocellular carcinoma and liver transplant. COMPARISON: Chest and abdomen CT 10/11/2016. FINDINGS: ABSENCE OF INTRAVENOUS CONTRAST DECREASES SENSITIVITY FOR DETECTION OF FOCAL LESIONS AND VASCULAR PATHOLOGY. LINES/TUBES: Unchanged left internal jugular dual lumen dialysis catheter. LUNGS AND AIRWAYS: Persistent bibasilar subsegmental atelectasis and/or scarring, slightly increased on the right. The lungs and airways are otherwise normal without focal abnormality. PLEURA: The pleural spaces are clear. HEART AND MEDIASTINUM: The visualized thyroid gland is normal. No significant mediastinal, hilar, or axillary lymphadenopathy. The heart and is within normal limits in size. Unchanged trace pericardial fluid. Atherosclerotic calcifications in the thoracic aorta and coronary arteries. HEPATOBILIARY: Prior orthotopic liver transplantation and cholecystectomy. No focal hepatic lesions. No biliary ductal dilatation. SPLEEN: Borderline splenomegaly, measuring 13.1 cm in the craniocaudal dimension. PANCREAS: No focal masses or ductal dilatation. ADRENALS: No adrenal nodules. KIDNEYS/URETERS: No hydronephrosis. Unchanged size of a 1.5 cm cyst in the left interpolar region which contains a thin septation. Additional unchanged subcentimeter hypodensities in both kidneys are too small to characterize, but likely represent cysts. Unchanged 0.2 cm nonobstructing calculus in the left upper pole. PERITONEUM/RETROPERITONEUM: No free air or fluid. LYMPH NODES: No lymphadenopathy. VESSELS: Atherosclerotic vascular calcifications without aneurysm. GI TRACT: No distention or wall thickening. Normal appendix. Unchanged small periampullary duodenal diverticulum. BONES AND SOFT TISSUES: Osteopenia. Degenerative changes of the visualized spine. Unchanged mild compression deformity of the T11 vertebral body. IMPRESSION: No metastases in the chest or abdomen. Signed: Parvez Goss MD Report Verified Date/Time:01/10/2017 16:37:24 Reading Location: [address] Radiology Reading Room Procedure Note Interface, External Ris In - 01/10/2017 4:39 PM CDT FINAL REPORT TECHNIQUE: CT of the chest and abdomen WITHOUT intravenous contrast and WITHOUT oral contrast. Dose modulation, iterative reconstruction, and/or weight-based adjustment of the mA/kV was utilized to reduce the radiation dose to as low as reasonably achievable. INDICATION: 61-year-old man with history of hepatocellular carcinoma and liver transplant. COMPARISON: Chest and abdomen CT 10/11/2016. FINDINGS: ABSENCE OF INTRAVENOUS CONTRAST DECREASES SENSITIVITY FOR DETECTION OF FOCAL LESIONS AND VASCULAR PATHOLOGY. LINES/TUBES: Unchanged left internal jugular dual lumen dialysis catheter. LUNGS AND AIRWAYS: Persistent bibasilar subsegmental atelectasis and/or scarring, slightly increased on the right. The lungs and airways are otherwise normal without focal abnormality. PLEURA: The pleural spaces are clear. HEART AND MEDIASTINUM: The visualized thyroid gland is normal. No significant mediastinal, hilar, or axillary lymphadenopathy. The heart and is within normal limits in size. Unchanged trace pericardial fluid. Atherosclerotic calcifications in the thoracic aorta and coronary arteries. HEPATOBILIARY: Prior orthotopic liver transplantation and cholecystectomy. No focal hepatic lesions. No biliary ductal dilatation. SPLEEN: Borderline splenomegaly, measuring 13.1 cm in the craniocaudal dimension. PANCREAS: No focal masses or ductal dilatation. ADRENALS: No adrenal nodules. KIDNEYS/URETERS: No hydronephrosis. Unchanged size of a 1.5 cm cyst in the left interpolar region which contains a thin septation. Additional unchanged subcentimeter hypodensities in both kidneys are too small to characterize, but likely represent cysts. Unchanged 0.2 cm nonobstructing calculus in the left upper pole. PERITONEUM/RETROPERITONEUM: No free air or fluid. LYMPH NODES: No lymphadenopathy. VESSELS: Atherosclerotic vascular calcifications without aneurysm. GI TRACT: No distention or wall thickening. Normal appendix. Unchanged small periampullary duodenal diverticulum. BONES AND SOFT TISSUES: Osteopenia. Degenerative changes of the visualized spine. Unchanged mild compression deformity of the T11 vertebral body. IMPRESSION: No metastases in the chest or abdomen. Signed: Parvez Goss MD Report Verified Date/Time: 01/10/2017 16:37:24 Reading Location: [address] Radiology Reading Room after 12/23/2016 Advance Directives Patient has advance directives. For more information, please contact:[address] [phone]
[2017-12-24] MEDS ORDERED: D50W 25 GM/50 ML SYRINGE IV ONE (18:17)
[2017-12-24 18:45] LABS: Absolute Lymphocytes (CBC) 0.2 K/uL (0.7-4.9); Absolute Monocytes 0.3 K/uL (0.1-1.3); Absolute Neutrophil 3.1 K/uL (1.8-8.0); Hematocrit 40.7 % (39.6-49.0); Lymphocytes % 4.7 % (15.3-44.8); MCH 27.1 pg (27.0-35.0); MCV 86.1 fL (80-100); MPV 7.9 fL (7.6-11.3); Monocytes % 8.1 % (3.3-12.3); RBC Red Blood Cell Count 4.73 M/uL (4.33-5.43)
[2017-12-24 18:53] LABS: Protime INR 0.92
[2017-12-24 19:05] LABS: Albumin 3.4 g/dL (3.4-5.0); Bilirubin Direct 0.2 mg/dL (0-0.2); Bilirubin Total 0.4 mg/dL (0.2-1.0); CKMB Creatine Kinase MB 3.5 ng/mL (0.3-3.6); Magnesium 3.4 mg/dL (1.8-2.4); Potassium 5.2 mmol/L (3.5-5.1); Protein, Total 7.1 g/dL (6.4-8.2)
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
[2017-12-24 19:42] LABS: Anisocytosis 1+; Blood Morphology Comment NOTED (NOT SEEN); Platelet Estimate DECR; Urine White Blood Cell Casts OK
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
[2017-12-24] MEDS ORDERED: SOD POLYSTYREN SUL 15 GM/60 ML UCUP ONE (20:22)
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
--- NOTE | 2017-12-24 20:28 | EDPHYS ---
Physician Documentation [facility] Name: Archie Nazario Age: 62 yrs Sex: Male : 1955 Arrival Date: 12/24/2017 Time: 17:49 Bed 28 Private MD: ED Physician Jean Pierre Wright HPI: 12/24 18:29 This 62 yrs old Male presents to ER via EMS with complaints of weakness, shun multiple falls and hypoglycemia. 18:29 weakness, shakey. The patient presents with confusion, decreased mental status. Onset: shun The symptoms/episode began/occurred just prior to arrival. Possible causes: low blood sugar, the patient uses insulin, the patient apparently forgot to eat. Associated signs and symptoms: The patient has no apparent associated signs or symptoms. Associated signs and symptoms: The patient has no apparent associated signs or symptoms, Pertinent positives: confusion. Current symptoms: In the emergency department the patient's symptoms have improved, moderately. Patient's baseline: Neuro: alert and fully oriented. Severity of symptoms: At their worst the symptoms were moderate in the emergency department the symptoms have improved. The patient has experienced a previous episode, last week. Historical: - Allergies: 17:54 No Known Allergies; rv - Home Meds: 17:54 alprazolam 0.5 mg Oral tab daily [Active]; aspirin 81 mg Oral chew 1 tab once daily rv [Active]; entecavir 1 mg Oral tab 1 tab [Active]; famotidine 20 mg Oral tab 1 tab once daily [Active]; gabapentin 100 mg Oral cap twice a day [Active]; Humalog 100 unit/mL Sub-Q soln [Active]; hydroxyzine HCl 25 mg Oral tab every 8 hours [Active]; Levemir 20 units in AM, 20 units in PM subcutaneous [Active]; Renvela 800 mg Oral tab 1 tab 3 times per day [Active]; sertraline 50 mg Oral tab 1 tab once daily [Active]; tacrolimus 1 mg Oral cap every 12 hours [Active]; tramadol 50 mg Oral tab 1 tab every 6 hours [Active]; ursodiol 300 mg Oral cap 1 cap 2 times per day [Active]; zonisamide 100 mg Oral cap nightly [Active]; - PMHx: 17:54 Diabetes - IDDM; Dialysis; hepatic cancer; Hypertension; kidney failure; rv - PSHx: 17:54 LIVER TRANSPLANT; rv - Immunization history:: Adult Immunizations up to date. - Social history:: Smoking status: Patient uses tobacco products. - Ebola Screening: : Patient negative for fever greater than or equal to 101.5 degrees Fahrenheit, and additional compatible Ebola Virus Disease symptoms Patient denies exposure to infectious person Patient denies travel to an Ebola-affected area in the 21 days before illness onset. - Family history:: not pertinent. ROS: 18:29 Constitutional: Negative for fever, chills, and weight loss, Eyes: Negative for injury, shun pain, redness, and discharge, ENT: Negative for injury, pain, and discharge, Neck: Negative for injury, pain, and swelling, Cardiovascular: Negative for chest pain, palpitations, and edema, Respiratory: Negative for shortness of breath, cough, wheezing, and pleuritic chest pain, Abdomen/GI: Negative for abdominal pain, nausea, vomiting, diarrhea, and constipation, Back: Negative for injury and pain, : Negative for injury, bleeding, discharge, and swelling, Skin: Negative for injury, rash, and discoloration, Psych: Negative for depression, anxiety, suicide ideation, homicidal ideation, and hallucinations, Allergy/Immunology: Negative for hives, rash, and allergies, Endocrine: Negative for neck swelling, polydipsia, polyuria, polyphagia, and marked weight changes. 18:29 MS/extremity: Positive for pain, of the chest and abdomen. Exam: 18:29 Constitutional: This is a well developed, well nourished patient who is awake, alert, shun and in no acute distress. Head/Face: Normocephalic, atraumatic. Eyes: Pupils equal round and reactive to light, extra-ocular motions intact. Lids and lashes normal. Conjunctiva and sclera are non-icteric and not injected. Cornea within normal limits. Periorbital areas with no swelling, redness, or edema. ENT: Nares patent. No nasal discharge, no septal abnormalities noted. Tympanic membranes are normal and external auditory canals are clear. Oropharynx with no redness, swelling, or masses, exudates, or evidence of obstruction, uvula midline. Mucous membranes moist. Neck: Trachea midline, no thyromegaly or masses palpated, and no cervical lymphadenopathy. Supple, full range of motion without nuchal rigidity, or vertebral point tenderness. No Meningismus. Cardiovascular: Regular rate and rhythm with a normal S1 and S2. No gallops, murmurs, or rubs. Normal PMI, no JVD. No pulse deficits. Respiratory: Lungs have equal breath sounds bilaterally, clear to auscultation and percussion. No rales, rhonchi or wheezes noted. No increased work of breathing, no retractions or nasal flaring. Abdomen/GI: Soft, non-tender, with normal bowel sounds. No distension or tympany. No guarding or rebound. No evidence of tenderness throughout. Back: No spinal tenderness. No costovertebral tenderness. Full range of motion. Male : Normal genitalia with no discharge or lesions. MS/ Extremity: Pulses equal, no cyanosis. Neurovascular intact. Full, normal range of motion. Psych: Awake, alert, with orientation to person, place and time. Behavior, mood, and affect are within normal limits. 18:29 Chest/axilla: Palpation: tenderness, that is mild, of the anterior aspect of right upper chest and right breast. 18:29 Respiratory: the patient does not display signs of respiratory distress, Respirations: no acute changes, Breath sounds: rhonchi, Respiratory rate: 16 18:29 Abdomen/GI: Inspection: abdomen appears normal, Bowel sounds: normal, Palpation: mild abdominal tenderness, in the right upper quadrant, Liver: no appreciated palpable abnormalities, Hernia: not appreciated. Vital Signs: 17:54 BP 136 / 81; Pulse 77; Pulse Ox 100% ; Weight 83.46 kg; Height 5 ft. 9 in. (175.26 cm) rv (R); 18:48 BP 153 / 80; Pulse 71; Resp 14; Pulse Ox 100% on R/A; rv 19:25 BP 134 / 78; Pulse 69; Resp 17; Pulse Ox 100% on R/A; rv 19:54 Pulse Ox 87% on R/A; kr2 20:07 BP 135 / 57; Pulse 86; Resp 21; Pulse Ox 93% on R/A; rv 22:03 BP 154 / 75; Pulse 84; Pulse Ox 99% on R/A; rv 17:54 Body Mass Index 27.17 (83.46 kg, 175.26 cm) rv 19:54 Patient sleeping, saturation dropped, placed on oxygen \T\ 2 LPM via NC, saturation kr2 increased to 98 MDM: 18:01 Patient medically screened. [facility] 18:33 Data reviewed: vital signs, nurses notes, lab test result(s), EKG, radiologic studies, [facility] CT scan, plain films. 12/24 18:28 Order name: Basic Metabolic Panel; Complete Time: 20:09 [facility] 12/24 18:28 Order name: CBC with Diff; Complete Time: 20:09 [facility] 12/24 18:28 Order name: Ckmb; Complete Time: 20:09 [facility] 12/24 18:28 Order name: CPK; Complete Time: 20:09 [facility] 12/24 18:28 Order name: LFT's; Complete Time: 20:09 [facility] 12/24 18:28 Order name: Magnesium; Complete Time: 20:09 [facility] 12/24 18:28 Order name: NT PRO-BNP; Complete Time: 20:09 [facility] 12/24 18:28 Order name: PT-INR; Complete Time: 20:09 [facility] 12/24 18:28 Order name: Ptt, Activated; Complete Time: 20:09 [facility] 12/24 18:28 Order name: Troponin (emerg Dept Use Only); Complete Time: 20:09 [facility] 12/24 18:28 Order name: XRAY Chest (1 view); Complete Time: 20:09 [facility] 12/24 18:28 Order name: Lipase; Complete Time: 20:09 [facility] 12/24 18:28 Order name: CT Traumagram (Head C Spine CAP wo con); Complete Time: 20:09 [facility] 12/24 18:49 Order name: CBC Smear Scan; Complete Time: 20:09 [facility] 12/24 18:13 Order name: Diet Ada 1800 Jhonny; Complete Time: 18:14 12/24 18:28 Order name: EKG; Complete Time: 18:28 [facility] 12/24 18:28 Order name: Cardiac monitoring; Complete Time: 18:30 [facility] 12/24 18:28 Order name: EKG - Nurse/Tech; Complete Time: 18:30 [facility] 12/24 18:28 Order name: IV Saline Lock; Complete Time: 18:30 [facility] 12/24 18:28 Order name: Labs collected and sent; Complete Time: 18:30 [facility] 12/24 18:28 Order name: O2 Per Protocol; Complete Time: 18:30 [facility] 12/24 18:28 Order name: O2 Sat Monitoring; Complete Time: 18:30 shun Administered Medications: 20:30 Drug: Kayexalate 45 grams Route: PO; rv 22:05 Follow up: Response: No adverse reaction rv Point of Care Testing: Blood Glucose: 17:54 Blood Glucose: 41 mg/dL; rv 18:48 Blood Glucose: 156 mg/dL; rv 23:12 Blood Glucose: 252 mg/dL; rv Ranges: Critical Glucose Levels:Adult <50 mg/dl or >400 mg/dl <40 mg/dl or >180 mg/dl Disposition: 12/24/17 20:28 Hospitalization ordered by Jaime Rios for Observation. Preliminary diagnosis are Hypoglycemia, unspecified, Type 1 diabetes mellitus, Repeated falls, End stage renal disease, Hyperkalemia. - Bed requested for Telemetry/MedSurg (observation). - Status is Observation. rv - Condition is Fair. - Problem is new. - Symptoms have improved. UTI on Admission? No Signatures: Dispatcher [employer] EDJean Pierre Simon MD MD cha Christian, Chelsea cc Vicente, Ronaldo RN RN rv Corrections: (The following items were deleted from the chart) 20:59 20:28 Hospitalization Ordered by Jaime Rios MD for Observation. Preliminary cc diagnosis is Hypoglycemia, unspecified; Type 1 diabetes mellitus; Repeated falls; End stage renal disease; Hyperkalemia. Bed requested for Telemetry/MedSurg (observation). Status is Observation. Condition is Fair. Problem is new. Symptoms have improved. UTI on Admission? No. [facility] 23:14 20:59 12/24/2017 20:28 Hospitalization Ordered by Jaime Rios MD for Observation. rv Preliminary diagnosis is Hypoglycemia, unspecified; Type 1 diabetes mellitus; Repeated falls; End stage renal disease; Hyperkalemia. Bed requested for Telemetry/MedSurg (observation). Status is Observation. Condition is Fair. Problem is new. Symptoms have improved. UTI on Admission? No. cc
--- NOTE | 2017-12-24 22:33 | P.HP ---
Certification for Inpatient Patient admitted to: Observation With expected LOS: <2 Midnights Practitioner: I am a practitioner with admitting privileges, knowledge of patient current condition, hospital course, and medical plan of care. Services: Services provided to patient in accordance with Admission requirements found in Title 42 Section 412.3 of the Code of Federal Regulations Patient History Date of Service: 12/24/17 Reason for admission: hypoglycemia History of Present Illness: Mr Nazario is a 62 years old male with history of IDDM, ESRD on HD, liver transplant who was doing well until this afternoon, when he was driving, felt like something hit the car. When he stopped the car to check outside, he felt that was going to collapse. In ED BS was checked and it was 24 mg/dl. He was very weak and shaky. He recived an amp of D50% and BS start to improve. No history of fever or chills. The patient states that he has had several falls at home lately. At my encounter the patient was somnolent, unable to keep his eyes open and give me a good history. Last BS 86 mg/dl. Allergies No Known Drug Allergies Allergy (Verified 03/26/17 22:15) Unknown No Known Allergies Allergy (Uncoded 07/03/16 16:58) Unknown Home medications list reviewed: Yes Home Medications: Bumetanide [Bumex] 1 mg PO DAILY 03/27/17 Calcium Citrate 500 mg PO DAILY 03/27/17 Entecavir 1 mg PO DAILY 03/27/17 Famotidine 20 mg PO DAILY 03/27/17 Insulin Detemir [Levemir] 30 unit SQ BEDTIME 03/27/17 Insulin Detemir [Levemir] 50 units SQ BREAKFAST 03/27/17 Mirtazapine [Remeron*] 15 mg PO DAILY 03/27/17 Sevelamer Carbonate [Renvela*] 800 mg PO TID 03/27/17 Sirolimus [Rapamune] 2 mg PO DAILY 03/27/17 Tamsulosin HCl 0.4 mg PO DAILY 03/27/17 Ursodiol 300 mg PO BID 03/27/17 metOLazone [Zaroxolyn*] 2.5 mg PO DAILY 03/27/17 predniSONE [Prednisone*] 5 mg PO DAILY 03/27/17 - Past Medical/Surgical History Diabetic: Yes -: End-stage renal disease -: Right hip pain -: Type 2 diabetes -: Liver cancer -: Hepatic cancer -: Hemodialysis access catheter -: Liver transplant - Family History Father -: Diabetes Notes: Father - Social History Smoking Status: Former smoker Alcohol use: No CD- Drugs: No Caffeine use: No Place of Residence: Home Review of Systems 10-point ROS is otherwise unremarkable Physical Examination - Physical Exam General: Alert, In no apparent distress, Other (somnolent) HEENT: Atraumatic, PERRLA, Mucous membr. moist/pink, EOMI, Sclerae nonicteric Neck: Supple, 2+ carotid pulse no bruit, No LAD, Without JVD or thyroid abnormality Respiratory: Clear to auscultation bilaterally, Normal air movement Cardiovascular: Regular rate/rhythm, Normal S1 S2 Gastrointestinal: Normal bowel sounds, No tenderness Musculoskeletal: No tenderness Integumentary: No rashes Neurological: Normal speech, Normal strength at 5/5 x4 extr, Normal tone, Normal affect Lymphatics: No axilla or inguinal lymphadenopathy - Studies Laboratory Data (last 24 hrs) 12/24/17 16:20: PT 10.9, INR 0.92, APTT 29.1 12/24/17 16:20: WBC 3.5 L D, Hgb 12.8 L, Hct 40.7, Plt Count 132 L 12/24/17 16:20: Sodium 145, Potassium 5.2 H, BUN 91 H, Creatinine 10.50 H*, Glucose 86, Magnesium 3.4 H, Total Bilirubin 0.4, AST 86 H, ALT 110 H, Alkaline Phosphatase 480 H, Lipase 74 Assessment and Plan - Problems (Diagnosis) (1) Hypoglycemia Current Visit: Yes Status: Acute (2) ESRD (end stage renal disease) on dialysis Current Visit: No Status: Chronic (3) Type 2 diabetes mellitus Onset Date: 03/27/17 Current Visit: No Status: Chronic Qualifiers: Diabetes mellitus manager intermediate insulin use: without [facility] use Diabetes mellitus complication status: without complication Qualified Code(s): E11.9 - Type 2 diabetes mellitus without complications - Plan The patient will be admitted to the hospital due to acute encephalopathy, likely secondary to hypoglycemia. Will check ammonia level, order ABG. Continue tight BS monitoring. - Advance Directives Does patient have a Living Will: No Does patient have a Durable POA for Healthcare: No - Code Status/Comfort Care Code Status Assessed: Yes Code Status: Full Code
[2017-12-24 23:24] VITALS: O2SAT 99
[2017-12-25] MEDS ORDERED: ONDANSETRON 4 MG/2 ML VIAL IV PRN (00:27)
[2017-12-25] MEDS ORDERED: D50W 25 GM/50 ML SYRINGE IV PRN (00:27)
[2017-12-25] MEDS ORDERED: ACETAMINOPHEN 500 MG TAB PO PRN (00:27)
[2017-12-25 01:46] VITALS: BMI 27.1
[2017-12-25] MEDS ORDERED: TRAMADOL HCL 50 MG TAB PO PRN (02:05)
[2017-12-25 04:47] LABS: Absolute Lymphocytes (CBC) 0.5 K/uL (0.7-4.9); Absolute Monocytes 0.4 K/uL (0.1-1.3); Absolute Neutrophil 2.7 K/uL (1.8-8.0); Basophils % 0.3 % (0-1.3); Eosinophils % 0.5 % (0-4.4); Hematocrit 40.8 % (39.6-49.0); Lymphocytes % 14.3 % (15.3-44.8); MCH 27.5 pg (27.0-35.0); MCV 88.8 fL (80-100); MPV 7.8 fL (7.6-11.3); Monocytes % 12.1 % (3.3-12.3)
[2017-12-25] MEDS ORDERED: Morphine 2 MG/2 ML SYR IV ONE (05:47)
[2017-12-25] MEDS ORDERED: MORPHINE 2 MG/ML SYR ONE (06:14)
--- NOTE | 2017-12-25 07:07 | RAD REPORT ---
EXAM DESCRIPTION: RAD - Hip Right 2 View - 12/25/2017 3:04 am CLINICAL HISTORY: Persistent right hip pain following fall COMPARISON: None. FINDINGS: AP and frog-leg views of the right hip were obtained. No fracture or dislocation of the p roximal femur. Degenerative changes are seen along the superior acetabular rim. No AVN or focal femor al head abnormality. Joint effusion or periarticular soft tissue abnormality not suspected. Mild SI joint degenerative changes are present. Assessment of the right hemipelvis is limited somewh at by a positioning. No fracture identifiable. IMPRESSION: Mild hip joint degenerative changes are present. No acute findings seen. Continued unexplained pain symptoms could be further addressed with thin section CT imaging or MRI of the right hip joint.
[2017-12-25] MEDS: INSULIN -REGULAR HUMAN 50 UNIT/0.5 ML ML SQ SCH ×2 (07:30→11:30)
[2017-12-25] MEDS ORDERED: CODEINE 30MG/APAP 300MG TAB PO PRN (08:34)
[2017-12-25] MEDS: ENOXAPARIN 30 MG/0.3 ML SQ SCH ×2 (08:50→09:00)
--- NOTE | 2017-12-25 08:51 | P.DS ---
Admission Date: 12/24/17 Discharge Date: 12/25/17 Primary Care Provider: Dr. Walton; Nephrology-Dr. Amin; Liver-Dr. Paniagua; Int.Med-Dr. Garcia Disposition: ROUTINE DISCHARGE Discharge Condition: GOOD Reason for Admission: hypoglycemia Consultations: None Procedures: CT scan: FINDINGS: No intracranial hemorrhage, mass or edema. Atrophy and chronic ischemic changes are present similar to comparison. Physiologic calcifications are present. No midline shift or abnormal fluid collection. Mastoid air cells are clear. Mucosal thickening is present in the sphenoid sinus. No skull fracture. Postsurgical changes to the left frontal bone noted. Cervical bodies are normal in height and alignment. No fracture or acute bone finding.C6-7 disc space narrowing present. This is similar to comparison.No prevertebral soft tissue thickening or paraspinal mass.Central canal detail is inherently limited on CT imaging. CT chest shows no pneumothorax, pulmonary contusion or pleural fluid collection. Posterior lung base atelectasis present. No mediastinal hematoma and the aorta and pulmonary arteries are unremarkable. No chest will mass or abnormal axillary finding. No displaced rib fracture or other significant bony finding. Right-sided double-lumen dialysis catheter is in place. Stent is in place in the brachiocephalic vein and medial margin of the subclavian vein on the left. No acute traumatic injury to the liver, spleen or kidneys. History is liver transplant. Date of surgery is unknown. The gallbladder is absent. Biliary tree within normal limits. Dense splenic artery calcifications are present. No acute bowel injury. No free air, free fluid or abnormal stranding. No bulky lymphadenopathy or omental thickening. Lateral to the inferior aspect of the liver is a 3.6 x 2.4 centimeter low-density mass. This is discrete from the liver. No similar mass on this study. No ascites or other finding to suspect intraperitoneal process. This is not believed to be an acute finding. No urinary bladder abnormality. No significant bony finding. IMPRESSION: No hemorrhage, edema or acute CT Head finding. No change from the October 2017 study. No fracture or acute cervical spine finding. No significant change from May 2017. Lung base atelectasis with no acute CT chest finding. No traumatic injury to the abdomen or pelvis. A 3.6 centimeter mass is positioned between the inferior right lobe of the liver and the lower ribcage. The mass is not liver in origin. Etiology is uncertain. No similar finding elsewhere on the examination. This is possibly an old hematoma if the patient had a liver biopsy. Long-term significance is doubtful but this can be monitored on subsequent imaging. Chest CXR: Lung atelectasis noted. Right Hip x-ray: FINDINGS: AP and frog-leg views of the right hip were obtained. No fracture or dislocation of the proximal femur. Degenerative changes are seen along the superior acetabular rim. No AVN or focal femoral head abnormality. Joint effusion or periarticular soft tissue abnormality not suspected. Mild SI joint degenerative changes are present. Assessment of the right hemipelvis is limited somewhat by a positioning. No fracture identifiable. IMPRESSION: Mild hip joint degenerative changes are present. No acute findings seen. - Problems (1) Chronic pain Current Visit: Yes Status: Chronic Qualifiers: Chronic pain type: chronic pain syndrome Qualified Code(s): G89.4 - Chronic pain syndrome (2) Atelectasis Current Visit: Yes Status: Chronic (3) Hypoglycemia Onset Date: 12/25/17 Current Visit: Yes Status: Acute (4) ESRD (end stage renal disease) on dialysis Onset Date: 12/25/17 Current Visit: Yes Status: Chronic (5) History of liver transplant Onset Date: 03/27/17 Current Visit: No Status: Chronic (6) Type 2 diabetes mellitus Onset Date: 03/27/17 Current Visit: No Status: Chronic Qualifiers: Diabetes mellitus corporate licensed broker insulin use: without corporate licensed broker use Diabetes mellitus complication status: without complication Qualified Code(s): E11.9 - Type 2 diabetes mellitus without complications (7) Chronic steroid use Current Visit: Yes Status: Chronic (8) Hyperkalemia Onset Date: 03/27/17 Current Visit: No Status: Acute (9) GERD (gastroesophageal reflux disease) Current Visit: Yes Status: Chronic Qualifiers: Esophagitis presence: esophagitis presence not specified Qualified Code(s) : K21.9 - Gastro-esophageal reflux disease without esophagitis (10) BPH (benign prostatic hyperplasia) Current Visit: Yes Status: Chronic Qualifiers: Lower urinary tract symptom presence: unspecified whether lower urinary tract symptoms present Qualified Code(s): N40.0 - Benign prostatic hyperplasia without lower urinary tract symptoms (11) History of immunosuppression therapy Current Visit: Yes Status: Chronic Brief History of Present Illness: 62-year-old male presented emergency room with hypoglycemia. The patient was evaluated the emergency room. Blood sugars were low. Initial blood sugar was as low as 26. The patient was admitted for treatment. Patient has a history of diabetes on insulin therapy, end-stage renal disease on dialysis, history of liver transplant. Hospital Course: During the course of his stay his condition improved. Blood sugars improved. Hemoglobin A1c was evaluated. Hemoglobin A1c 6.2. Patient reports that he has a history of a liver transplant. He is taking insulin. He reports that his medications was recently adjust by his medication. He is currently taking Levemir 50 mg in the morning and 30 mg at night. He is also taking Humalog 15 units daily including a sliding scale. At discharge I will recommend the patient be more lenient on strict control of his diabetes. Patient may continue with Levemir 30 units subcu twice daily. Patient will need to decrease Humalog doses. Recommendation is to maintain blood sugars less 140 fasting and less than 200 after meals. Further adjustment can be done by his PCP. Education on hypoglycemia was addressed in detail. Education on eating at least 3 meals a day with snacks is recommended. Patient has end-stage renal disease on dialysis. Patient will get dialysis later today as an outpatient. Patient will continue with nephrology as directed. He is getting dialysis every Mondays, Wednesdays and Fridays. A prescription for Renvela will be provided. Patient had mild hyperkalemia. Patient treated in the emergency room. This resolved. Patient will continue with dialysis as directed. Patient has a history of liver transplant. He is on chronic steroids and immunosuppression therapy. He will continue [facility] Prednisone 5 mg daily and Sirolimus 2 mg daily. Patient is seen at [facility] in [place]. Patient will continue with his medication. Patient will follow up with his specialty care. Patient has chronic pain. Patient has seen his PCP for this. Patient has been given information by his PCP to see a pain specialist. He is in the process of making arrangements. Recommendation is for the patient to continue with pain management. Patient will be given a limited supply of Tylenol #3. CT showed no fractures to. X-ray to the right hip showed no evidence of fracture. Patient has BPH. Patient continue with Flomax 0.4 mg daily. Patient has GERD. Patient continue with Pepcid 20 mg 1 pill twice daily. Vital Signs/Physical Exam: Temp Pulse Resp BP Pulse Ox 97.4 F 76 18 132/69 98 07/25/18 04:00 12/25/17 06:12 12/25/17 04:00 12/25/17 06:12 12/25/17 04:00 General: Alert, In no apparent distress, Oriented x3, Cooperative HEENT: Atraumatic Neck: Supple Respiratory: Clear to auscultation bilaterally, Normal air movement Cardiovascular: Normal pulses, Regular rate/rhythm Gastrointestinal: Normal bowel sounds, Soft and benign, Non-distended, No masses , No rebound, No guarding Musculoskeletal: No erythema, No tenderness, No warmth Integumentary: No tenderness/swelling, No erythema, No warmth, No cyanosis Neurological: Normal speech, Normal strength at 5/5 x4 extr, Normal tone, Normal affect Laboratory Data at Discharge: WBC 3.7 K/uL (4.3-10.9) L 12/25/17 04:21 Hgb 12.7 g/dL (13.6-17.9) L 12/25/17 04:21 Hct 40.8 % (39.6-49.0) 12/25/17 04:21 Plt Count 104 K/uL (152-406) L D 12/25/17 04:21 PT 10.9 SECONDS (9.5-12.5) 12/24/17 16:20 INR 0.92 12/24/17 16:20 APTT 29.1 SECONDS (24.3-36.9) 12/24/17 16:20 Sodium 142 mmol/L (136-145) 12/25/17 04:21 Potassium 5.0 mmol/L (3.5-5.1) 12/25/17 04:21 BUN 95 mg/dL (7-18) H 12/25/17 04:21 Creatinine 11.00 mg/dL (0.55-1.3) H* 12/25/17 04:21 Glucose 299 mg/dL (74-106) H 12/25/17 04:21 Magnesium 3.4 mg/dL (1.8-2.4) H 12/24/17 16:20 Total Bilirubin 0.4 mg/dL (0.2-1.0) 12/24/17 16:20 AST 86 U/L (15-37) H 12/24/17 16:20 ALT 110 U/L (12-78) H 12/24/17 16:20 Alkaline Phosphatase 480 U/L (45-117) H 12/24/17 16:20 Lipase 74 U/L (73-393) 12/24/17 16:20 Home Medications: Bumetanide [Bumex] 1 mg PO DAILY 03/27/17 Calcium Citrate 500 mg PO DAILY 03/27/17 Entecavir 1 mg PO DAILY 03/27/17 Famotidine 20 mg PO DAILY 03/27/17 Insulin Detemir [Levemir] 30 unit SQ BEDTIME 03/27/17 Mirtazapine [Remeron*] 15 mg PO DAILY 03/27/17 Sirolimus [Rapamune] 2 mg PO DAILY 03/27/17 Tamsulosin HCl 0.4 mg PO DAILY 03/27/17 Ursodiol 300 mg PO BID 03/27/17 metOLazone [Zaroxolyn*] 2.5 mg PO DAILY 03/27/17 predniSONE [Prednisone*] 5 mg PO DAILY 03/27/17 Codeine/APAP [Tylenol #3*] 1 tab PO TID PRN #10 tab 12/25/17 Insulin Detemir [Levemir] 30 units SQ BREAKFAST #1 ml 12/25/17 Sevelamer Carbonate [Renvela*] 800 mg PO TID #90 tablet 12/25/17 New Medications: Codeine/APAP [Tylenol #3*] 1 tab PO TID PRN #10 tab PRN Reason: Pain Insulin Detemir [Levemir] 30 units SQ BREAKFAST #1 ml Sevelamer Carbonate [Renvela*] 800 mg PO TID #90 tablet Patient Discharge Instructions: 1. Patient will need to follow up his PCP in 1 week to follow up this hospitalization. 2. Patient presented with hypoglycemia. Hemoglobin A1c 6.2. Medications have been adjusted. At discharge I will recommend the patient be more lenient on strict control of his diabetes. At discharge, patient will continue with Levemir 30 units subcu twice daily. Patient will need to decrease Humalog doses. Recommendation is to maintain blood sugars less 140 fasting and less than 200 after meals. Further adjustment can be done by his PCP. Education on hypoglycemia was addressed in detail. Education on eating at least 3 meals a day with snacks is recommended. 3. Patient has end-stage renal disease on dialysis. Patient will get dialysis later today as an outpatient. Patient will continue with nephrology as directed. He is getting dialysis every Mondays, Wednesdays and Fridays. A prescription for Renvela will be provided. 4. Patient had mild hyperkalemia. Patient treated in the emergency room. This resolved. Patient will continue with dialysis as directed. 5. Patient has a history of liver transplant. He is on chronic steroids and immunosuppression therapy. He will continue with Prednisone 5 mg daily and Sirolimus 2 mg daily. Patient is seen at [facility] in [place]. Patient will continue with his medication. Patient will follow up with his specialty care. 6. Patient has chronic pain. Patient has seen his PCP for this. Patient has been given information by his PCP to see a pain specialist. He is in the process of making arrangements. Recommendation is for the patient to continue with pain management. Patient will be given a limited supply of Tylenol #3. CT showed no fractures to. X-ray to the right hip showed no evidence of fracture. 7. Patient has BPH. Patient continue with Flomax 0.4 mg daily. 8. Patient has GERD. Patient continue with Pepcid 20 mg 1 pill twice daily. Diet: Renal Activity: Fall precautions Time spent managing pt's care (in minutes): 55
[2017-12-25] MEDS ORDERED: SIROLIMUS 2 MG PO SCH (09:00)
[2017-12-25] MEDS ORDERED: predniSONE 5 MG TAB PO SCH (09:00)
[2017-12-25] MEDS ORDERED: URSODIOL 300 MG CAP PO SCH (09:00)
[2017-12-25] MEDS ORDERED: SEVELAMER CARBONATE 800 MG TABLET PO SCH (09:00)
[2017-12-25] MEDS ORDERED: FAMOTIDINE 20 MG TAB PO SCH (09:00)
[2017-12-25 09:14] VITALS: BP 115/75; TEMP 97
--- NOTE | 2017-12-25 10:29 | EKG ---
Test Date: 2017-12-24 Test Time: 18:34:34 Channel Rebuilder: MEASUREMENT RESULTS: Intervals: Rate: 69 VA: 158 QRSD: 80 QT: 420 QTc: 450 [place]: P: 60 VA: 158 QRS: -4 T: 52 INTERPRETIVE STATEMENTS: Normal sinus rhythm Normal ECG Compared to ECG 11/04/2017 20:21:41 No significant changes Electronically Signed On 12-25-17 10:28:18 CDT by Ayo Mcdowell
--- NOTE | 2017-12-26 01:36 | CON ---
Date of Consultation: 12/25/2017 Reason For Consultation: Elevated BUN and creatinine. History Of Present Illness: This is a pleasant 62-year-old gentleman with significant past medical h istory of; 1.Hypertension. 2.Liver CA, status post transplant. 3.Anasarca. 4.Diabetes, complicated with neuropathy and nephropathy. 5.End-stage renal disease, on hemodialysis, Saturday, Saturday, Saturday. The patient came to the hospital because of symptomatic hypoglycemia, found altered mental status in his car. The patient recovered after giving D50 in the field. The patient today completely asymptom atic. Lab showed acidosis and marginal hyperkalemia. For that reason, we have been consulted. Past Medical History: 1.Liver CA, status post transplant. 2.Hypertension. 3.Diabetes, complicated with neuropathy and nephropathy. 4.Anasarca. 5.End-stage renal disease. Family History: Positive for hypertension and diabetes. Social History: Ex-smoker. Denied alcohol. Denied drug abuse. Past Surgical History: 1.Liver transplant. 2.PermCath placement. Review of Systems: Head and Neck: No red eye. No ear pain. GI: No nausea, no vomiting. : No polyuria. No dysuria. No hematuria. LEGAL ENTITY CONTROLLER: Not applicable. Respiratory: No shortness of breath. Cardiovascular: No chest pain. Neuro: Altered mental status. Musculoskeletal: No joint pain. Endocrine: No polydipsia. Skin: No rash. Physical Examination: Vital Signs: When I saw the patient, blood pressure of 115/75, pulse of 74. Chest: Clear to auscultation. Heart: S1, S2. Regular. Abdomen: Soft, nontender. Extremities: No edema. Laboratory Data: H and H are 12.7/40.8. Sodium 142, potassium 5, bicarb 25, BUN 95, creatinine 11.9 , calcium 7. Assessment And Plan: 1.End-stage renal disease with hyperkalemia. We will dialyze the patient on low-potassium bath. 2.Hypertension, controlled, optimal. Continue to monitor. Continue current medication. 3.Acidosis, marginal, will be corrected on dialysis. 4.Hyperkalemia. The patient is going to be dialyzed on low-potassium bath. 5.Diabetes with hypoglycemia. Adjust the insulin. Follow up with the hospitalist. Case is discussed with the patient and verbalized understanding. MA/NIDAL Voice ID: [id number] Report ID: [id number]
== END 2017-12-25 12:32 | disposition home or self-care (01) ==
LOC: ER 17:41 → ERHOLD 20:31 → 4TH 22:54
PROVIDERS: ADMIT Internal Medicine; ATTEND Internal Medicine
DX: E11.649 Type 2 diabetes mellitus with hypoglycemia without coma (principal); I12.0 Hypertensive chronic kidney disease with stage 5 chronic kidney disease or end stage renal disease; E11.22 Type 2 diabetes mellitus with diabetic chronic kidney disease; N18.6 End stage renal disease; E87.5 Hyperkalemia; Z85.05 Personal history of malignant neoplasm of liver; Z94.4 Liver transplant status; G89.29 Other chronic pain; J98.11 Atelectasis; N40.0 Benign prostatic hyperplasia without lower urinary tract symptoms; Z79.52 Long term (current) use of systemic steroids
CPT/HCPCS: 36415; 70450; 71045; 71250; 72125; 80048; 80076; 82140; 82550; 82553; 82962; 83036; 83690; 83735; 83880; 84484; 85025; 85610; 85730; 93005; 99285; G0378; J1650; J2270; J7512